=== PATIENT | female | born 1950 | race Caucasian/White ===

== ENCOUNTER 2017-09-22 18:51 | Emergency (ER) | payer OTHER, SELFPAY ==
[2017-09-22 18:51] VITALS: BP 162/103; PULSE 88; RESP 14; TEMP 36.7; O2SAT 97; BMI 30.7
--- NOTE | 2017-09-22 19:08 | ED.RN ---
PT REPORTS HEADACHE AND CONGESTIONS STATING, I THINK I HAVE A SINU S INFECTIONS.
[2017-09-22 19:26] LABS: Bedside Glucose 352 mg/dL (70-110)
--- NOTE | 2017-09-22 19:44 | RAD_ITS ---
STUDY: X-RAY CHEST REASON FOR EXAM: Female, 66 years old. COUGH, WEAKNESS, Hx OF COPD TECHNIQUE: Frontal and lateral views of the chest. COMPARISON: November 30, 2016 FINDINGS: Chronic appearing increased interstitial lung markings. There is an elevated right hemidiaphragm. There is no demonstrated pleural abnormality. Enlarged heart size. Normal mediastinum and shana. Normal visualized pulmonary arteries. There is atherosclerotic calcification of the aortic arch with tortuosity. There are diffuse degenerative changes of the visualized thoracic spine. There is degenerative osteoarthritis of the bilateral shoulders. There is no demonstrated abnormality of the visualized soft tissue structures of the upper abdomen. RAD/Chest PA and Lateral IMPRESSION: There are no acute findings. Electronically Signed: Kenny Segura MD at 20:42 EDT , Service support ,
--- NOTE | 2017-09-22 19:44 | EKG12_ITS ---
Test Reason : WEAKNESS Blood Pressure : / mmHG Vent. Rate : 073 BPM Atrial Rate : 073 BPM P-R Int : 168 ms QRS Dur : 104 ms QT Int : 394 ms P-R-T Axes : 035 -41 038 degrees QTc Int : 434 ms Normal sinus rhythm Left axis deviation Incomplete left bundle branch block Abnormal ECG Confirmed by PAULETTE OROZCO, GABRIELA ([id number]), editor news PENNY MENARD ([id number]) on 09/24/2017 3:00:45 PM Referred By: NORIS Confirmed By:GABRIELA CALDWELL MD
[2017-09-22 20:09] LABS: Absolute Lymphocyte Count 2.67 X10^3/ul (0.83-4.51); Absolute Neutrophil Count 7.3 X10^3/uL (2.0-7.7); Basophil# 0.03 X10^3/uL; Basophil% 0.3 % (0-1); Eosinophil# 0.32 X10^3/uL; Hematocrit 39.4 % (37-47); Hemoglobin 13.1 g/dl (12.0-15.0); Lymphocyte # 2.67 X10^3/ul (4.0); Lymphocyte % 24.9 % (19-41); Mean Corp Hgb Conc 33.2 g/gl (32-36); Mean Corpuscular Hgb 28.4 pg (27.0-32.0); Mean Corpuscular Volume 85.5 fL (81-99); Mean Platelet Vol. 10.3 fl (6.2-12.0); Monocyte# 0.37 X10^3/uL; Monocyte% 3.4 % (0-10); Neutrophil # 7.32 X10^3/uL (2.7-7.7); Neutrophil % 68.2 % (47-70); Platelet Count 247 K/mm3 (150-450); RBC Distribution Width CV 14.2 % (11.6-14.6); RBC Distribution Width SD 43.5 fl (35.1-43.9); Red Blood Count 4.61 M/mm3 (4.2-5.4); White Blood Count 10.7 K/mm3 (4.4-11.0)
[2017-09-22 20:12] LABS: POSITIVE COUNT NO; POSITIVE DIFFERENTIAL NO; POSITIVE MORPHOLOGY NO
[2017-09-22] MEDS: Ondansetron 4 MG/2 ML Vial IV (20:13)
[2017-09-22 20:39] LABS: Albumin, Serum 3.2 g/dL (3.2-5.0); BUN 16 mg/dL (7-18); BUN/Creat Ratio 16.2 RATIO (10-20); Creatinine, Serum 0.98 mg/dL (0.55-1.02); EST Glomerular Filtration Rate 60 mL/min (>60); Est Glom Filt Rate - Afr Amer 72 mL/min (>60); Estimated Creatinine Clearance 50.13 ml/min; Globulin 3.8 g/dL (2.2-4.2); Glucose 348 mg/dL (74-106)
[2017-09-22 20:40] LABS: ALB/GLOB Ratio 0.8 RATIO (0.9-2.4); AST(SGOT) 24 U/L (15-37); Alanine Aminotransfer ALT/SGPT 22 U/L (13-56); Alkaline Phosphatase 107 U/L (45-117); Anion Gap 7 (5-15); Chloride 106 mmol/L (98-107); Potassium 3.9 mmol/L (3.5-5.1); Sodium Level 139 mmol/L (136-145)
[2017-09-22 21:00] LABS: Color, Urine Yellow (Yellow); Glucose, Dipstick 1000 mg/dl (Normal); Ketone-Dipstick Negative (Negative); Leukocyte Esterase-Dipstick 500 /ul (Negative); Nitrite-Dipstick Negative (Negative); Occult Blood-Urine Negative /ul (Negative); Protein-Dipstick 30 mg/dl (Negative); Specific Gravity, Urine 1.015 (1.002-1.030); Urine Bilirubin Dipstick Negative (Negative); Urine Clarity Clear (Clear); Urine Urobilinogen Normal (Normal); Urine pH 6.5 (5.0 - 8.0)
[2017-09-22 21:01] LABS: Bacteria 0 SEEN /hpf (None Seen); Mucous, Urine 0 SEEN /hpf (<or=2+); Red Blood Cells-Urine 0 SEEN /hpf (0-5)
[2017-09-22 21:22] LABS: White Blood Cells 50-100 SEEN /hpf (0-5)
[2017-09-22 21:23] LABS: Squamous Epithelial Cells - UA 0-5 SEEN /hpf (5-10)
--- NOTE | 2017-09-22 21:56 | ED.VISSUMM ---
- ER Visit Summary Date of Service: 09/22/17 Chief Complaint: I do not feel good History of Present Illness: The patient is a 66 F who presents with generalized malaise. She states that she just has not felt well over the past week. She complains of some generalized weakness. She has noted some congestion and postnasal drainage and has had sick contacts with similar symptoms. She reports nausea. No chest pain shortness of breath abdominal pain vomiting diarrhea dysuria frequency urgency. Physical Examination: Afebrile vitals are notable for elevated blood pressure at 162/103 otherwise normal Moist mucous membranes Heart regular rate and rhythm Lungs are clear Abdomen soft nontender nondistended Alert no focal or lateralizing neurological deficits Test Results: EKG shows sinus rhythm at a rate of 73. Chest x-ray unremarkable. CBC BMP notable for glucose of 348. Urinalysis shows 500 leukocyte esterase as well as 50-100 WBCs Emergency Department Course and Treatment: Patient was given Zofran for nausea. Her workup is notable for UTI. She was prescribed Cipro given penicillin and sulfa allergies. She was advised to follow-up with her primary care physician. She understands to return for new or worsening symptoms. She was discharged. Treatment Plan: [] Disposition: Discharge Impression: UTI This note was generated with [employer] dictation software. It may contain incorrect words, spelling, and punctuation that were not noted in review of the chart prior to signing ED Disposition - Plan for ED Patient: Chief Complaint: Weakness Referrals: Care Physician,No Primary [Primary Care Provider] -
--- NOTE | 2017-09-22 21:58 | ED.DEP ---
ED Disposition - Plan for ED Patient: Chief Complaint: Weakness Instructions: ED UTI Cystitis Female Prescriptions: Ciprofloxacin [Cipro] 500 mg PO BID #14 tab Referrals: Care Physician,No Primary [Primary Care Provider] -
[2017-09-22 22:19] VITALS: BP 152/83; PULSE 87; RESP 19; O2SAT 96
--- NOTE | 2017-09-22 22:19 | ED.RN ---
PT EDUCATED ON WRITTEN DISCHARGE INSTRUCTIONS AND HOME GOING PRESCRIPTIONS. PT VERBALIZES UNDERSTANDING AND DENIES ANY FURTHER QUESTIONS. PT IV D/C AND COVERED WITH 2X2 GAUZE DRESSING AND PAPER TAPE. PT GIVEN A NOTE FOR WORK TODAY, AND PAPER SCRUBS. PT DRESSES SELF AND AMBULATES OUT OF DEPARTMENT WITHOUT ASSISTANCE FROM STAFF. PT TO FOLLOW UP WITH PRIMARY
== END 2017-09-22 22:21 | disposition home or self-care (01) ==
LOC: ED 19:38
PROVIDERS: Emergency Provider Emergency Medicine
DX: N39.0 Urinary tract infection, site not specified (principal); R11.0 Nausea; E11.9 Type 2 diabetes mellitus without complications; I10 Essential (primary) hypertension; Z88.2 Allergy status to sulfonamides; Z88.0 Allergy status to penicillin; Z79.4 Long term (current) use of insulin; Z79.899 Other long term (current) drug therapy
CPT/HCPCS: 71046; 80053; 81001; 82962; 85025; 87086; 87088; 93005; 96374; 99283; A4216; J2405

== ENCOUNTER 2017-10-07 02:01 | Emergency (ER) | payer OTHER, SELFPAY ==
[2017-10-07 02:02] VITALS: BP 196/74; PULSE 88; RESP 15; TEMP 37.1; O2SAT 97; BMI 32.4
--- NOTE | 2017-10-07 02:26 | CT_ITS ---
STUDY: CT ABDOMEN AND PELVIS WITHOUT CONTRAST REASON FOR EXAM: Female, 66 years old. Abdominal pain and nausea RADIATION DOSAGE (If Supplied By Facility): CTDIvol = ( 16.57 ) mGy, DLP = ( 979.44 ) mGycm TECHNIQUE: Transaxial images were obtained from the dome of the diaphragm to the symphysis pubis without oral contrast, and without intravenous contrast. Sagittal and coronal images were reconstructed. Individualized dose optimization techniques were used for this CT. COMPARISON: None. FINDINGS: The visualized lung bases are unremarkable. The visualized portions of the heart are within normal limits. Normal liver. There is non-visualization of the gallbladder, which may be secondary to either contraction or a prior cholecystectomy. Normal spleen. Normal pancreas. Normal bilateral adrenal glands. 3 mm nonobstructing right renal calculus. Normal left kidney. Normal visualized stomach. Normal small intestine. Acute sigmoid diverticulitis without free air or abscess. The appendix is visualized and appears normal. Normal abdominal aorta. Normal inferior vena cava. Normal retroperitoneum. Normal urinary bladder. Right anterior abdominal wall induration could be related to bruising or cellulitis. Normal abdominal wall. Lower lumbar fusions. CT/Abdomen/Pelvis without Cont IMPRESSION: Acute sigmoid diverticulitis without free air or abscess. Right anterior abdominal wall induration could be related to bruising or cellulitis. Electronically Signed: Ronald Eubanks MD at 3:32 EDT Tel , Service support ,
[2017-10-07] MEDS: HYDROmorphone 1 MG/ML Syringe IV (02:58)
[2017-10-07] MEDS: proMETHazine 25 MG/ML Syringe 6.25 MG IV (02:58)
[2017-10-07] MEDS: 0.9% Normal Saline 1,000 ML 1000 ML IV (02:58)
[2017-10-07 03:03] LABS: Absolute Lymphocyte Count 2.55 X10^3/ul (0.83-4.51); Absolute Neutrophil Count 13.6 X10^3/uL (2.0-7.7); Basophil# 0.04 X10^3/uL; Basophil% 0.2 % (0-1); Eosinophil# 0.46 X10^3/uL; Eosinophils% 2.6 % (0-5); Hematocrit 38.3 % (37-47); Hemoglobin 12.6 g/dl (12.0-15.0); Lymphocyte # 2.55 X10^3/ul (4.0); Lymphocyte % 14.5 % (19-41); Mean Corp Hgb Conc 32.9 g/gl (32-36); Mean Corpuscular Hgb 28.2 pg (27.0-32.0); Mean Corpuscular Volume 85.7 fL (81-99); Mean Platelet Vol. 10.3 fl (6.2-12.0); Monocyte# 0.91 X10^3/uL; Monocyte% 5.2 % (0-10); Neutrophil # 13.59 X10^3/uL (2.7-7.7); Neutrophil % 77.3 % (47-70); Platelet Count 269 K/mm3 (150-450); RBC Distribution Width CV 14.1 % (11.6-14.6); Red Blood Count 4.47 M/mm3 (4.2-5.4); White Blood Count 17.6 K/mm3 (4.4-11.0)
[2017-10-07 03:09] LABS: POSITIVE COUNT NO; POSITIVE DIFFERENTIAL NO; POSITIVE MORPHOLOGY NO
[2017-10-07 03:34] LABS: Bacteria 0 SEEN /hpf (None Seen); Mucous, Urine 0 SEEN /hpf (<or=2+); Red Blood Cells-Urine 0 SEEN /hpf (0-5)
[2017-10-07 03:41] LABS: Color, Urine Yellow (Yellow); Glucose, Dipstick 250 mg/dl (Normal); Ketone-Dipstick Negative (Negative); Leukocyte Esterase-Dipstick 100 /ul (Negative); Nitrite-Dipstick Negative (Negative); Occult Blood-Urine Negative /ul (Negative); Protein-Dipstick Negative (Negative); Specific Gravity, Urine 1.015 (1.002-1.030); Urine Bilirubin Dipstick Negative (Negative); Urine Clarity Clear (Clear); Urine Urobilinogen Normal (Normal)
[2017-10-07 03:48] LABS: Squamous Epithelial Cells - UA 0-5 SEEN /hpf (5-10); White Blood Cells 0-5 SEEN /hpf (0-5)
[2017-10-07 04:12] LABS: AST(SGOT) 16 U/L (15-37); Alanine Aminotransfer ALT/SGPT 18 U/L (13-56); Albumin, Serum 3.1 g/dL (3.2-5.0); Alkaline Phosphatase 116 U/L (45-117); Anion Gap 8 (5-15); BUN 13 mg/dL (7-18); BUN/Creat Ratio 12.9 RATIO (10-20); Bilirubin, Direct 0.07 mg/dL (0.00-0.30); Calcium,Total 8.6 mg/dL (8.5-10.1); Chloride 105 mmol/L (98-107); Creatinine, Serum 1.01 mg/dL (0.55-1.02); EST Glomerular Filtration Rate 58 mL/min (>60); Est Glom Filt Rate - Afr Amer 70 mL/min (>60); Estimated Creatinine Clearance 48.64 ml/min; Globulin 3.9 g/dL (2.2-4.2); Glucose 261 mg/dL (74-106); Lipase 188 U/L (73-393); Potassium 4.4 mmol/L (3.5-5.1); Sodium Level 138 mmol/L (136-145)
--- NOTE | 2017-10-07 04:15 | ED.DCSUM_ITS ---
- ER Visit Summary Date of Service: 10/07/17 Chief Complaint: Abdominal pain History of Present Illness: The patient is a [address] Mitchell. She reports that she has lower abdominal pain began 2 weeks ago. Pain worsened today. She was placed on Cipro 2 weeks ago which she took for 1 week and did not have relief. She reports that this is similar to when she has had diverticulitis. Patient describes the pain as cramping. Is 10 out of 10 severity. Is worsened by nothing relieved by nothing. She has had nausea without vomiting. No diarrhea. Her last bowel was yesterday. She has had no melena or hematochezia. No dysuria or frequency. No fever or chills. Physical Examination: Vitals: Stable. Afebrile. General: Well-nourished and well-developed. Head: Normocephalic atraumatic. Neck: Supple, no lymphadenopathy. No JVD. Nontender. Cardiovascular: Regular rate and rhythm. No murmurs. Respiratory: No respiratory distress. Clear to auscultation bilaterally. Abdominal: Soft, mild suprapubic and left lower quadrant tenderness to palpation , nondistended, normal bowel sounds. No guarding, rebound, or peritoneal signs. Back: Nontender. Extremities: Nontender, no edema. Skin: Normal color, no rash. Neurologic: Alert and oriented ?3. Cranial nerves II through XII are intact. Normal strength and sensation. Psych: Normal affect. Test Results: CT flank shows a normal appendix. Acute sigmoid diverticulitis without free air or abscess. CBC is marked for a white count of 17.6, segmented neutrophils of 77, lymphocytes of 15. Chem-7 is more for glucose of 261. LFTs marked for an albumin of 3.1. Lipase is normal. Urinalysis negative. Emergency Department Course and Treatment: Patient is treated with Dilaudid IV. She is given Cipro and Flagyl p.o. She feels well and would like to go home. Treatment Plan: Patient will be discharged on Cipro, Flagyl, Zofran, and Hastings. Instructed to follow-up her primary care physician 1 week for another exam. Return to the emergency department for any worsening symptoms. Disposition: To home in improved and stable condition. Impression: 1. Sigmoid diverticulitis. This note was generated with Dragon dictation software. It may contain incorrect words, spelling, and punctuation that were not noted in review of the chart prior to signing ED Disposition - Plan for ED Patient: Disposition: Home or Assisted Living Chief Complaint: Abd Pain Instructions: ED Diverticulitis Prescriptions: Ondansetron [Zofran Odt] 4 mg PO Q8H PRN PRN #10 tab PRN Reason: Nausea Hydrocodone/Acetaminophen [Hastings 5-325 Tablet] 1 - 2 each PO 4X/DAY PRN PRN 5 Days #20 tablet PRN Reason: Pain Ciprofloxacin [Cipro] 500 mg PO BID #20 tablet Metronidazole [Flagyl] 500 mg PO Q6H #40 tablet Referrals: [facility] Doctor,Out of [NON-STAFF] - 1 Week
[2017-10-07] MEDS: Ciprofloxacin 500 MG Tablet PO (04:26)
[2017-10-07] MEDS: metroNIDAZOLE 500 MG Tablet PO (04:35)
[2017-10-07 04:37] VITALS: BP 140/65; PULSE 85; RESP 15; O2SAT 94
[2017-10-07] MEDS: Ondansetron ODT 4 MG Tablet PO (04:37)
== END 2017-10-07 04:38 | disposition home or self-care (01) ==
PROVIDERS: Emergency Provider Emergency Medicine; Family Provider Student in an Organized Health Care Education/Training Program; PCP Student in an Organized Health Care Education/Training Program
DX: K57.32 Diverticulitis of large intestine without perforation or abscess without bleeding (principal); J44.9 Chronic obstructive pulmonary disease, unspecified; I10 Essential (primary) hypertension; E11.9 Type 2 diabetes mellitus without complications; R51 Headache; M54.9 Dorsalgia, unspecified; G89.29 Other chronic pain; Z79.4 Long term (current) use of insulin; Z79.899 Other long term (current) drug therapy; Z87.19 Personal history of other diseases of the digestive system
CPT/HCPCS: 74176; 80048; 80076; 81001; 83690; 85025; 87086; 87088; 96361; 96374; 96375; 99285; J7030; A4216

== ENCOUNTER 2018-01-12 00:36 | Emergency (ER) | payer MEDICARE, SELFPAY ==
[2018-01-12 00:36] VITALS: BP 174/90; PULSE 106; RESP 22; TEMP 36.3; O2SAT 96; BMI 30.4
--- NOTE | 2018-01-12 01:00 | RAD_ITS ---
STUDY: X-RAY - LUMBAR SPINE REASON FOR EXAM: Female, 67 years old. Back pain TECHNIQUE: 3 view(s) of the lumbar spine were obtained. COMPARISON: November 29, 2016 FINDINGS: There is hardware transfixing L4 and L5. The hardware is intact. Lumbar vertebrae are intact. There are NO fractures or malalignments. There is loss of disc height at L4-5 and L5-S1. There is bilateral facet hypertrophy at L4-5 and L5-S1 causing bilateral foraminal narrowing. The sacrum and sacroiliac joints are intact. Iliac wings are intact. Soft tissues are unremarkable. RAD/Lumbar Spine 2 or 3 Views IMPRESSION: There are degenerative and post surgical changes of the lower lumbar spine. There are NO acute bony or soft tissue abnormalities. Electronically Signed: Riki Coffey MD at 2:30 EDT , Service support ,
--- NOTE | 2018-01-12 01:02 | ED.VISSUMM ---
- ER Visit Summary Date of Service: 01/12/18 Chief Complaint: [Right leg pain] History of Present Illness: The patient is a 67 F [who presents the emergency department with right leg pain. She states she has a history of right lower extremity radiculopathy ever since back surgery she had in 2010. She spent some time recently in a psychiatric facility and she says that they messed up her medications and for the past 30 days it is been much worse. She is staying at a homeless residential and has not been able to sleep because of the pain. No fevers or chills. She does get intermittent heavy numb feeling in her leg. No weakness. No change in ambulation. No bowel or bladder dysfunction no saddle anesthesia. She does have a history of spinal stenosis and has had a lumbar fusion in the past] Physical Examination: [] Blood pressure 174/90 heart rate 106 respiratory rate 22 pulse ox 96% afebrile WN WD NAD PERRL EOMI MMM NECK supple and nontender, no masses RRR no murmur rub or gallop, no peripheral edema, symmetric radial pulses CTAB no respiratory distress ABDOMEN is soft and nontender, normal bowel sounds, no distension, no rebound or guarding SKIN is warm and dry no rashes strong dorsalis pedis pulses bilaterally Alert and Oriented x3, CN II-XII in tact, 4 out of 5 EHL dorsiflexion plantar flexion knee extension and hip flexion symmetric bilaterally patient is reluctant to cooperate with exam because of pain. She has a positive straight leg raise on the right. She has decreased sensation to the left foot to light touch, gait normal Tearful, anxious, aggravated No lymphadenopathy Test Results: [] Emergency Department Course and Treatment: [Patient was given subcu Dilaudid in the emergency department and x-rays were obtained. Patient's pain relieved. X-ray show no acute process. This is a chronic pain. I will refer her to Dr. Ambrose who she seen in the past. She will continue with Advil ice and rest. She states her diabetes is poorly controlled so I do not believe Medrol is a good option for her. She was given precautions for which to return and invited to come back to the emergency department for any concerns.] Treatment Plan: [] Disposition: [discharge] Impression: [Lumbar radiculopathy] This note was generated with Dragon dictation software. It may contain incorrect words, spelling, and punctuation that were not noted in review of the chart prior to signing ED Disposition - Plan for ED Patient: Chief Complaint: Back Referrals: Caitie Teixeira MD [Primary Care Provider] -
--- NOTE | 2018-01-12 01:05 | ED.DCSUM_ITS ---
- ER Visit Summary Date of Service: 01/12/18 Chief Complaint: [Right leg pain] History of Present Illness: The patient is a 67 F [who presents the emergency department with right leg pain. She states she has a history of right lower extremity radiculopathy ever since back surgery she had in 2010. She spent some time recently in a psychiatric facility and she says that they messed up her medications and for the past 30 days it is been much worse. She is staying at a homeless [place] [facility] and has not been able to sleep because of the pain. No fevers or chills. She does get intermittent heavy numb feeling in her leg. No weakness. No change in ambulation. No bowel or bladder dysfunction no saddle anesthesia. She does have a history of spinal stenosis and has had a lumbar fusion in the past] Physical Examination: [] Blood pressure 174/90 heart rate 106 respiratory rate 22 pulse ox 96% afebrile WN WD NAD PERRL EOMI MMM NECK supple and nontender, no masses RRR no murmur rub or gallop, no peripheral edema, symmetric radial pulses CTAB no respiratory distress ABDOMEN is soft and nontender, normal bowel sounds, no distension, no rebound or guarding SKIN is warm and dry no rashes strong dorsalis pedis pulses bilaterally Alert and Oriented x3, CN II-XII in tact, 4 out of 5 EHL dorsiflexion plantar flexion knee extension and hip flexion symmetric bilaterally patient is reluctant to cooperate with exam because of pain. She has a positive straight leg raise on the right. She has decreased sensation to the left foot to light touch, gait normal Tearful, anxious, aggravated No lymphadenopathy Test Results: [] Emergency Department Course and Treatment: [Patient was given subcu Dilaudid in the emergency department and x-rays were obtained. Patient's pain relieved. X- ray show no acute process. This is a chronic pain. I will refer her to Dr. Ambrose who she seen in the past. She will continue with Advil ice and rest. She states her diabetes is poorly controlled so I do not believe Medrol is a good option for her. She was given precautions for which to return and invited to come back to the emergency department for any concerns.] Treatment Plan: [] Disposition: [discharge] Impression: [Lumbar radiculopathy] This note was generated with Dragon dictation software. It may contain incorrect words, spelling, and punctuation that were not noted in review of the chart prior to signing ED Disposition - Plan for ED Patient: Chief Complaint: Back Referrals: Caitie Teixeira MD [Primary Care Provider] -
[2018-01-12] MEDS: HYDROmorphone 1 MG/ML Syringe SC (01:27)
--- NOTE | 2018-01-12 02:40 | ED.DEP ---
ED Disposition - Plan for ED Patient: Chief Complaint: Back Instructions: ED Sciatica Referrals: Caitie Teixeira MD [Primary Care Provider] - 3-5 Days
[2018-01-12 02:41] VITALS: BP 140/69; PULSE 79; RESP 16; O2SAT 95
== END 2018-01-12 02:46 | disposition home or self-care (01) ==
LOC: ED 01:27
PROVIDERS: Emergency Provider Emergency Medicine; Family Provider Student in an Organized Health Care Education/Training Program; PCP Student in an Organized Health Care Education/Training Program
DX: M54.16 Radiculopathy, lumbar region (principal); G89.29 Other chronic pain; J44.9 Chronic obstructive pulmonary disease, unspecified; E11.9 Type 2 diabetes mellitus without complications; E66.9 Obesity, unspecified; Z79.4 Long term (current) use of insulin; Z79.899 Other long term (current) drug therapy
CPT/HCPCS: 72100; 96372; 99282

== ENCOUNTER → 2018-01-18 09:43 | Outpatient (CLI) | payer MEDICARE, SELFPAY ==
--- NOTE | 2018-01-18 10:06 | US_ITS ---
STUDY: THYROID ULTRASOUND REASON FOR EXAM: Female, 67 years old. Nodules TECHNIQUE: Ultrasound evaluation of the thyroid was performed with real-time and static flores-scale imaging. COMPARISON: None. FINDINGS: RIGHT LOBE: The right gland measures 45 x 21 x 20 mm. Background echotexture is homogeneous. 2 nodules are present, the largest measuring 16 x 13 x 10 mm, heterogeneous solid with circumscribed margins and intranodular vascular flow. The next largest is 12 x 13 x 8 mm also complex heterogeneous echotexture solid circumscribed margins with intranodular flow. These nodules lie adjacent to one another, mid polar. LEFT LOBE: The left gland measures 37 x 17 x 14 mm with homogeneous normal echotexture, normal vascular flow, no nodules. ISTHMUS: The isthmus measures 3 mm, normal echotexture . US/Thyroid IMPRESSION: There are no thyroid nodules of the isthmus or of the left gland. There are 2 heterogeneous hypoechoic solid nodules of the right gland, with tiny cystic spaces, spongiform features, sharply circumscribed margins. Based on the [place] [employer] guidelines for classification of thyroid nodules, these can be characterized as spongiform nodules versus hypoechoic cystic and solid, falling in the low suspicion pattern. Based on size criteria, with the largest nodule greatest dimension 16 mm, ultrasound-guided FNA biopsy is recommended. Each dominant nodule should be biopsied at that time. Electronically Signed: Bernard Unger, at 15:26 EDT Tel , Service support ,
[2018-01-18 11:17] LABS: T4 Free Direct 0.71 ng/dL (0.76-1.46); Thyroid Stim Hormone (TSH) 0.61 uIU/mL (0.358-3.74)
[2018-01-18 12:45] LABS: Hemoglobin A1c 10.5 % (4.2-6.3)
== END ==
PROVIDERS: Family Provider Student in an Organized Health Care Education/Training Program; PCP Student in an Organized Health Care Education/Training Program; Visit Provider Student in an Organized Health Care Education/Training Program
DX: E11.65 Type 2 diabetes mellitus with hyperglycemia (principal); E04.1 Nontoxic single thyroid nodule
CPT/HCPCS: 36415; 76536; 83036; 84439; 84443

== ENCOUNTER 2018-03-20 21:19 | Emergency (ER) | payer BC, SELFPAY ==
[2018-03-20 21:20] VITALS: BP 117/67; PULSE 103; RESP 20; TEMP 36.4; O2SAT 97; BMI 31.6
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
[2018-03-20 22:00] VITALS: PULSE 105; RESP 20; O2SAT 96
[2018-03-20 22:00] LABS: Bedside Glucose 373 mg/dL (70-110)
[2018-03-20] MEDS: Ipratropium/Albuterol Sulfate 3 ML AMPUL.NEB INHALATION (22:00)
--- NOTE | 2018-03-20 22:13 | RAD_ITS ---
STUDY: X-RAY CHEST REASON FOR EXAM: Female, 67 years old. Cough. COPD. TECHNIQUE: Frontal and lateral views of the chest. COMPARISON: 09/22/2017. FINDINGS: The lungs are clear and expanded. Elevated right hemidiaphragm, stable. There is no demonstrated pleural abnormality. Normal size heart. Normal mediastinum and shana. Normal visualized pulmonary arteries. Normal visualized aortic arch and descending thoracic aorta. There are diffuse degenerative changes of the visualized thoracic spine. Normal visualized ribs, clavicles, and shoulders. There is no demonstrated abnormality of the visualized soft tissue structures of the upper abdomen. RAD/Chest PA and Lateral IMPRESSION: No change or acute chest disease. Electronically Signed: Jeffrey Lainez MD at 22:31 EDT , Service support ,
[2018-03-20 22:48] VITALS: BP 117/74; PULSE 87
== END 2018-03-20 22:49 | disposition home or self-care (01) ==
LOC: ED 22:05
PROVIDERS: Emergency Provider Emergency Medicine; Family Provider Student in an Organized Health Care Education/Training Program; PCP Student in an Organized Health Care Education/Training Program
DX: J98.01 Acute bronchospasm (principal); E11.65 Type 2 diabetes mellitus with hyperglycemia; J44.9 Chronic obstructive pulmonary disease, unspecified; Z72.0 Tobacco use; Z79.4 Long term (current) use of insulin; Z79.899 Other long term (current) drug therapy
CPT/HCPCS: 71046; 82962; 94640; 99282

== ENCOUNTER 2018-03-31 02:54 | Emergency (ER) | payer BC, SELFPAY ==
[2018-03-31 02:56] VITALS: BP 161/69; PULSE 82; RESP 18; TEMP 36.7; O2SAT 97; BMI 31.4
--- NOTE | 2018-03-31 03:25 | ED.DCSUM_ITS ---
- ER Visit Summary Date of Service: 03/31/18 Chief Complaint: Back pain History of Present Illness: The patient is a 67 F presenting with back pain and pain in both her feet. She states this has been ongoing for several months. She states she has been living in her car since December. She states she has had pain in her back since her back surgery in 2010. She states living in her car has worsened this pain. Pain is in the bilateral low back and radiates to her right leg. She denies bowel or bladder incontinence. Denies numbness or tingling. Denies fever. She is able to ambulate with pain. She also has a history of diabetes. She feels that her blood sugar may be out of control. Denies other complaints. Physical Examination: Vitals are stable. Patient is afebrile. Alert no acute distress. HEENT exam is unremarkable. Neck is supple. Lungs are clear and equal bilaterally. Heart is regular rate and rhythm. Abdomen is soft nontender nondistended. Back: Bilateral lumbar paraspinal muscle tenderness, no midline tenderness. Straight leg raise positive at 30 degrees on the right Extremities are unremarkable. Skin is warm and dry. No focal neurologic deficit. Normal strength and sensation Remainder of exam is unremarkable. Emergency Department Course and Treatment: Patient declined pain medications. She would like her blood sugar tested. BMP shows glucose 299, anion gap is normal. Patient is resting comfortably on reevaluation. She continues to decline any medications. She is advised to follow up with her primary care physician. Advised return to ED if worsening complaints. Disposition: Discharge home Impression: Acute on chronic back pain; hyperglycemia This note was generated with [employer] dictation software. It may contain incorrect words, spelling, and punctuation that were not noted in review of the chart prior to signing ED Disposition - Plan for ED Patient: Chief Complaint: Back Instructions: ED Neck Back Pain General Referrals: Caitie Teixeira MD [Primary Care Provider] -
[2018-03-31 03:51] LABS: Bedside Glucose 291 mg/dL (70-110)
[2018-03-31 03:55] LABS: Anion Gap 9 (5-15); BUN 15 mg/dL (7-18); BUN/Creat Ratio 16.4 RATIO (10-20); Calcium,Total 8.7 mg/dL (8.5-10.1); Chloride 105 mmol/L (98-107); Creatinine, Serum 0.91 mg/dL (0.55-1.02); EST Glomerular Filtration Rate 65 mL/min (>60); Est Glom Filt Rate - Afr Amer 79 mL/min (>60); Estimated Creatinine Clearance 53.24 ml/min; Glucose 299 mg/dL (74-106); Potassium 3.8 mmol/L (3.5-5.1); Sodium Level 141 mmol/L (136-145)
--- NOTE | 2018-03-31 04:39 | ED.DEP ---
ED Disposition - Plan for ED Patient: Chief Complaint: Back Instructions: ED Neck Back Pain General Referrals: Caitie Teixeira MD [Primary Care Provider] -
[2018-03-31 05:06] VITALS: BP 130/76; PULSE 80; RESP 16; O2SAT 99
== END 2018-03-31 05:07 | disposition home or self-care (01) ==
LOC: ED 03:40
PROVIDERS: Emergency Provider Emergency Medicine; Family Provider Student in an Organized Health Care Education/Training Program; PCP Student in an Organized Health Care Education/Training Program
DX: M54.9 Dorsalgia, unspecified (principal); G89.29 Other chronic pain; M79.604 Pain in right leg; E11.65 Type 2 diabetes mellitus with hyperglycemia; Z79.4 Long term (current) use of insulin; Z79.899 Other long term (current) drug therapy
CPT/HCPCS: 80048; 82962; 99283; A4216

== ENCOUNTER 2018-04-04 23:41 | Emergency (ER) | payer BC, SELFPAY ==
[2018-04-04 23:42] VITALS: BP 172/92; PULSE 95; RESP 18; TEMP 36.6; O2SAT 99; BMI 31.6
--- NOTE | 2018-04-04 23:53 | ED.VISSUMM ---
- ER Visit Summary Date of Service: 04/04/18 Chief Complaint: Neck, arm, back pain History of Present Illness: The patient is a 67 F presents to the emergency department with an exacerbation of her chronic pain. Patient has history of cervical spine laminectomy and fusion and lumbar spine laminectomy and fusion. She states that she was in pain management, but states that they would just give her steroid injections and it would make her blood sugar too high. She has not been in pain management for some time. She does work with her hands. She states that because of this, he had some increasing burning pain in the posterior right neck down her right arm. She denies any numbness. She denies any weakness. She states this is her normal chronic pain. She had no chest pain or shortness of breath. She has not taken anything for it. Physical Examination: Vital signs reviewed General: Well-nourished, well-developed Head: Normocephalic, atraumatic Eyes: Pupils equal and reactive, extraocular muscles intact Neck, supple, no lymphadenopathy Heart: Regular rate and rhythm Respiratory: No distress, clear bilaterally Abdomen: Soft, nontender, nondistended, no peritoneal signs Back: Nontender Extremities: Nontender, no edema, no cords Skin: Normal color no rash Neuro: Alert and oriented, no focal or lateralizing deficits Test Results: [] Emergency Department Course and Treatment: The patient has normal reflexes of bilateral upper and lower extremities. She has normal pulses of upper and lower extremities. She has no midline bony tenderness with palpation along the back. She had no chest pain or dyspnea. My suspicion of this is all just an exacerbation of her chronic pain. Patient was given 2 [place] in the emergency department. I did dependency counselor her I cannot prescribe her any medications to control her pain. She is comfortable with this and will be discharged home. Treatment Plan: [] Disposition: Discharge Impression: Exacerbation of chronic neck pain This note was generated with [employer] dictation software. It may contain incorrect words, spelling, and punctuation that were not noted in review of the chart prior to signing ED Disposition - Plan for ED Patient: Chief Complaint: Back Instructions: ED Neck Back Pain General Referrals: Caitie Teixeira MD [Primary Care Provider] -
[2018-04-05 00:04] VITALS: BP 161/74; PULSE 86; RESP 16; O2SAT 98
[2018-04-05 00:10] VITALS: BP 161/74; PULSE 87; RESP 16; O2SAT 98
[2018-04-05] MEDS: HYDROcodone Bitartrate/Apap 5/325 Tablet PO (00:11)
== END 2018-04-05 00:15 | disposition home or self-care (01) ==
LOC: ED 04-05 00:13
PROVIDERS: Emergency Provider Emergency Medicine; Family Provider Student in an Organized Health Care Education/Training Program; PCP Student in an Organized Health Care Education/Training Program
DX: M54.12 Radiculopathy, cervical region (principal); G89.29 Other chronic pain; J44.9 Chronic obstructive pulmonary disease, unspecified; E11.9 Type 2 diabetes mellitus without complications; Z79.4 Long term (current) use of insulin; Z79.899 Other long term (current) drug therapy
CPT/HCPCS: 99282

== ENCOUNTER 2018-04-29 16:58 | Emergency (ER) | payer BC, SELFPAY ==
[2018-04-29 16:59] VITALS: BP 163/75; PULSE 79; RESP 18; TEMP 36.8; O2SAT 98; BMI 30.8
--- NOTE | 2018-04-29 17:33 | RAD_ITS ---
STUDY: X-RAY CHEST REASON FOR EXAM: Female, 67 years old. Cough and shortness of breath. TECHNIQUE: Frontal and lateral views of the chest. COMPARISON: 03/20/2018. FINDINGS: The lungs are clear and expanded. Elevated right hemidiaphragm. There is no demonstrated pleural abnormality. Normal size heart. Normal mediastinum and shana. Normal visualized pulmonary arteries. Normal visualized aortic arch and descending thoracic aorta. Normal visualized thoracic spine. Normal visualized ribs, clavicles, and shoulders. There is no demonstrated abnormality of the visualized soft tissue structures of the upper abdomen. RAD/Chest PA and Lateral IMPRESSION: No acute chest disease. Electronically Signed: Jeffrey Lainez MD at 18:15 EST , Service support ,
[2018-04-29 17:40] VITALS: PULSE 67; RESP 18
[2018-04-29] MEDS: Ipratropium/Albuterol Sulfate 3 ML AMPUL.NEB INHALATION (17:43)
[2018-04-29 17:51] VITALS: O2SAT 96
--- NOTE | 2018-04-29 20:40 | ED.VISSUMM ---
- ER Visit Summary Date of Service: 04/29/18 Chief Complaint: Cough, shortness of breath History of Present Illness: The patient is a 67 F with a one-week history of cough and shortness of breath. She complains of chest congestion, head congestion, and nonproductive cough. She states she has had some chills but did not measure a fever. She has been using her albuterol twice a day and states that she uses any more than that she gets significant heart palpitations. Patient does have history of COPD. Physical Examination: Vital signs include a blood pressure of 163/75, otherwise unremarkable. Patient sitting upright in bed no acute distress. Heart is regular rate and rhythm. Lungs sounds are slightly diminished throughout. Abdomen is soft nontender. Test Results: Two-view chest x-ray shows no acute disease. Emergency Department Course and Treatment: Patient was given a DuoNeb treatment. On repeat evaluation she does have improved air movement and subjectively feels better. Patient states she cannot take her albuterol any more than twice a day. In light of this she will be given prednisone to try to minimize bronchospasm. She does understand that this will increase her blood sugars for the next several days. She will also be treated with a Z-Parth, first dose given here. Treatment Plan: [] Disposition: Discharge Impression: COPD exacerbation This note was generated with [email or web address] dictation software. It may contain incorrect words, spelling, and punctuation that were not noted in review of the chart prior to signing ED Disposition - Plan for ED Patient: Disposition: Home or Assisted Living Chief Complaint: Cough Instructions: ED COPD Flare Prescriptions: Azithromycin [Zithromax] 250 mg PO DAILY #4 tablet Prednisone [Deltasone] 40 mg PO DAILY #10 tablet Referrals: Caitie Teixeira MD [Primary Care Provider] - 1 Week
[2018-04-29] MEDS: Azithromycin 250 MG Tablet 500 MG PO (20:50)
[2018-04-29] MEDS: predniSONE 20 MG Tablet 40 MG PO (20:51)
[2018-04-29 20:53] VITALS: PULSE 78; O2SAT 100
== END 2018-04-29 20:54 | disposition home or self-care (01) ==
PROVIDERS: Emergency Provider Emergency Medicine; Family Provider Student in an Organized Health Care Education/Training Program; PCP Student in an Organized Health Care Education/Training Program
DX: J44.1 Chronic obstructive pulmonary disease with (acute) exacerbation (principal); E11.9 Type 2 diabetes mellitus without complications; I10 Essential (primary) hypertension; K21.9 Gastro-esophageal reflux disease without esophagitis; Z79.4 Long term (current) use of insulin; Z79.899 Other long term (current) drug therapy
CPT/HCPCS: 71046; 94640; 99283

== ENCOUNTER 2018-05-11 02:40 | Emergency (ER) | payer BC, SELFPAY ==
[2018-05-11 02:41] VITALS: BP 150/70; PULSE 86; RESP 24; TEMP 36.8; O2SAT 95; BMI 30.4
--- NOTE | 2018-05-11 03:25 | ED.VIS.GEN ---
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 She has done massage therapy before but it is not covered by insurance so she cannot do it regularly. She has used heating pads and topical treatments which help partially and temporarily. 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 She has chronic sciatica that is unchanged. She does not have chronic low back pain since her surgery, which has worked very well for her. She has had pain management in the past with steroid injections, however it has made her blood sugars out of control with regards to her diabetes, so she stopped that sometime ago. She has COPD that is stable currently. She recently was diagnosed with diverticulitis and is currently on antibiotics and states that that is helping tremendously and she is doing much better. - Past Medical History (1) COPD (chronic obstructive pulmonary disease) Status: Chronic (2) Sciatica Status: Chronic (3) Diverticulosis Status: Chronic Past Medical History - Allergies and Home Meds Allergies/Adverse Reactions: Allergies iodine Allergy (Verified 05/11/18 02:45) Swelling morphine Allergy (Verified 05/11/18 02:45) Shortness of breath Penicillins Allergy (Verified 05/11/18 02:45) Shortness of breath Sulfa (Sulfonamide Antibiotics) Allergy (Verified 05/11/18 02:45) Hives benztropine mesylate [From Cogentin] Adverse Reaction (Verified 05/11/18 02:45) Other URINARY RETENTION codeine Adverse Reaction (Verified 05/11/18 02:45) Other JITTERY haloperidol [From Haldol] Adverse Reaction (Verified 05/11/18 02:45) Other MUSCLE CONTRACTIONS haloperidol lactate [From Haldol] Adverse Reaction (Verified 05/11/18 02:45) Other MUSCLE CONTRACTIONS lithium [[place]] Adverse Reaction (Verified 05/11/18 02:45) Diarrhea pseudoephedrine HCl [From Sudafed] Adverse Reaction (Verified 05/11/18 02:45) Other JITTERY theophylline Adverse Reaction (Verified 05/11/18 02:45) Other TUNNEL EFFECT; TUNNEL VISION Primary Care Physician: Caitie Teixeira MD [Primary Care Provider] - Surgical History: - - back lumbar surgery Smoking Status: Never smoker Drugs: None Review of Systems General: Denies: Chills, Fever, Sweats Eyes: Denies: Visual changes - bilaterally, Diplopia ENT: Denies: Rhinorrhea, Sore throat Cardiovascular: Denies: Chest pain, Palpitations Respiratory: Reports: Cough, Dyspnea on exertion. Denies: Dyspnea Gastrointestinal: Denies: Abdominal pain, Nausea, Vomiting, Diarrhea, Melena, Hematochezia Genitourinary: Denies: Dysuria, Hematuria, Frequency Musculoskeletal: Reports: Neck pain, Back pain, Extremity Pain - w/r/t sciatica. Denies: Swelling Skin: Denies: Rash, Wounds Neurological: Denies: Headache, Weakness, Numbness Physical Exam Vital Signs/Narrative: Vital Signs Temp Pulse Resp BP Pulse Ox 05/11/18 02:41 98.2 F 86 24 H 150/70 H 95 Inital Vital Signs reviewed: Yes General: Well nourished, Well developed, - - nad. conversational. Head: Normocephalic, Atraumatic Eyes: Perrl, EOMI ENT: Moist mucous membranes, No rhinorrhea Neck: Supple - tender in right trapezius, top, lateral to c-spine; no masses., - - tender in right trapezius, top, lateral to c-spine Respiratory: No distress Back: - - tender in right paraspinal mid-thoracic back musculature. Negative for: CVA tenderness, Spinal tenderness Extremities: Nontender, No edema, - - FROM throughout all 4 ext's Skin: Normal color, No rash, No Trauma Neurological: Alert, Oriented x3, Cranial nerves II-XII grossly intact, Normal Strength, Normal Sensation, Normal Gait Psychological: Normal affect Diagnostic/Tx/Re-eval - Medical Decision Making Patient is amenable to measures of supportive care, as well as a dose of Toradol and Norflex here prior to discharge. She states Flexeril has actually worked in the past and I am happy to give her a prescription, she is requesting nothing else. She is following up with a new pain management doctor soon. ED Disposition - Plan for ED Patient: Disposition: Home or Assisted Living Chief Complaint: Back Diagnosis: Trapezius muscle spasm, Spasm of thoracic back muscle Instructions: ED Neck Back Pain General Prescriptions: Cyclobenzaprine [Flexeril] 10 mg PO TID PRN #20 tablet PRN Reason: Muscle Spasm Referrals: Caitie eTixeira MD [Primary Care Provider] - 1 Week if not improving
[2018-05-11] MEDS: Orphenadrine 60 MG/2 ML Ampul IM (03:36)
[2018-05-11] MEDS: Ketorolac 30 MG/ML Syringe IM (03:36)
[2018-05-11 04:02] VITALS: BP 155/71; PULSE 87; RESP 18; O2SAT 94
--- NOTE | 2018-05-11 04:05 | ED.RN ---
NO REACTION NOTED AFTER INJECTIONS. PATIENT DISCHARGED HOME. I HAD SECURITY BRING HER CAR UP TO THE ER DOOR SHE WAS HAVING MUSCLE SPASMS.
--- OUTSIDE RECORDS SUMMARY | 2018-07-04 22:23 | XMS RPT_ITS ---
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 0.10 LAB MANUAL DIFF(LOINC) MANUAL DIFF N/A LAB MORPHOLOGY(INC ) MORPHOLOGY N/A Result Comment: {CD] Performed By: #### [id number] #### [facility],[address] [place] [address] BMP WITH EGFR Collected: 05/14/2018 Status: F Source: [facility] 5:40 AM [facility] REPOSITORY TYPE CODE TESTS RESULT OUT OF RANGE REFERENCE UNITS LAB BMP with eGFR(LOINC) BMP with eGFR Result Comment: BASIC METABOLIC PANEL LAB SODIUM(LOINC) 136 - 145 mmol/l SODIUM 139 LAB POTASSIUM(LOINC) 3.5 - 5.1 mmol/L POTASSIUM 4.2 LAB CHLORIDE(LOINC) 98 - 107 mmol/L CHLORIDE 107 LAB CO2(LOINC) 21.0 - mmol/L 31.0 CO2 28.2 LAB GLUCOSE(LOINC) 74 - 106 mg/dl GLUCOSE 76 LAB BUN(LOINC) 6 - 20 mg/dl BUN 19 LAB CREATININE(LOINC) 0.6 - 1.2 mg/dl CREATININE 0.9 LAB CALCIUM(LOINC) 8.6 - mg/dl 10.2 CALCIUM Low 8.5 LAB ANION GAP(LOINC) 10 - 20 mmol/L ANION Low GAP 8 LAB AGE(LOINC) years AGE 67 LAB eGFR(LOINC) 60 - 999 ML/MINUTE eGFR >60 LAB eGFR(AA)(LOINC) 60 - 999 ML/MINUTE eGFR(AA) >60 Result Comment: ACCORDING TO THE NATIONAL KIDNEY DISEASE EDUCATION PROGRAM(NKDE), A NORMAL eGFR IS A VALUE GREATER THAN OR EQUAL TO 60 ML/MIN/1.73 SQ METERS. CHRONIC KIDNEY DISEASE: <60mL/MIN/1.73 SQ METERS KIDNEY FAILURE: <15mL/MIN/1.73 SQ METERS THIS TEST SHOULD ONLY BE USED FOR PATIENTS 18 YEARS OF AGE AND OLDER. Performed By: #### [id number] #### [facility],[address] [place] [address] CT ABDOMEN/PELVIS WO Observed: 05/13/2018 Status: F Source: [facility] 11:59 AM [place] [address] Patient: CHELSEA ANDREWS Phone#: : 1950 Age: 67 Gender: F Pt. Type: ER Account: [id number] Location: [facility] Ordering: RONALD MADRID Exam Date: 05/13/2018/11:49 Family Phys: CAITIE ZULETA Charge Code: [id number] Physician: Alexandria Order #: [id number] DLP Dose#: PROCEDURE: CT ABDOMEN/PELVIS WITHOUT CONTRAST COMPARISON: [facility], CT, ABDOMEN/PELVIS W/O CON, 04/30/2017, 1:35. INDICATIONS: Abdominal pain. TECHNIQUE: CT images were created without intravenous contrast. All CT scans at this facility use dose modulation, iterative reconstruction, and/or weight based dosing when appropriate to reduce radiation dose to as low as reasonably achievable. IV CONTRAST: No IV contrast used,0ml TOTAL DOSE: 9.60 CTDIvol(mGy) FINDINGS: Evaluation of the solid organs and soft tissues is limited without intravenous contrast. LIVER: Unremarkable in contour. BILIARY: Gallbladder is absent. PANCREAS: Unremarkable in contour. SPLEEN: Unremarkable in contour. KIDNEYS: Nonobstructing right no left nephrolithiasis. No hydronephrosis. lower pole nephrolithiasis measures 0.2 cm. ADRENALS: Normal. No mass or enlargement. AORTA/VASCULAR: No aortic aneurysm. There are atherosclerotic calcifications of the aorta and branch vessels. RETROPERITONEUM: Evaluation for adenopathy is limited in the absence of contrast, though none identified. BOWEL/MESENTERY: In the pelvis at the level of the sigmoid there is bowel wall thickening and inflammatory stranding, series 2 image 83. Diverticula are present at this level. This finding is consistent with diverticulitis. No loculated adjacent fluid collection. Continued Report - Page 2 of 2 Patient: CHELSEA ANDREWS Phone#: : 1950 Age: 67 Gender: F Pt. Type: ER Account: [id number] Location: 052 Ordering: RONALD ANNMARIE Exam Date: 05/13/2018/11:49 Family Phys: CAITIE ZULETA Charge Code: [id number] Physician: Alexandria Order #: [id number] DLP Dose#: No bowel obstruction or dilatation. Diverticuli are seen throughout the descending colon. There is a moderate to large degree of stool throughout the colon, correlate for constipation. The appendix is not visualized. ABDOMINAL WALL: There is stranding in the subcutaneous tissues of the anterior abdominal wall, similar to prior. This may be due to medication injection, bruising or postsurgical change. URINARY BLADDER: Urinary bladder is decompressed. PELVIC NODES: Normal. No adenopathy. PELVIC ORGANS: Uterus is present. No adnexal masses. BONES: Posterior spinal fusion hardware with a pedicle screws and rods at L4-5. LUNG BASES: There are dependent changes. OTHER: Negative. CONCLUSION: 1. Sigmoid diverticulitis. 2. Nephrolithiasis. Dictated by: Wilmer Cheng MD on 05/13/2018 at 12:02 Approved by: Wilmer Cheng MD on 05/13/2018 at 12:13 CHEST 2 VIEWS Observed: 05/13/2018 Status: F [facility]:44 AM [place] [address] Patient: CHELSEA ANDREWS Phone#: : 1950 Age: 67 Gender: F Pt. Type: ER Account: [id number] Location: 052 Ordering: [facility] Exam Date: 05/13/2018/11:23 Family Phys: CAITIE ZULETA Charge Code: [id number] Physician: Alexandria Order #: [id number] DLP Dose#: PROCEDURE: X-RAY CHEST 2 VIEWS COMPARISON: [facility], XR, CHEST AP, 09/20/2015, 22:35. INDICATIONS: Shortness of breath FINDINGS: LUNGS: Poor inspiratory effort.. No significant pulmonary parenchymal abnormalities. VASCULATURE: Normal. Unremarkable pulmonary vasculature. CARDIAC: Normal. No cardiac silhouette abnormality or cardiomegaly. MEDIASTINUM: Aortic arch calcifications. PLEURA: Normal. No effusion or pleural thickening. BONES: surgical hardware seen in the left humeral head. No fracture or visible bony lesion. Degenerative changes of the spine. OTHER: Negative. CONCLUSION: No acute disease. No significant change has occurred. Dictated by: Wilmer Cheng MD on 05/13/2018 at 11:53 Approved by: Wilmer Cheng MD on 05/13/2018 at 12:04 CBC Collected: 05/13/2018 Status: F Source: [facility] 11:20 AM [facility] REPOSITORY TYPE CODE TESTS RESULT OUT OF RANGE REFERENCE UNITS LAB CBC(LOINC) CBC Result Comment: CBC-COMPLETE BLOOD COUNT LAB WBC(LOINC) 4.5 - 10.8 x 10EE3/UL WBC High 15.8 LAB RBC(LOINC) 4.10 - x 10EE6/UL 5.30 RBC 5.01 LAB HEMOGLOBIN(LOINC 12.0 - g/dl ) 16.0 HEMOGLOBIN 14.4 LAB HEMATOCRIT(LOINC 34.0 - % ) 46.0 HEMATOCRIT 42.8 LAB MCV(LOINC) 80 - 99 fl MCV 86 LAB MCH(LOINC) 27 - 33 pg MCH 29 LAB MCHC(LOINC) 32 - 36 X10 3 MCHC 34 LAB RDW/CV(LOINC) 12.0 - % 15.6 RDW/CV 14.4 LAB PLATELET(LOINC) 150 - 450 x10EE3/UL PLATELET 308 LAB MPV(LOINC) 6.6 - 10.5 fl MPV 9.4 Result Comment: AUTOMATED DIFFERENTIAL LAB NEUT %(LOINC) 46.0 - 76.0 % NEUT % 71.1 LAB LYMPH %(LOINC) 20.0 - 45.0 % LYMPH % 20.5 LAB MONOS %(LOINC) 0.0 - 10.0 % MONOS % 3.5 LAB EO %(LOINC) 0.0 - 7.0 % EO % 3.5 LAB BASO %(LOINC) 0.0 - 2.0 % BASO % 1.4 LAB Lymph #(LOINC) 0.80 - 2.80 x10EE3/U L Lymph # High 3.30 LAB Neut #(LOINC) 1.50 - 7.10 x10EE3/U L Neut # High 11.20 LAB [place] #(LOINC) 0.20 - 1.00 x10EE3/U L [place] # 0.60 LAB EO #(LOINC) 0.00 - 0.50 x10EE3/U L EO # High 0.60 LAB Baso #(LOINC) 0.00 - 0.10 x10EE3/U L Baso # High 0.20 LAB MANUAL DIFF(LOINC) MANUAL DIFF N/A LAB MORPHOLOGY(LOINC ) MORPHOLOGY N/A Result Comment: {CD] Performed By: #### [id number] #### [facility],[address] [place] [address] URINALYSIS Collected: 05/13/2018 Status: F Source: [facility] 11:20 AM [facility] REPOSITORY TYPE CODE TESTS RESULT OUT OF REFERENCE UNITS RANGE LAB URINALYSIS (INC) URINALYSIS Result Comment: URINALYSIS LAB Specimen Type(LOINC) Specimen Type UNSPECIFIED LAB Color(LOINC) NORMAL: YELLOW Color p.yel LAB Clarity(LOINC) NORMAL: CLEAR Clarity clear LAB ph(LOINC) NORMAL: 5.0-8.0 ph 6 LAB Protein(LOINC) NORMAL: NEGATIVE Protein NEG LAB Glucose(LOINC) NORMAL: NORMAL Glucose 1000 Abnormal LAB Ketone(LOINC) NORMAL: NEGATIVE Ketone NEG LAB Bilirubin(LOINC) NORMAL: NEGATIVE NEG Bilirubin LAB Blood(LOINC) NORMAL: NEGATIVE Blood NEG LAB Urobilinog(LOINC NORMAL: ) NORMAL NORM Urobilinog LAB Sp NORMAL: [place](LOINC) 1.010-1.030 Sp 1.015 [place] LAB Nitrite(LOINC) NORMAL: NEGATIVE Nitrite NEG LAB Leukocytes(LOINC NORMAL: ) NEGATIVE 100 Abnormal Leukocytes LAB Microscopic(LOIN C) SEE Microscopic BELOW Result Comment: MICROSCOPIC LAB Wbc(LOINC) 0-5/hpf Wbc 1-5 LAB Rbc(LOINC) 0-3/hpf Rbc NONE LAB Casts(LOINC) Casts NONE LAB Crystals(LOINC) Crystals NONE LAB Amorphous(LOINC) Amorphous NONE LAB Bacteria(LOINC) Bacteria TRACE LAB Epi Cells(LOINC) Epi Cells OCC LAB Mucous(LOINC) Mucous NONE LAB Yeast(LOINC) Yeast NONE Performed By: #### [id number] #### [place] [id number] LIPASE Collected: 05/13/2018 Status: F Source: [facility] 11:20 [facility] REPOSITORY TYPE CODE TESTS RESULT OUT OF REFERENCE UNITS RANGE LAB LIPASE(LOIN 18.0 - 51.0 U/L C) High LIPASE 91.0 Performed By: #### [id number] #### [place] [id number] CMP WITH EGFR Collected: 05/13/2018 Status: F Source: [facility] 11:20 [facility] REPOSITORY TYPE CODE TESTS RESULT OUT OF RANGE REFERENCE UNITS LAB CMP with eGFR(INC) CMP with eGFR Result Comment: COMPREHENSIVE METABOLIC PANEL LAB SODIUM(LOINC) 136 - 145 mmol/l SODIUM 137 LAB POTASSIUM(LOINC) 3.5 - 5.1 mmol/L POTASSIUM 4.3 LAB CHLORIDE(LOINC) 98 - 107 mmol/L CHLORIDE 102 LAB CO2(INC) 21.0 - mmol/L 31.0 CO2 26.7 LAB GLUCOSE(LOINC) 74 - 106 mg/dl GLUCOSE High 321 LAB BUN(INC) 6 - 20 mg/dl BUN High 29 LAB CREATININE(INC) 0.6 - 1.2 mg/dl CREATININE 1.0 LAB AST/SGOT(LOINC) 13 - 39 U/L AST/SGOT 16 LAB ALK PHOS(LOINC) 38 - 126 U/L ALK PHOS 106 LAB CALCIUM(LOINC) 8.6 - mg/dl 10.2 CALCIUM 9.8 LAB TOTAL 6.4 - 8.3 g/dl PROTEIN(LOINC) TOTAL PROTEIN 6.5 LAB ALBUMIN(LOINC) 3.4 - 4.8 g/dL ALBUMIN 3.7 LAB GLOBULIN(LOINC) 1.5 - 3.8 G/DL GLOBULIN 2.8 LAB A/G RATIO(LOINC) 0.9 - 1.6 A/G RATIO 1.3 LAB TOTAL BILI(LOINC) 0.0 - 1.5 mg/dl TOTAL BILI 0.6 LAB B/C RATIO(LOINC) 0 - 30 ratio B/C RATIO 29 LAB ALT/SGPT(LOINC) 8 - 35 U/L ALT/SGPT 19 LAB ANION GAP(LOINC) 10 - 20 mmol/L ANION GAP 13 LAB AGE(LOINC) years AGE 67 LAB eGFR(LOINC) 60 - 999 ML/MINUTE eGFR Low 55 LAB eGFR(AA)(LOINC) 60 - 999 ML/MINUTE eGFR(AA) >60 Result Comment: ACCORDING TO THE NATIONAL KIDNEY DISEASE EDUCATION PROGRAM(NKDE), A NORMAL eGFR IS A VALUE GREATER THAN OR EQUAL TO 60 ML/MIN/1.73 SQ METERS. CHRONIC KIDNEY DISEASE: <60mL/MIN/1.73 SQ METERS KIDNEY FAILURE: <15mL/MIN/1.73 SQ METERS THIS TEST SHOULD ONLY BE USED FOR PATIENTS 18 YEARS OF AGE AND OLDER. Performed By: #### [id number] #### [place] [id number] HGB A1C Collected: 05/13/2018 Status: F Source: [facility] 11:20 AM [facility] TYPE CODE TESTS RESULT OUT OF RANGE REFERENCE UNITS LAB HGB 4.4 - 6.4 % A1C(LOINC) High HGB A1C 12.2 Result Comment: {HB] {A1] Performed By: #### [id number] #### [place] [address] HISTORY AND PHYSICAL Observed: 05/13/2018 Status: F Source: [facility] 10:52 AM [facility] [place] & PHYSICAL NAME ACCOUNT SEX AGE ADMIT DISCHARGE PT MED. RECORD# NUMBER DATE DATE TYPE CHELSEA ANDREWS [id number] F 67 05/13/18 1 L [id number] ROOM: 312 DATE OF : [birth year] DICTATING PHYSICIAN: Marcello Vogel CHIEF COMPLAINT: Abdominal pain. HISTORY OF PRESENT ILLNESS: The patient is a very pleasant 67-year-old female who has had abdominal pain in the left lower quadrant for more than 1 week. She states that she has been to the [facility] 3 times and has been discharged from there. Patient states that her pain has not gotten any better. She does have some diarrhea. She has no evidence of blood in the stools. She does have some associated nausea as well. PAST MEDICAL HISTORY: Significant for hospitalizations regarding diverticulitis, but she states she has not been in the hospital for such for at least 5 years or more. Diabetes mellitus, peripheral neuropathy secondary to diabetes, hypertension, hypercholesterolemia. ALLERGIES: Listed to Cogentin, lithium, iodine, Haldol and theophylline. FAMILY HISTORY: Contributory for diverticulitis. REVIEW OF SYSTEMS: Otherwise negative x10 systems. PHYSICAL EXAMINATION VITAL SIGNS: Temperature is 99, pulse rate is 78, respirations 16, blood pressure is 140/74. HEAD AND NECK: The patient's head and neck examinations are unremarkable. LUNGS: Clear breath sounds bilaterally. HEART: Regular rate and rhythm. ABDOMEN: Left lower quadrant tenderness with no guarding or rebound. EXTREMITIES: Free of edema. IMPRESSION AND PLAN: 1. She has evidence of diverticulitis. We will treat with intravenous Flagyl and IV fluids. Patient will be placed on a clear liquid diet. Page 1 of 2 CHELSEA ANDREWS History & Physical 2. Home medications will be continued for her diabetes mellitus. 3. Home medications will be continued for hypertension as well. Dictated By: Marcello Vogel MD 05/14/18 10:39 JOB #: [id number] Transcribed By: mercedes 05/14/18 12:05 Electronically signed by: Tomasz Vogel M.D. 05/14/18 14:50 Update to H&P: [ ] No changes: I have examined the patient and reviewed the H&P and there are no changes. [ ] As previously dictated with the following changes: PHYSICIAN SIGNATURE: TIME: DATE: Page 2 of 2 ANDREWSCHELSEA History & Physical PROGRESS NOTES Observed: 05/13/2018 Status: F Source: [facility] 10:52 AM [facility] [place]GRESS NOTE NAME ACCOUNT SEX AGE ADMIT DISCHARGE PT MED. RECORD# NUMBER DATE DATE TYPE CHELSEA ANDREWS [id number] F 67 05/13/18 1 L [id number] ROOM: [facility] DATE OF : 1950 DICTATING PHYSICIAN: Marcello Vogel DATE OF SERVICE: May 14, 2018 SUBJECTIVE: She feels better than she did yesterday. She has less abdominal pain. She is interested in trying to eat more. She maintains fluids and IV Flagyl. OBJECTIVE: She is lying in bed comfortably. Temperature is 97.9, pulse 63, respirations 16, blood pressure 136/72. She is 97% on room air. Patient's lungs are clear bilaterally. Heart has a regular rate and rhythm. The abdomen is soft with some tenderness in the left lower quadrant but this is improved from yesterday. ASSESSMENT AND PLAN: 1. The patient has diverticulitis. She is being treated with intravenous Flagyl. She did fail outpatient antibiotic management. 2. Diet will be advanced slowly to a full liquid diet today. 3. Patient's white count is 12,400 today. This is an improvement from 15,800 yesterday. 4. Medications will be continued for diabetes mellitus as well along with sliding scale. Dictated By: Marcello Vogel MD 05/14/18 10:37 JOB #: [id number] Transcribed By: mercedes 05/14/18 11:07 Electronically signed by: Tomasz Vogel M.D. 05/14/18 14:50 Page 1 of 1 CHELSEA ANDREWS Progress Note DISCHARGE SUMMARY Observed: 05/13/2018 Status: F Source: [facility] 10:52 AM [facility] [place] SUMMARY NAME ACCOUNT SEX AGE ADMIT DISCHARGE PT MED. RECORD# NUMBER DATE DATE TYPE CHELSEA ANDREWS [id number] 67 05/13/18 05/17/18 1 [id number] ROOM: 312 DATE OF : 1950 DICTATING PHYSICIAN: Trevor House FINAL DIAGNOSES: 1. Acute sigmoid diverticulitis. 2. Abdominal pain secondary to above. 3. Diabetes mellitus type II. 4. Hyperglycemia. 5. Obesity. 6. Leukocytosis. HOSPITAL COURSE: Mrs. Andrews is a pleasant woman who came in with abdominal pain and was found to have acute sigmoid diverticulitis. She was placed on IV Flagyl here in the hospital and did well with this. She slowly improved over the next several days. We did have a discussion with her about dietary changes and she did speak to our expanded duty dental assistant as well. Her pain did continue to improve. We did advance her diet slowly. Ultimately, by May 17, 2018 she was tolerating a regular diet, she was pain free, and felt stable for discharge at that time. DISPOSITION: She is discharged in stable condition. MEDICATIONS ON DISCHARGE: She is sent home with Flagyl as well as [place] for pain. DISCHARGE INSTRUCTIONS/PLAN: She is to follow up with Dr. Zuleta in the next 3-5 days. We do recommend colonoscopy as an outpatient in 4-6 weeks. Dictated By: Trevor House MD 05/17/18 12:28 JOB #: [id number] Transcribed By: mayte 05/17/18 21:37 Electronically signed by: TOMASZ House M.D. 05/21/18 08:41 Page 1 of 1 CHELSEA ANDREWS Discharge Summary PROGRESS NOTES Observed: 05/13/2018 Status: F Source: [facility] 10:52 AM [facility] [place]GRESS NOTE NAME ACCOUNT SEX AGE ADMIT DISCHARGE PT MED. RECORD# NUMBER DATE DATE TYPE CHELSEA ANDREWS [id number] 67 05/13/18 1 L 51468 ROOM: 312 DATE OF : 1950 DICTATING PHYSICIAN: Trevor House DATE OF SERVICE: May 15, 2018 CHIEF COMPLAINT: Abdominal pain. SUBJECTIVE: Ms. Andrews is a very pleasant woman who comes in with abdominal pain. She was found to have sigmoid diverticulitis. She has been maintained on antibiotics here in the hospital, as well as IV fluids. She tolerated diet well this morning, taking a few bites of oatmeal and a full liquid diet. She did have a bit of nausea yesterday with a full diet. Otherwise, she states she is improving and states that she is overall approximately 70% better. No chest pain or shortness of breath. OBJECTIVE: Vital signs reviewed and stable. She is afebrile. General: She is lying in the hospital bed comfortably in no acute distress at this time. She is answering all questions appropriately. Cardiovascular: S1, S2 normal. No heart tones appropriately. Lungs: Bilaterally clear. No crepitation, wheezing anterior or posterior lung castellanos. Abdomen: Soft, nondistended, and nontender. Bowel sounds are present. She does state she has some deep centralized abdominal pain. Extremities: No edema, palpable peripheral pulses. Neurologic: Grossly intact. No focal deficits. DIAGNOSTIC DATA: Reviewed. She had a full set of laboratories yesterday. Blood sugar was reviewed since then. She did have several high episodes; however, she is 80 here this morning. ASSESSMENT: 1. Acute diverticulitis. 2. Abdominal pain secondary to the above. 3. Diabetes mellitus type 2. 4. Obesity. 5. Leukocytosis. PLAN: 1. We will continue antibiotics here in the hospital. We will discontinue IV fluids here later today. Continue full liquid diet. Encourage ambulation. She is transitioned to Lovenox for deep venous thrombosis prophylaxis for its superior efficacy. Discontinue sequential compression devices. 2. Likely home in the next 24 to 48 hours. Page 1 of 2 CHELSEA ANDREWS Progress Note Dictated By: Trevor House MD 05/15/18 12:07 JOB #: [id number] Transcribed By: am 05/15/18 12:35 Electronically signed by: TOMASZ House M.D. 05/21/18 08:41 Page 2 of 2 CHELSEA ANDREWS Progress Note PROGRESS NOTES Observed: 05/13/2018 Status: F Source: [facility] 10:52 AM [facility] [place]GRESS NOTE NAME ACCOUNT SEX AGE ADMIT DISCHARGE PT MED. RECORD# NUMBER DATE DATE TYPE CHELSEA ANDREWS [id number] F 67 05/13/18 1 L 70733 ROOM: 312 DATE OF : 1950 DICTATING PHYSICIAN: Trevor House DATE OF SERVICE: May 16, 2018 CHIEF COMPLAINT: Abdominal pain. SUBJECTIVE: Ms. Andrews is a pleasant woman who comes in with sigmoid diverticulitis. She states that she is feeling a bit better here again today. She did tolerate a full liquid diet yesterday without difficulty. She did have an episode of hypoglycemia this morning, which she still feels a bit woozy from. No chest pain or shortness of breath. No palpitations. OBJECTIVE: Vital signs reviewed, afebrile. General: The patient is lying in the hospital bed comfortably in no acute distress at this time, responding to all questions appropriately. Cardiovascular: S1, S2 normal. No extra audible heart tones appreciated. Lungs with bilateral crepitation in the anterior and posterior lung castellanos. Abdomen is soft, nondistended and distractibly nontender. Extremities with no edema. Palpable peripheral pulses. Neurologic is grossly intact. No focal deficits. DIAGNOSTIC DATA: Laboratory data reviewed. The patient had bloodwork today. The leukocytosis is resolved. Blood sugar is a bit low. ASSESSMENT: 1. Acute diverticulitis, sigmoid. 2. Abdominal pain secondary to the above. 3. Diabetes mellitus type 2. 4. Hypoglycemia. 5. Obesity. 6. Leukocytosis, resolved. PLAN: We will continue IV antibiotics here in the hospital. IV fluids have been discontinued. We will advance her to a regular ADA diet. Decrease her insulin a bit for hypoglycemia. Continue Lovenox for DVT prophylaxis. Likely home in the next 24 hours. Dictated By: Trevor House MD 05/16/18 12:01 JOB #: [id number] Transcribed By: eulogio 05/16/18 13:03 Electronically signed by: TOMASZ House M.D. 05/21/18 08:41 Page 1 of 1 CHELSEA ANDREWS Progress Note EMERGENCY REPORT Observed: 05/13/2018 Status: F Source: [facility] 10:52 AM [facility] [place] [place] REPORT NAME ACCOUNT SEX AGE ADMIT DISCHARGE PT MED. RECORD# NUMBER DATE DATE TYPE CHELSEA ANDREWS [id number] F 67 05/13/18 1 L 34498 ROOM: 312 DATE OF : 1950 DICTATING PHYSICIAN: Ronald Madrid CHIEF COMPLAINT: Patient came in complaining of right lower abdominal pain. HISTORY OF PRESENT ILLNESS: She has decreased appetite. She has had this for over a week. She has been to another ER 3 times where she was placed on Cipro and Flagyl which she has been on since Saturday. She just does not feel well. She also complains of cough and some shortness of breath. She does have COPD, fevers and chills, generalized weakness. She always has muscle pain and arthritis. She states her pain is better with rest, worse with movement. PAST MEDICAL HISTORY: She has a history of hypertension, spinal stenosis. Patient does have a history of diabetes. PAST SURGICAL HISTORY: She has had appendectomy, cholecystectomy, tubal ligation. She has had spinal surgery, shoulder surgery, elbow surgery. PHYSICAL EXAMINATION: Blood pressure 143/78, pulse 88, respirations 18, pulse ox 96% on room air. Head is normocephalic, atraumatic. Eyes: Pupils are equal, round, and reactive to light. Extraocular muscles are intact. Nares are patent. Throat has adequate moisture. Uvula is midline. Neck is supple without petechiae or rash. Heart without murmur. S1 equal to S2. No S3 or S4 appreciated. Lungs are clear to auscultation bilaterally. No rales, rhonchi, or retractions. Abdomen is soft, nontender, nondistended. Skin is warm and dry. DIAGNOSTIC DATA: Patient's blood work shows a white count of 15,000. Lipase was elevated at 91. Patient's glucose is 321. EKG shows a rate of 82, left axis deviation, elevation by voltage criteria. Chest x-ray was unremarkable. DIAGNOSES: 1. Abdominal pain. 2. Acute diverticulitis, failing outpatient treatment. 3. Elevated lipase. 4. Possible pancreatitis. 5. Chronic obstructive pulmonary disease. PLAN/DISPOSITION: She will be admitted to the hospital. Page 1 of 2 CHELSEA ANDREWS Emergency Room Report Dictated By: Ronald Madrid DO 05/13/18 13:30 JOB #: [id number] Transcribed By: mayte 05/13/18 20:57 Electronically signed by: PAYAM Madrid D.O. 05/22/18 07:17 Page 2 of 2 CHELSEA ANDREWS Emergency Room Report EMERGENCY DEPARTMENT Observed: 05/11/2018 Status: F Source: [place] SUMMARY 7:24 PM [facility] REPOS[facility]ORY [facility] Medical Records Department [address] [place] [address] Emergency Department Summary 05/11/18 1745 MR#: [id number] Acct: [id number] Name: CHELSEA ANDREWS Rep #: [id number] : 1950 67 From: Felipe Perkins PCP: Caitie Zuleta MD Status: REG ER - ER Visit Summary Date of Service: 05/11/18 Chief Complaint: Dyspnea, cough History of Present Illness: The patient is a 67 F worsening dyspnea and productive cough since yesterday. Subjective fever, chills, sweats. Wheezing improved with aerosol treatments. No chest pains. No nausea or vomiting. History of COPD no home oxygen. Reported 10 days ago similar flare improved with Z-Parth. States 4 days ago saw a urgent care for diverticulitis and treated on currently Cipro day 4. States she is given 1 dose of Flagyl. Pain is improving. Diabetes history. Denies tobacco history. Physical Examination: General: Alert and oriented 3, no acute distress HEENT: Normocephalic, atraumatic. Moist mucosa membranes Neck: supple, nontender. Cardiovascular: Regular rate and rhythm, no murmurs Respiratory: Normal breath sounds, symmetric, no distress Abdomen: Soft, nontender, nondistended. Negative Kathleen's or McBurney's tenderness. No left lower quadrant tenderness. Extremities: Nontender, no edema, pulses intact 4 Neuro: no focal neurological deficits. Test Results: Chest x-ray: No acute process Emergency Department Course and Treatment: Patient nontoxic, COPD history, normal lung exam. Chest x-ray obtained negative reviewed by myself. Vitals remained stable. Productive sputum with COPD history, according to golds criteria would recommend antibiotic treatment. Patient currently being treated for diverticulitis on Cipro day 4, improving symptoms. She has allergy to penicillins and sulfa. For concurrent treatment with one antibiotic will transition to Levaquin for 5 days, she will hold her Cipro. Patient also reports treated for back spasms yesterday in the [facility], did not get her prescription of Flexeril. Short prescription to use as needed written. Treatment Plan: [] Disposition: Discharge Impression: 1. COPD exacerbation This note was generated with [employer] dictation software. It may contain incorrect words, spelling, and punctuation that were not noted in review of the chart prior to signing ED Disposition - Plan for ED Patient: Disposition: Home or Assisted Living Chief Complaint: Shortness of Breath Diagnosis: COPD (chronic obstructive pulmonary disease) Instructions: ED COPD Flare Prescriptions: levoFLOXacin tablet [Levaquin tablet] 750 mg PO DAILY #4 tablet Cyclobenzaprine [Flexeril] 10 mg PO TID PRN #10 tablet PRN Reason: Muscle Spasm Referrals: Caitie Zuleta MD [Primary Care Provider] - 3-5 Days What to do if you have Problems For any increased pain, shortness of breath, bleeding, nausea or vomiting, chest pain, or any unexpected problems, contact your Primary Care Provider. Call [facility] ([phone]) or report to the closest Emergency Room. Call 911 if necessary. 05/11/181923 <Electronically signed by Felipe Perkins> Date Felipe Perkins Cosigner Signature (If Indicated): Date CC: Caitie Zuleta MD CHEST PA AND LATERAL Observed: 05/11/2018 Status: F Source: [place] 5:40 PM [facility] REPOS[facility]ORY [facility] Imaging Services [address] [place] [address] Chest PA and Lateral MR#: [id number] Acct: [id number] Name: CHELSEA ANDREWS Rep #: [id number] : 1950 F 67 From: Corina Vogt MD PCP: Caitie Zuleta MD Status: DEP ER Study: Chest PA and Lateral Date of Exam: 05/11/18 Exam# [id number] Ordering Dr: Felipe Gibbons DO STUDY: X-RAY CHEST REASON FOR EXAM: Female, 67 years old. Cough, shortness of breath TECHNIQUE: Frontal and lateral views of the chest were obtained. COMPARISON: April 29, 2018 FINDINGS: The lungs are underaerated. There are no focal airspace opacities. There is no demonstrated pleural abnormality. The cardiac silhouette is normal in size. The mediastinum and hilar regions are unremarkable. Normal visualized pulmonary arteries. There is atherosclerotic calcification of the thoracic aorta. There are diffuse degenerative changes of the visualized spine. There are degenerative changes in both shoulders. There is no demonstrated abnormality of the visualized upper abdomen. RAD/Chest PA and Lateral IMPRESSION: No acute cardiopulmonary abnormalities. Electronically Signed: Corina Vogt MD at 20:00 EST Tel Direct: [phone], Service support , CC: Caitie Zuleta MD; Felipe Gibbons User Interface Artist: Signed EMERGENCY DEPARTMENT Observed: 05/11/2018 Status: F Source: [place] SUMMARY 3:34 AM 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 She has done massage therapy before but it is not covered by insurance so she cannot do it regularly. She has used heating pads and topical treatments which help partially and temporarily. 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 She has chronic sciatica that is unchanged. She does not have chronic low back pain since her surgery, which has worked very well for her. She has had pain management in the past with steroid injections, however it has made her blood sugars out of control with regards to her diabetes, so she stopped that sometime ago. She has COPD that is stable currently. She recently was diagnosed with diverticulitis and is currently on antibiotics and states that that is helping tremendously and she is doing much better. - Past Medical History (1) COPD (chronic obstructive pulmonary disease) Status: Chronic (2) Sciatica Status: Chronic (3) Diverticulosis Status: Chronic Past Medical History - Allergies and Home Meds Allergies/Adverse Reactions: Allergies iodine Allergy (Verified 05/11/18 02:45) Swelling morphine Allergy (Verified 05/11/18 02:45) Shortness of breath Penicillins Allergy (Verified 05/11/18 02:45) Shortness of breath Sulfa (Sulfonamide Antibiotics) Allergy (Verified 05/11/18 02:45) Hives benztropine mesylate [From Cogentin] Adverse Reaction (Verified 05/11/18 02:45) Other URINARY RETENTION codeine Adverse Reaction (Verified 05/11/18 02:45) Other JITTERY haloperidol [From Haldol] Adverse Reaction (Verified 05/11/18 02:45) Other MUSCLE CONTRACTIONS haloperidol lactate [From Haldol] Adverse Reaction (Verified 05/11/18 02:45) Other MUSCLE CONTRACTIONS lithium [[place]] Adverse Reaction (Verified 05/11/18 02:45) Diarrhea pseudoephedrine HCl [From Sudafed] Adverse Reaction (Verified 05/11/18 02:45) Other JITTERY theophylline Adverse Reaction (Verified 05/11/18 02:45) Other TUNNEL EFFECT; TUNNEL VISION Primary Care Physician: Caitie Zuleta MD [Primary Care Provider] - Surgical History: - - back lumbar surgery Smoking Status: Never smoker Drugs: None Review of Systems General: Denies: Chills, Fever, Sweats Eyes: Denies: Visual changes - bilaterally, Diplopia ENT: Denies: Rhinorrhea, Sore throat Cardiovascular: Denies: Chest pain, Palpitations Respiratory: Reports: Cough, Dyspnea on exertion. Denies: Dyspnea Gastrointestinal: Denies: Abdominal pain, Nausea, Vomiting, Diarrhea, Melena, Hematochezia Genitourinary: Denies: Dysuria, Hematuria, Frequency Musculoskeletal: Reports: Neck pain, Back pain, Extremity Pain - w/r/t sciatica. Denies: Swelling Skin: Denies: Rash, Wounds Neurological: Denies: Headache, Weakness, Numbness Physical Exam Vital Signs/Narrative: Vital Signs 05/11/18 02:41 98.2 F 86 24 H 150/70 H 95 Inital Vital Signs reviewed: Yes General: Well nourished, Well developed, - - nad. conversational. Head: Normocephalic, Atraumatic Eyes: Perrl, EOMI ENT: Moist mucous membranes, No rhinorrhea Neck: Supple - tender in right trapezius, top, lateral to c-spine; no masses., - - tender in right trapezius, top, lateral to c-spine Respiratory: No distress Back: - - tender in right paraspinal mid-thoracic back musculature. Negative for: CVA tenderness, Spinal tenderness Extremities: Nontender, No edema, - - FROM throughout all 4 ext's Skin: Normal color, No rash, No Trauma Neurological: Alert, Oriented x3, Cranial nerves II-XII grossly intact, Normal Strength, Normal Sensation, Normal Gait Psychological: Normal affect Diagnostic/Tx/Re-eval - Medical Decision Making Patient is amenable to measures of supportive care, as well as a dose of Toradol and Norflex here prior to discharge. She states Flexeril has actually worked in the past and I am happy to give her a prescription, she is requesting nothing else. She is following up with a new pain management doctor soon. ED Disposition - Plan for ED Patient: Disposition: Home or Assisted Living Chief Complaint: Back Diagnosis: Trapezius muscle spasm, Spasm of thoracic back muscle Instructions: ED Neck Back Pain General Prescriptions: Cyclobenzaprine [Flexeril] 10 mg PO TID PRN #20 tablet PRN Reason: Muscle Spasm Referrals: Caitie Zuleta MD [Primary Care Provider] - 1 Week if not improving What to do if you have Problems For any increased pain, shortness of breath, bleeding, nausea or vomiting, chest pain, or any unexpected problems, contact your Primary Care Provider. Call [facility] ([phone]) or report to the closest Emergency Room. Call 911 if necessary. 05/11/18 0334 <Electronically signed by Wyatt Adair MD> Date Wyatt Adair MD Cosigner Signature (If Indicated): Date CC: Caitie Zuleta MD EMERGENCY DEPARTMENT Observed: 04/30/2018 Status: F Source: [place] SUMMARY 1:43 AM [facility] Medical Records Department [address] [place] [address] Emergency Department Summary 04/29/182039 MR#: [id number] Acct: [id number] Name: CHELSEA ANDREWS Rep #: [id number] : 1950 67 From: Corina Goldman MD PCP: Caitie Zuleta MD Status: DEP ER - ER Visit Summary Date of Service: 04/29/18 Chief Complaint: Cough, shortness of breath History of Present Illness: The patient is a 67 F with a one- week history of cough and shortness of breath. She complains of chest congestion, head congestion, and nonproductive cough. She states she has had some chills but did not measure a fever. She has been using her albuterol twice a day and states that she uses any more than that she gets significant heart palpitations. Patient does have history of COPD. Physical Examination: Vital signs include a blood pressure of 163/75, otherwise unremarkable. Patient sitting upright in bed no acute distress. Heart is regular rate and rhythm. Lungs sounds are slightly diminished throughout. Abdomen is soft nontender. Test Results: Two-view chest x-ray shows no acute disease. Emergency Department Course and Treatment: Patient was given a DuoNeb treatment. On repeat evaluation she does have improved air movement and subjectively feels better. Patient states she cannot take her albuterol any more than twice a day. In light of this she will be given prednisone to try to minimize bronchospasm. She does understand that this will increase her blood sugars for the next several days. She will also be treated with a Z-Parth, first dose given here. Treatment Plan: [] Disposition: Discharge Impression: COPD exacerbation This note was generated with [employer] dictation software. It may contain incorrect words, spelling, and punctuation that were not noted in review of the chart prior to signing ED Disposition - Plan for ED Patient: Disposition: Home or Assisted Living Chief Complaint: Cough Instructions: ED COPD Flare Prescriptions: Azithromycin [Zithromax] 250 mg PO DAILY #4 tablet Prednisone [Deltasone] 40 mg PO DAILY #10 tablet Referrals: Caitie Zuleta MD [Primary Care Provider] - 1 Week What to do if you have Problems For any increased pain, shortness of breath, bleeding, nausea or vomiting, chest pain, or any unexpected problems, contact your Primary Care Provider. Call [facility] ([phone]) or report to the closest Emergency Room. Call 911 if necessary. 04/30/18 0143 <Electronically signed by Corina Goldman MD> Date Corina Goldman MD Cosigner Signature (If Indicated): Date CC: Caitie Zuleta MD DISCHARGE INSTRUCTION Observed: 04/29/2018 Status: F Source: [place] 8:42 PM [facility] Medical Records Department [address] [place] [address] Discharge Instruction 04/29/182040 MR#: [id number] Acct: [id number] Name: CHELSEA ANDREWS Rep #: [id number] : 1950 67 From: Corina Goldman MD PCP: Caitie Zuleta MD Status: REG ER ED Disposition - Plan for ED Patient: Disposition: Home or Assisted Living Chief Complaint: Cough Instructions: ED COPD Flare Prescriptions: Azithromycin [Zithromax] 250 mg PO DAILY #4 tablet Prednisone [Deltasone] 40 mg PO DAILY #10 tablet Referrals: Caitie Zuleta MD [Primary Care Provider] - 1 Week What to do if you have Problems For any increased pain, shortness of breath, bleeding, nausea or vomiting, chest pain, or any unexpected problems, contact your Primary Care Provider. Call [facility] ([phone]) or report to the closest Emergency Room. Call 911 if necessary. 04/29/182041 <Electronically signed by Corina Goldman MD> Date Corina Goldman MD Cosigner Signature (If Indicated): Date CC: Caitie Zuleta MD CHEST PA AND LATERAL Observed: 04/29/2018 Status: F Source: [place] 5:33 PM [facility] RE[facility] Imaging Services [address] [place] [address] Chest PA and Lateral MR#: [id number] Acct: [id number] Name: CHELSEA ANDREWS Rep #: [id number] : 1950 F 67 From: Jeffrey Lainez MD PCP: Caitie Zuleta MD Status: REG ER Study: Chest PA and Lateral Date of Exam: 04/29/18 Exam# [id number] Ordering Dr: Corina Goldman MD STUDY: X-RAY CHEST REASON FOR EXAM: Female, 67 years old. Cough and shortness of breath. TECHNIQUE: Frontal and lateral views of the chest. COMPARISON: 03/20/2018. FINDINGS: The lungs are clear and expanded. Elevated right hemidiaphragm. There is no demonstrated pleural abnormality. Normal size heart. Normal mediastinum and shana. Normal visualized pulmonary arteries. Normal visualized aortic arch and descending thoracic aorta. Normal visualized thoracic spine. Normal visualized ribs, clavicles, and shoulders. There is no demonstrated abnormality of the visualized soft tissue structures of the upper abdomen. RAD/Chest PA and Lateral IMPRESSION: No acute chest disease. Electronically Signed: Jeffrey Lainez MD at 18:15 EST , Service support , CC: Corina Goldman MD; Caitie Zuleta MD User Interface Artist: Signed NON-GLOBAL COORDINATOR CYTOLOGY Observed: 04/16/2018 Status: F Source: [facility] REPORT 2:50 PM [facility] REPOSITORY . Pathology Reports Accession: Collected Date/Time: Received Date/Time: Pathologist: [id number] 04/16/2018 14:50 EST 04/16/2018 14:55 EST DO CUBA ROJO Non-Underwriting Manager Cytology Report CLINICAL INFORMATION: .122CM THYROID NODULE [id number] DIAGNOSIS: NEGATIVE FOR MALIGNANCY COMMENT: SCATTERED FOLLICULAR CELLS AND ABUNDANT COLLOID PRESENT- FAVOR BENIGN FOLLICULAR NODULE. SPECIMEN: FINE NEEDLE ASPIRATION, THYROID (NODULE #2) GROSS DESCRIPTION: # of Smears: 6 6 Fixed smear slides Electronically Signed by Pathology report verified by [facility] Screened by: JAYNE COBB Electronically signed by CUBA ROJO DO Sign-Out Date: 04/17/2018 12:08 Performing Lab: [facility], [address] [place] [address] Performed By: #### NGCR #### [place] [address] NON-GLOBAL COORDINATOR CYTOLOGY Observed: 04/16/2018 Status: F Source: [facility] REPORT 2:48 PM [facility] . Pathology Reports Accession: Collected Date/Time: Received Date/Time: Pathologist: [id number] 04/16/2018 14:48 EST 04/16/2018 14:52 EST DO CUBA ROJO Non-Underwriting Manager Cytology Report CLINICAL INFORMATION: .16CM THYROID NODULE [id number] DIAGNOSIS: NEGATIVE FOR MALIGNANCY COMMENT: SCATTERED GROUPS OF FOLLICULAR CELLS AND ABUNDANT COLLOID PRESENT- FAVOR BENIGN FOLLICULAR NODULE. SPECIMEN: FINE NEEDLE ASPIRATION, THYROID (NODULE #1) GROSS DESCRIPTION: # of Smears: 8 8 Fixed smear slides Electronically Signed by Pathology report verified by [facility] Screened by: KK MES Electronically signed by CUBA ROJO DO Sign-Out Date: 04/17/2018 09:22 Performing Lab: [facility], [address] [place] [address] Performed By: #### NGCR #### [place] [address] PLATELET COUNT Collected: 04/16/2018 Status: F Source: [facility] 7:39 [facility] REPOSITORY TYPE CODE TESTS RESULT OUT OF REFERENCE UNITS RANGE LAB PLATELET(LO 150 - 450 x10EE3/UL INC) PLATELET 298 Result Comment: {PL] Performed By: #### [id number] #### [place] [address] APTT Collected: 04/16/2018 Status: F Source: [facility] 7:39 [facility] REPOSITORY TYPE CODE TESTS RESULT OUT OF RANGE REFERENCE UNITS LAB PTT(LOINC) 21.6 - 35.4 sec PTT 27.1 Performed By: #### [id number] #### [facility],[address] [place] [address] PROTHROMBIN TIME AND Collected: 04/16/2018 Status: F Source: [facility] INR 7:39 [facility] REPOSITORY TYPE CODE TESTS RESULT OUT OF REFERENCE UNITS RANGE LAB PROTHROMBIN TIME AND INR(LOINC) PROTHROMBIN TIME AND INR Result Comment: PROTHROMBIN TIME AND INR LAB PT-COUMADIN(LOINC) sec PT-COUMADIN 11.7 LAB INR(LOINC) 0.8 - 1.2 INR 1.0 Result Comment: THE HEMOSIL THROMBOPLASTIN REAGENT USED IN THE PROTHROMBIN TIME TEST INTERACTS WITH THE DRUG CUBICIN (DAPTOMYCIN) AND WILL RESULT IN FALSELY ELEVATED PT / INR RESULTS INR INTERPRETATION INR INDICATION PREVENTION AND TREATMENT OF THROMBOEMBOLISM ASSOCIATED WITH: 2.0 - 3.0 ATRIAL FIBRILLATION, BIOPROSTHETIC HEART VALVES, PULMONARY EMBOLISM, VENOUS THROMBOSIS, SYSTEMIC EMBOLISM POST MYOCARDIAL INFARCTION 2.5 - 3.5 MECHANICAL HEART VALVES Performed By: #### [id number] #### [place] [address] FINE NEEDLE ASPIRATION Observed: 04/16/2018 Status: F Source: [facility] W/ US GUIDE 6:51 AM [place] [address] Patient: CHELSEA ANDREWS Phone#: : 1950 Age: 67 Gender: F Pt. Type: Out Account: [id number] Location: [facility] Ordering: CAITIE ZULETA Exam Date: 04/16/2018/8:24 Family Phys: Charge Code: 276380 Physician: Alexandria Order #: [id number] DLP Dose#: PROCEDURE: FINE NEEDLE ASPIRATION WITH US GUIDANCE COMPARISON: None. INDICATIONS: Thyroid Nodules DESCRIPTION: The patient was informed of the nature of the procedure, alternatives and risks. Questions were answered and consent obtained. Ultrasound- guided fine needle aspiration of two thyroid nodules was performed in the usual sterile manner. FINDINGS: SPECIMEN #, LOCATION: Right thyroid lobe contains 2 nodules. 4 passes were performed with each nodule. The first nodule is solid and hypoechoic measuring 1.3 x 1.3 x 0.8 cm. The second nodule is smaller with spongiform characteristics and measures 1.2 x 1.2 x 0.8 cm. NEEDLE: 25G MEDICATION: Superficial and deep 2% lidocaine. COMPLICATIONS: None. PATHOLOGY LAB: Results pending. CONCLUSION: Uneventful fine needle aspiration of 2 thyroid nodules. Dictated by: Wilmer Cheng MD on 04/16/2018 at 10:52 Approved by: Wilmer Cheng MD on 04/16/2018 at 10:52 RADIOLOGY Observed: 04/16/2018 Status: F Source: [facility] 6:49 AM [place] [id number] [place] [address] Patient: CHELSEA ANDREWS Phone#: : 1950 Age: 67 Gender: F Pt. Type: Out Account: [id number] Location: [facility] Ordering: CAITIE ZULETA Exam Date: 04/16/2018/8:24 Family Phys: Charge Code: 188913 Physician: Alexandria Order #: DLP Dose#: PROCEDURE: FINE NEEDLE ASPIRATION WITH US GUIDANCE COMPARISON: None. INDICATIONS: Thyroid Nodules DESCRIPTION: The patient was informed of the nature of the procedure, alternatives and risks. Questions were answered and consent obtained. Ultrasound- guided fine needle aspiration of two thyroid nodules was performed in the usual sterile manner. FINDINGS: SPECIMEN #, LOCATION: Right thyroid lobe contains 2 nodules. 4 passes were performed with each nodule. The first nodule is solid and hypoechoic measuring 1.3 x 1.3 x 0.8 cm. The second nodule is smaller with spongiform characteristics and measures 1.2 x 1.2 x 0.8 cm. NEEDLE: 25G MEDICATION: Superficial and deep 2% lidocaine. COMPLICATIONS: None. PATHOLOGY LAB: Results pending. CONCLUSION: Uneventful fine needle aspiration of 2 thyroid nodules. Dictated by: Wilmer Cheng MD on 04/16/2018 at 10:52 Approved by: Wilmer Cheng MD on 04/16/2018 at 10:52 EMERGENCY DEPARTMENT Observed: 04/05/2018 Status: F Source: [facility] 12:18 AM [facility] Medical Records Department [address] [place] [address] Emergency Department Summary 04/04/18 2353 MR#: [id number] Acct: [id number] Name: CHELSEA ANDREWS Rep #: [id number] : 1950 67 From: Divina Fofana MD PCP: Caitie Zuleta MD Status: DEP ER - ER Visit Summary Date of Service: 04/04/18 Chief Complaint: Neck, arm, back pain History of Present Illness: The patient is a 67 F presents to the emergency department with an exacerbation of her chronic pain. Patient has history of cervical spine laminectomy and fusion and lumbar spine laminectomy and fusion. She states that she was in pain management, but states that they would just give her steroid injections and it would make her blood sugar too high. She has not been in pain management for some time. She does work with her hands. She states that because of this, he had some increasing burning pain in the posterior right neck down her right arm. She denies any numbness. She denies any weakness. She states this is her normal chronic pain. She had no chest pain or shortness of breath. She has not taken anything for it. Physical Examination: Vital signs reviewed General: Well-nourished, well-developed Head: Normocephalic, atraumatic Eyes: Pupils equal and reactive, extraocular muscles intact Neck, supple, no lymphadenopathy Heart: Regular rate and rhythm Respiratory: No distress, clear bilaterally Abdomen: Soft, nontender, nondistended, no peritoneal signs Back: Nontender Extremities: Nontender, no edema, no cords Skin: Normal color no rash Neuro: Alert and oriented, no focal or lateralizing deficits Test Results: [] Emergency Department Course and Treatment: The patient has normal reflexes of bilateral upper and lower extremities. She has normal pulses of upper and lower extremities. She has no midline bony tenderness with palpation along the back. She had no chest pain or dyspnea. My suspicion of this is all just an exacerbation of her chronic pain. Patient was given 2 [place] in the emergency department. 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 She is comfortable with this and will be discharged home. Treatment Plan: [] Disposition: Discharge Impression: Exacerbation of chronic neck pain This note was generated with [employer] dictation software. It may contain incorrect words, spelling, and punctuation that were not noted in review of the chart prior to signing ED Disposition - Plan for ED Patient: Chief Complaint: Back Instructions: ED Neck Back Pain General Referrals: Caitie Zuleta MD [Primary Care Provider] - What to do if you have Problems For any increased pain, shortness of breath, bleeding, nausea or vomiting, chest pain, or any unexpected problems, contact your Primary Care Provider. Call [facility] ([phone]) or report to the closest Emergency Room. Call 911 if necessary. 04/05/18 0018 <Electronically signed by Divina Fofana MD> Date Divina Fofana MD Cosigner Signature (If Indicated): Date CC: Caitie Zuleta MD EMERGENCY DEPARTMENT Observed: 03/31/2018 Status: F Source: [place] SUMMARY 4:42 AM [facility] REPOSITORY [facility] Medical Records Department [address] [place] [address] Emergency Department Summary 03/31/18 0323 MR#: [id number] Acct: [id number] Name: CHELSEA ANDREWS Rep #: [id number] : 1950 67 From: Lianet Brooks MD PCP: Caitie Zuleta MD Status: REG ER - ER Visit Summary Date of Service: 03/31/18 Chief Complaint: Back pain History of Present Illness: The patient is a 67 F presenting with back pain and pain in both her feet. She states this has been ongoing for several months. She states she has been living in her car since December. She states she has had pain in her back since her back surgery in 2010. She states living in her car has worsened this pain. Pain is in the bilateral low back and radiates to her right leg. She denies bowel or bladder incontinence. Denies numbness or tingling. Denies fever. She is able to ambulate with pain. She also has a history of diabetes. She feels that her blood sugar may be out of control. Denies other complaints. Physical Examination: Vitals are stable. Patient is afebrile. Alert no acute distress. HEENT exam is unremarkable. Neck is supple. Lungs are clear and equal bilaterally. Heart is regular rate and rhythm. Abdomen is soft nontender nondistended. Back: Bilateral lumbar paraspinal muscle tenderness, no midline tenderness. Straight leg raise positive at 30 degrees on the right Extremities are unremarkable. Skin is warm and dry. No focal neurologic deficit. Normal strength and sensation Remainder of exam is unremarkable. Emergency Department Course and Treatment: Patient declined pain medications. She would like her blood sugar tested. BMP shows glucose 299, anion gap is normal. Patient is resting comfortably on reevaluation. She continues to decline any medications. She is advised to follow up with her primary care physician. Advised return to ED if worsening complaints. Disposition: Discharge home Impression: Acute on chronic back pain; hyperglycemia This note was generated with [employer] dictation software. It may contain incorrect words, spelling, and punctuation that were not noted in review of the chart prior to signing ED Disposition - Plan for ED Patient: Chief Complaint: Back Instructions: ED Neck Back Pain General Referrals: Caitie Zuleta MD [Primary Care Provider] - What to do if you have Problems For any increased pain, shortness of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 other complaints. She has taken 30 units of Humalog at 2:00 a.m. and in fact she has a sliding scale so she has taken quite a bit of insulin she states and this is what concerned her. ALLERGIES Allergies to sulfa, Haldol, lithium, morphine, codeine, doxycycline, benztropine, levofloxacin. Social history The patient is a . No alcohol or tobacco use. PAST SURGICAL HISTORY Appendectomy, cholecystectomy, bilateral tubal ligation. PAST MEDICAL HISTORY Diabetes, asthma, hypertension, history of CHF, diabetes, cancer, stroke, hypertension, coronary artery disease. MEDICATIONS Lantus, Humalog, lisinopril, Lipitor, Proventil, albuterol. PHYSICAL EXAMINATION This is a well-appearing female resting quietly in no apparent distress. Smiling, pleasant. HEENT is normocephalic, atraumatic. Eyes: Pupils are grossly normal. Mucous membranes are moist. Neck is supple. No meningismus or stridor. No difficulty swallowing or drooling. The lung sounds are clear to auscultation. No wheezing or rales. Equal breath sounds noted. Heart is a regular rate and rhythm without murmur, rub or gallop. Extremities are without edema. Skin is without rash. No petechiae or purpura. EMERGENCY DEPARTMENT COURSE The patient will get a BMP here. She is asymptomatic. Does not appear to be dehydrated. IMPRESSION <Electronically signed by CUBA HENRIQUEZ M.D.> 12/13/17 1413 CUBA HENRIQUEZ M.D. cc: CUBA HENRIQUEZ M.D. << Signature on File>> Reported By: CUBA HENRIQUEZ M.D. Signed By: CUBA HENRIQUEZ M.D. Tests performed at: [address] [address] ED PROV NOTE Observed: 12/10/2017 Status: COMPLETED Source: [facility] 6:07 AM [facility] REPOSITORY HNO ID: [id number] Author: Cuba Henriquez Service: (none) Author Type: Physician Type: ED Provider Notes Filed: 04/10/2018 6:46 PM Note Text: [place] [address] HEALTH INFORMATION MANAGEMENT EMERGENCY DEPARTMENT REPORT Patient: CHELSEA ANDREWS CUBA HENRIQUEZ M.D. [id number] [age] F Status: [facility] ER ED Date of Service: 12/07/17 CHIEF COMPLAINT Elevated blood glucose. HISTORY OF PRESENT ILLNESS This is a 67-year-old white female who presents with the above complaints. The patient presents with an elevated glucose. She said it was nearly 600 on her meter. She is asymptomatic. She states she often does feel well when her glucose even is labile. She had a steroid injection in her shoulder yesterday. No other complaints. She has taken 30 units of Humalog at 2:00 a.m. and in fact she has a sliding scale so she has taken quite a bit of insulin she states and this is what concerned her. ALLERGIES Allergies to sulfa, Haldol, lithium, morphine, codeine, doxycycline, benztropine, levofloxacin. Social history The patient is a . No alcohol or tobacco use. PAST SURGICAL HISTORY Appendectomy, cholecystectomy, bilateral tubal ligation. PAST MEDICAL HISTORY Diabetes, asthma, hypertension, history of CHF, diabetes, cancer, stroke, hypertension, coronary artery disease. MEDICATIONS Lantus, Humalog, lisinopril, Lipitor, Proventil, albuterol. PHYSICAL EXAMINATION This is a well-appearing female resting quietly in no apparent distress. Smiling, pleasant. HEENT is normocephalic, atraumatic. Eyes: Pupils are grossly normal. Mucous membranes are moist. Neck is supple. No meningismus or stridor. No difficulty swallowing or drooling. The lung sounds are clear to auscultation. No wheezing or rales. Equal breath sounds noted. Heart is a regular rate and rhythm without murmur, rub or gallop. Extremities are without edema. Skin is without rash. No petechiae or purpura. EMERGENCY DEPARTMENT COURSE The patient will get a BMP here. She is asymptomatic. Does not appear to be dehydrated. IMPRESSION <Electronically signed by CUBA HENRIQUEZ M.D.> 12/13/17 1413 CUBA HENRIQUEZ M.D. cc: CUBA HENRIQUEZ M.D. << Signature on File>> Reported By: CUBA HENRIQUEZ M.D. Signed By: CUBA HENRIQUEZ M.D. Tests performed at: [address] [address] BMP Collected: 12/07/2017 Status: F Source: [facility] 4:48 AM HOSPITAL REPOSITORY TYPE CODE TESTS RESULT OUT OF REFERENCE UNITS RANGE LAB L100.0060 82-115 mg/dL High alert GLUCOSE 513 Result Comment: Verified by Repeat Testing LAB L100.0110 8-23 mg/dL High BUN 27 LAB L100.0131 0.50-0.90 mg/dL CREATININE Normal 0.73 LAB L100.0140 8.8-10.2 mg/dL CALCIUM Normal 9.6 LAB L100.0150 135-145 mmol/L SODIUM Normal 135 LAB L100.0160 3.5-5.0 mmol/L POTASSIUM Normal 4.7 LAB L100.0170 98-107 mmol/L CHLORIDE Normal 98 LAB L100.0180 22-29 mmol/L Low TCO2 21 LAB L100.0185 15-22 mmol/L ANION GAP Normal 20.7 LAB L100.0274 eGFR nonAFR Normal Joaquim > 60 ml/Min/1. 73m2 LAB L100.0275 eGFR if AFR Normal JOAQUIM > 60 ml/min/1. 73m2 Result Comment: eGFR >= 60 Indicates normal kidney function. * eGFR IS AN ESTIMATE * (AFR JOAQUIM = ) (non-AFR AM = NON-) MDRD calculation used in the eGFR should not be used to dose medications. For further limitations of the eGFR please refer to the Physician Website or the National Kidney Disease Education Program website (www.nkdep.nih.gov). Performed By: #### L100.0010 #### [facility] - LABORATORY [address] [place] [address] EMERGENCY DEPARTMENT Observed: 12/05/2017 Status: F Source: [facility] REPORT 8:51 PM [facility] [place] [address] HEALTH INFORMATION MANAGEMENT EMERGENCY DEPARTMENT REPORT Patient: EARLCHELSEA GATITO DAVID M.D. [id number] [age] F Status: [facility] ER ED Date of Service: 12/03/17 CHIEF COMPLAINT Right shoulder injury. HISTORY OF PRESENT ILLNESS A 67-year-old female comes in complaining of right shoulder pain after a fall. She has had chronic right shoulder pain from overuse. She has had left shoulder rotator cuff repair by [facility] in the past. She fell 4 days ago, landing on the outstretched right hand and has had increased pain diffusely about the right shoulder since that time. She has been having some pain in the clavicle. She had no direct trauma to the right shoulder, did not injure anything else. PHYSICAL EXAMINATION Physical exam finds no obvious ecchymosis, erythema or swelling about the right shoulder, shoulder blade or clavicle. She is diffusely tender with no single area of maximal pain. There is minimal clavicular pain. There is some scapular and periscapular muscular pain. No neck pain to palpation. Diffuse anterior and posterior shoulder pain. No focal AC joint pain. Neurovascular function is intact. EMERGENCY DEPARTMENT COURSE X-rays shows a moderate amount of degenerative change in the shoulder but no acute bony findings. IMPRESSION Acute soft tissue injury, right shoulder. TREATMENT Sling, diclofenac. Recheck with [facility] if no better in 7-10 days. <Electronically signed by GATITO DAVID M.D.> 12/06/17 1106 GATITO DAVID M.D. cc: GATITO DAVID M.D. << Signature on File>> Reported By: GATITO DAVID M.D. Signed By: GATITO DAVID M.D. Tests performed at: [address] [address] ED PROV NOTE Observed: 12/05/2017 Status: COMPLETED Source: [facility] 8:51 PM [facility] REPOSITORY HNO ID: [id number] Author: Gatito aDvid Service: (none) Author Type: Physician Type: ED Provider Notes Filed: 04/10/2018 6:41 PM Note Text: [place] [address] HEALTH INFORMATION MANAGEMENT EMERGENCY DEPARTMENT REPORT Patient: CHELSEA ANDREWS GATITO DAVID M.D. [id number] [age] F Status: [facility] ER ED Date of Service: 12/03/17 CHIEF COMPLAINT Right shoulder injury. HISTORY OF PRESENT ILLNESS A 67-year-old female comes in complaining of right shoulder pain after a fall. She has had chronic right shoulder pain from overuse. She has had left shoulder rotator cuff repair by [facility] in the past. She fell 4 days ago, landing on the outstretched right hand and has had increased pain diffusely about the right shoulder since that time. She has been having some pain in the clavicle. She had no direct trauma to the right shoulder, did not injure anything else. PHYSICAL EXAMINATION Physical exam finds no obvious ecchymosis, erythema or swelling about the right shoulder, shoulder blade or clavicle. She is diffusely tender with no single area of maximal pain. There is minimal clavicular pain. There is some scapular and periscapular muscular pain. No neck pain to palpation. Diffuse anterior and posterior shoulder pain. No focal AC joint pain. Neurovascular function is intact. EMERGENCY DEPARTMENT COURSE X-rays shows a moderate amount of degenerative change in the shoulder but no acute bony findings. IMPRESSION Acute soft tissue injury, right shoulder. TREATMENT Sling, diclofenac. Recheck with [facility] if no better in 7-10 days. <Electronically signed by GATITO DAVID M.D.> 12/06/17 1106 GATITO DAVID M.D. cc: GATITO DAVID M.D. << Signature on File>> Reported By: GATITO DAVID M.D. Signed By: GATITO DAVID M.D. Tests performed at: [place] [address] SHOULDER MIN 2 VIEW Observed: 12/03/2017 Status: F Source: [facility] 3:[address] [address] Name: CHELSEA ANDREWS Phys: GATITO DAVID M.D. : 49 Age: 67 Sex: F Acct: [id number] Loc: ED Exam Date: 12/03/17 Status: REG ER Radiology No.: [id number] Unit Number: [id number] Exam # Type/Exam [id number] RAD / SHOULDER MIN 2 VIEW RT RIGHT SHOULDER AP views and her Y. view: Reason for Examination: Anterior shoulder pain following recent trauma. Comparison Study: 11/24/2011. Examination of the RIGHT shoulder reveals the osseous structures to be intact. The articular surfaces are smooth and the joint space is well maintained. The glenohumeral relationships are normal. There is no evidence of soft tissue calcification. IMPRESSION: Negative RIGHT shoulder examination. Professional interpretation provided by [facility], [place] on [id number]. Thank you for this referral. <<Signature on File>> Reported By: BRAYDEN RICH D.O. Signed In NovaPro By: BRAYDEN RICH D.O. << Signature on File>> Reported By: BRAYDEN RICH D.O. Signed By: BRAYDEN RICH D.O. Tests performed at: [address] [address] EMERGENCY REPORT Observed: 11/13/2017 Status: F Source: [facility] 7:34 PM [facility] REPORT NAME ACCOUNT SEX AGE ADMIT DISCHARGE PT MED. RECORD# NUMBER DATE DATE TYPE CHLESEA ANDREWS [id number] F 67 11/11/17 11/11/17 3 [place] [id number] ROOM: ER DATE OF : 1950 DICTATING PHYSICIAN: Ronald Madird CHIEF COMPLAINT/HISTORY OF PRESENT ILLNESS: The patient came in with right shoulder pain. She has a history of chronic shoulder pain and neck pain. She has been moving and has been doing a lot of boxes and moving a lot of boxes, which flared up. She is right-hand dominant. 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 She presents to the emergency department because she as having pain. PAST MEDICAL HISTORY: She has a history of asthma, hypertension, diabetes, elevated lipids. She has had a history of depression and anxiety. PAST SURGICAL HISTORY: Cholecystectomy, left elbow surgery, rotator cuff, shoulder surgery, back surgery, ENT surgery, carpal tunnel surgery - bilaterally, foot surgery. SOCIAL HISTORY: She does not smoke or drink. She is a recovering alcoholic. REVIEW OF SYSTEMS: Eight systems reviewed and negative except as mentioned above. PHYSICAL EXAMINATION: The patient is awake, alert and oriented female in no acute distress. She is afebrile, blood pressure 166/69, pulse 91, respirations 16, pulse ox 97% on room air. Head is normocephalic, atraumatic. Eyes: Pupils are equal, round, and reactive to light. Extraocular muscles are intact. Nares are patent. Throat has adequate oral moisture. Uvula is midline. Neck is supple without petechiae or rash. Heart rate is regular without murmur. S1 equals S2, and no S3 or S4 appreciated. Lungs are clear to auscultation bilaterally. No rales, rhonchi or retractions. Abdomen is soft and nontender, nondistended. Skin is warm and dry. She has limited range of motion with abduction, internal rotation, secondary to pain. There is no swelling, ecchymosis or bruising. EMERGENCY DEPARTMENT COURSE AND TREATMENT: I did refer her to Dr. Dorsey at [facility] as well as her family physician, Dr. Zuleta. She was given a shot of Toradol. 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 Page 1 of 2 CHELSEA ANDREWS Emergency Room Report PLAN/DISPOSITION: We will write her Motrin for pain. She will be placed in a sling. She was told to do range of motion exercises, 10 reps every hour to prevent frozen shoulder while awake, which she also was demonstrated. She will be discharged in stable condition. Dictated By: Ronald Madrid DO 11/11/17 19:52 JOB #: [id number] Transcribed By: andrew 11/11/17 20:46 Electronically signed by: PAYAM Madrid D.O. 11/13/17 19:33 Page 2 of 2 CHELSEA ANDREWS Emergency Room Report LIPID PROFILE Collected: 11/02/2017 Status: F Source: [facility] 9:59 AM [facility] REPOSITORY TYPE CODE TESTS RESULT OUT OF REFERENCE UNITS RANGE LAB LIPID PROFILE(LOIN C) LIPID PROFILE Result Comment: LIPID PROFILE LAB TRIGLYCERIDE(LOINC) 0 - 150 mg/dl TRIGLYCERIDE 110 LAB CHOLESTEROL(LOINC) 0 - 200 mg/dl CHOLESTEROL High 220 LAB HDL(LOINC) 40 - 60 mg/dl HDL High 65 LAB CHOL/HDL(LOINC) 0.0 - 5.0 CHOL/HDL 3.4 LAB LDL(LOINC) 0 - 129 mg/dl LDL High 133 Performed By: #### [id number] #### [facility],[address] [place] [address] BMP WITH EGFR Collected: 11/02/2017 Status: F Source: [facility] 9:59 AM [facility] REPOSITORY TYPE CODE TESTS RESULT OUT OF RANGE REFERENCE UNITS LAB BMP with eGFR(LOINC) BMP with eGFR Result Comment: BASIC METABOLIC PANEL LAB SODIUM(LOINC) 136 - 145 mmol/l SODIUM 139 LAB POTASSIUM(LOINC) 3.5 - 5.1 mmol/L POTASSIUM 4.0 LAB CHLORIDE(LOINC) 98 - 107 mmol/L CHLORIDE 106 LAB CO2(LOINC) 21.0 - mmol/L 31.0 CO2 23.1 LAB GLUCOSE(LOINC) 74 - 106 mg/dl GLUCOSE High 171 LAB BUN(LOINC) 6 - 20 mg/dl BUN 15 LAB CREATININE(LOINC) 0.6 - 1.2 mg/dl CREATININE 0.7 LAB CALCIUM(LOINC) 8.6 - mg/dl 10.2 CALCIUM 9.2 LAB ANION GAP(LOINC) 10 - 20 mmol/L ANION GAP 14 LAB AGE(LOINC) years AGE 67 LAB eGFR(LOINC) 60 - 999 ML/MINUTE eGFR 83 LAB eGFR(AA)(LOINC) 60 - 999 ML/MINUTE eGFR(AA) 101 Result Comment: ACCORDING TO THE NATIONAL KIDNEY DISEASE EDUCATION PROGRAM(NKDE), A NORMAL eGFR IS A VALUE GREATER THAN OR EQUAL TO 60 ML/MIN/1.73 SQ METERS. CHRONIC KIDNEY DISEASE: <60mL/MIN/1.73 SQ METERS KIDNEY FAILURE: <15mL/MIN/1.73 SQ METERS THIS TEST SHOULD ONLY BE USED FOR PATIENTS 18 YEARS OF AGE AND OLDER. Performed By: #### [id number] #### [place] [address] HGB A1C Collected: 11/02/2017 Status: F Source: [facility] 9:59 AM [facility] REPOSITORY TYPE CODE TESTS RESULT OUT OF RANGE REFERENCE UNITS LAB HGB 4.4 - 6.4 % A1C(INC) High HGB A1C 10.5 Result Comment: {HB] {A1] Performed By: #### [id number] #### [place] [address] EMERGENCY DEPARTMENT Observed: 10/07/2017 Status: F Source: [place] SUMMARY 7:21 AM [facility] REPOSITORY [facility] Medical Records Department [address] [place] [address] Emergency Department Summary 10/07/17 0414 MR#: [id number] Acct: [id number] Name: CHELSEA ANDREWS Rep #: [id number] : 1950 66 From: Jef Richardson MD PCP: Caitie Zuleta MD Status: DEP ER - ER Visit Summary Date of Service: 10/07/17 Chief Complaint: Abdominal pain History of Present Illness: The patient is a [address] Mitchell. She reports that she has lower abdominal pain began 2 weeks ago. Pain worsened today. She was placed on Cipro 2 weeks ago which she took for 1 week and did not have relief. She reports that this is similar to when she has had diverticulitis. Patient describes the pain as cramping. Is 10 out of 10 severity. Is worsened by nothing relieved by nothing. She has had nausea without vomiting. No diarrhea. Her last bowel was yesterday. She has had no melena or hematochezia. No dysuria or frequency. No fever or chills. Physical Examination: Vitals: Stable. Afebrile. General: Well-nourished and well-developed. Head: Normocephalic atraumatic. Neck: Supple, no lymphadenopathy. No JVD. Nontender. Cardiovascular: Regular rate and rhythm. No murmurs. Respiratory: No respiratory distress. Clear to auscultation bilaterally. Abdominal: Soft, mild suprapubic and left lower quadrant tenderness to palpation, nondistended, normal bowel sounds. No guarding, rebound, or peritoneal signs. Back: Nontender. Extremities: Nontender, no edema. Skin: Normal color, no rash. Neurologic: Alert and oriented 3. Cranial nerves II through XII are intact. Normal strength and sensation. Psych: Normal affect. Test Results: CT flank shows a normal appendix. Acute sigmoid diverticulitis without free air or abscess. CBC is marked for a white count of 17.6, segmented neutrophils of 77, lymphocytes of 15. Chem-7 is more for glucose of 261. LFTs marked for an albumin of 3.1. Lipase is normal. Urinalysis negative. Emergency Department Course and Treatment: Patient is treated with Dilaudid IV. She is given Cipro and Flagyl p.o. She feels well and would like to go home. Treatment Plan: Patient will be discharged on Cipro, Flagyl, Zofran, and Hewlett. Instructed to follow-up her primary care physician 1 week for another exam. Return to the emergency department for any worsening symptoms. Disposition: To home in improved and stable condition. Impression: 1. Sigmoid diverticulitis. This note was generated with [employer] dictation software. It may contain incorrect words, spelling, and punctuation that were not noted in review of the chart prior to signing ED Disposition - Plan for ED Patient: Disposition: Home or Assisted Living Chief Complaint: Abd Pain Instructions: ED Diverticulitis Prescriptions: Ondansetron [Zofran Odt] 4 mg PO Q8H PRN PRN #10 tab PRN Reason: Nausea Hydrocodone/Acetaminophen [Hewlett 5-325 Tablet] 1 - 2 each PO 4X/DAY PRN PRN 5 Days #20 tablet PRN Reason: Pain Ciprofloxacin [Cipro] 500 mg PO BID #20 tablet Metronidazole [Flagyl] 500 mg PO Q6H #40 tablet Referrals: [facility] Doctor,Out of [NON-STAFF] - 1 Week What to do if you have Problems For any increased pain, shortness of breath, bleeding, nausea or vomiting, chest pain, or any unexpected problems, contact your Primary Care Provider. Call [facility] ([phone]) or report to the closest Emergency Room. Call 911 if necessary. 10/07/17 0721 <Electronically signed by Jef Richardson MD> Date Jef Richardson MD Cosigner Signature (If Indicated): Date CC: Caitie Zuleta MD URINALYSIS, COMPLETE Collected: 10/07/2017 Status: F Source: [facility] 3:25 AM [facility] REPOSITORY Order Comment: How was Urine Obtained? CLEAN CATCH TYPE CODE TESTS RESULT OUT OF RANGE REFERENCE UNITS LAB L400.3000 Yellow COLOR Normal Yellow LAB L400.3050 Clear Normal CLARITY Clear LAB L400.3200 Normal mg/dl High GLUCOSE, UR 250 LAB L400.3300 Negative mg/dL Normal BILIRUBIN URINE Negative LAB L400.3400 Negative mg/dl Normal KETONE UR Negative LAB L400.3465 1.002-1.030 Normal SP.GR. DIPSTX 1.015 LAB L400.3550 5.0 - 8.0 pH UR Normal 6.0 LAB L400.3600 Negative mg/dl PROT Normal DIPSTX Negative LAB L400.3700 Normal mg/dl Normal UROBILI Normal LAB L400.3750 Negative Normal NITRITE UR Negative LAB L400.3780 Negative /ul Normal OCCULT BLOOD-UR Negative LAB L400.3800 Negative /ul High LEUK ESTERASE 100 LAB L400.4050 0-5 /hpf WBC Normal 0-5 SEEN LAB L400.4100 0-5 /hpf 0 Normal RBC-UA SEEN LAB L400.4150 5-10 /hpf SQUAM Normal EPI 0-5 SEEN LAB L400.4300 None Seen /hpf 0 Normal BACTERIA SEEN LAB L400.4350 <or=2+ /hpf 0 Normal MUCUS, URINE SEEN Performed By: #### L400.0001 #### [facility] [address] [place], [address] Observed: 10/07/2017 Status: F Source: [place] CULTURE, URINE 3:25 AM [facility] REPOSITORY Urine Culture Below infection level. ORGANISM 1: Mixed Gram Positive Organisms Matthews Count <1000 Performed By: #### M100.0650 #### [facility] [address] [facility] [place], [address] CBC W/DIFF, AUTOMATED Collected: 10/07/2017 Status: F Source: [place] 2:50 AM [facility] REPOSITORY TYPE CODE TESTS RESULT OUT OF RANGE REFERENCE UNITS LAB L100.1000 4.4-11.0 K/mm3 High WBC 17.6 LAB L100.1200 4.2-5.4 M/mm3 Normal RBC 4.47 LAB L100.1300 12.0-15.0 g/dl Normal HGB 12.6 LAB L100.1400 37-47 % Normal HCT 38.3 LAB L100.1500 81-99 fL Normal MCV 85.7 LAB L100.1600 27.0-32.0 pg Normal MCH 28.2 LAB L100.1700 32-36 g/gl Normal MCHC 32.9 LAB L100.1810 11.6-14.6 % Normal RDW CV 14.1 LAB L100.1820 35.1-43.9 fl High RDW SD 44.0 LAB L100.1900 150-450 K/mm3 Normal PLT 269 LAB L100.2000 6.2-12.0 fl Normal MPV 10.3 LAB L100.2100 47-70 % High NEUT% 77.3 LAB L100.2200 19-41 % Low LY% 14.5 LAB L100.2300 0-10 % Normal MONO% 5.2 LAB L100.2400 0-5 % Normal EO% 2.6 LAB L100.2500 0-1 % Normal BASO% 0.2 LAB L100.2550 0.0-0.9 % Normal IM GRAN % 0.200 Result Comment: IG% - Immature Granulocytes (promyelocytes, myelocytes and metamyelocytes) > 1% indicates that a LEFT SHIFT is Present. LAB L100.2620 2.0-7.7 X10 3/uL High Absolute Neut 13.6 LAB L100.2720 0.83-4.51 X10 3/ul Normal Absolute Lymph 2.55 Performed By: #### L100.0100 #### [facility] [address] [place], [address] BASIC METABOLIC Collected: 10/07/2017 Status: F Source: [place] PROFILE (BMP) 2:50 AM [facility] REPOSITORY TYPE CODE TESTS RESULT OUT OF RANGE REFERENCE UNITS LAB L501.0100 74-106 mg/dL High GLU 261 Result Comment: Glucose result greater than or equal to 200 mg/dL suggests DIABETES MELLITUS per A.D.A. criteria. Please note revised GLUCOSE reference range effective 2017. LAB L501.1000 7-18 mg/dL Normal BUN 13 LAB L501.1100 0.55-1.02 mg/dL Normal CREAT,SERUM 1.01 Result Comment: The validity of the calculated GFR AND GFRAA in patients over 70 years has not been determined. Clinical correlation is essential. LAB L501.1110 >60 mL/min Low EST GFR 58 Result Comment: Non- GFR Calc LAB L501.1115 >60 mL/min Normal EST GFR - AA 70 Result Comment: GFR Calc LAB L501.1255 ml/min Normal Estimated CRCL 48.64 LAB L501.1300 10-20 RATIO Normal BUN/CRE 12.9 LAB L501.2200 8.5-10 mg/dL Normal .1 CA 8.6 LAB L501.5300 136-14 mmol/L Normal 5 NA 138 LAB L501.5600 3.5-5. mmol/L Normal 1 K 4.4 LAB L501.5900 98-107 mmol/L Normal CL 105 LAB L501.6100 21.0-3 mmol/L Normal 2.0 CO2 25.0 LAB L501.6200 5-15 Normal GAP 8 Performed By: #### L500.2500, L500.3400, L501.2450 #### [facility] [address] [facility] [place], [address] LIVER PROFILE Collected: 10/07/2017 Status: F Source: [place] 2:50 AM [facility] REPOSITORY TYPE CODE TESTS RESULT OUT OF RANGE REFERENCE UNITS LAB L501.1500 6.4-8.2 g/dL Normal T PROT 7.0 LAB L501.1800 3.2-5.0 g/dL Low ALB 3.1 LAB L501.1950 2.2-4.2 g/dL Normal GLOB 3.9 LAB L501.4100 15-37 U/L Normal AST 16 LAB L501.4305 45-117 U/L Normal ALK P 116 LAB L501.4405 13-56 U/L Normal ALT 18 LAB L501.4600 0.20-1.00 mg/dL Normal T BILI 0.20 LAB L501.4700 0.00-0.30 mg/dL Normal D BILI 0.07 Performed By: #### L500.2500, L500.3400, L501.2450 #### [facility] [address] [facility] [place], [address] LIPASE Collected: 10/07/2017 Status: F Source: [place] 2:50 AM [facility] REPOSITORY TYPE CODE TESTS RESULT OUT OF RANGE REFERENCE UNITS LAB L501.2450 73-393 U/L Normal LIPASE 188 Performed By: #### L500.2500, L500.3400, L501.2450 #### [facility] [address] [facility] [place], [address] ABDOMEN/PELVIS WITHOUT Observed: 10/07/2017 Status: F Source: [place] CONT 2:27 AM [facility] REPOSITORY [facility] Imaging Services [address] [place] [address] Abdomen/Pelvis without Cont MR#: [id number] Acct: [id number] Name: CHELSEA ANDREWS Rep #: [id number] : 1950 F 66 From: Ronald Eubanks MD PCP: OUT OF TOWN DOCTOR Status: REG ER Study: Abdomen/Pelvis without Cont Date of Exam: 10/07/17 Exam# [id number] Ordering Dr: Jef Richardson MD STUDY: CT ABDOMEN AND PELVIS WITHOUT CONTRAST REASON FOR EXAM: Female, 66 years old. Abdominal pain and nausea RADIATION DOSAGE (If Supplied By Facility): CTDIvol = ( 16.57 ) mGy, DLP = ( 979.44 ) mGycm TECHNIQUE: Transaxial images were obtained from the dome of the diaphragm to the symphysis pubis without oral contrast, and without intravenous contrast. Sagittal and coronal images were reconstructed. Individualized dose optimization techniques were used for this CT. COMPARISON: None. FINDINGS: The visualized lung bases are unremarkable. The visualized portions of the heart are within normal limits. Normal liver. There is non-visualization of the gallbladder, which may be secondary to either contraction or a prior cholecystectomy. Normal spleen. Normal pancreas. Normal bilateral adrenal glands. 3 mm nonobstructing right renal calculus. Normal left kidney. Normal visualized stomach. Normal small intestine. Acute sigmoid diverticulitis without free air or abscess. The appendix is visualized and appears normal. Normal abdominal aorta. Normal inferior vena cava. Normal retroperitoneum. Normal urinary bladder. Right anterior abdominal wall induration could be related to bruising or cellulitis. Normal abdominal wall. Lower lumbar fusions. CT/Abdomen/Pelvis without Cont IMPRESSION: Acute sigmoid diverticulitis without free air or abscess. Right anterior abdominal wall induration could be related to bruising or cellulitis. Electronically Signed: Ronald Eubanks MD at 3:32 EDT Tel , Service support , CC: OUT OF TOWN DOCTOR; Jef Richardson MD User Interface Artist: Signed 12 LEAD ELECTROCARDIOGRAM Observed: 09/24/2017 Status: F Source: [place] 3:01 PM [facility] REPOSITORY [facility] Cardiovascular Services [facility] [place] [address] 12 Lead EKG 09/22/171953 MR#: [id number] Acct: [id number] Name: JACKSON ANDREWSA Lizeth Rep #: [id number] : 1950 From: Tray Doherty MD Attending Dr: Status: DEP ER Ordering Dr: Shabbir Andrew MD Date: 09/22/17 Location: ED Sex: F C Admitted: Test Reason : WEAKNESS Blood Pressure : / mmHG Vent. Rate : 073 BPM Atrial Rate : 073 BPM P-R Int : 168 ms QRS Dur : 104 ms QT Int : 394 ms P-R-T Axes : 035 -41 038 degrees QTc Int : 434 ms Normal sinus rhythm Left axis deviation Incomplete left bundle branch block Abnormal ECG Confirmed by PAULETTE OROZCO, TRAY ([id number]), manuscript editor PENNY MENARD ([id number]) on 09/24/2017 3:00:45 PM Referred By: KAMRAN Confirmed By:TRAY DOHERTY MD 09/24/17 1500 Date Tray Doherty MD CC: No Primary Care Physician; Shabbir Andrew MD Signed DISCHARGE INSTRUCTION Observed: 09/22/2017 Status: F Source: [place] 9:59 PM [facility] REPOSITORY [facility] Medical Records Department [address] [place] [address] Discharge Instruction 09/22/172157 MR#: [id number] Acct: [id number] Name: EARLCHELSEA Stanley Rep #: [id number] : 1950 From: Shabbir Andrew MD PCP: Care Physician, No Primary Status: REG ER ED Disposition - Plan for ED Patient: Chief Complaint: Weakness Instructions: ED UTI Cystitis Female Prescriptions: Ciprofloxacin [Cipro] 500 mg PO BID #14 tab Referrals: Care Physician,No Primary [Primary Care Provider] - What to do if you have Problems For any increased pain, shortness of breath, bleeding, nausea or vomiting, chest pain, or any unexpected problems, contact your Primary Care Provider. Call [facility] ([phone]) or report to the closest Emergency Room. Call 911 if necessary. 09/22/172158 <Electronically signed by Shabbir Andrew MD> Date Shabbir Andrew MD Cosigner Signature (If Indicated): Date CC: No Primary Care Physician EMERGENCY DEPARTMENT Observed: 09/22/2017 Status: F Source: [place] SUMMARY 9:58 PM [facility] REPOSITORY [facility] Medical Records Department [address] [place] [address] Emergency Department Summary 09/22/172155 MR#: [id number] Acct: [id number] Name: CHELSEA ANDREWS Rep #: [id number] : 1950 66 From: Shabbir Andrew MD PCP: Care Physician, No Primary Status: REG ER - ER Visit Summary Date of Service: 09/22/17 Chief Complaint: I do not feel good History of Present Illness: The patient is a 66 F who presents with generalized malaise. She states that she just has not felt well over the past week. She complains of some generalized weakness. She has noted some congestion and postnasal drainage and has had sick contacts with similar symptoms. She reports nausea. No chest pain shortness of breath abdominal pain vomiting diarrhea dysuria frequency urgency. Physical Examination: Afebrile vitals are notable for elevated blood pressure at 162/103 otherwise normal Moist mucous membranes Heart regular rate and rhythm Lungs are clear Abdomen soft nontender nondistended Alert no focal or lateralizing neurological deficits Test Results: EKG shows sinus rhythm at a rate of 73. Chest x-ray unremarkable. CBC BMP notable for glucose of 348. Urinalysis shows 500 leukocyte esterase as well as 50-100 WBCs Emergency Department Course and Treatment: Patient was given Zofran for nausea. Her workup is notable for UTI. She was prescribed Cipro given penicillin and sulfa allergies. She was advised to follow-up with her primary care physician. She understands to return for new or worsening symptoms. She was discharged. Treatment Plan: [] Disposition: Discharge Impression: UTI This note was generated with [employer] dictation software. It may contain incorrect words, spelling, and punctuation that were not noted in review of the chart prior to signing ED Disposition - Plan for ED Patient: Chief Complaint: Weakness Referrals: Care Physician,No Primary [Primary Care Provider] - What to do if you have Problems For any increased pain, shortness of breath, bleeding, nausea or vomiting, chest pain, or any unexpected problems, contact your Primary Care Provider. Call [facility] ([phone]) or report to the closest Emergency Room. Call 911 if necessary. 09/22/172157 <Electronically signed by Shabbir Andrew MD> Date Shabbir Andrew MD Cosigner Signature (If Indicated): Date CC: No Primary Care Physician URINALYSIS, COMPLETE Collected: 09/22/2017 Status: F Source: [place] 8:45 PM [facility] REPOSITORY Order Comment: How was Urine Obtained? CLEAN CATCH TYPE CODE TESTS RESULT OUT OF RANGE REFERENCE UNITS LAB L400.3000 Yellow COLOR Normal Yellow LAB L400.3050 Clear Normal CLARITY Clear LAB L400.3200 Normal mg/dl High GLUCOSE, UR 1000 LAB L400.3300 Negative mg/dL Normal BILIRUBIN URINE Negative LAB L400.3400 Negative mg/dl Normal KETONE UR Negative LAB L400.3465 1.002-1.030 Normal SP.GR. DIPSTX 1.015 LAB L400.3550 5.0 - 8.0 pH UR Normal 6.5 LAB L400.3600 Negative mg/dl High PROT 30 DIPSTX LAB L400.3700 Normal mg/dl Normal UROBILI Normal LAB L400.3750 Negative Normal NITRITE UR Negative LAB L400.3780 Negative /ul Normal OCCULT BLOOD-UR Negative LAB L400.3800 Negative /ul High LEUK ESTERASE 500 LAB L400.4050 0-5 /hpf WBC Normal 50-100 SEEN LAB L400.4100 0-5 /hpf 0 Normal RBC-UA SEEN LAB L400.4150 5-10 /hpf SQUAM Normal EPI 0-5 SEEN LAB L400.4300 None Seen /hpf 0 Normal BACTERIA SEEN LAB L400.4350 <or=2+ /hpf 0 Normal MUCUS, URINE SEEN Performed By: #### L400.0001 #### [facility] [address] [place] [place], [address] Observed: 09/22/2017 Status: F Source: [place] CULTURE, URINE 8:45 PM [facility] REPOSITORY Urine Culture ORGANISM 1: Mixed Gram Positive Organisms Matthews Count 1000-10,000 MIX CULTURE Mixed contaminants. Submit a new specimen if indicated. Performed By: #### M100.0650 #### [facility] [address] [place], [address] CBC W/DIFF, AUTOMATED Collected: 09/22/2017 Status: F Source: [place] 7:54 PM [facility] REPOSITORY TYPE CODE TESTS RESULT OUT OF RANGE REFERENCE UNITS LAB L100.1000 4.4-11.0 K/mm3 Normal WBC 10.7 LAB L100.1200 4.2-5.4 M/mm3 Normal RBC 4.61 LAB L100.1300 12.0-15.0 g/dl Normal HGB 13.1 LAB L100.1400 37-47 % Normal HCT 39.4 LAB L100.1500 81-99 fL Normal MCV 85.5 LAB L100.1600 27.0-32.0 pg Normal MCH 28.4 LAB L100.1700 32-36 g/gl Normal MCHC 33.2 LAB L100.1810 11.6-14.6 % Normal RDW CV 14.2 LAB L100.1820 35.1-43.9 fl Normal RDW SD 43.5 LAB L100.1900 150-450 K/mm3 Normal PLT 247 LAB L100.2000 6.2-12.0 fl Normal MPV 10.3 LAB L100.2100 47-70 % Normal NEUT% 68.2 LAB L100.2200 19-41 % Normal LY% 24.9 LAB L100.2300 0-10 % Normal MONO% 3.4 LAB L100.2400 0-5 % Normal EO% 3.0 LAB L100.2500 0-1 % Normal BASO% 0.3 LAB L100.2550 0.0-0.9 % Normal IM GRAN % 0.200 Result Comment: IG% - Immature Granulocytes (promyelocytes, myelocytes and metamyelocytes) > 1% indicates that a LEFT SHIFT is Present. LAB L100.2620 2.0-7.7 X10 3/uL Normal Absolute Neut 7.3 LAB L100.2720 0.83-4.51 X10 3/ul Normal Absolute Lymph 2.67 Performed By: #### L100.0100 #### [facility] [address] [place], [place], [address] COMPREHENSIVE METABOLIC Collected: 09/22/2017 Status: F Source: [facility] 7:54 PM [facility] REPOSITORY TYPE CODE TESTS RESULT OUT OF RANGE REFERENCE UNITS LAB L501.0100 74-106 mg/dL High GLU 348 Result Comment: Glucose result greater than or equal to 200 mg/dL suggests DIABETES MELLITUS per A.D.A. criteria. Please note revised GLUCOSE reference range effective 2017. LAB L501.1000 7-18 mg/dL Normal BUN 16 LAB L501.1100 0.55-1.02 mg/dL Normal CREAT,SERUM 0.98 Result Comment: The validity of the calculated GFR AND GFRAA in patients over 70 years has not been determined. Clinical correlation is essential. LAB L501.1110 >60 mL/min Normal EST GFR 60 Result Comment: Non- GFR Calc LAB L501.1115 >60 mL/min Normal EST GFR - AA 72 Result Comment: GFR Calc LAB L501.1255 ml/min Normal Estimated CRCL 50.13 LAB L501.1300 10-20 RATIO Normal BUN/CRE 16.2 LAB L501.1500 6.4-8. g/dL Normal 2 T PROT 7.0 LAB L501.1800 3.2-5. g/dL Normal 0 ALB 3.2 LAB L501.1950 2.2-4. g/dL Normal 2 GLOB 3.8 LAB L501.2000 0.9-2. RATIO Low 4 A/G 0.8 LAB L501.2200 8.5-10 mg/dL Normal .1 CA 9.0 LAB L501.4100 15-37 U/L Normal AST 24 Result Comment: Moderate Hemolysis, Result may be falsely increased. LAB L501.4305 45-117 U/L Normal ALK P 107 LAB L501.4405 13-56 U/L Normal ALT 22 LAB L501.4600 0.20-1.00 mg/dL Normal T BILI 0.50 LAB L501.5300 136-145 mmol/L Normal NA 139 LAB L501.5600 3.5-5.1 mmol/L Normal K 3.9 Result Comment: Moderate Hemolysis, Result may be falsely increased. LAB L501.5900 98-107 mmol/L Normal CL 106 LAB L501.6100 21.0-32.0 mmol/L Normal CO2 26.0 LAB L501.6200 5-15 Normal 7 GAP Performed By: #### L500.4050 #### [facility] [address] [facility] [place], [address] CHEST PA AND LATERAL Observed: 09/22/2017 Status: F Source: [place] 7:45 PM [facility] REPOSITORY [facility] Imaging Services [address] [place] [address] Chest PA and Lateral MR#: [id number] Acct: [id number] Name: CHELSEA ANDREWS Lizeth Rep #: [id number] : 1950 F 66 From: Kenny Segura MD PCP: Care Physician, No Primary Status: REG ER Study: Chest PA and Lateral Date of Exam: 09/22/17 Exam# [id number] Ordering Dr: Shabbir Andrew MD STUDY: X-RAY CHEST REASON FOR EXAM: Female, 66 years old. COUGH, WEAKNESS, Hx OF COPD TECHNIQUE: Frontal and lateral views of the chest. COMPARISON: November 30, 2016 FINDINGS: Chronic appearing increased interstitial lung markings. There is an elevated right hemidiaphragm. There is no demonstrated pleural abnormality. Enlarged heart size. Normal mediastinum and shana. Normal visualized pulmonary arteries. There is atherosclerotic calcification of the aortic arch with tortuosity. There are diffuse degenerative changes of the visualized thoracic spine. There is degenerative osteoarthritis of the bilateral shoulders. There is no demonstrated abnormality of the visualized soft tissue structures of the upper abdomen. RAD/Chest PA and Lateral IMPRESSION: There are no acute findings. Electronically Signed: Kenny Segura MD at 20:42 EDT , Service support , CC: No Primary Care Physician; Shabbir Andrew MD User Interface Artist: Signed BEDSIDE GLUCOSE Collected: 09/22/2017 Status: F Source: [place] 7:19 PM [facility] REPOSITORY TYPE CODE TESTS RESULT OUT OF REFERENCE UNITS RANGE LAB L501.080 70-110 mg/dL High BEDSIDE GLU 352 Result Comment: MANAGEMENT OF PATIENT CARE PER NURSING PROTOCOL Performed By: #### L501.080 #### [facility] Point of Care [address] [place] [address] XR SPINE CERVICAL Observed: 08/07/2017 Status: F Source: [facility] FLEX/EXT ONLY 1:39 PM [facility] REPOSITORY ORIGINAL Cervical spine lateral flexion and extension views HISTORY: Spinal stenosis, neck pain. Compared to MRI cervical spine dated 08/07/2017. FINDINGS: Vertebral body heights are intact. Alignment is intact. Mild to moderate multilevel degenerative changes. No significant prevertebral soft tissue swelling. Moderate C6 and C7 degenerative el ges. No significant subluxation or motion is noted on the flexion and extension images. Impression: No fracture. Mild to moderate degenerative changes. Interpreted By: Christian Rm MD Preliminary Report By: Christian Rm MD Electronically Signed By: Christian Rm MD Dictated Date: 08/07/2017 2:21:31 PM Prelim Date: 08/07/2017 2:21:31 PM Sign Date: 08/07/2017 2:23:12 PM MRI SPINE CERVICAL Observed: 08/07/2017 Status: F Source: [facility] W/O CONTRAST 1:30 PM [facility] MRI SPINE CERVICAL W/O CONTRAST Clinical Statement: CERVICAL SPINAL STENOSIS. Bilateral cervical radiculopathy. TECHNIQUE: Multiplanar, multisequence imaging of the cervical spine. COMPARISON: CT cervical spine 03/17/2015 FINDINGS: The cervical spine demonstrates normal alignment. Vertebral body heights are preserved.There is diffuse disc desiccation and height loss most severe at C6-7. No suspicious marrow abnormality. A hemangioma is noted in the lateral mass of C1 on the left. The cervical spinal cord is normal in size andsignal intensity. The paraspinal soft tissues, craniocervical junction and included intracranial contents are grossly unremarkable. C2-3: No stenosis. C3-4: Disc osteophyte complex, facet arthropathy, and uncovertebral spurring causes mild canal stenosis. There is moderate bilateral neural foraminal stenosis. C4-5: Disc osteophyte complex, uncovertebral spurring, and facet arthropathy cause moderate canal stenosis. There is moderate right and severe left neural foraminal stenosis. C5-6: Disc osteophyte complex, facet arthropathy, and uncovertebral spurring causes mild canal stenosis and flattening of the cord of the right without cord signal abnormality. There is mild bilateral n eural foraminal stenosis, left greater than right. C6-7: Disc osteophyte complex and uncovertebral spurring with mild canal stenosis. Mild bilateral neural foraminal stenosis. C7-T1: Mild disc osteophyte complex eccentric to the right without canal or neural foraminal stenosis. IMPRESSION: Multilevel degenerative changes worst at C4-5 with moderate canal stenosis and severe left and moderate right neural foraminal stenosis. Interpreted By: Fiona Aguilar Preliminary Report By: Fiona Aguilar Electronically Signed By: Fiona Aguilar Dictated Date: 08/08/2017 8:32:27 AM Prelim Date: 08/08/2017 8:32:27 AM Sign Date: 08/08/2017 8:42:16 AM BMP WITH EGFR Collected: 07/23/2017 Status: F Source: [facility] 11:10 AM [facility] REPOSITORY TYPE CODE TESTS RESULT OUT OF RANGE REFERENCE UNITS LAB BMP with eGFR(LOINC) BMP with eGFR Result Comment: BASIC METABOLIC PANEL LAB SODIUM(LOINC) 136 - 145 mmol/l SODIUM 137 LAB POTASSIUM(LOINC) 3.5 - 5.1 mmol/L POTASSIUM 5.0 LAB CHLORIDE(LOINC) 98 - 107 mmol/L CHLORIDE 103 LAB CO2(LOINC) 21.0 - mmol/L 31.0 CO2 25.6 LAB GLUCOSE(LOINC) 74 - 106 mg/dl GLUCOSE High 217 LAB BUN(LOINC) 6 - 20 mg/dl BUN 12 LAB CREATININE(LOINC) 0.6 - 1.2 mg/dl CREATININE 0.7 LAB CALCIUM(LOINC) 8.6 - mg/dl 10.2 CALCIUM 9.5 LAB ANION GAP(LOINC) 10 - 20 mmol/L ANION GAP 13 LAB AGE(LOINC) years AGE 66 LAB eGFR(LOINC) 60 - 999 ML/MINUTE eGFR >60 LAB eGFR(AA)(LOINC) 60 - 999 ML/MINUTE eGFR(AA) >60 Result Comment: ACCORDING TO THE NATIONAL KIDNEY DISEASE EDUCATION PROGRAM(NKDE), A NORMAL eGFR IS A VALUE GREATER THAN OR EQUAL TO 60 ML/MIN/1.73 SQ METERS. CHRONIC KIDNEY DISEASE: <60mL/MIN/1.73 SQ METERS KIDNEY FAILURE: <15mL/MIN/1.73 SQ METERS THIS TEST SHOULD ONLY BE USED FOR PATIENTS 18 YEARS OF AGE AND OLDER. Performed By: #### [id number] #### [place] [address] HGB A1C Collected: 07/23/2017 Status: F Source: [facility] 11:10 AM [facility] REPOSITORY TYPE CODE TESTS RESULT OUT OF RANGE REFERENCE UNITS LAB HGB 4.4 - 6.4 % A1C(LOINC) High HGB A1C 10.8 Result Comment: {HB] {A1] Performed By: #### [id number] #### [place] [address] ALLERGIES ALLERGIES DATE TYPE / CODE NAME / CODE REACTION SEVERITY SOURCE 05/11/20 Drug haloperidol Other Unknown [place] 18 Allergy/[id number] lactate/[id number]( [facility] (SNOMED CT) RXNORM) Hospital Repository 05/11/20 Drug benztropine Other Unknown [place] 18 Allergy/[id number] mesylate/[id number] [facility] (OMED CT) (RXNO) Hospital Repository 05/11/20 Drug pseudoephedrine Other Unknown [place] 18 Allergy/[id number] HCl/[id number](RXNO [facility] (SNOMED CT) ) Hospital Repository 05/11/20 Drug Penicillins/[id number] Shortness of Unknown [place] 18 Allergy/570415091 476(RXNORM) breath [facility] (SNOMED CT) Hospital Repository 05/11/20 Drug Sulfa (Sulfonamide Hives Unknown [place] 18 Allergy/[id number] Antibiotics)/[id number] [facility] (SNOMED CT) 0491(RXNORM) Hospital Repository 05/11/20 Drug theophylline/M81945 Other Unknown [place] 18 Allergy/410336836 0602(RXNORM) [facility] (SNOMED CT) Hospital Repository 05/11/20 Drug iodine/[id number](R Swelling Unknown [place] 18 Allergy/[id number] XNORM) [facility] (SNOMED CT) Hospital Repository 05/11/20 Drug haloperidol/U007934 Other Unknown [place] 18 Allergy/270163183 518(RXNORM) [facility] (SNOMED CT) Hospital Repository 05/11/20 Drug lithium/[id number]( Diarrhea Unknown [place] 18 Allergy/597649983 RXNORM) [facility] (SNOMED CT) Hospital Repository 05/11/20 Drug morphine/[id number] Shortness of Unknown Marco 18 Allergy/097517495 (RXNORM) breath [facility] (SNOMED CT) Hospital Repository 05/11/20 Drug codeine/[id number]( Other Unknown [place] 18 Allergy/312140740 RXNORM) [facility] (SNOMED CT) Hospital Repository 12/28/19 Drug Penicillins/Z686175 Anaphylactic Severe [facility] 18 Allergy/663276129 476(RXNORM) Shock (severity [facility] (SNOMED CT) modifier) Medical Cord (qualifier Repository value) 12/28/19 Drug Sulfa (Sulfonamide unknown Moderate [facility] 18 Allergy/588314199 Antibiotics)/M83616 (severity [facility] (SNOMED CT) 0491(RXNORM) modifier) Medical Center (qualifier Repository value) 12/28/19 Drug iodine/M917838614(R unknown Moderate [facility] 18 Allergy/917818826 XNORM) (severity [facility] (SNOMED CT) modifier) Medical Center (qualifier Repository value) 12/28/19 Drug fluphenazine/V52695 unknown Moderate [facility] 18 Allergy/870518977 1473(RXNORM) (severity [facility] (SNOMED CT) modifier) Medical Center (qualifier Repository value) 12/28/19 Drug haloperidol/H369031 unknown Moderate [facility] 18 Allergy/066294204 518(RXNORM) ([facility] (SNOMED CT) modifier) [facility] (qualifier Repository value) 12/28/19 Drug lithium/P524525636( unknown Moderate [facility] 18 Allergy/817682678 RXNORM) ([facility] (SNOMED CT) modifier) [facility] (qualifier Repository value) 12/28/19 Drug morphine/N982749822 unknown Moderate [facility] 18 Allergy/534703637 (RXNORM) ([facility] (SNOMED CT) modifier) [facility] (qualifier Repository value) 12/28/19 Drug codeine/T434243577( unknown Moderate [facility] 18 Allergy/101667563 RXNORM) ([facility] (SNOMED CT) modifier) [facility] (qualifier Repository value) 12/28/19 Drug pseudoephedrine/F00 unknown Moderate [facility] 18 Allergy/446119008 9797789(RXNORM) ([facility] (SNOMED CT) modifier) [facility] (qualifier Repository value) 12/28/19 Drug benztropine/D764119 unknown Moderate [facility] 18 Allergy/573615045 667(RXNORM) ([facility] (SNOMED CT) modifier) [facility] (qualifier Repository value) 12/28/19 Drug triprolidine/Q04296 unknown Moderate [facility] 18 Allergy/637119103 4799(RXNORM) ([facility] (SNOMED CT) modifier) [facility] (qualifier Repository value) Drug SULFA Moderate Christian Pomerene Allergy/768679287 (sulfonamide)/57232 ([facility] (SNOMED CT) 022(RXNORM) Modifier) Hospital (Qualifier Repository Value) Drug PENICILLINS Moderate Chrisitan Pome[place] Allergy/730945258 (CLASS)/57616236(RX ([facility] (SNOMED CT) NORM) Modifier) Hospital (Qualifier Repository Value) Drug THEOPHYLLINE/561931 Moderate Christian [place] Allergy/600203403 98(RXNORM) ([facility] (SNOMED CT) Modifier) [facility] (Qualifier Repository Value) Drug CODEINE/03498601(RX Moderate Christian Pome[place] Allergy/320349425 NORM) ([facility] (SNOMED CT) Modifier) [facility] (Qualifier Repository Value) Drug MORPHINE/32316501(R Moderate Christian Pome[place] Allergy/872811698 XNORM) ([facility] (SNOMED CT) Modifier) Hospital (Qualifier Repository Value) Drug PSEUDOEPHEDRINE/000 Moderate Christian Pome[place] Allergy/925080600 37659(RXNORM) ([facility] (SNOMED CT) Modifier) [facility] (Qualifier Repository Value) Drug LITHIUM/40926315(RX Moderate Christian Pomerene Allergy/759998189 NORM) ([facility] (SNOMED CT) Modifier) Hospital (Qualifier Repository Value) Drug IODINE/35154741(RXN Moderate Christian Pome[place] Allergy/915800236 ORM) ([facility] (SNOMED CT) Modifier) [facility] (Qualifier Repository Value) Drug COGENTIN/42412634(R Moderate Christian Pome[place] Allergy/208496506 XNORM) ([facility] (SNOMED CT) Modifier) [facility] (Qualifier Repository Value) Drug HALDOL/48621791(RXN Moderate Christian P[place] Allergy/062334039 ORM) ([facility] (SNOMED CT) Modifier) [facility] (Qualifier Repository Value) Environmental 07/29/15 (-) CDIFF Moderate Christian Pomerene Allergy/002119450 ([facility] (SNOMED CT) Modifier) [facility] (Qualifier Repository Value) ENCOUNTERS ENCOUNTERS ADMIT/DISCHARGE ACCOUNT NUMBER ADMITTING ENCOUNTER LOCATION SOURCE CLASS 05/23/2018/ [id number] Ambulatory BMSBuilding:BM [facility] 05/13/2018 [id number] SONG Ambulatory Christian OWENS MD [facility] Repository 05/13/2018 [id number] SONG Ambulatory Christian OWENS MD [facility] Repository 05/13/2018 [id number] SONG Ambulatory Christian OWENS MD [facility] Repository 05/13/2018/ [id number] JANELLE, Inpatient BuildinRo Christian ARMENDARIZ MD Encounter om: [address] [place] [address] Repository 05/11/2018/ [id number] Emergency Marco [place] 018 [facility] ng:ED Repository 05/11/2018/ [id number] Emergency Marco [place] 018 [facility] ng:ED Repository 04/29/2018/ [id number] Emergency [place] ng:ED Repository 04/22/2018 [id number] Ambulatory [facility] ng:LAB.FUTURE Repository 04/16/2018/ [id number] PROSPER, Ambulatory BuildinRo Christian GUILLEN MD om: [address] Repository 04/15/2018/ [id number] YECENIA, Ambulatory [address] Repository 04/04/2018/ [id number] Emergency [place] ng:ED Repository 03/31/2018/ [id number] Emergency [place] Marco[address] ng:ED Repository 03/20/2018/ [id number] Emergency [address] ng:ED Repository 01/27/2018 [id number] SAILAJA, Ambulatory [facility] Repository 01/27/2018 [id number] SONG, Ambulatory [facility] Repository 01/18/2018 [id number] [facility] ng:US Repository 01/12/2018/ [id number] Emergency Marco [place] ng:ED Repository 12/31/2017 [id number] Ambulatory Building:[facility] Repository 12/27/2017/ [id number] Emergency [facility] 018 MEDBuilding:ED [facility] Repository 12/12/2017/ [id number] Emergency UNIBuilding:ED [address] Repository 12/07/2017/ [id number] Emergency UNIBuilding:ED [address] Repository 12/06/2017 [id number] JOSIE, Ambulatory [facility] Repository 12/03/2017/ [id number] Emergency UNIBuilding:ED [address] Repository 11/11/2017/ [id number] ANNMARIE, Emergency BuildinRo Christian [place] [address] DOMINGUEZ om: ERBed: B [facility] Repository 11/09/2017/ [id number] BLANK, Emergency BuildinRo Christian Pome[place] 018 MARCELLO PARDO om: ERBed: [facility] Repository 11/02/2017/ [id number] KALISETTI, Ambulatory Christian Pome[place] 018 [facility] Repository 10/07/2017/ [id number] Emergency [place] 018 [facility] ng:ED Repository 09/22/2017/ [id number] Emergency [place] Marco[address] ng:ED Repository 08/07/2017/ [id number] Ambulatory ABuilding:[address] Repository 07/23/2017/ [id number] KALISETTI, Ambulatory Christian [place] 018 [facility] Repository 06/20/2017/ [id number] KALISETTI, Ambulatory Christian Pome[place] 018 [facility] Repository PAYERS PAYERS ENCOUNTER GUARANTOR PAYER SUBSCRIBER SOURCE 05/23/2018 CHELSEA ANDREWS654 Primary CHELSEA L Marco KEE Insurance:ANTHEMPolic MYERSDOB: [address] y Number: [id number] Repository 99005Xih: (183) [id number] [phone] () Date:2957-58-50UF [address] [place] [address] 19871ZW: 05/23/2018 Secondary NOT GIVENUNK [facility] Insurance:SELF PAY Hospital INSURANCEPolicy Repository Number: Effective Date:2018-05-22 05/13/2018 CHELSEA L Primary CHELSEA L Christiancharli GOLDENB: Insurance:MEDICAREPol [facility] [id number] icy Number: [id number] [address] [place] [id number] [place] Date:Plan Name:[facility], [address]Qxc: (330) [place] [address] [phone] (HP) 05/13/2018 Secondary CHELSEA L Christian [place]ome[place] Insurance:[facility]: [facility] [id number] Repository Number: [address] [id number] [place], [place] Date:2017-06-10 [place] [address] 05/13/2018 CHELSEA L Primary CHELSEA Lizeth Gonzales P[place] MYERSDOB: Insurance:MEDICAREPol MYERSDOB: [facility] icy Number: [id number] Repository [address] [place] [id number] [address] [place] Date:Plan Name:[facility], [address]Uij: (330) [place] [address] [phone] (HP) 05/13/2018 Secondary CHELSEA L Christian [place] Insurance:[facility]: [facility] [id number] Repository Number: [address] [id number] [facility]:2017-06-10 [place] [address] 05/13/2018 CHELSEA L Primary CHELSEA Lizeth Gonzales [place] MYERSDOB: Insurance:MEDICAREPol MYERSDOB: [facility] icy Number: [id number] [address] [place] [id number] [address] [place] Date:Plan Name:[facility], 92[address]Fdj: (330) [place] [address] [phone] (HP) 05/13/2018 Secondary CHELSEA L Christian [place] Insurance:[facility]: [facility] [id number] Repository Number: [address] [id number] [facility]:2017-06-[place] [address] 05/13/2018 CHELSEA L Primary CHELSEA Pratt MYERSDOB: Insurance:ANTHEM BLUE MYERSDOB: [facility] CROSS MEDICARE [id number] Repository [facility] DRIVELAKEVIEW [facility]ITAL INPATIENTPolicy [address] [place] [address]: [address] [place] [address] 858[address]Qni: (330) [id number] [phone] (HP) Date:Plan Name: 05/11/2018 CHELSEA CHAN4 Primary CHELSEA L [place] [facility] [address] Insurance:ANTHEMPolic MYERSDOB: [address] y Number: [id number] Repository 857[address]Nkq: (330) [id number] [phone] (HP) Date:2293-63-16NA [id number] [place] [address] 06770UB: 05/11/2018 Secondary NOT GIVENUNK [facility] Insurance:SELF PAY Hospital INSURANCEPolicy Repository Number: Effective Date:2018-05-11 05/11/2018 CHELSEA Lizeth ANDREWSRAOHO961 Primary CHELSEA L [facility] [address] Insurance:ANTHEMPolic MYERSDOB: [address] y Number: [id number] Repository 280[address]Bmq: (330) [id number] [phone] (HP) Date:2449-86-59TC [id number] [place] [address] 87912BQ: 05/11/2018 Secondary NOT GIVENUNK [facility] Insurance:SELF PAY Hospital INSURANCEPolicy Repository Number: Effective Date:2018-05-11 04/29/2018 CHELSEA Lizeth [id number] Primary CHELSEA L [place] [facility] [address] Insurance:ANTHEMPolic MYERSDOB: [address] y Number: [id number] Repository 840[address]Sqe: (330) [id number] [phone] (HP) Date:9245-94-06GP [address] [place] [address] 46840PF: 04/29/2018 Secondary NOT GIVENUNK [facility] Insurance:SELF PAY Hospital INSURANCEPolicy Repository Number: Effective Date:2018-04-29 04/22/2018 CHELSEA GUZMAN Primary CHELSEA Lara [facility] [address], Insurance:ANTHEMPolic MYERSDOB: [facility] [address]Cde: y Number: [id number] Repository [id number] (HP) Date:7241-12-80AM [address] [place] [address] 40862QO: 04/22/2018 Secondary NOT GIVENUNK [facility] Insurance:SELF PAY Hospital INSURANCEPolicy Repository Number: Effective Date:2018-04-22 04/16/2018 CHELSEA Stanley Primary CHELSEA Pratt MYERSDOB: Insurance:ANTHEM BLUE MYERSDOB: [facility] CROSS MEDICARE [id number] [address] OUTPATIENTPolicy [address] [place], [place] Number: NW[place]T [address]Vph: (009) [id number] [place], [place] [phone] (HP) Date:Plan Name: [id number] 04/15/2018 CHELSEA Stanley Primary CHELSEA Pratt MYERSDOB: Insurance:MEDICARE MYERSDOB: [facility] OUTPATIENTPolicy [id number] [address] Number: 2 [address] [place], [place] [id number] [place], [place] [address]Hjz: (281) Date:Plan Name: [id number] (HP) 04/04/2018 CHELSEA GUZMAN Primary CHELSEA Stanley [place] [facility] [address], Insurance:ANTHEMPolic MYERSDOB: [facility] [address]58[address]Lws: y Number: [id number] Repository [id number] (HP) Date:3530-76-60OS [address] [address]JR: 04/04/2018 Secondary NOT GIVENUNK [facility] Insurance:SELF PAY Hospital INSURANCEPolicy Repository Number: Effective Date:2018-04-04 03/31/2018 CHELSEA GUZMAN Primary CHELSEA Lara [facility] [address], Insurance:ANTHEMPolic [place]ERSD[place] [address]Cbf: y Number: [id number] Repository [id number] (HP) Date:7474-72-72IX [address] [place] [address] 27313YR: 03/31/2018 Secondary NOT GIVENUNK [facility] Insurance:SELF PAY Hospital INSURANCEPolicy Repository Number: Effective Date:2018-03-31 03/20/2018 CHELSEA GUZMAN [facility] CHELSEA Stanley [facility] [address], Insurance:ANTHEMPolic MYERSDOB: [facility] [address]Wep: y Number: [id number] Repository [id number] (HP) Date:8404-60-06LT [address]PKHIJG[address] [place] [address] 940[address]VS: 03/20/2018 Secondary NOT GIVENUNK [facility] Insurance:SELF PAY Hospital INSURANCEPolicy Repository Number: Effective Date:2018-03-20 01/27/2018 CHELSEA L Primary CHELSEA Pratt MYERSDOB: Insurance:MEDICAREPol MYERSDOB: [facility] icy Number: [id number] Repository [address] [id number] [address] [place] [address] Date:Plan Name: [place], [place] [address]Ovv: (291) [phone] (HP) 01/27/2018 CHELSEA L Primary CHELSEA Estradane MYERSDOB: Insurance:MEDICARE MYERSDOB: [facility] OUTPATIENTPolicy [id number] Repository [address] Number: [address] [place] [address] [id number] [place], [place] [address]Sad: 330) Date:Plan Name: [id number] [phone] (HP) 01/18/2018 CHELSEAGIOVANNA ANDREWS437 Primary CHELSEA Lizeth Marco [facility] [address] Insurance:MEDICARE MYERSDOB: [place] PART A BPolicy [id number] Repository 759[address]Kzb: (330) Number: [phone] () [id number] Date:2018-01-17 01/18/2018 Secondary [facility] INSURANCEPolicy Repository Number: Effective Date:2018-01-17 01/12/2018 CHELSEA L Primary CHELSEA L [facility] [id number] E Insurance:MEDICARE MYERSDOB: [facility] PART A olicy [id number] Repository [address] [place] [address] Number: [address]Ymx: 330 [id number] [phone] () Date:2018-01-12 01/12/2018 [facility]SELF PAY Hospital INSURANCEPolic Repository Number: Effective Date:2018-01-12 12/27/2017 NIKHIL Primary CHELSEA L [facility] BEHAVIORAL Insurance:[facility]: [place] [id number] BEHAV HOSPPolicy [id number] Center Repository STATE Number: [place], [place] [id number] BEHAVIORAL [address]Qan: (740) Date: [id number] [phone] () [place], [place] [address]Wdc: () 12/27/2017 Secondary CHELSEA L [facility] Insurance:MEDICAREPol MYERSDOB: [facility] icy Number: [id number] Center Repository [id number] [facility] Date: BEHAVIORAL [id number] [place] [address] 18014Fhi: () 12/12/2017 CHELSEA ANDREWS149 Primary CHELSEA L [facility] Insurance:MEDICAREPol [facility]ERS[facility]K [facility] [place] icy Number: Repository [address]Uzh: 330 [id number] [phone] () Date:1991-01-[birth year] 12/07/2017 CHELSEA CHADWICK Primary CHELSEA Stanley [address] Insurance:MEDICAREPol [facility] [place] icy Number: Repository [address]Etn: (407) [id number] [phone] (HP) Date:1991-01-08 12/06/2017 CHELSEA Stanley Primary CHELSEA Pratt MYERSDOB: Insurance:MEDICARE MYERSDOB: [facility] RECURRING REFERENCE [id number] [address] [place] LABPolicy Number: [address] [place], [place] [id number] MANASS[place], [address]Qox: 330) Date:Plan Name:[facility] [address] [phone] (HP) 12/03/2017 CHELSEA CHAWDICK Primary CHELSEA Stanley [address] Insurance:MEDICAREPol [facility] [place] icy Number: Repository [address]Qel: 330 [id number] [phone] (HP) Date:1990-01-08 11/11/2017 CHELSEA Stanley Primary CHELSEA Pratt MYERSDOB: Insurance:MEDICAREPol [facility]: [facility] [id number] icy Number: [id number] [id number] [address] [facility] [place] Date:Plan Name:[facility] [id number]: [phone] (HP) 11/11/2017 Secondary CHELSEA Pratt Insurance:MEDICARE [facility]ERSDOB: [facility] [id number] Repository Number: [address] [facility] [id number] [place] Date:Plan Name: [id number] 11/09/2017 CHELSEA Stanley Primary CHELSEA Pratt MYERSDOB: Insurance:MEDICAREPol [facility]: [facility] icy Number: [id number] [address] [id number] [address] [facility], [place] Date:Plan Name: TERRY, [id number]: [place] [phone] () 11/02/2017 CHELSEA L Primary CHELSEA L Christian Pratt MYERSDOB: Insurance:MEDICAREPol MYERSDOB: [facility] icy Number: [id number] [address] [id number] [address] [place], [place] Date:Plan Name:[place], [place] [address]Ohk: (330) [phone] () 10/07/2017 Chelsea L Primary Chelsea L [facility] [id number] E Insurance:Primetime MyersDOB: [facility] [id number] Repository 8[place], [place] SupplemePolmercyone [facility] [address]Qbh: (676) Number: Effective [phone] () Date:9849-94-45FU [address], [place] [address]HC: 10/07/2017 Secondary NOT GIVENUNK [facility] Insurance:SELF PAY [facility] INSURANCEPolicy Repository Number: Effective Date:2017-10-07 09/22/2017 Chelsea L Primary Chelsea [facility] [id number] E Insurance:Primetime MyersDOB: [facility] [id number] Repository [address] [place] [address] SupplemePolicy 133[address]Nqk: (935) Number: [phone] () [id number] e Date:6586-93-51KD [address], [place] [address]WE: 09/22/2017 Secondary NOT GIVENUNK [facility] Insurance:SELF PAY Hospital INSURANCEPolicy Repository Number: Effective Date:2017-09-22 08/07/2017 CHELSEA L Primary CHELSEA Lizeth [facility] MYERSDOB: Insurance:PRIME TIME MYERSDOB: [facility] HEALTH ([place])Policy [id number] [address]ository [address] Number: [address] [place], [place] [id number] [facility] [address]Jfw: (330) e Date:2017-07-24 - [place] [address]Cuv: [phone] () 1642-15-06Uhka Name:CHRIS OSEGUERA () [place] [address]IY: 07/23/2017 CHELSEA L Primary CHELSEA Lizeth Pratt MYERSDOB: Insurance:AULTCARE - MYERSDOB: [facility] 1949P [address] [facility] [id number] Repository [id number] [place] Number: [address] [facility] [id number] [place], [place] e Date:1282-50-02[place] [address]Qwc: (227) Name: [phone] () 06/20/2017 CHELSEA L Primary CHELSEA Lizeth Pratt MYERSDOB: Insurance:MEDICARE MYERSDOB: [facility] 1950 [address] [facility] [id number] Repository [id number] Number: [facility] 132[facility] [id number] [place] [facility] Date:Plan Name: [id number] [place], [place] [address]Hdb: ()
== END 2018-05-11 04:06 | disposition home or self-care (01) ==
PROVIDERS: Emergency Provider Emergency Medicine; Family Provider Student in an Organized Health Care Education/Training Program; PCP Student in an Organized Health Care Education/Training Program
DX: M62.830 Muscle spasm of back (principal); M54.30 Sciatica, unspecified side; J44.9 Chronic obstructive pulmonary disease, unspecified; E11.9 Type 2 diabetes mellitus without complications; F10.21 Alcohol dependence, in remission; Z79.4 Long term (current) use of insulin; Z79.899 Other long term (current) drug therapy; Z88.0 Allergy status to penicillin; Z88.2 Allergy status to sulfonamides; Z88.5 Allergy status to narcotic agent; Z87.19 Personal history of other diseases of the digestive system
CPT/HCPCS: 96372; 99282

== ENCOUNTER 2018-05-11 17:01 | Emergency (ER) | payer BC, SELFPAY ==
[2018-05-11 02:41] VITALS: BMI 30.4
[2018-05-11 17:03] VITALS: BP 122/66; PULSE 95; RESP 20; TEMP 36.7; O2SAT 96; BMI 31.6
[2018-05-11 17:16] VITALS: O2SAT 96
--- NOTE | 2018-05-11 17:39 | RAD_ITS ---
STUDY: X-RAY CHEST REASON FOR EXAM: Female, 67 years old. Cough, shortness of breath TECHNIQUE: Frontal and lateral views of the chest were obtained. COMPARISON: April 29, 2018 FINDINGS: The lungs are underaerated. There are no focal airspace opacities. There is no demonstrated pleural abnormality. The cardiac silhouette is normal in size. The mediastinum and hilar regions are unremarkable. Normal visualized pulmonary arteries. There is atherosclerotic calcification of the thoracic aorta. There are diffuse degenerative changes of the visualized spine. There are degenerative changes in both shoulders. There is no demonstrated abnormality of the visualized upper abdomen. RAD/Chest PA and Lateral IMPRESSION: No acute cardiopulmonary abnormalities. Electronically Signed: Corina Vogt MD at 20:00 EST Tel Direct: [phone], Service support ,
--- NOTE | 2018-05-11 17:45 | ED.VISSUMM ---
- ER Visit Summary Date of Service: 05/11/18 Chief Complaint: Dyspnea, cough History of Present Illness: The patient is a 67 F worsening dyspnea and productive cough since yesterday. Subjective fever, chills, sweats. Wheezing improved with aerosol treatments. No chest pains. No nausea or vomiting. History of COPD no home oxygen. Reported 10 days ago similar flare improved with Z-Parth. States 4 days ago saw a urgent care for diverticulitis and treated on currently Cipro day 4. States she is given 1 dose of Flagyl. Pain is improving. Diabetes history. Denies tobacco history. Physical Examination: General: Alert and oriented ?3, no acute distress HEENT: Normocephalic, atraumatic. Moist mucosa membranes Neck: supple, nontender. Cardiovascular: Regular rate and rhythm, no murmurs Respiratory: Normal breath sounds, symmetric, no distress Abdomen: Soft, nontender, nondistended. Negative Kathleen's or McBurney's tenderness. No left lower quadrant tenderness. Extremities: Nontender, no edema, pulses intact ?4 Neuro: no focal neurological deficits. Test Results: Chest x-ray: No acute process Emergency Department Course and Treatment: Patient nontoxic, COPD history, normal lung exam. Chest x-ray obtained negative reviewed by myself. Vitals remained stable. Productive sputum with COPD history, according to golds criteria would recommend antibiotic treatment. Patient currently being treated for diverticulitis on Cipro day 4, improving symptoms. She has allergy to penicillins and sulfa. For concurrent treatment with one antibiotic will transition to Levaquin for 5 days, she will hold her Cipro. 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 Short prescription to use as needed written. Treatment Plan: [] Disposition: Discharge Impression: 1. COPD exacerbation This note was generated with [employer] dictation software. It may contain incorrect words, spelling, and punctuation that were not noted in review of the chart prior to signing ED Disposition - Plan for ED Patient: Disposition: Home or Assisted Living Chief Complaint: Shortness of Breath Diagnosis: COPD (chronic obstructive pulmonary disease) Instructions: ED COPD Flare Prescriptions: levoFLOXacin tablet [Levaquin tablet] 750 mg PO DAILY #4 tablet Cyclobenzaprine [Flexeril] 10 mg PO TID PRN #10 tablet PRN Reason: Muscle Spasm Referrals: Caitie Teixeira MD [Primary Care Provider] - 3-5 Days
[2018-05-11 19:23] VITALS: BP 131/80; PULSE 86; PULSE 88; O2SAT 97
[2018-05-11] MEDS: levoFLOXacin 750 MG Tablet PO (19:24)
--- OUTSIDE RECORDS SUMMARY | 2018-07-05 00:36 | XMS RPT_ITS ---
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 Instructions: ED Diverticulitis Prescriptions: Ondansetron [Zofran Odt] 4 mg PO Q8H PRN PRN #10 tab PRN Reason: Nausea Hydrocodone/Acetaminophen [Benson 5-325 Tablet] 1 - 2 each PO 4X/DAY PRN PRN 5 Days #20 tablet PRN Reason: Pain Ciprofloxacin [Cipro] 500 mg PO BID #20 tablet Metronidazole [Flagyl] 500 mg PO Q6H #40 tablet Referrals: [facility] Doctor,Out of [NON-STAFF] - 1 Week What to do if you have Problems For any increased pain, shortness of breath, bleeding, nausea or vomiting, chest pain, or any unexpected problems, contact your Primary Care Provider. Call [facility] ([phone]) or report to the closest Emergency Room. Call 911 if necessary. 10/07/17 0721 <Electronically signed by Jef Richardson MD> Date Jef Richardson MD Cosigner Signature (If Indicated): Date CC: Caitie Zuleta MD URINALYSIS, COMPLETE Collected: 10/07/2017 Status: F Source: [place] 3:25 AM [facility] REPOSITORY Order Comment: How was Urine Obtained? [...] URINE SEEN Performed By: #### L400.0001 #### [facility] Laboratory [address] [place], [address] Observed: 10/07/2017 Status: F Source: [place] CULTURE, URINE 3:25 AM [facility] REPOSITORY Urine Culture Below infection level. ORGANISM 1: Mixed Gram Positive Organisms Oakley Count <1000 Performed By: #### M100.0650 #### [facility] Laboratory [address] [facility] [place], [address] CBC W/DIFF, AUTOMATED Collected: 10/07/2017 Status: F Source: [place] 2:50 AM [facility] REPOSITORY TYPE CODE TESTS RESULT OUT OF [...] Lymph 2.55 Performed By: #### L100.0100 #### [facility] Laboratory [address] [place], [address] BASIC METABOLIC Collected: 10/07/2017 Status: F Source: [place] PROFILE (BMP) 2:50 AM [facility] REPOSITORY TYPE CODE TESTS RESULT OUT OF [...] Performed By: #### L500.2500, L500.3400, L501.2450 #### [facility] Laboratory [address] [facility] [place], [address] LIVER PROFILE Collected: 10/07/2017 Status: F Source: [place] 2:50 AM [facility] REPOSITORY TYPE CODE TESTS RESULT OUT OF [...] Performed By: #### L500.2500, L500.3400, L501.2450 #### [facility] Laboratory [address] [facility] [place], [address] LIPASE Collected: 10/07/2017 Status: F Source: [place] 2:50 AM [facility] REPOSITORY TYPE CODE TESTS RESULT OUT OF RANGE REFERENCE UNITS LAB L501.2450 73-393 U/L Normal LIPASE 188 Performed By: #### L500.2500, L500.3400, L501.2450 #### [facility] Laboratory [address] [facility] [place], [address] ABDOMEN/PELVIS WITHOUT Observed: 10/07/2017 Status: F Source: [place] CONT 2:27 AM [facility] REPOSITORY [facility] Imaging Services [address] [place] [address] Abdomen/Pelvis without Cont MR#: [id number] Acct: [id number] Name: CHELSEA ANDREWS Rep #: [id number] : 1950 F 66 From: Ronald Eubanks MD PCP: OUT OF TOWN DOCTOR Status: REG ER Study: Abdomen/Pelvis without Cont Date of Exam: 10/07/17 Exam# [id number] Ordering Dr: Jef Richardson MD STUDY: CT [...] OUT OF TOWN DOCTOR; Jef Richardson MD Specialized Developer: Signed 12 LEAD ELECTROCARDIOGRAM Observed: 09/24/2017 Status: F Source: [place] 3:01 PM [facility] REPOSITORY [facility] Cardiovascular Services [facility] [place] [address] 12 Lead EKG 09/22/171953 MR#: [id number] Acct: [id number] Name: JACKSON ANDREWSA Lizeth Rep #: [id number] : 1950 From: Tray Doherty MD Attending [...] ECG Confirmed by PAULETTE OROZCO, TRAY ([id number]), publishing editor PENNY MENARD ([id number]) on 09/24/2017 3:00:45 PM Referred By: KAMRAN Confirmed By:TRAY DOHERTY MD 09/24/17 1500 Date Tray Doherty MD CC: No Primary Care Physician; Shabbir Andrew MD Signed DISCHARGE INSTRUCTION Observed: 09/22/2017 Status: F Source: [place] 9:59 PM [facility] REPOSITORY [facility] Medical Records Department [address] [place] [address] Discharge Instruction 09/22/172157 MR#: [id number] Acct: [id number] Name: EARLCHELSEA Stanley Rep #: [id number] : 1950 From: Shabbir Andrew MD PCP: [...] problems, contact your Primary Care Provider. Call [facility] ([phone]) or report to the closest Emergency Room. Call 911 if necessary. 09/22/172158 <Electronically signed by Shabbir Andrew MD> Date Shabbir Andrew MD Cosigner Signature (If Indicated): Date CC: No Primary Care Physician EMERGENCY DEPARTMENT Observed: 09/22/2017 Status: F Source: [place] SUMMARY 9:58 PM [facility] REPOSITORY [facility] Medical Records Department [address] [place] [address] Emergency Department Summary 09/22/172155 MR#: [id number] Acct: [id number] Name: CHELSEA ANDREWS Rep #: [id number] : 1950 66 From: Shabbir Andrew MD [...] Impression: UTI This note was generated with Inspire dictation software. It may contain incorrect words, [...] your Primary Care Provider. Call [facility] ([phone]) or report to the closest Emergency Room. Call 911 if necessary. 09/22/172157 <Electronically signed by Shabbir Andrew MD> Date Shabbir Andrew MD Cosigner Signature (If Indicated): Date CC: No Primary Care Physician URINALYSIS, COMPLETE Collected: 09/22/2017 Status: F Source: [place] 8:45 PM [facility] REPOSITORY Order Comment: How was Urine Obtained? [...] URINE SEEN Performed By: #### L400.0001 #### [facility] Laboratory [address] [place], [address] Observed: 09/22/2017 Status: F Source: [place] CULTURE, URINE 8:45 PM [facility] REPOSITORY Urine Culture ORGANISM 1: Mixed Gram Positive Organisms Oakley Count 1000-10,000 MIX CULTURE Mixed contaminants. Submit a new specimen if indicated. Performed By: #### M100.0650 #### [facility] Laboratory [address] [place], [address] CBC W/DIFF, AUTOMATED Collected: 09/22/2017 Status: F Source: [place] 7:54 PM [facility] REPOSITORY TYPE CODE TESTS RESULT OUT OF [...] Lymph 2.67 Performed By: #### L100.0100 #### [facility] Laboratory [address] [place], [place], [address] COMPREHENSIVE METABOLIC Collected: 09/22/2017 Status: F Source: [facility] 7:54 PM [facility] REPOSITORY TYPE CODE TESTS RESULT OUT OF [...] 7 GAP Performed By: #### L500.4050 #### [facility] Laboratory [address] [facility] [place], [address] CHEST PA AND LATERAL Observed: 09/22/2017 Status: F Source: [place] 7:45 PM [facility] REPOSITORY [facility] Imaging Services [address] [place] [address] Chest PA and Lateral MR#: [id number] Acct: [id number] Name: CHELSEA ANDREWS Lizeth Rep #: [id number] : 1950 F 66 From: Kenny Segura MD PCP: Care Physician, No Primary Status: REG ER Study: Chest PA and Lateral Date of Exam: 09/22/17 Exam# [id number] Ordering Dr: Shabbir Andrew MD STUDY: X-RAY [...] No Primary Care Physician; Shabbir Andrew MD Specialized Developer: Signed BEDSIDE GLUCOSE Collected: 09/22/2017 Status: F Source: [place] 7:19 PM [facility] REPOSITORY TYPE CODE TESTS RESULT OUT OF REFERENCE UNITS RANGE LAB L501.080 70-110 mg/dL High BEDSIDE GLU 352 Result Comment: MANAGEMENT OF PATIENT CARE PER NURSING PROTOCOL Performed By: #### L501.080 #### [facility] Laboratory Point of Care [address] [place] [address] XR SPINE CERVICAL Observed: 08/07/2017 Status: F Source: [place] FLEX/EXT ONLY 1:39 PM [facility] REPOSITORY ORIGINAL Cervical spine lateral flexion and [...] SPINE CERVICAL Observed: 08/07/2017 Status: F Source: [place] W/O CONTRAST 1:30 PM [facility] REPOSITORY ORIGINAL [...] Status: F Source: [facility] PETERSNAHOMY 11:10 AM [facility] REPOSITORY TYPE CODE TESTS RESULT OUT [...] OF AGE AND OLDER. Performed By: #### [id number] #### [place] [address] HGB A1C Collected: 07/23/2017 Status: F Source: [facility] 11:10 AM [facility] REPOSITORY TYPE CODE TESTS RESULT OUT OF RANGE REFERENCE UNITS LAB HGB 4.4 - 6.4 % A1C(LOINC) High HGB A1C 10.8 Result Comment: {HB] {A1] Performed By: #### [id number] #### [place] [address] ALLERGIES ALLERGIES DATE TYPE / CODE NAME / CODE REACTION SEVERITY SOURCE 05/11/20 Drug haloperidol Other Unknown [place] 18 Allergy/173518498 lactate/N186232531( [facility] (SNOMED CT) RXNORM) Hospital Repository 05/11/20 Drug benztropine Other Unknown [place] 18 Allergy/665854705 mesylate/D639706309 [facility] (OMED CT) (RXNO) Hospital Repository 05/11/20 Drug pseudoephedrine Other Unknown [place] 18 Allergy/657217565 HCl/Z662531842(RXNO [facility] (SNOMED CT) ) Hospital Repository 05/11/20 Drug Penicillins/X283375 Shortness of Unknown [place] 18 Allergy/019898349 476(RXNORM) breath [facility] (SNOMED CT) Hospital Repository 05/11/20 Drug Sulfa (Sulfonamide Hives Unknown [place] 18 Allergy/511139503 Antibiotics)/T89464 [facility] (SNOMED CT) 0491(RXNORM) Hospital Repository 05/11/20 Drug theophylline/W82800 Other Unknown [place] 18 Allergy/960388049 0602(RXNORM) [facility] (SNOMED CT) Hospital Repository 05/11/20 Drug iodine/O914385096(R Swelling Unknown [place] 18 Allergy/714820677 XNORM) [facility] (SNOMED CT) Hospital Repository 05/11/20 Drug haloperidol/D205654 Other Unknown [place] 18 Allergy/213711028 518(RXNORM) [facility] (SNOMED CT) Hospital Repository 05/11/20 Drug lithium/W023144155( Diarrhea Unknown [place] 18 Allergy/034889374 RXNORM) [facility] (SNOMED CT) Hospital Repository 05/11/20 Drug morphine/C171325615 Shortness of Unknown [place] 18 Allergy/082624641 (RXNORM) breath [facility] (SNOMED CT) Hospital Repository 05/11/20 Drug codeine/P870204379( Other Unknown [place] 18 Allergy/180900274 RXNORM) [facility] (SNOMED CT) Hospital Repository 12/28/19 Drug Penicillins/V783589 Anaphylactic Severe [facility] Allergy/071279482 476(RXNORM) Shock (severity [facility] (SNOMED CT) modifier) [facility] (qualifier Repository value) 12/28/19 Drug Sulfa (Sulfonamide unknown Moderate [facility] 18 Allergy/265548504 Antibiotics)/Y22065 (severity [facility] (SNOMED CT) 0491(RXNORM) modifier) Medical Center (qualifier Repository value) 12/28/19 Drug iodine/F150137162(R unknown Moderate [facility] 18 Allergy/763084425 XNORM) (severity [facility] (SNOMED CT) modifier) Medical Center (qualifier Repository value) 12/28/19 Drug fluphenazine/P10881 unknown Moderate [facility] 18 Allergy/347696766 1473(RXNORM) (severity [facility] (SNOMED CT) modifier) Medical Center (qualifier Repository value) 12/28/19 Drug haloperidol/Z536034 unknown Moderate [facility] 18 Allergy/771928477 518(RXNORM) ([facility] (SNOMED CT) modifier) [facility] (qualifier Repository value) 12/28/19 Drug lithium/I985160277( unknown Moderate [facility] 18 Allergy/416681881 RXNORM) ([facility] (SNOMED CT) modifier) [facility] (qualifier Repository value) 12/28/19 Drug morphine/B809916015 unknown Moderate [facility] 18 Allergy/851336857 (RXNORM) ([facility] (SNOMED CT) modifier) [facility] (qualifier Repository value) 12/28/19 Drug codeine/U623970103( unknown Moderate [facility] 18 Allergy/975066075 RXNORM) ([facility] (SNOMED CT) modifier) [facility] (qualifier Repository value) 12/28/19 Drug pseudoephedrine/F00 unknown Moderate [facility] 18 Allergy/623318604 7734273(RXNORM) ([facility] (SNOMED CT) modifier) [facility] (qualifier Repository value) 12/28/19 Drug benztropine/R549858 unknown Moderate [facility] 18 Allergy/651908063 667(RXNORM) ([facility] (SNOMED CT) modifier) [facility] (qualifier Repository value) 12/28/19 Drug triprolidine/H34649 unknown Moderate [facility] 18 Allergy/139566737 4799(RXNORM) ([facility] (SNOMED CT) modifier) [facility] (qualifier Repository value) Drug SULFA Moderate [place] Allergy/203408470 (sulfonamide)/32137 ([facility] (SNOMED CT) 022(RXNORM) Modifier) Hospital (Qualifier Repository Value) Drug PENICILLINS Moderate [place] Allergy/530198133 (CLASS)/89415537(RX ([facility] (SNOMED CT) NORM) Modifier) Hospital (Qualifier Repository Value) Drug THEOPHYLLINE/300171 Moderate [place] Allergy/087981585 98(RXNORM) ([facility] (SNOMED CT) Modifier) [facility] (Qualifier Repository Value) Drug CODEINE/20206926(RX Moderate [place] Allergy/001792876 NORM) ([facility] (SNOMED CT) Modifier) [facility] (Qualifier Repository Value) Drug MORPHINE/29842077(R Moderate [place] Allergy/101034024 XNORM) ([facility] (SNOMED CT) Modifier) Hospital (Qualifier Repository Value) Drug PSEUDOEPHEDRINE/000 Moderate [place] Allergy/253898576 30141(RXNORM) ([facility] (SNOMED CT) Modifier) [facility] (Qualifier Repository Value) Drug LITHIUM/77961532(RX Moderate [place] Allergy/176395298 NORM) ([facility] (SNOMED CT) Modifier) Hospital (Qualifier Repository Value) Drug IODINE/79496679(RXN Moderate [place] Allergy/234547535 ORM) ([facility] (SNOMED CT) Modifier) [facility] (Qualifier Repository Value) Drug COGENTIN/30442933(R Moderate [place] Allergy/145923241 XNORM) ([facility] (SNOMED CT) Modifier) [facility] (Qualifier Repository Value) Drug HALDOL/29090761(RXN Moderate [place] Allergy/914314586 ORM) ([facility] (SNOMED CT) Modifier) [facility] (Qualifier Repository Value) Environmental 07/29/15 (-) CDIFF Moderate [place] Allergy/789292678 ([facility] (SNOMED CT) Modifier) [facility] (Qualifier Repository Value) ENCOUNTERS ENCOUNTERS ADMIT/DISCHARGE ACCOUNT NUMBER ADMITTING ENCOUNTER LOCATION SOURCE CLASS 05/23/2018/ [id number] Ambulatory [facility] 05/13/2018 [id number] Ambulatory Christian OWENS MD [facility] Repository 05/13/2018 [id number] SONG Ambulatory Christian OWENS MD [facility] Repository 05/13/2018 [id number] SONG Ambulatory Christian OWENS MD [facility] Repository 05/13/2018/ [id number] JANELLE, Inpatient BuildinRo Christian ARMENDARIZ MD Encounter om: [address] [place] [address] Repository 05/11/2018/ [id number] Emergency [place] [facility] ng:ED Repository 05/11/2018/ [id number] Emergency [place] [facility] ng:ED Repository 04/29/2018/ [id number] Emergency [place] ng:ED Repository 04/22/2018 [id number] Ambulatory [facility] ng:LAB.FUTURE Repository 04/16/2018/ [id number] PROSPER, Ambulatory BuildinRo Christian GUILLEN MD om: [address] Repository 04/15/2018/ [id number] YECENIA, Ambulatory [address] Repository 04/04/2018/ [id number] Emergency Marco [place] ng:ED Repository 03/31/2018/ [id number] Emergency [place] ng:ED Repository 03/20/2018/ [id number] Emergency [address] ng:ED Repository 01/27/2018 [id number] SAILAJA, Ambulatory [facility] Repository 01/27/2018 [id number] SONG, Ambulatory [facility] Repository 01/18/2018 [id number] General acute hospital ng:US Repository 01/12/2018/ [id number] Emergency Marco [place] ng:ED Repository 12/31/2017 [id number] Ambulatory Building:[facility] Repository 12/27/2017/ [id number] Emergency [facility] 018 MEDBuilding:ED [facility] Repository 12/12/2017/ [id number] Emergency UNIBuilding:ED [address] Repository 12/07/2017/ [id number] Emergency UNIBuilding:ED [address] Repository 12/06/2017 [id number] JOSIE, Ambulatory [facility] Repository 12/03/2017/ [id number] Emergency UNIBuilding:ED [address] Repository 11/11/2017/ [id number] ANNMARIE, Emergency BuildinRo [facility] [place] [address] om: ERBed: B [facility] Repository 11/09/2017/ [id number] BLANK, Emergency BuildinRo [place] 018 [address]ARDO om: ERBed: [facility] Repository 11/02/2017/ [id number] KALISETTI, Ambulatory [facility] [place] 018 [facility] Repository 10/07/2017/ [id number] Emergency [place] [facility] ng:ED Repository 09/22/2017/ [id number] Emergency [place] [address] ng:ED Repository 08/07/2017/ [id number] Ambulatory ABuilding:[address] Repository 07/23/2017/ [id number] KALISETTI, Ambulatory [facility] [place] 018 [facility] Repository 06/20/2017/ [id number] KALISETTI, Ambulatory [facility] [place] 018 [facility] Repository PAYERS PAYERS ENCOUNTER GUARANTOR PAYER SUBSCRIBER SOURCE 05/23/2018 CHELSEA ANDREWS654 Primary CHELSEA L Marco KEE Insurance:ANTHEMPolic MYERSDOB: [address] y Number: [id number] Repository 865[address]Bot: [phone] [id number] [phone] () Date:[id number] [id number] [place] [address] 38585VK: 05/23/2018 Secondary NOT GIVENUNK [facility] Insurance:SELF PAY Hospital INSURANCEPolicy Repository Number: Effective Date:2018-05-22 05/13/2018 CHELSEA L Primary CHELSEA L Christiancharli GOLDENB: Insurance:MEDICAREPol [facility]ILITY[facility]: [facility] [id number] icy Number: [id number] [place], [place] Date:Plan Name:[facility], [address]Dkw: [phone] [place] [phone] (HP) 05/13/2018 Secondary CHELSEA L Christian [place] [facility] [id number] Repository Number: [address] [id number] [place], [place]:2017-06-[place] [id number] 05/13/2018 CHELSEA L Primary CHELSEA Lizeth Gonzales [place] MYERSDOB: Insurance:MEDICAREPol MYERSDOB: [facility] icy Number: [id number] Rep[address] [place] [id number] [address] [place] Date:Plan Name:[facility], [address]Nce: (330) [place] [address] [phone] (HP) 05/13/2018 Secondary CHELSEA L Christian [place] Insurance:[facility] [id number] Repository Number: [address] [id number] [facility]:2017[place]06[place] [address] 05/13/2018 CHELSEA L Primary CHELSEA Lizeth Gonzales [place] MYERSDOB: Insurance:MEDICAREPol MYERSDOB: [facility] icy Number: [id number] [address] [place] [id number] [address] [place] Date:Plan Name:[facility], [address]Jgm: (330) [place] [address] [phone] (HP) 05/13/2018 Secondary CHELSEA L Christian [place] Insurance:[facility]: [facility] [id number] Repository Number: [address] [id number] [facility], [place]:2017-06-10 [place] [address] 05/13/2018 CHELSEA L Primary CHELESA Pratt MYERSDOB: Insurance:ANTHEM BLUE MYERSDOB: [facility] CROSS MEDICARE [id number] Repository [facility] INPATIENTPolicy [address] [place] [address]: [address] [place] [address] 60956Rfa: (330) [id number] [phone] (HP) Date:Plan Name: 05/11/2018 CHELSEA CHAN4 Primary CHELSEA L [place] [facility] DRAPT Insurance:ANTHEMPolic MYERSDOB: [address] y Number: [id number] Repository 047[address]Osj: (330) [id number] [phone] (HP) Date:4397-80-32NR [id number] [place] [address] 39523AF: 05/11/2018 Secondary NOT GIVENUNK [facility] Insurance:[facility] INSURANCEPolicy Repository Number: Effective Date:2018-05-11 05/11/2018 CHELSEA Lizeth ANDREWSIFMYE588 Primary CHELSEA L [facility] [address] Insurance:ANTHEMPolic MYERSDOB: [address] y Number: [id number] Repository [address]Ixy: (330) [id number] [phone] (HP) Date:1790-09-29OR [id number] [place] [address] 04641MZ: 05/11/2018 Secondary NOT GIVENUNK [facility] Insurance:[facility] PAY Hospital INSURANCEPolicy Repository Number: Effective Date:2018-05-11 04/29/2018 CHELSEA Lizeth [id number] Primary CHELSEA L [place] [facility] [address] Insurance:ANTHEMPolic MYERSDOB: [address] y Number: [id number] Repository 809[address]Oej: (330) [id number] [phone] (HP) Date:5356-50-66BC [id number] [place] [address] 38015YC: 04/29/2018 Secondary NOT GIVENUNK [facility] Insurance:SELF PAY Hospital INSURANCEPolicy Repository Number: Effective Date:2018-04-29 04/22/2018 CHELSEA GUZMAN Primary CHELSEA Lara [facility] [address], Insurance:ANTHEMPolic MYERSDOB: [facility] 90397Vsx: y Number: [id number] Repository [id number] (HP) Date:6565-64-20OJ [address] [place] [address] 77836SA: 04/22/2018 Secondary NOT GIVENUNK [facility] Insurance:SELF PAY Hospital INSURANCEPolicy Repository Number: Effective Date:2018-04-22 04/16/2018 CHELSEA Stanley Primary CHELSEA Pratt MYERSDOB: Insurance:ANTHEM BLUE MYERSDOB: [facility] CROSS MEDICARE [id number] [address] [place] OUTPATIENTPolicy [address] [place], [place] Number: [address]APT [address]Mds: (484) [id number] [place], [place] [phone] (HP) Date:Plan Name: [id number] 04/15/2018 CHELSEA Stanley Primary CHELSEA Pratt MYERSDOB: Insurance:MEDICARE MYERSDOB: [facility] OUTPATIENTPolicy [id number] [address] [place] Number: [address] [place], [place] [id number] [place], [place] [address]Kib: (906) Date:Plan Name: [id number] [phone] (HP) 04/04/2018 CHELSAE GUZMAN Primary CHELSEA Stanley [place] [facility] [address], Insurance:ANTHEMPolic MYERSDOB: [facility] 712[address]Blb: y Number: [id number] Repository [id number] (HP) Date:7315-19-93[place] [address] [address]YP: 04/04/2018 Secondary NOT GIVENUNK [facility] Insurance:SELF PAY Hospital INSURANCEPolicy Repository Number: Effective Date:2018-04-04 03/31/2018 CHELSEA GUZMAN Primary CHELSEA Lara [facility] [address], Insurance:ANTHEMPolic [place] [address]Wgz: y Number: [id number] Repository [id number] (HP) Date:6482-77-18DP [address] [place] [address]FR: 03/31/2018 Secondary NOT GIVENUNK [facility] Insurance:SELF PAY Hospital INSURANCEPolicy Repository Number: Effective Date:2018-03-31 03/20/2018 CHELSEA GUZMAN [facility] CHELSEA Stanley [facility] [address], Insurance:ANTHEMPolic MYERSDOB: [facility] 26[address]Cdv: y Number: [id number] Repository [id number] (HP) Date:6363-29-22BS [address] [place] [address] 08693RY: 03/20/2018 Secondary NOT GIVENUNK [facility] Insurance:SELF PAY Hospital INSURANCEPolicy Repository Number: Effective Date:2018-03-20 01/27/2018 CHELSEA L Primary CHELSEA Pratt MYERSDOB: Insurance:MEDICAREPol MYERSDOB: [facility] icy Number: [id number] Repository [address] [id number] [address] [place] [address] Date:Plan Name: [place], [place] [address]Vhy: ([phone]) [id number] (HP) 01/27/2018 CHELSEA L Primary CHELSEA Estradane MYERSDOB: Insurance:MEDICARE MYERSDOB: [facility] OUTPATIENTPolicy [id number] Repository [address] Number: [address] [place] [address] [id number] [place], [place] [address]Syk: 330) Date:Plan Name: [id number] [phone] (HP) 01/18/2018 CHELSEAGIOVANNA ANDREWS437 Primary CHELSEA Lizeth [place] [facility] [address] Insurance:MEDICARE MYERSDOB: [place] PART A BPolicy [id number] Repository [address]14[address]Xca: (330) Number: [phone] () [id number] Date:2018-01-17 01/18/2018 Secondary [facility]SE[facility] PA[facility] Hospital INSURANCEPolicy Repository Number: Effective Date:2018-01-17 01/12/2018 CHELSEA L Primary CHELSEA L [facility] [id number] Insurance:MEDICARE MYERSDOB: [facility] PART A olicy [id number] Repository [address] [place] [address] Number: 66[address]Hwv: 330 [id number] [phone] () Date:2018-01-12 01/12/2018 [facility] INSURANCEPolic Repository Number: Effective Date:2018-01-12 12/27/2017 NIKHIL Primary CHELSEA L [facility] BEHAVIORAL Insurance:[facility]: [place] [id number] BEHAV HOSPPolicy [id number] Center Repository STATE Number: [place], [place] [id number] BEHAVIORAL [address]Ebe: (740) Date: [id number] [phone] () [place], [place] [address]Ukb: () 12/27/2017 Secondary CHELSEA L [facility] Insurance:MEDICAREPol MYERSDOB: [facility] icy Number: [id number] Center Repository [id number] [facility] Date: BEHAVIORAL [id number] [place] [address] 94958Kho: () 12/12/2017 CHELSEA ANDREWS149 Primary CHELSEA L [facility] Insurance:MEDICAREPol MYERSUNK [facility] [place] icy Number: Repository [id number]: 330 [id number] [phone] () Date:1991-01-[birth year] 12/07/2017 CHELSEA CHADWICK Primary CHELSEA Stanley [address] Insurance:MEDICAREPol MYERSUNK [facility] [place] icy Number: Repository [id number]: (036) [id number] [phone] (HP) Date:1991-01-08 12/06/2017 CHELSEA Stanley Primary CHELSEA Pratt MYERSDOB: Insurance:MEDICARE MYERSDOB: [facility] RECURRING REFERENCE [id number] [address] [place] LABPolicy Number: [address] [place], [place] [id number] [place], [address]Eps: 330) Date:Plan Name:[facility] [address] [phone] (HP) 12/03/2017 CHELSEA CHADWICK Primary CHELSEA Stanley [address] Insurance:MEDICAREPol MYERSUNK [facility] [place] icy Number: Repository [id number]: 330 [id number] [phone] (HP) Date:1990-01-08 11/11/2017 CHELSEA Stanley Primary CHELSEA Pratt MYERSDOB: Insurance:MEDICAREPol [facility] [id number] icy Number: [id number] [id number] [address] [facility], [place] Date:Plan Name:[facility]ENTER[facility]ARCOD[facility]sey[place] [id number]: [phone] (HP) 11/11/2017 Secondary CHELSEA Pratt Insurance:MEDICARE MYERSDOB: [facility] [id number] Repository Number: [address] [facility] [id number] [place] Date:Plan Name: [id number] 11/09/2017 CHELSEA Stanley Primary CHELSEA Pratt MYERSDOB: Insurance:MEDICAREPol [facility]: [facility] icy Number: [id number] Repository [address] [id number] [address] [facility], [place] Date:Plan Name: [place], [id number]: [place] [phone] () 11/02/2017 CHELSEA L Primary CHELSEA L Christian Pratt MYERSDOB: Insurance:MEDICAREPol MYERSDOB: [facility] icy Number: [id number] [address] [id number] [address] [place], [place] Date:Plan Name:[place] [address]Jzs: (330) [phone] () 10/07/2017 Chelsea L Primary Chelsea L [facility] [id number] E Insurance:Primetime MyersDOB: [facility] [id number] Repository [address], [place] [facility]Pol[facility] [address]Esw: (502) Number: Effective [phone] () Date:3135-28-20[address], [place] [address]ET: 10/07/2017 Secondary NOT GIVENUNK [facility] Insurance:SELF PAY [facility] INSURANCEPolicy Repository Number: Effective Date:2017-10-07 09/22/2017 Chelsea L Primary Chelsea [facility] [id number] E Insurance:Primetime MyersDOB: [facility] [id number] Repository [address] [place] [address] SupplemePolicy [address]Ema: (433) Number: [phone] () [id number] e Date:0894-17-36[address], [place] [address]FR: 09/22/2017 Secondary NOT GIVENUNK [facility] Insurance:SELF PAY Hospital INSURANCEPolicy Repository Number: Effective Date:2017-09-22 08/07/2017 CHELSEA L Primary CHELSEA Lizeth [facility] MYERSDOB: Insurance:PRIME TIME MYERSDOB: [facility] HEALTH ([place])Policy [id number] Number: [address] [place], [place] [id number] [facility] [address]Lyl: (330) e Date:2017-07-24 - [place] [address]Zjv: [phone] () [id number] Name:CHRIS OSEGUERA () [address] [address]PE: 07/23/2017 CHELSEA L Primary CHELSEA Lizeth Pratt MYERSDOB: Insurance:AULTCARE - MYERSDOB: [facility] [address]P [address] [facility] [id number] Repository [address]342 [place] Number: [address] [facility] [id number] [place] e Date:4208-87-41[place] [address] 15[address]Xjl: ([phone]) Name: [phone] () 06/20/2017 CHELSEA L Primary CHELSEA Lizeth Pratt MYERSDOB: Insurance:MEDICARE MYERSDOB: [facility] [address] [facility] [id number] Repository [id number] Number: [facility] 132[facility] [id number] [place], [place] [email or web address]] Date:Plan Name: [id number] [place], [place] [address]Blx: ()
== END 2018-05-11 19:45 | disposition home or self-care (01) ==
PROVIDERS: Emergency Provider Emergency Medicine; Family Provider Student in an Organized Health Care Education/Training Program; PCP Student in an Organized Health Care Education/Training Program
DX: J44.1 Chronic obstructive pulmonary disease with (acute) exacerbation (principal); E11.9 Type 2 diabetes mellitus without complications; I10 Essential (primary) hypertension; Z79.4 Long term (current) use of insulin; Z79.899 Other long term (current) drug therapy; Z88.0 Allergy status to penicillin; Z88.2 Allergy status to sulfonamides; Z87.19 Personal history of other diseases of the digestive system
CPT/HCPCS: 71046; 99283

== ENCOUNTER 2018-06-17 17:35 | Observation (INO) | payer MEDICARE, SELFPAY ==
[2018-05-23 09:17] VITALS: BMI 31.6
[2018-06-17 17:36] VITALS: BP 98/61; PULSE 93; RESP 20; TEMP 36.3; O2SAT 97; BMI 30.4
--- NOTE | 2018-06-17 18:17 | EKG12_ITS ---
Test Reason : DIZZINESS Blood Pressure : / mmHG Vent. Rate : 095 BPM Atrial Rate : 095 BPM P-R Int : 164 ms QRS Dur : 094 ms QT Int : 388 ms P-R-T Axes : 032 -30 046 degrees QTc Int : 487 ms Normal sinus rhythm Left axis deviation Abnormal ECG Confirmed by GENA OROZCO, BOBY ([id number]), news videotape editor PENNY MENARD ([id number]) on 06/23/2018 9:53:52 AM Referred By: Dionicio Majano Confirmed By:BOBY AVERY MD
--- NOTE | 2018-06-17 18:17 | CT_ITS ---
STUDY: CT BRAIN WITHOUT CONTRAST REASON FOR EXAM: Female, 67 years old. Headache RADIATION DOSAGE (If Supplied By Facility): CTDIvol = ( 44.99 ) mGy, DLP = ( 779.24 ) mGycm TECHNIQUE: Transaxial CT imaging of the brain was performed without administration of intravenous contrast material. Individualized dose optimization techniques were used for this CT. COMPARISON: MRI dated 05/07/2016 FINDINGS: There is no acute bleed or infarct. There are normal white matter tracts. The ventricles are normal in configuration. There is no hydrocephalus. The visualized paranasal sinuses are clear. The mastoid air cells are well aerated. There is no skull fracture. CT/Brain/Head without Contrast IMPRESSION: No acute intracranial abnormality. Electronically Signed: Steve Whelan, at 21:07 EST Tel , Service support ,
[2018-06-17 19:34] LABS: Absolute Lymphocyte Count 2.67 X10^3/ul (0.83-4.51); Basophil# 0.04 X10^3/uL; Basophil% 0.2 % (0-1); Eosinophil# 0.08 X10^3/uL; Eosinophils% 0.5 % (0-5); Hematocrit 40.2 % (37-47); Hemoglobin 13.1 g/dl (12.0-15.0); Lymphocyte # 2.67 X10^3/ul (4.0); Mean Corp Hgb Conc 32.6 g/gl (32-36); Mean Corpuscular Hgb 28.2 pg (27.0-32.0); Mean Corpuscular Volume 86.6 fL (81-99); Mean Platelet Vol. 10.3 fl (6.2-12.0); Monocyte# 0.83 X10^3/uL; Neutrophil # 12.98 X10^3/uL (2.7-7.7); Neutrophil % 78.1 % (47-70); Platelet Count 265 K/mm3 (150-450); RBC Distribution Width CV 14.6 % (11.6-14.6); RBC Distribution Width SD 45.7 fl (35.1-43.9); Red Blood Count 4.64 M/mm3 (4.2-5.4); White Blood Count 16.6 K/mm3 (4.4-11.0)
[2018-06-17 19:35] LABS: POSITIVE COUNT NO; POSITIVE DIFFERENTIAL NO; POSITIVE MORPHOLOGY NO
[2018-06-17] MEDS: 0.9% Normal Saline 1,000 ML 1000 ML IV (19:39)
[2018-06-17 19:40] VITALS: BP 104/48; BP 113/65; BP 124/64; PULSE 102; PULSE 84; PULSE 92
[2018-06-17 19:48] LABS: Anion Gap 10 (5-15); BUN 21 mg/dL (7-18); BUN/Creat Ratio 12.4 RATIO (10-20); Calcium,Total 9.5 mg/dL (8.5-10.1); Chloride 105 mmol/L (98-107); EST Glomerular Filtration Rate 32 mL/min (>60); Est Glom Filt Rate - Afr Amer 38 mL/min (>60); Glucose 162 mg/dL (74-106); Potassium 4.5 mmol/L (3.5-5.1); Sodium Level 140 mmol/L (136-145)
[2018-06-17 21:01] LABS: Bacteria 0 SEEN /hpf (None Seen); Mucous, Urine 0 SEEN /hpf (<or=2+); Red Blood Cells-Urine 0 SEEN /hpf (0-5)
[2018-06-17 21:19] LABS: Color, Urine Yellow (Yellow); Glucose, Dipstick 50 mg/dl (Normal); Ketone-Dipstick 5 mg/dl (Negative); Leukocyte Esterase-Dipstick 500 /ul (Negative); Nitrite-Dipstick Negative (Negative); Occult Blood-Urine 10 /ul (Negative); Protein-Dipstick 30 mg/dl (Negative); Specific Gravity, Urine 1.025 (1.002-1.030); Urine Clarity Sl. Cloudy (Clear); Urine Urobilinogen Normal (Normal)
[2018-06-17 21:20] VITALS: BP 138/60; PULSE 93; RESP 15; O2SAT 95
[2018-06-17 21:24] LABS: Urine Bilirubin Dipstick 1 mg/dL (Negative)
[2018-06-17 21:29] LABS: Squamous Epithelial Cells - UA 5-10 SEEN /hpf (5-10); White Blood Cells 25-50 SEEN /hpf (0-5)
[2018-06-17 21:31] LABS: Hyaline Cast 0-5 SEEN /lpf (0-5)
--- NOTE | 2018-06-17 22:05 | HP.PCM_ITS ---
Problem List (1) Cystitis Status: Acute (2) Near syncope Status: Acute History of Present Illness Date of Admission: 06/17/18 Chief Complaint: near-syncope The patient is a 67 year old F with a significant history of COPD; spinal stenosis who presented to the emergency department because of near syncope that started about 1 month ago but has been progressively worsening. Patient attributes her near syncopal episode to excruciating pain at her posterior neck that she thinks relates to her spinal stenosis. She described this pain as stabbing and electric-like. Patient reports bilateral tingling sensation in her arms. There are no ameliorating factors. She reported that moving worsens her pain. Treatment of her symptoms is generalized weakness; fatigue and anorexia. She used to see a neurosurgeon for her spinal stenosis. However her neurosurgeon moved to [place]. Her last MRI was 2 years ago. Patient reported that because she is a recovering alcoholic many doctors are uncomfortable giving her pain medication. She reports that her last alcoholic drink was about 33 years ago. Urinary symptoms Further she reports decreased urination going on for about 21/2 weeks. She r eported that she has had decreased urinary output. However she acknowledged that she has had decreased fluid intake. She denies any dysuria. At emergency department here, her urinalysis had 500 of leukocyte esterase; no nitrites was seen and no bacteria was seen. Further, she had 5-10 squamous cells. Her urine cultures are pending. The patient is a 67 year old F with a significant history of spinal stenosis who presented to the emergency department because of near syncope that started about 1 month ago but has been progressively worsening; and also with worsening neck pain and bilateral tingling sensation in her arms that she attributes to a history of spinal stenosis and with urinary symptoms was noted to have increased leukocyte esterase but without nitrites or bacteria; and with squamous cells present. Patient reported that she recently got treated with ciprofloxacin and metronidazole for diverticulitis. Past Medical History Past Medical History (Chronic Problems): Chronic Problems (Last Reviewed 06/18/18 @ 05:20 by Dionicio Majano MD) COPD (chronic obstructive pulmonary disease) (Chronic) Sciatica (Chronic) Diverticulosis (Chronic) Medical History: Medical History (Last Reviewed 06/18/18 @ 05:20 by Dionicio Majano MD) Diabetes E11.9 High cholesterol E78.00 Spinal stenosis M48.00 HTN (hypertension) I10 Allergies iodine Allergy (Verified 06/17/18 18:02) Swelling morphine Allergy (Verified 06/17/18 18:02) Shortness of breath Penicillins Allergy (Verified 06/17/18 18:02) Shortness of breath Sulfa (Sulfonamide Antibiotics) Allergy (Verified 06/17/18 18:02) Hives benztropine mesylate [From Cogentin] Adverse Reaction (Verified 06/17/18 18:02) Other URINARY RETENTION codeine Adverse Reaction (Verified 06/17/18 18:02) Other JITTERY haloperidol [From Haldol] Adverse Reaction (Verified 06/17/18 18:02) Other MUSCLE CONTRACTIONS haloperidol lactate [From Haldol] Adverse Reaction (Verified 06/17/18 18:02) Other MUSCLE CONTRACTIONS lithium [[place]] Adverse Reaction (Verified 06/17/18 18:02) Diarrhea pseudoephedrine HCl [From Sudafed] Adverse Reaction (Verified 06/17/18 18:02) Other JITTERY theophylline Adverse Reaction (Verified 06/17/18 18:02) Other TUNNEL EFFECT; TUNNEL VISION Home Medications: Ambulatory Orders Medication Instructions Recorded Atorvastatin Calcium [Lipitor] 40 mg PO QHS 04/05/14 Insulin Glargine [Lantus SoloStar 50 units SC BID 04/05/14 Pen] Insulin Lispro [Humalog] 22 unit SQ TIDCM 04/05/14 Lisinopril [Zestril] 10 mg PO DAILY 04/05/14 Albuterol IH (ProAir) [Proair Hfa 2 puff INHALATION Q6H PRN PRN 12/11/16 (SP)Vent Pts] Cyclobenzaprine [Flexeril] 10 mg PO TID PRN #10 tablet 05/11/18 Gabapentin [Gralise] 600 mg PO QHS 05/11/18 Tamsulosin HCl 0.4 mg PO DAILY 06/17/18 Surgical History: Surgical History (Last Reviewed 05/27/18 @ 14:09 by Michelet Simpson MD) History of appendectomy Z90.49 History of back surgery Z98.890 History of carpal tunnel release of both wrists Z98.890 History of cholecystectomy Z90.49 History of lumpectomy of left breast Z98.890 History of sinus surgery Z98.890 History of skin graft Z98.890 History of tubal ligation Z98.51 Status post trigger finger release Z98.890 history of left elbow repair history of left shoulder repair history of tarsal tunnel surgery Surgical History: - - back lumbar surgery with metal Lives: Alone Smoking Status: Never smoker Alcohol: Sober - *Family History Maternal Family History: Family History (Last Reviewed 06/18/18 @ 05:22 by Dionicio Majano MD) Other Arthritis CVA (cerebral vascular accident) Diabetes Heart disease Hypertension Thyroid disorder Review of Systems Constitutional: Reports: Anorexia. Denies: Chills, Fever, Weight Change HEENT: Denies: Head Aches, Sinus Congestion, Sinus Drainage Cardiovascular: Denies: Chest Pain, Palpitations Respiratory: Denies: Cough, Shortness of breath at rest, Sputum production Gastrointestinal: Denies: Abdominal Pain, Nausea, Vomiting Genitourinary: Reports: Frequency - Decreased frequency. Denies: Dysuria Musculoskeletal: Reports: Neck Pain. Denies: Joint Pain, Joint Tenderness Skin: Denies: Rash, Wounds Neurological: Reports: Tingling - Bilateral arms. Denies: Focal weakness, Numbness Psychiatric: Denies: Anxiety, Depression, Homicidal Ideations, Suicidal Ideations Hematologic/ Lymphatic: Denies: Easy Bruising, Easy Bleeding VTE Information - Inpt Only VTE Present on Admission: No VTE Mechan Device Prophylaxis: None VTE Pharm Prophylaxis ordered?: Yes Patient Problems: Active and Suspected Problems (Last Reviewed 06/18/18 @ 05:20 by Dionicio Majano MD) Cystitis (Acute) Near syncope (Acute) - Physical Exam General: Alert, Oriented x3, Cooperative HEENT: Atraumatic, PERRLA, EOMI, Normocephalic Neck: Supple, No JVD, Negative Carotid Bruits, - - Painful active flexion of neck; tender posterior neck.. Lungs: Clear to auscultation, Normal air movement Cardiovascular: Regular rate, No murmurs Abdomen: Bowel Sounds Present, Soft, Non Tender Extremities: No edema, Capillary Refill Less than 3 Seconds Skin: No rashes, No breakdown Musculoskeletal: No Tenderness to Palpation of Joints or Extremities Neurological: Neuro grossly intact Psych/Mental Status: Normal Affect, Appropriate Vital Signs Temp Pulse Resp BP Pulse Ox 97.4 F L 93 15 138/60 H 95 06/17/18 17:36 06/17/18 21:20 06/17/18 21:20 06/17/18 21:20 06/17/18 21:20 Oxygen Delivery Method Room Air Weight: 83.007 kg Body Mass Index (BMI) 30.4 Finger Stick Blood Glucose 291 Laboratory Tests Past 24 Hrs 06/17/18 06/17/18 06/17/18 19:22 19:22 20:50 WBC 16.6 H RBC 4.64 Hgb 13.1 Hct 40.2 MCV 86.6 MCH 28.2 MCHC 32.6 RDW 14.6 RDW Differential 45.7 H Plt Count 265 MPV 10.3 Immature Gran % (Auto) 0.200 Neut % (Auto) 78.1 H Lymph % (Auto) 16.0 L [place] % (Auto) 5.0 Eos % (Auto) 0.5 Baso % (Auto) 0.2 Absolute Neuts (auto) 13.0 H Absolute Lymphs (auto) 2.67 Total Counted Not Reportable Sodium 140 Potassium 4.5 Chloride 105 Carbon Dioxide 25.0 Anion Gap 10 BUN 21 H Creatinine 1.70 H Estim Creat Clear Calc 28.50 Est GFR (MDRD) Af Amer 38 L Est GFR (MDRD) Non-Af 32 L BUN/Creatinine Ratio 12.4 Glucose 162 H Calcium 9.5 Troponin I < 0.015 Urine Color Yellow Urine Clarity Sl. Cloudy Urine pH 5.0 Ur Specific [place] 1.025 Urine Protein 30 H Urine Glucose (UA) 50 H Urine Ketones 5 H Urine Occult Blood 10 H Urine Nitrite Negative Urine Bilirubin 1 H Urine Urobilinogen Normal Ur Leukocyte Esterase 500 H Urine RBC 0 SEEN Urine WBC 25-50 SEEN Ur Squamous Epith Cells 5-10 SEEN Urine Bacteria 0 SEEN Hyaline Casts 0-5 SEEN Urine Mucus 0 SEEN Assessment/Plan All Active Problems (Last Reviewed 06/18/18 @ 05:20 by Dionicio Majano MD) Cystitis (Acute) Near syncope (Acute) The patient is a 67 year old F with a significant history of COPD; spinal stenosis who presented to the emergency department because of near syncope that started about 1 month ago but has been progressively worsening; and also with worsening neck pain and bilateral tingling sensation in her arms that she attributes to a history of spinal stenosis and with urinary symptoms; and noted to have increased urinary leukocyte esterase but without urinary nitrites or bacteria; and with urinary squamous cells present. Near syncope Probably this is due to her spinal stenosis especially as patient also have increase neck pain and bilateral tingling sensation of her arms.. Will obtain MRI of the cervical spine. Oxycodone as needed for pain. In the setting of narcotic administration will order as needed Zofran and place patient on bowel protocol. Spinal stenosis Management as above Flexeril and gabapentin continued. We will reduce gabapentin dose because of AK I. Acute cystitis Her urinalysis is not that remarkable especially as patient have squamous cells and there is no bacteria seen in her urine. However because of her urinary symptoms we will go ahead and continue Rocephin that was started from the ED. DIPTI On admission her creatinine was 1.70. Review of old records show baseline creatinine around 1.0. Her BUN on admission was 21. Review of old records show that her BUN is about 15. BUN over creatinine is less than 20. Likely intrinsic renal from probable cystitis. At this point, rule out prerenal injury Gentle normal saline IV hydration. Trend BMP Urine sodium and urine creatinine ordered to check FeNa Avoid nephrotoxic's. Will discontinue lisinopril and cut down on her Neurontin dose. Diabetes mellitus On admission her blood glucose on BMP was 162 which is within goal. Repeat blood glucose on the unit was 97. Of note patient reported that the last time that he took her insulin was at lunchtime. Because of her decreased appetite and her blood glucose within goal will cut down on her home insulin regimen. We will hold off at home prandial insulin. She takes Lantus 50 units twice daily; and Humalog 22 units 3 times daily with meals and then correction scale. At this time will schedule patient on Lantus 8 units twice daily; and correction scale insulin. Kidney stone. Patient reported that recently she was placed on Flomax because of kidney stones. Flomax continued. Hypertension Blood pressure is fairly stable Hold lisinopril because of DIPTI. Hydralazine as needed for systolic blood pressure more than 160. Trend blood pressures. COPD As needed albuterol continued. DVT Prophylaxis Subcutaneous heparin. Code Visit OBSV E&M: 61125 Initial observation care L3
--- NOTE | 2018-06-17 22:12 | ED.VISSUMM ---
- ER Visit Summary Date of Service: 06/17/18 Chief Complaint: [Dizziness and near syncope] History of Present Illness: The patient is a 67 F [presents to the emergency department with vague complaints of not feeling well. Patient states that she was recently hospitalized a few weeks ago for diverticulitis. Patient today complaining of pain in her neck and head. Patient had some numbness and tingling in both hands. Patient believes her symptoms are due to her spinal stenosis. Patient has had decreased urine output. Patient had a little bit of a cough that is minor nonproductive. Patient denies any fevers. She is had no vomiting or diarrhea. Patient does have a history of diabetes, hypertension, high cholesterol, COPD, and migraines.] Physical Examination: HEENT-PERRLA, EOMI. Cranial nerves II through XII grossly intact. TMs clear. Mucous membranes moist. No adenopathy. Cardiovascular-regular rate and rhythm without murmur or ectopy Lungs-clear to auscultation, chest wall stable without crepitus or subcu emphysema Abdomen-normoactive bowel sounds, soft, nontender, no rebound or rigidity, no peritoneal signs. Neuro [id number]-[id number]-[id number] and heel mariano testing within normal limits, negative Romberg, negative pronator drift, fundi benign Extremities-intact ?4, normal range of motion, normal pulses, atraumatic [] Test Results: [EKG obtained on arrival shows sinus rhythm with ventricular rate of 95 bpm with no acute ST segment changes. CBC with differential showed an elevated white count of 16.6, hemoglobin 13, hematocrit 40, placed 265. Chemistries unremarkable. BUN was 21 and creatinine was 1.70. Urinalysis was positive for 500 leukocyte esterase and 25-50 WBCs. Troponin was less than 0.015. CT scan of the brain without contrast was unremarkable.] Emergency Department Course and Treatment: [Patient received Rocephin 1 g IV. Patient was given Dilaudid 0.5 mg IV and Zofran 4 mg IV.] Treatment Plan: [Admit for IV antibiotics and hydration. Admit for pain control. Disposition: [Admit] Impression: [UTI Acute kidney injury Neck pain Generalized weakness] This note was generated with [employer] dictation software. It may contain incorrect words, spelling, and punctuation that were not noted in review of the chart prior to signing ED Disposition - Plan for ED Patient: Chief Complaint: Dizziness Referrals: Caitie Teixeira MD [Primary Care Provider] -
[2018-06-17] MEDS: Ceftriaxone 1 GM/50 ML BAG IV (22:15)
--- NOTE | 2018-06-17 22:15 | ED.DCSUM_ITS ---
- ER Visit Summary Date of Service: 06/17/18 Chief Complaint: [Dizziness and near syncope] History of Present Illness: The patient is a 67 F [presents to the emergency department with vague complaints of not feeling well. Patient states that she was recently hospitalized a few weeks ago for diverticulitis. Patient today complaining of pain in her neck and head. Patient had some numbness and tingling in both hands. Patient believes her symptoms are due to her spinal stenosis. Patient has had decreased urine output. Patient had a little bit of a cough that is minor nonproductive. Patient denies any fevers. She is had no vomiting or diarrhea. Patient does have a history of diabetes, hypertension, high cholesterol, COPD, and migraines.] Physical Examination: HEENT-PERRLA, EOMI. Cranial nerves II through XII grossly intact. TMs clear. Mucous membranes moist. No adenopathy. Cardiovascular-regular rate and rhythm without murmur or ectopy Lungs-clear to auscultation, chest wall stable without crepitus or subcu emphysema Abdomen-normoactive bowel sounds, soft, nontender, no rebound or rigidity, no peritoneal signs. Neuro nqot-ehlwfi-qjuq and heel mariano testing within normal limits, negative Romberg, negative pronator drift, fundi benign Extremities-intact ?4, normal range of motion, normal pulses, atraumatic [] Test Results: [EKG obtained on arrival shows sinus rhythm with ventricular rate of 95 bpm with no acute ST segment changes. CBC with differential showed an elevated white count of 16.6, hemoglobin 13, hematocrit 40, placed 265. Chemistries unremarkable. BUN was 21 and creatinine was 1.70. Urinalysis was positive for 500 leukocyte esterase and 25-50 WBCs. Troponin was less than 0.015. CT scan of the brain without contrast was unremarkable.] Emergency Department Course and Treatment: [Patient received Rocephin 1 g IV. Patient was given Dilaudid 0.5 mg IV and Zofran 4 mg IV.] Treatment Plan: [Admit for IV antibiotics and hydration. Admit for pain control. Disposition: [Admit] Impression: [UTI Acute kidney injury Neck pain Generalized weakness] This note was generated with [employer] dictation software. It may contain incorrect words, spelling, and punctuation that were not noted in review of the chart prior to signing ED Disposition - Plan for ED Patient: Chief Complaint: Dizziness Referrals: Caitie Teixeira MD [Primary Care Provider] -
[2018-06-17] MEDS: Ondansetron 4 MG/2 ML Vial IV (22:18)
[2018-06-17] MEDS: HYDROmorphone 0.5 MG/0.5 ML SYRINGE IV (22:20)
[2018-06-17 22:51] VITALS: BP 107/49; PULSE 85; RESP 18; O2SAT 93
[2018-06-17] MEDS: 0.9% Normal Saline 1,000 ML 100 ML IV (23:59)
[2018-06-18] MEDS: Atorvastatin Calcium 40 MG Tablet PO
[2018-06-18 00:06] VITALS: BP 100/58; PULSE 81; RESP 18; TEMP 37.1; O2SAT 96
[2018-06-18 00:08] LABS: Bedside Glucose 97 mg/dL (70-110)
[2018-06-18] MEDS: oxyCODONE 5 MG Tablet PO ×2 (02:25→09:25)
[2018-06-18] MEDS: Ondansetron 4 MG/2 ML Vial IV ×2 (02:26→09:26)
[2018-06-18 06:11] VITALS: BP 120/56; PULSE 77; RESP 18; TEMP 37.2; O2SAT 95
[2018-06-18] MEDS: Heparin Injection (Vial) 5,000 UNIT/ML VIAL 5000 UNIT SC (06:14)
[2018-06-18] MEDS: Insulin Lispro 100 UNIT/ML INSULN.PEN SQ ×2 (06:23→11:36)
[2018-06-18 06:56] LABS: Bedside Glucose 189 mg/dL (70-110)
[2018-06-18 07:12] VITALS: O2SAT 94
[2018-06-18 07:49] LABS: Absolute Lymphocyte Count 3.93 X10^3/ul (0.83-4.51); Absolute Neutrophil Count 5.4 X10^3/uL (2.0-7.7); Basophil# 0.05 X10^3/uL; Basophil% 0.5 % (0-1); Eosinophil# 0.49 X10^3/uL; Eosinophils% 4.7 % (0-5); Hematocrit 36.2 % (37-47); Hemoglobin 11.5 g/dl (12.0-15.0); Lymphocyte # 3.93 X10^3/ul (4.0); Lymphocyte % 37.6 % (19-41); Mean Corp Hgb Conc 31.8 g/gl (32-36); Mean Corpuscular Volume 88.1 fL (81-99); Mean Platelet Vol. 10.5 fl (6.2-12.0); Monocyte# 0.57 X10^3/uL; Monocyte% 5.4 % (0-10); Neutrophil # 5.39 X10^3/uL (2.7-7.7); Neutrophil % 51.5 % (47-70); Platelet Count 248 K/mm3 (150-450); RBC Distribution Width CV 14.9 % (11.6-14.6); RBC Distribution Width SD 47.4 fl (35.1-43.9); Red Blood Count 4.11 M/mm3 (4.2-5.4); White Blood Count 10.5 K/mm3 (4.4-11.0)
[2018-06-18 07:50] LABS: POSITIVE COUNT NO; POSITIVE DIFFERENTIAL NO; POSITIVE MORPHOLOGY NO
--- NOTE | 2018-06-18 07:51 | MRI_ITS ---
STUDY: MRI CERVICAL SPINE WITHOUT CONTRAST REASON FOR EXAM: Female, 67 years old. spinal stenosis, numbness in arms, tingling hands. TECHNIQUE: Standardized fat and water weighted pulse sequences were obtained in the sagittal and axial planes. COMPARISON: October 14, 2016 FINDINGS: Normal foramen magnum and brainstem-cervical cord junction. Normal craniovertebral junction. Normal anterior atlantoaxial articulation. Normal odontoid process. Normal cervical lordosis. C2-3: There is minimal disc space narrowing and endplate spondylosis. There is no significant disc herniation, central canal or foraminal stenosis. C3-4: There is mild disc space narrowing and endplates spondylosis. There is a minimal disc osteophyte complex without significant central canal spurs. There is uncovertebral arthropathy with mild right and moderate left foraminal stenosis. C4-5: There is mild disc space narrowing and endplates spondylosis. There is a mild disc osteophyte complex with mild central canal stenosis. Uncovertebral arthropathy with moderate right and severe left foraminal stenosis C5-6: There is mild disc space narrowing and endplates spondylosis. There is a mild disc osteophyte complex with moderate central canal stenosis. Uncovertebral arthropathy with mild bilateral foraminal stenosis. C6-7: There is moderate disc space narrowing and endplates spondylosis.. There is a mild disc osteophyte complex with mild central canal stenosis. There is uncovertebral arthropathy with mild right and moderate left foraminal stenosis. C7-T1: There is minimal disc space narrowing and endplates spondylosis. There is minimal disc osteophyte complex with mild central canal stenosis. There is uncovertebral arthropathy with moderate right and mild left foraminal stenosis. Normal cervical cord. Normal visualized soft tissue structures. MRI/Spine Cervical (Routine) IMPRESSION: Stable examination. C3/C4: Moderate left foraminal stenosis. C4/C5: Moderate right and severe left foraminal stenosis. C5/C6: Moderate central canal stenosis. C6/C7: Moderate left foraminal stenosis. C7/T1: Moderate right foraminal stenosis. Electronically Signed: Nick Tubbs MD at 11:57 EST Tel , Service support ,
[2018-06-18 07:53] LABS: Anion Gap 7 (5-15); BUN 19 mg/dL (7-18); BUN/Creat Ratio 20.3 RATIO (10-20); Chloride 108 mmol/L (98-107); Creatinine, Serum 0.94 mg/dL (0.55-1.02); EST Glomerular Filtration Rate 63 mL/min (>60); Est Glom Filt Rate - Afr Amer 76 mL/min (>60); Estimated Creatinine Clearance 51.54 ml/min; Glucose 168 mg/dL (74-106); Potassium 4.4 mmol/L (3.5-5.1); Sodium Level 141 mmol/L (136-145)
--- NOTE | 2018-06-18 07:59 | NURSING ---
pt off unit to MRI.
[2018-06-18 09:30] VITALS: BP 114/60; PULSE 76; RESP 18; TEMP 36.7; O2SAT 97
[2018-06-18 11:40] LABS: Bedside Glucose 293 mg/dL (70-110)
--- NOTE | 2018-06-18 13:08 | PCM.DC ---
- Discharge Diagnoses Current Active Problems: Current Active and Chronic Problems (Last Reviewed 06/18/18 @ 05:20 by Dionicio Majano MD) Cystitis (Acute) Near syncope (Acute) You will use the following diet at home:: Calorie/Carbohydrate Controlled (specify 1200, 1400, etc) Your food should be the consistency of: Regular Your liquids should be the consistency of: Regular/Thin Discharge Activity: Return to Normal Activity Call your doctor if you observe: Inability to urinate, Inability to have a bowel movement, Shortness of breath, Dizziness, Fainting spells Allergies/Adverse Reactions: Allergies iodine Allergy (Verified 06/17/18 18:02) Swelling morphine Allergy (Verified 06/17/18 18:02) Shortness of breath Penicillins Allergy (Verified 06/17/18 18:02) Shortness of breath Sulfa (Sulfonamide Antibiotics) Allergy (Verified 06/17/18 18:02) Hives benztropine mesylate [From Cogentin] Adverse Reaction (Verified 06/17/18 18:02) Other URINARY RETENTION codeine Adverse Reaction (Verified 06/17/18 18:02) Other JITTERY haloperidol [From Haldol] Adverse Reaction (Verified 06/17/18 18:02) Other MUSCLE CONTRACTIONS haloperidol lactate [From Haldol] Adverse Reaction (Verified 06/17/18 18:02) Other MUSCLE CONTRACTIONS lithium [Bostonia] Adverse Reaction (Verified 06/17/18 18:02) Diarrhea pseudoephedrine HCl [From Sudafed] Adverse Reaction (Verified 06/17/18 18:02) Other JITTERY theophylline Adverse Reaction (Verified 06/17/18 18:02) Other TUNNEL EFFECT; TUNNEL VISION Medications to take at Discharge Atorvastatin Calcium [Lipitor] 40 mg PO QHS 04/05/14 Insulin Glargine [Lantus SoloStar Pen] 50 units SC BID 04/05/14 Insulin Lispro [Humalog] 22 unit SQ TIDCM 04/05/14 Lisinopril [Zestril] 10 mg PO DAILY 04/05/14 Albuterol IH (ProAir) [Proair Hfa] 2 puff INHALATION Q6H PRN PRN 12/11/16 Cyclobenzaprine [Flexeril] 10 mg PO TID PRN #10 tablet 05/11/18 Gabapentin [Gralise] 600 mg PO QHS 05/11/18 Tamsulosin HCl 0.4 mg PO DAILY 06/17/18 Primary Care Physician: Caitie Teixeira MD [Primary Care Provider] - Please follow up with your Primary Care Physician in: 3-5 days Test Results: Test results from this visit will be discussed in further detail at your follow-up appointment, if applicable.
--- NOTE | 2018-06-18 13:10 | PCM.DC.SUM ---
Discharge Date and Diagnosis - Problem List Patient Problems: Active and Suspected Problems (Last Reviewed 06/18/18 @ 05:20 by Dionicio Majano MD) Cystitis (Acute) Near syncope (Acute) Date of Admission: 06/17/18 Date of Discharge: 06/18/18 - Primary Discharge Diagnosis Active and Suspected Problems (Last Reviewed 06/18/18 @ 05:20 by Dionicio Majano MD) Cystitis (Acute) Near syncope (Acute) - Secondary Discharge Diagnosis Chronic Problems (Last Reviewed 06/18/18 @ 05:20 by Dionicio Majano MD) COPD (chronic obstructive pulmonary disease) (Chronic) Sciatica (Chronic) Diverticulosis (Chronic) Hospital Course and Treatment Imaging Results: Cervical MRI: IMPRESSION: Stable examination. C3/C4: Moderate left foraminal stenosis. C4/C5: Moderate right and severe left foraminal stenosis. C5/C6: Moderate central canal stenosis. C6/C7: Moderate left foraminal stenosis. C7/T1: Moderate right foraminal stenosis. Consults: None Operations: None Procedures: None Summary of Care Provided: Per HPI: The patient is a 67 year old F with a significant history of COPD; spinal stenosis who presented to the emergency department because of near syncope that started about 1 month ago but has been progressively worsening. Patient attributes her near syncopal episode to excruciating pain at her posterior neck that she thinks relates to her spinal stenosis. She described this pain as stabbing and electric-like. Patient reports bilateral tingling sensation in her arms. There are no ameliorating factors. She reported that moving worsens her pain. Treatment of her symptoms is generalized weakness; fatigue and anorexia. She used to see a neurosurgeon for her spinal stenosis. However her neurosurgeon moved to [place]. Her last MRI was 2 years ago. Patient reported that because she is a recovering alcoholic many doctors are uncomfortable giving her pain medication. She reports that her last alcoholic drink was about 33 years ago. Urinary symptoms Further she reports decreased urination going on for about 21/2 weeks. She reported that she has had decreased urinary output. However she acknowledged that she has had decreased fluid intake. She denies any dysuria. At emergency department here, her urinalysis had 500 of leukocyte esterase; no nitrites was seen and no bacteria was seen. Further, she had 5-10 squamous cells. Her urine cultures are pending. The patient is a 67 year old F with a significant history of spinal stenosis who presented to the emergency department because of near syncope that started about 1 month ago but has been progressively worsening; and also with worsening neck pain and bilateral tingling sensation in her arms that she attributes to a history of spinal stenosis and with urinary symptoms was noted to have increased leukocyte esterase but without nitrites or bacteria; and with squamous cells present. Patient reported that she recently got treated with ciprofloxacin and metronidazole for diverticulitis. Hospital Course: 1. Near Syncope/Cervical stenosis - 67-year-old female with previously known cervical stenosis, she had an MRI in 2016, and repeat MRI is essentially unchanged. 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 She did have a previous neurosurgeon who operated on her lower back and so the recommendation was made that she talk to her primary care doctor for referral to a new neurosurgeon for evaluation of her cervical spine. Today she states that her symptoms are much improved with IV fluids and rest. So there is possible component of dehydration especially since she had an acute kidney injury which resolved on day of discharge. Because with her that if she does get dehydrated her symptoms could be exacerbated by Flexeril and to be careful when taking these medications. She needs to follow-up with her primary care physician as an outpatient. 2. DIPTI/cystitis - On admission her creatinine was 1.70, she was started on IV fluids and on the day of discharge her creatinine was 0.94. Her UA is not very remarkable for an infection, she has 500 of leukocyte esterase however she had some squamous cells in her sample as well. Therefore she was not treated with antibiotics though urine culture is pending and if the results are positive I will call her and send her an antibiotic. 3. Her other medical diagnoses were evaluated in her home medications were continued were appropriate Patient Problems: Active and Suspected Problems (Last Reviewed 06/18/18 @ 05:20 by Dionicio Majano MD) Cystitis (Acute) Near syncope (Acute) - Physical Exam General: Alert, Oriented x3, Cooperative, No apparent distress HEENT: Atraumatic, PERRLA, EOMI, Normocephalic Oral: Moist Mucosa Neck: Supple, No JVD, Trachea Midline Lungs: Clear to auscultation, Normal air movement, No rhonchi, No wheeze, No rales Cardiovascular: Regular rate, Regular Rhythm, Normal S1, Normal S2, No murmurs, No rub noted, No Gallop Abdomen: Soft, Non Tender, Non-Distended, No Hepato-splenomegaly Extremities: No edema, Capillary Refill Less than 3 Seconds Skin: No rashes, No breakdown Musculoskeletal: No Tenderness to Palpation of Joints or Extremities Neurological: Cranial nerves II-XII grossly intact, Neuro grossly intact, Motor Exam 5/5 strength throughout, Sensory exam intact to light touch and pain Psych/Mental Status: Normal Affect, Appropriate Vital Signs Temp Pulse Resp BP Pulse Ox 98.1 F 76 18 114/60 97 06/18/18 09:30 06/18/18 09:30 06/18/18 09:30 06/18/18 09:30 06/18/18 09:30 Oxygen Delivery Method Room Air Weight: 180 lb 12.465 oz Body Mass Index (BMI) 30.0 Finger Stick Blood Glucose 291 Intake and Output for Last 24 Hours 06/16/18 06/17/18 06/18/18 23:59 23:59 23:59 Intake Total 2010 Output Total 200 / 200 Balance 1811 / 1811 Laboratory Tests Past 24 Hrs 06/17/18 06/17/18 06/17/18 19:22 19:22 20:50 WBC 16.6 H RBC 4.64 Hgb 13.1 Hct 40.2 MCV 86.6 MCH 28.2 MCHC 32.6 RDW 14.6 RDW Differential 45.7 H Plt Count 265 MPV 10.3 Immature Gran % (Auto) 0.200 Neut % (Auto) 78.1 H Lymph % (Auto) 16.0 L [place] % (Auto) 5.0 Eos % (Auto) 0.5 Baso % (Auto) 0.2 Absolute Neuts (auto) 13.0 H Absolute Lymphs (auto) 2.67 Total Counted Not Reportable Sodium 140 Potassium 4.5 Chloride 105 Carbon Dioxide 25.0 Anion Gap 10 BUN 21 H Creatinine 1.70 H Estim Creat Clear Calc 28.50 Est GFR (MDRD) Af Amer 38 L Est GFR (MDRD) Non-Af 32 L BUN/Creatinine Ratio 12.4 Glucose 162 H Calcium 9.5 Troponin I < 0.015 Urine Color Yellow Urine Clarity Sl. Cloudy Urine pH 5.0 Ur Specific [place] 1.025 Urine Protein 30 H Urine Glucose (UA) 50 H Urine Ketones 5 H Urine Occult Blood 10 H Urine Nitrite Negative Urine Bilirubin 1 H Urine Urobilinogen Normal Ur Leukocyte Esterase 500 H Urine RBC 0 SEEN Urine WBC 25-50 SEEN Ur Squamous Epith Cells 5-10 SEEN Urine Bacteria 0 SEEN Hyaline Casts 0-5 SEEN Urine Mucus 0 SEEN 06/18/18 06/18/18 07:10 07:10 WBC 10.5 RBC 4.11 L Hgb 11.5 L Hct 36.2 L MCV 88.1 MCH 28.0 MCHC 31.8 L RDW 14.9 H RDW Differential 47.4 H Plt Count 248 MPV 10.5 Immature Gran % (Auto) 0.300 Neut % (Auto) 51.5 Lymph % (Auto) 37.6 [place]isco[place] % (Auto) 5.4 Eos % (Auto) 4.7 Baso % (Auto) 0.5 Absolute Neuts (auto) 5.4 Absolute Lymphs (auto) 3.93 Total Counted Not Reportable Sodium 141 Potassium 4.4 Chloride 108 H Carbon Dioxide 26.0 Anion Gap 7 BUN 19 H Creatinine 0.94 Estim Creat Clear Calc 51.54 Est GFR (MDRD) Af Amer 76 Est GFR (MDRD) Non-Af 63 BUN/Creatinine Ratio 20.3 H Glucose 168 H Calcium 8.0 L Troponin I Urine Color Urine Clarity Urine pH Ur Specific [place] Urine Protein Urine Glucose (UA) Urine Ketones Urine Occult Blood Urine Nitrite Urine Bilirubin Urine Urobilinogen Ur Leukocyte Esterase Urine RBC Urine WBC Ur Squamous Epith Cells Urine Bacteria Hyaline Casts Urine Mucus POC Glucose 06/18/18 06/18/18 06/17/18 11:33 06:19 23:58 POC Glucose 293 H 189 H 97 Discharge Activity: Return to Normal Activity Call your doctor if you observe: Inability to urinate, Inability to have a bowel movement, Shortness of breath, Dizziness, Fainting spells Home Medications: Medications to take at Discharge Atorvastatin Calcium [Lipitor] 40 mg PO QHS 04/05/14 Insulin Glargine [Lantus SoloStar Pen] 50 units SC BID 04/05/14 Insulin Lispro [Humalog] 22 unit SQ TIDCM 04/05/14 Lisinopril [Zestril] 10 mg PO DAILY 04/05/14 Albuterol IH (ProAir) [Proair Hfa] 2 puff INHALATION Q6H PRN PRN 12/11/16 Cyclobenzaprine [Flexeril] 10 mg PO TID PRN #10 tablet 05/11/18 Gabapentin [Gralise] 600 mg PO QHS 05/11/18 Tamsulosin HCl 0.4 mg PO DAILY 06/17/18 Primary Care Physician: Caitie Teixeira MD [Primary Care Provider] - Please follow up with your Primary Care Physician in: 3-5 days Disposition: Home Minutes spent on discharge:: 35 Patient Condition:: Good Medical Necessity - Tobacco Use Smoking Status: Never smoker Meaningful Use Info Meaningful Use Diagnoses (Choose all that apply): None applicable Code Visit OBSV E&M: 44544 Observation care discharge
[2018-06-18 13:30] VITALS: BP 95/53; PULSE 81; RESP 18; TEMP 36.8; O2SAT 97
== END 2018-06-18 13:45 | disposition home or self-care (01) ==
LOC: ED 22:31 → MS3 22:58
PROVIDERS: Admitting Provider Hospitalist; Emergency Provider Emergency Medicine; Family Provider Student in an Organized Health Care Education/Training Program; PCP Student in an Organized Health Care Education/Training Program; Referring Provider Hospitalist; Visit Provider Family Medicine
DX: R55 Syncope and collapse (principal); N30.00 Acute cystitis without hematuria; J44.9 Chronic obstructive pulmonary disease, unspecified; M48.00 Spinal stenosis, site unspecified; Z79.899 Other long term (current) drug therapy; Z79.4 Long term (current) use of insulin; R20.2 Paresthesia of skin; F10.21 Alcohol dependence, in remission; M54.30 Sciatica, unspecified side; E11.9 Type 2 diabetes mellitus without complications; E78.00 Pure hypercholesterolemia, unspecified; I10 Essential (primary) hypertension; N17.9 Acute kidney failure, unspecified; M48.02 Spinal stenosis, cervical region
CPT/HCPCS: 36415; 70450; 72141; 80048; 81001; 82962; 84484; 85025; 87086; 87088; 93005; 96361; 96365; 96375; 96376; 97165; 99218; 99285; J7030; A4216; G0378; J2405

== ENCOUNTER 2018-06-23 06:32 | Day surgery (SDC) | payer MEDICARE, SELFPAY ==
[2018-05-23 09:17] VITALS: BMI 31.6
[2018-06-23 06:52] VITALS: BP 137/71; PULSE 85; RESP 18; TEMP 36.3; O2SAT 96; BMI 29.9
[2018-06-23 07:51] VITALS: BP 131/68; BP 137/71; PULSE 79; RESP 18; TEMP 36.4; O2SAT 97
[2018-06-23 07:51] LABS: Bedside Glucose 143 mg/dL (70-110)
--- NOTE | 2018-06-23 07:51 | PCM.HP.STD ---
Problem List (1) Diverticulosis Status: Chronic Qualifiers: Diverticulosis site: diverticulosis of large intestine Diverticulosis bleeding: diverticulosis without bleeding Qualified Code(s): K57.30 - Diverticulosis of large intestine without perforation or abscess without bleeding History of Present Illness Date of Admission: 06/23/18 The patient is a 67 year old F who presents for a colonoscopy. Patient had a CAT scan in April which showed sigmoid diverticulitis with bowel wall thickening and inflammatory stranding. There is no abscess noted. Overall she states that her pain had improved significantly. Patient stated that in October she had an episode of diverticulitis and was treated as an outpatient. Past Medical History Past Medical History (Chronic Problems): Chronic Problems (Last Reviewed 06/18/18 @ 05:20 by Dionicio Majano MD) COPD (chronic obstructive pulmonary disease) (Chronic) Sciatica (Chronic) Diverticulosis (Chronic) Medical History: Medical History (Last Reviewed 06/23/18 @ 07:53 by Michelet Simpson MD) Diabetes E11.9 High cholesterol E78.00 Spinal stenosis M48.00 HTN (hypertension) I10 Allergies iodine Allergy (Verified 06/20/18 11:49) Swelling Latex, Natural Rubber Allergy (Verified 06/23/18 06:59) Itching morphine Allergy (Verified 06/20/18 11:49) Shortness of breath Penicillins Allergy (Verified 06/20/18 11:49) Shortness of breath Sulfa (Sulfonamide Antibiotics) Allergy (Verified 06/20/18 11:49) Hives benztropine mesylate [From Cogentin] Adverse Reaction (Verified 06/20/18 11:49) Other URINARY RETENTION codeine Adverse Reaction (Verified 06/20/18 11:49) Other JITTERY haloperidol [From Haldol] Adverse Reaction (Verified 06/20/18 11:49) Other MUSCLE CONTRACTIONS haloperidol lactate [From Haldol] Adverse Reaction (Verified 06/20/18 11:49) Other MUSCLE CONTRACTIONS lithium [Mallory] Adverse Reaction (Verified 06/20/18 11:49) Diarrhea pseudoephedrine HCl [From Sudafed] Adverse Reaction (Verified 06/20/18 11:49) Other JITTERY theophylline Adverse Reaction (Verified 06/20/18 11:49) Other TUNNEL EFFECT; TUNNEL VISION Home Medications: Ambulatory Orders Medication Instructions Recorded Atorvastatin Calcium [Lipitor] 40 mg PO QHS 04/05/14 Insulin Glargine [Lantus SoloStar 50 units SC BID 04/05/14 Pen] Insulin Lispro [Humalog] 22 unit SQ TIDCM 04/05/14 Lisinopril [Zestril] 10 mg PO DAILY 04/05/14 Gabapentin [Gralise] 600 mg PO QHS 05/11/18 Tamsulosin HCl 0.4 mg PO DAILY 06/17/18 Albuterol IH (ProAir) [Proair Hfa 1 puff INHALATION BID 06/20/18 (SP)Vent Pts] Albuterol Inhaler [Ventolin Hfa 1 - 2 puff INHALATION Q4H PRN PRN 06/20/18 (SP)] Surgical History: Surgical History (Last Reviewed 06/23/18 @ 07:53 by Michelet Simpson MD) History of appendectomy Z90.49 History of back surgery Z98.890 History of carpal tunnel release of both wrists Z98.890 History of cholecystectomy Z90.49 History of lumpectomy of left breast Z98.890 History of sinus surgery Z98.890 History of skin graft Z98.890 History of tubal ligation Z98.51 Status post trigger finger release Z98.890 history of left elbow repair history of left shoulder repair history of tarsal tunnel surgery Surgical History: - - back lumbar surgery with metal Smoking Status: Never smoker Tobacco Use: Non-smoker Review of Systems Cardiovascular: Denies: Chest Pain, Chest Pressure, Chest Tightness, Palpitations Respiratory: Denies: Cough, Hemoptysis, Shortness of breath at rest, Shortness of breath upon exertion, Wheezing Gastrointestinal: Denies: Abdominal Pain, Constipation, Diarrhea, Hematemesis, Nausea, Melena, Vomiting VTE Information - Inpt Only VTE Present on Admission: No VTE Mechan Device Prophylaxis: None VTE Pharm Prophylaxis ordered?: No Reason prophylaxis not ordered:: Treatment Not Indicated - Physical Exam Lungs: Clear to auscultation Cardiovascular: Regular rate, Regular Rhythm, No murmurs Abdomen: Bowel Sounds Present, Soft, Non Tender, Non-Distended Vital Signs Temp Pulse Resp BP Pulse Ox 97.3 F L 85 18 137/71 H 96 06/23/18 06:52 06/23/18 06:52 06/23/18 06:52 06/23/18 06:52 06/23/18 06:52 Oxygen Delivery Method Room Air Weight: 180 lb 1.883 oz Body Mass Index (BMI) 29.9 Finger Stick Blood Glucose 291 POC Glucose 06/23/18 07:09 POC Glucose 143 H Assessment/Plan All Active Problems (Last Reviewed 06/18/18 @ 05:20 by Dionicio Majano MD) Cystitis (Acute) Near syncope (Acute) Time will be to perform a colonoscopy on the patient.
[2018-06-23 07:55] VITALS: BP 123/70; BP 137/71; PULSE 77; RESP 16; O2SAT 95
--- NOTE | 2018-06-23 07:58 | OP.ENDO_ITS ---
Patient Name: Chata Andrews Procedure Date: 06/23/2018 7:27 AM Date of : 1950 Age: 67 Procedure: Colonoscopy Indications: Abdominal pain in the left lower quadrant, Abnormal CT of the GI tract, Diverticulitis Providers: Michelet Simpson MD Referring MD: Michelet Simpson MD Medicines: See the Anesthesia note for documentation of the administered medications Patient Profile: This is a 67 year old female. Refer to note in patient chart for documentation of history and physical. Last Colonoscopy: several years ago. Complications: No immediate complications. Procedure: Pre-Anesthesia Assessment: - Prior to the procedure, a History and Physical was performed, and patient medications and allergies were reviewed. The patient's tolerance of previous anesthesia was also reviewed. The risks and benefits of the procedure and the sedation options and risks were discussed with the patient. All questions were answered, and informed consent was obtained. Prior Anticoagulants: The patient has taken no previous anticoagulant or antiplatelet agents. ASA Grade Assessment: II - A patient with mild systemic disease. After reviewing the risks and benefits, the patient was deemed in satisfactory condition to undergo the procedure. After I obtained informed consent, the scope was passed under direct vision. Throughout the procedure, the patient's blood pressure, pulse, and oxygen saturations were monitored continuously. The colonoscope was introduced through the anus and advanced to the cecum, identified by appendiceal orifice and ileocecal valve. The colonoscopy was performed without difficulty. The patient tolerated the procedure well. The quality of the bowel preparation was good. Scope In: 7:36:40 AM Scope Withdrawal Time 0 hours 6 minutes 31 seconds Scope Out: 7:47:49 AM Total Procedure Duration Time 0 hours 11 minutes 9 seconds Findings: Many small-mouthed diverticula were found in the sigmoid colon and descending colon. Non-bleeding internal hemorrhoids were found during retroflexion. The hemorrhoids were mild and small. The exam was otherwise without abnormality. Impression: - Diverticulosis in the sigmoid colon and in the descending colon. - Non-bleeding internal hemorrhoids. - The examination was otherwise normal. - No specimens collected. Recommendation: - Discharge patient to home. - Resume previous diet. - Continue present medications. - Await pathology results. - Repeat colonoscopy in 10 years for screening purposes. - Return to my office in 1 week. Procedure Code(s): --- Professional --- 40547, Colonoscopy, flexible; diagnostic, including collection of specimen(s) by brushing or washing, when performed (separate procedure) Diagnosis Code(s): --- Professional --- K64.8, Other hemorrhoids R10.32, Left lower quadrant pain K57.32, Diverticulitis of large intestine without perforation or abscess without bleeding K57.30, Diverticulosis of large intestine without perforation or abscess without bleeding R93.3, Abnormal findings on diagnostic imaging of other parts of digestive tract CPT copyright 2017 [employer]. All rights reserved. The codes documented in this report are preliminary and upon senior enlisted advisor review may be revised to meet current compliance requirements. MD Michelet Miller MD 06/23/2018 7:57:43 AM This report has been signed electronically. Number of Addenda: 0 Note Initiated On: 06/23/2018 7:27 AM
[2018-06-23 08:00] VITALS: BP 122/44; BP 137/71; PULSE 82; RESP 16; O2SAT 95
[2018-06-23 08:06] VITALS: BP 137/71; BP 95/68; PULSE 79; RESP 16; TEMP 36.2; O2SAT 97
[2018-06-23 08:15] VITALS: BP 137/71
== END 2018-06-23 08:23 | disposition home or self-care (01) ==
LOC: EN 06:33 → AC 06:34
PROVIDERS: Family Provider Student in an Organized Health Care Education/Training Program; PCP Student in an Organized Health Care Education/Training Program; Referring Provider Surgery; Visit Provider Surgery
PROC: 0DJD8ZZ Inspection of Lower Intestinal Tract, Via Natural or Artificial Opening Endoscopic (ICD-10-PCS; CPT 45378; principal; 2018-06-23 07:25)
DX: K57.32 Diverticulitis of large intestine without perforation or abscess without bleeding (principal); K64.8 Other hemorrhoids; N30.90 Cystitis, unspecified without hematuria; R55 Syncope and collapse; J44.9 Chronic obstructive pulmonary disease, unspecified; E11.9 Type 2 diabetes mellitus without complications; I10 Essential (primary) hypertension; E78.00 Pure hypercholesterolemia, unspecified; M48.00 Spinal stenosis, site unspecified; K21.9 Gastro-esophageal reflux disease without esophagitis; R93.3 Abnormal findings on diagnostic imaging of other parts of digestive tract; F41.9 Anxiety disorder, unspecified; Z78.0 Asymptomatic menopausal state; Z79.4 Long term (current) use of insulin; Z79.899 Other long term (current) drug therapy; Z88.5 Allergy status to narcotic agent; Z88.0 Allergy status to penicillin; Z88.2 Allergy status to sulfonamides; Z88.8 Allergy status to other drugs, medicaments and biological substances; Z87.11 Personal history of peptic ulcer disease; Z86.010 Personal history of colon polyps; Z87.19 Personal history of other diseases of the digestive system
CPT/HCPCS: 45378; 82962; J7120

== ENCOUNTER → 2018-07-01 10:08 | Outpatient (CLI) | payer MEDICARE, SELFPAY ==
[2018-05-23 09:17] VITALS: BMI 31.6
[2018-06-23 06:52] VITALS: BMI 29.9
--- NOTE | 2018-07-01 10:27 | MRI_ITS ---
STUDY: MRI BRAIN WITH AND WITHOUT CONTRAST REASON FOR EXAM: Female, 67 years old. hemangioma, F/U, NO SYMPTOMS. TECHNIQUE: Standardized multiplanar fat and water weighted pulse sequences were obtained. 8 ml of Gadavist contrast material was administered intravenously for the contrast portion of the examination. COMPARISON: MRI dated May 07, 2016 FINDINGS: Normal size of the ventricles and extra-axial spaces for the patient's age. There are multiple white matter hyperintensities, distributed throughout the deep white matter tracts of the cerebral hemispheres, consistent with mild chronic white matter ischemic changes. Normal bilateral basal ganglia. Again noted is the right thalamic chronic lacunar infarct. There is no extra-axial fluid accumulation. Normal flow voids within the major intracranial circulation suggesting patency by spin echo criteria. Normal venous enhancement. There is no enhancing intra-axial or extra-axial abnormality. Normal sella turcica, pituitary gland, infundibular stalk, optic chiasm and hypothalamus. Normal tectal plate and pineal gland. Normal midbrain, lakisha and medulla. Normal cerebellum. Normal basal cisterns. Normal bilateral temporal bones. Normal bilateral internal auditory canals. No demonstrated orbital abnormality, within the constraints of a routine brain study. Normal visualized paranasal sinuses. Normal calvarium and skull base. Normal visualized soft tissue structures. Normal visualized upper cervical spine. MRI/Brain W/WO Contrast IMPRESSION: No acute intracranial abnormality or masses. No skull lesions. Right thalamic chronic lacunar infarct. Mild chronic microvascular ischemic changes. Electronically Signed: Nick Tubbs, at 10:20 EST Tel , Service support ,
--- OUTSIDE RECORDS SUMMARY | 2018-09-02 12:53 | XMS RPT_ITS ---
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 Discharge patient to home. - Resume previous diet. - Continue present medications. - Await pathology results. - Repeat colonoscopy in 10 years for screening purposes. - Return to my office in 1 week. Procedure Code(s): --- Professional --- 15251, Colonoscopy, flexible; diagnostic, including collection of specimen(s) by brushing or washing, when performed (separate procedure) Diagnosis Code(s): --- Professional --- K64.8, Other hemorrhoids R10.32, Left lower quadrant pain K57.32, Diverticulitis of large intestine without perforation or abscess without bleeding K57.30, Diverticulosis of large intestine without perforation or abscess without bleeding R93.3, Abnormal findings on diagnostic imaging of other parts of digestive tract CPT copyright 2017 [employer]. All rights reserved. The codes documented in this report are preliminary and upon manager care review may be revised to meet current compliance requirements. MD Michelet Miller MD 06/23/2018 7:57:43 AM This report has been signed electronically. Number of Addenda: 0 Note Initiated On: 06/23/2018 7:27 AM 06/23/18 0757 Date Michelet Simpson MD Cosigner Signature: Date (if indicated) CC: Michelet Simpson MD; Caitie Zuleta MD Date Dictated: 06/23/18726 Date Transcribed: Metal Wire Coating Operator: DP Signed HISTORY AND PHYSICAL Observed: 06/23/2018 Status: F Source: [place] EXAM 7:54 AM [facility] [place] REPOSITORY [facility] Medical Records Department [address] [place] [id number] History and Physical 06/23/18750 MR#: [id number] Acct: [id number] Name: CHELSEA ANDREWS Rep #: [id number] : 1950 67 From: Michelet Simpson MD PCP: Caitie Zuleta MD Status: REG [facility] [place] Y Location: [place] [address] Problem List (1) Diverticulosis Status: Chronic Qualifiers: Diverticulosis site: diverticulosis of large intestine Diverticulosis bleeding: diverticulosis without bleeding Qualified Code(s): K57.30 - Diverticulosis of large intestine without perforation or abscess without bleeding History of Present Illness Date of Admission: 06/23/18 The patient is a 67 year old F who presents for a colonoscopy. Patient had a CAT scan in April which showed sigmoid diverticulitis with bowel wall thickening and inflammatory stranding. There is no abscess noted. Overall she states that her pain had improved significantly. Patient stated that in October she had an episode of diverticulitis and was treated as an outpatient. Past Medical History Past Medical History (Chronic Problems): Chronic Problems (Last Reviewed 06/18/18 @ 05:20 by Dionicio Majano MD) COPD (chronic obstructive pulmonary disease) (Chronic) Sciatica (Chronic) Diverticulosis (Chronic) Medical History: Medical History (Last Reviewed 06/23/18 @ 07:53 by Michelet Simpson MD) Diabetes E11.9 High cholesterol E78.00 Spinal stenosis M48.00 HTN (hypertension) I10 Allergies iodine Allergy (Verified 06/20/18 11:49) Swelling Latex, Natural Rubber Allergy (Verified 06/23/18 06:59) Itching morphine Allergy (Verified 06/20/18 11:49) Shortness of breath Penicillins Allergy (Verified 06/20/18 11:49) Shortness of breath Sulfa (Sulfonamide Antibiotics) Allergy (Verified 06/20/18 11:49) Hives benztropine mesylate [From Cogentin] Adverse Reaction (Verified 06/20/18 11:49) Other URINARY RETENTION codeine Adverse Reaction (Verified 06/20/18 11:49) Other JITTERY haloperidol [From Haldol] Adverse Reaction (Verified 06/20/18 11:49) Other MUSCLE CONTRACTIONS haloperidol lactate [From Haldol] Adverse Reaction (Verified 06/20/18 11:49) Other MUSCLE CONTRACTIONS lithium [[place]] Adverse Reaction (Verified 06/20/18 11:49) Diarrhea pseudoephedrine HCl [From Sudafed] Adverse Reaction (Verified 06/20/18 11:49) Other JITTERY theophylline Adverse Reaction (Verified 06/20/18 11:49) Other TUNNEL EFFECT; TUNNEL VISION Home Medications: Ambulatory Orders Medication Instructions Recorded Atorvastatin Calcium [Lipitor] 40 mg PO QHS 04/05/14 Insulin Glargine [Lantus SoloStar 50 units SC BID 04/05/14 Surgical History: Surgical History (Last Reviewed 06/23/18 @ 07:53 by Michelet Simpson MD) History of appendectomy Z90.49 History of back surgery Z98.890 History of carpal tunnel release of both wrists Z98.890 History of cholecystectomy Z90.49 History of lumpectomy of left breast Z98.890 History of sinus surgery Z98.890 History of skin graft Z98.890 History of tubal ligation Z98.51 Status post trigger finger release Z98.890 history of left elbow repair history of left shoulder repair history of tarsal tunnel surgery Surgical History: - - back lumbar surgery with metal Smoking Status: Never smoker Tobacco Use: Non-smoker Review of Systems Cardiovascular: Denies: Chest Pain, Chest Pressure, Chest Tightness, Palpitations Respiratory: Denies: Cough, Hemoptysis, Shortness of breath at rest, Shortness of breath upon exertion, Wheezing Gastrointestinal: Denies: Abdominal Pain, Constipation, Diarrhea, Hematemesis, Nausea, Melena, Vomiting VTE Information - Inpt Only VTE Present on Admission: No VTE Mechan Device Prophylaxis: None VTE Pharm Prophylaxis ordered?: No Reason prophylaxis not ordered:: Treatment Not Indicated - Physical Exam Lungs: Clear to auscultation Cardiovascular: Regular rate, Regular Rhythm, No murmurs Abdomen: Bowel Sounds Present, Soft, Non Tender, Non-Distended Vital Signs Temp Pulse Resp BP Pulse Ox 97.3 F L 85 18 137/71 H 96 06/23/18 06:52 06/23/18 06:52 06/23/18 06:52 06/23/18 06:52 06/23/18 06:52 Oxygen Delivery Method Room Air Weight: 180 lb 1.883 oz Body Mass Index (BMI) 29.9 Finger Stick Blood Glucose 291 POC Glucose POC Glucose 143 H Assessment/Plan All Active Problems (Last Reviewed 06/18/18 @ 05:20 by Dionicio Majano MD) Cystitis (Acute) Near syncope (Acute) Time will be to perform a colonoscopy on the patient. 06/23/18 0754 <Electronically signed by Michelet Simpson MD> Date Michelet Simpson MD Cosigner Signature: Date (if applicable) CC: Michelet Simpson MD; Caitie Zuleta MD Signed BEDSIDE GLUCOSE Collected: 06/23/2018 Status: F Source: [place] 7:09 AM [facility] [place] REPOSITORY TYPE CODE TESTS RESULT OUT OF REFERENCE UNITS RANGE LAB L501.080 70-110 mg/dL High BEDSIDE GLU 143 Result Comment: MANAGEMENT OF PATIENT CARE PER NURSING PROTOCOL Performed By: #### L501.080 #### [facility] Laboratory Point of Care [address] [place] [address] DISCHARGE SUMMARY Observed: 06/18/2018 Status: F Source: [place] 1:18 PM [facility] [place] REPOSITORY [facility] Medical Records Department [address] [place] [address] Discharge Summary 06/18/18 1310 MR#: [id number] Acct: [id number] Name: CHELSEA ANDREWS Lizeth Rep #: [id number] : 1950 67 From: Royal Mendoza MD PCP: Caitie Zuleta MD Status: ADM SONIDO Y Location: [place] [address] Discharge Date and Diagnosis - Problem List Patient Problems: Active and Suspected Problems (Last Reviewed 06/18/18 @ 05:20 by Dionicio Majano MD) Cystitis (Acute) Near syncope (Acute) Date of Admission: 06/17/18 Date of Discharge: 06/18/18 - Primary Discharge Diagnosis Active and Suspected Problems (Last Reviewed 06/18/18 @ 05:20 by Dionicio Majano MD) Cystitis (Acute) Near syncope (Acute) - Secondary Discharge Diagnosis Chronic Problems (Last Reviewed 06/18/18 @ 05:20 by Dionicio Majano MD) COPD (chronic obstructive pulmonary disease) (Chronic) Sciatica (Chronic) Diverticulosis (Chronic) Hospital Course and Treatment Imaging Results: Cervical MRI: IMPRESSION: Stable examination. C3/C4: Moderate left foraminal stenosis. C4/C5: Moderate right and severe left foraminal stenosis. C5/C6: Moderate central canal stenosis. C6/C7: Moderate left foraminal stenosis. C7/T1: Moderate right foraminal stenosis. Consults: None Operations: None Procedures: None Summary of Care Provided: Per HPI: The patient is a 67 year old F with a significant history of COPD; spinal stenosis who presented to the emergency department because of near syncope that started about 1 month ago but has been progressively worsening. Patient attributes her near syncopal episode to excruciating pain at her posterior neck that she thinks relates to her spinal stenosis. She described this pain as stabbing and electric-like. Patient reports bilateral tingling sensation in her arms. There are no ameliorating factors. She reported that moving worsens her pain. Treatment of her symptoms is generalized weakness; fatigue and anorexia. She used to see a neurosurgeon for her spinal stenosis. However her neurosurgeon moved to [place]. Her last MRI was 2 years ago. Patient reported that because she is a recovering alcoholic many doctors are uncomfortable giving her pain medication. She reports that her last alcoholic drink was about 33 years ago. Urinary symptoms Further she reports decreased urination going on for about 21/2 weeks. She reported that she has had decreased urinary output. However she acknowledged that she has had decreased fluid intake. She denies any dysuria. At emergency department here, her urinalysis had 500 of leukocyte esterase; no nitrites was seen and no bacteria was seen. Further, she had 5-10 squamous cells. Her urine cultures are pending. The patient is a 67 year old F with a significant history of spinal stenosis who presented to the emergency department because of near syncope that started about 1 month ago but has been progressively worsening; and also with worsening neck pain and bilateral tingling sensation in her arms that she attributes to a history of spinal stenosis and with urinary symptoms was noted to have increased leukocyte esterase but without nitrites or bacteria; and with squamous cells present. Patient reported that she recently got treated with ciprofloxacin and metronidazole for diverticulitis. Hospital Course: 1. Near Syncope/Cervical stenosis - 67-year-old female with previously known cervical stenosis, she had an MRI in 2016, and repeat MRI is essentially unchanged. 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 She did have a previous neurosurgeon who operated on her lower back and so the recommendation was made that she talk to her primary care doctor for referral to a new neurosurgeon for evaluation of her cervical spine. Today she states that her symptoms are much improved with IV fluids and rest. So there is possible component of dehydration especially since she had an acute kidney injury which resolved on day of discharge. Because with her that if she does get dehydrated her symptoms could be exacerbated by Flexeril and to be careful when taking these medications. She needs to follow-up with her primary care physician as an outpatient. 2. DIPTI/cystitis - On admission her creatinine was 1.70, she was started on IV fluids and on the day of discharge her creatinine was 0.94. Her UA is not very remarkable for an infection, she has 500 of leukocyte esterase however she had some squamous cells in her sample as well. Therefore she was not treated with antibiotics though urine culture is pending and if the results are positive I will call her and send her an antibiotic. 3. Her other medical diagnoses were evaluated in her home medications were continued were appropriate Patient Problems: Active and Suspected Problems (Last Reviewed 06/18/18 @ 05:20 by Dionicio Majano MD) Cystitis (Acute) Near syncope (Acute) - Physical Exam General: Alert, Oriented x3, Cooperative, No apparent distress HEENT: Atraumatic, PERRLA, EOMI, Normocephalic Oral: Moist Mucosa Neck: Supple, No JVD, Trachea Midline Lungs: Clear to auscultation, Normal air movement, No rhonchi, No wheeze, No rales Cardiovascular: Regular rate, Regular Rhythm, Normal S1, Normal S2, No murmurs, No rub noted, No Gallop Abdomen: Soft, Non Tender, Non-Distended, No Hepato-splenomegaly Extremities: No edema, Capillary Refill Less than 3 Seconds Skin: No rashes, No breakdown Musculoskeletal: No Tenderness to Palpation of Joints or Extremities Neurological: Cranial nerves II-XII grossly intact, Neuro grossly intact, Motor Exam 5/5 strength throughout, Sensory exam intact to light touch and pain Psych/Mental Status: Normal Affect, Appropriate Vital Signs Temp Pulse Resp BP Pulse Ox 98.1 F 76 18 114/60 97 06/18/18 09:30 06/18/18 09:30 06/18/18 09:30 06/18/18 09:30 06/18/18 09:30 Oxygen Delivery Method Room Air Weight: 180 lb 12.465 oz Body Mass Index (BMI) 30.0 Finger Stick Blood Glucose 291 Intake and Output for Last 24 Hours Intake Total 2010 Output Total 200 / 200 Balance 1811 / 1811 Laboratory Tests Past 24 Hrs WBC 16.6 H RBC 4.64 Hgb 13.1 Hct 40.2 WBC 10.5 RBC 4.11 L Hgb 11.5 L Hct 36.2 L MCV 88.1 POC Glucose POC Glucose 293 H 189 H 97 Discharge Activity: Return to Normal Activity Call your doctor if you observe: Inability to urinate, Inability to have a bowel movement, Shortness of breath, Dizziness, Fainting spells Home Medications: Medications to take at Discharge Atorvastatin Calcium [Lipitor] 40 mg PO QHS 04/05/14 Insulin Glargine [Lantus SoloStar Pen] 50 units SC BID 04/05/14 Insulin Lispro [Humalog] 22 unit SQ TIDCM 04/05/14 Lisinopril [Zestril] 10 mg PO DAILY 04/05/14 Albuterol IH (ProAir) [Proair Hfa] 2 puff INHALATION Q6H PRN PRN 12/11/16 Cyclobenzaprine [Flexeril] 10 mg PO TID PRN #10 tablet 05/11/18 Gabapentin [Gralise] 600 mg PO QHS 05/11/18 Tamsulosin HCl 0.4 mg PO DAILY 06/17/18 Primary Care Physician: Caitie Zuleta MD [Primary Care Provider] - Please follow up with your Primary Care Physician in: 3-5 days Disposition: Home Minutes spent on discharge:: 35 Patient Condition:: Good Medical Necessity - Tobacco Use Smoking Status: Never smoker Meaningful Use Info Meaningful Use Diagnoses (Choose all that apply): None applicable Code Visit OBSV E AND M: 05627 Observation care discharge 06/18/18 1318 <Electronically signed by Royal Mendoza MD> Date Royal Mendoza MD Cosigner Signature (if applicable): Date CC: Royal Mendoza MD; Caitie Zuleta MD Signed DISCHARGE INSTRUCTION Observed: 06/18/2018 Status: F Source: MAR[place] 1:09 PM [facility] [place] REPOSITORY [facility] Medical Records Department [address] [place] [address] Instructions for Home/Discharge Instructions 06/18/18 1308 MR#: [id number] Acct: [id number] Name: CHELSEA ANDREWS Rep #: [id number] : 1950 67 From: Royal Mendoza MD PCP: Caitie Zuleta MD Status: ADM SONIDO - Discharge Diagnoses Current Active Problems: Current Active and Chronic Problems (Last Reviewed 06/18/18 @ 05:20 by Dionicio Majano MD) Cystitis (Acute) Near syncope (Acute) You will use the following diet at home:: Calorie/Carbohydrate Controlled (specify 1200, 1400, etc) Your food should be the consistency of: Regular Your liquids should be the consistency of: Regular/Thin Discharge Activity: Return to Normal Activity Call your doctor if you observe: Inability to urinate, Inability to have a bowel movement, Shortness of breath, Dizziness, Fainting spells Allergies/Adverse Reactions: Allergies iodine Allergy (Verified 06/17/18 18:02) Swelling morphine Allergy (Verified 06/17/18 18:02) Shortness of breath Penicillins Allergy (Verified 06/17/18 18:02) Shortness of breath Sulfa (Sulfonamide Antibiotics) Allergy (Verified 06/17/18 18:02) Hives benztropine mesylate [From Cogentin] Adverse Reaction (Verified 06/17/18 18:02) Other URINARY RETENTION codeine Adverse Reaction (Verified 06/17/18 18:02) Other JITTERY haloperidol [From Haldol] Adverse Reaction (Verified 06/17/18 18:02) Other MUSCLE CONTRACTIONS haloperidol lactate [From Haldol] Adverse Reaction (Verified 06/17/18 18:02) Other MUSCLE CONTRACTIONS lithium [[place]] Adverse Reaction (Verified 06/17/18 18:02) Diarrhea pseudoephedrine HCl [From Sudafed] Adverse Reaction (Verified 06/17/18 18:02) Other JITTERY theophylline Adverse Reaction (Verified 06/17/18 18:02) Other TUNNEL EFFECT; TUNNEL VISION Medications to take at Discharge Atorvastatin Calcium [Lipitor] 40 mg PO QHS 04/05/14 Insulin Glargine [Lantus SoloStar Pen] 50 units SC BID 04/05/14 Insulin Lispro [Humalog] 22 unit SQ TIDCM 04/05/14 Lisinopril [Zestril] 10 mg PO DAILY 04/05/14 Albuterol IH (ProAir) [Proair Hfa] 2 puff INHALATION Q6H PRN PRN 12/11/16 Cyclobenzaprine [Flexeril] 10 mg PO TID PRN #10 tablet 05/11/18 Gabapentin [Gralise] 600 mg PO QHS 05/11/18 Tamsulosin HCl 0.4 mg PO DAILY 06/17/18 Primary Care Physician: Caitie Zuleta MD [Primary Care Provider] - Please follow up with your Primary Care Physician in: 3-5 days Test Results: Test results from this visit will be discussed in further detail at your follow-up appointment, if applicable. 06/18/18 1309 <Electronically signed by Royal Mendoza MD> Date Royal Mendoza MD CC: Caitie Zuleta MD Signed BEDSIDE GLUCOSE Collected: 06/18/2018 Status: F Source: [place] 11:33 AM [facility] [place] REPOSITORY TYPE CODE TESTS RESULT OUT OF REFERENCE UNITS RANGE LAB L501.080 70-110 mg/dL High BEDSIDE GLU 293 Result Comment: MANAGEMENT OF PATIENT CARE PER NURSING PROTOCOL Performed By: #### L501.080 #### [facility] Laboratory Point of Care [address] [place] [address] CBC W/DIFF, AUTOMATED Collected: 06/18/2018 Status: F Source: [place] 7:10 AM [facility] [place] REPOSITORY TYPE CODE TESTS RESULT OUT OF RANGE REFERENCE UNITS LAB L100.1000 4.4-11.0 K/mm3 Normal WBC 10.5 LAB L100.1200 4.2-5.4 M/mm3 Low RBC 4.11 LAB L100.1300 12.0-15.0 g/dl Low HGB 11.5 LAB L100.1400 37-47 % Low HCT 36.2 LAB L100.1500 81-99 fL Normal MCV 88.1 LAB L100.1600 27.0-32.0 pg Normal MCH 28.0 LAB L100.1700 32-36 g/gl Low MCHC 31.8 LAB L100.1810 11.6-14.6 % High RDW CV 14.9 LAB L100.1820 35.1-43.9 fl High RDW SD 47.4 LAB L100.1900 150-450 K/mm3 Normal PLT 248 LAB L100.2000 6.2-12.0 fl Normal MPV 10.5 LAB L100.2100 47-70 % Normal NEUT% 51.5 LAB L100.2200 19-41 % Normal LY% 37.6 LAB L100.2300 0-10 % Normal MONO% 5.4 LAB L100.2400 0-5 % Normal EO% 4.7 LAB L100.2500 0-1 % Normal BASO% 0.5 LAB L100.2550 0.0-0.9 % Normal IM GRAN % 0.300 Result Comment: IG% - Immature Granulocytes (promyelocytes, myelocytes and metamyelocytes) > 1% indicates that a LEFT SHIFT is Present. LAB L100.2620 2.0-7.7 X10 3/uL Normal Absolute Neut 5.4 LAB L100.2720 0.83-4.51 X10 3/ul Normal Absolute Lymph 3.93 Performed By: #### L100.0100 #### [facility] Laboratory [address] [place], [address] BASIC METABOLIC Collected: 06/18/2018 Status: F Source: [place] PROFILE (BMP) 7:10 AM [facility] [place] REPOSITORY TYPE CODE TESTS RESULT OUT OF RANGE REFERENCE UNITS LAB L501.0100 74-106 mg/dL High GLU 168 Result Comment: Fasting Glucose result greater than or equal to 126 mg/dL suggests DIABETES MELLITUS per A.D.A. criteria. Please note revised GLUCOSE reference range effective 2017. LAB L501.1000 7-18 mg/dL High BUN 19 LAB L501.1100 0.55-1.02 mg/dL Normal CREAT,SERUM 0.94 Result Comment: The validity of the calculated GFR AND GFRAA in patients over 70 years has not been determined. Clinical correlation is essential. LAB L501.1110 >60 mL/min Normal EST GFR 63 Result Comment: Non- GFR Calc LAB L501.1115 >60 mL/min Normal EST GFR - AA 76 Result Comment: GFR Calc LAB L501.1255 ml/min Normal Estimated CRCL 51.54 LAB L501.1300 10-20 RATIO High BUN/CRE 20.3 LAB L501.2200 8.5-10 mg/dL Low .1 CA 8.0 LAB L501.5300 136-14 mmol/L Normal 5 NA 141 LAB L501.5600 3.5-5. mmol/L Normal 1 K 4.4 LAB L501.5900 98-107 mmol/L High CL 108 LAB L501.6100 21.0-3 mmol/L Normal 2.0 CO2 26.0 LAB L501.6200 5-15 Normal GAP 7 Performed By: #### L500.2500 #### [facility] Laboratory [address] [facility] [place], [address] BEDSIDE GLUCOSE Collected: 06/18/2018 Status: F Source: [place] 6:19 AM [facility] [place] REPOSITORY TYPE CODE TESTS RESULT OUT OF REFERENCE UNITS RANGE LAB L501.080 70-110 mg/dL High BEDSIDE GLU 189 Result Comment: MANAGEMENT OF PATIENT CARE PER NURSING PROTOCOL Performed By: #### L501.080 #### [facility] Laboratory Point of Care [address] [facility] [place] [address] HISTORY AND PHYSICAL Observed: 06/18/2018 Status: F Source: [place] EXAM 5:33 AM [facility] [place] REPOSITORY [facility] Medical Records Department [address] [place] [address] History and Physical 06/17/185 MR#: [id number] Acct: [id number] Name: CHELSEA ANDREWS Rep #: [id number] : 1950 67 From: Dionicio Majano MD PCP: Caitie Zuleta MD Status: ADM SONIDO Y Location: ND3 [id number] ADDENDUM by Dionicio Majano MD on 06/18/18 at 0533 Code Visit Of note patient has leukocytosis that could be from cystitis. Treat cystitis and will follow up with CBC. 06/18/18 0533 <Electronically signed by Dionicio Majano MD> Date Dionicio Majano MD cc: Dionicio Majano MD; Caitie Zuleta MD * Signed Problem List (1) Cystitis Status: Acute (2) Near syncope Status: Acute History of Present Illness Date of Admission: 06/17/18 Chief Complaint: near-syncope The patient is a 67 year old F with a significant history of COPD; spinal stenosis who presented to the emergency department because of near syncope that started about 1 month ago but has been progressively worsening. Patient attributes her near syncopal episode to excruciating pain at her posterior neck that she thinks relates to her spinal stenosis. She described this pain as stabbing and electric-like. Patient reports bilateral tingling sensation in her arms. There are no ameliorating factors. She reported that moving worsens her pain. Treatment of her symptoms is generalized weakness; fatigue and anorexia. She used to see a neurosurgeon for her spinal stenosis. However her neurosurgeon moved to [place]. Her last MRI was 2 years ago. Patient reported that because she is a recovering alcoholic many doctors are uncomfortable giving her pain medication. She reports that her last alcoholic drink was about 33 years ago. Urinary symptoms Further she reports decreased urination going on for about 21/2 weeks. She reported that she has had decreased urinary output. However she acknowledged that she has had decreased fluid intake. She denies any dysuria. At emergency department here, her urinalysis had 500 of leukocyte esterase; no nitrites was seen and no bacteria was seen. Further, she had 5-10 squamous cells. Her urine cultures are pending. The patient is a 67 year old F with a significant history of spinal stenosis who presented to the emergency department because of near syncope that started about 1 month ago but has been progressively worsening; and also with worsening neck pain and bilateral tingling sensation in her arms that she attributes to a history of spinal stenosis and with urinary symptoms was noted to have increased leukocyte esterase but without nitrites or bacteria; and with squamous cells present. Patient reported that she recently got treated with ciprofloxacin and metronidazole for diverticulitis. Past Medical History Past Medical History (Chronic Problems): Chronic Problems (Last Reviewed 06/18/18 @ 05:20 by Dionicio Majano MD) COPD (chronic obstructive pulmonary disease) (Chronic) Sciatica (Chronic) Diverticulosis (Chronic) Medical History: Medical History (Last Reviewed 06/18/18 @ 05:20 by Dionicio Majano MD) Diabetes E11.9 High cholesterol E78.00 Spinal stenosis M48.00 HTN (hypertension) I10 Allergies iodine Allergy (Verified 06/17/18 18:02) Swelling morphine Allergy (Verified 06/17/18 18:02) Shortness of breath Penicillins Allergy (Verified 06/17/18 18:02) Shortness of breath Sulfa (Sulfonamide Antibiotics) Allergy (Verified 06/17/18 18:02) Hives benztropine mesylate [From Cogentin] Adverse Reaction (Verified 06/17/18 18:02) Other URINARY RETENTION codeine Adverse Reaction (Verified 06/17/18 18:02) Other JITTERY haloperidol [From Haldol] Adverse Reaction (Verified 06/17/18 18:02) Other MUSCLE CONTRACTIONS haloperidol lactate [From Haldol] Adverse Reaction (Verified 06/17/18 18:02) Other MUSCLE CONTRACTIONS lithium [[place]] Adverse Reaction (Verified 06/17/18 18:02) Diarrhea pseudoephedrine HCl [From Sudafed] Adverse Reaction (Verified 06/17/18 18:02) Other JITTERY theophylline Adverse Reaction (Verified 06/17/18 18:02) Other TUNNEL EFFECT; TUNNEL VISION Home Medications: Ambulatory Orders Medication Instructions Recorded Atorvastatin Calcium [Lipitor] 40 mg PO QHS 04/05/14 Insulin Glargine [Lantus SoloStar 50 units SC BID 04/05/14 Surgical History: Surgical History (Last Reviewed 05/27/18 @ 14:09 by Michelet Simpson MD) History of appendectomy Z90.49 History of back surgery Z98.890 History of carpal tunnel release of both wrists Z98.890 History of cholecystectomy Z90.49 History of lumpectomy of left breast Z98.890 History of sinus surgery Z98.890 History of skin graft Z98.890 History of tubal ligation Z98.51 Status post trigger finger release Z98.890 history of left elbow repair history of left shoulder repair history of tarsal tunnel surgery Surgical History: - - back lumbar surgery with metal Lives: Alone Smoking Status: Never smoker Alcohol: Sober - *Family History Maternal Family History: Family History (Last Reviewed 06/18/18 @ 05:22 by Dionicio Majano MD) Other Arthritis CVA (cerebral vascular accident) Diabetes Heart disease Hypertension Thyroid disorder Review of Systems Constitutional: Reports: Anorexia. Denies: Chills, Fever, Weight Change HEENT: Denies: Head Aches, Sinus Congestion, Sinus Drainage Cardiovascular: Denies: Chest Pain, Palpitations Respiratory: Denies: Cough, Shortness of breath at rest, Sputum production Gastrointestinal: Denies: Abdominal Pain, Nausea, Vomiting Genitourinary: Reports: Frequency - Decreased frequency. Denies: Dysuria Musculoskeletal: Reports: Neck Pain. Denies: Joint Pain, Joint Tenderness Skin: Denies: Rash, Wounds Neurological: Reports: Tingling - Bilateral arms. Denies: Focal weakness, Numbness Psychiatric: Denies: Anxiety, Depression, Homicidal Ideations, Suicidal Ideations Hematologic/ Lymphatic: Denies: Easy Bruising, Easy Bleeding VTE Information - Inpt Only VTE Present on Admission: No VTE Mechan Device Prophylaxis: None VTE Pharm Prophylaxis ordered?: Yes Patient Problems: Active and Suspected Problems (Last Reviewed 06/18/18 @ 05:20 by Dionicio Majano MD) Cystitis (Acute) Near syncope (Acute) - Physical Exam General: Alert, Oriented x3, Cooperative HEENT: Atraumatic, PERRLA, EOMI, Normocephalic Neck: Supple, No JVD, Negative Carotid Bruits, - - Painful active flexion of neck; tender posterior neck.. Lungs: Clear to auscultation, Normal air movement Cardiovascular: Regular rate, No murmurs Abdomen: Bowel Sounds Present, Soft, Non Tender Extremities: No edema, Capillary Refill Less than 3 Seconds Skin: No rashes, No breakdown Musculoskeletal: No Tenderness to Palpation of Joints or Extremities Neurological: Neuro grossly intact Psych/Mental Status: Normal Affect, Appropriate Vital Signs Temp Pulse Resp BP Pulse Ox 97.4 F L 93 15 138/60 H 95 06/17/18 17:36 06/17/18 21:20 06/17/18 21:20 06/17/18 21:20 06/17/18 21:20 Oxygen Delivery Method Room Air Weight: 83.007 kg Body Mass Index (BMI) 30.4 Finger Stick Blood Glucose 291 Laboratory Tests Past 24 Hrs WBC 16.6 H RBC 4.64 Hgb 13.1 Hct 40.2 Assessment/Plan All Active Problems (Last Reviewed 06/18/18 @ 05:20 by Dionicio Majano MD) Cystitis (Acute) Near syncope (Acute) The patient is a 67 year old F with a significant history of COPD; spinal stenosis who presented to the emergency department because of near syncope that started about 1 month ago but has been progressively worsening; and also with worsening neck pain and bilateral tingling sensation in her arms that she attributes to a history of spinal stenosis and with urinary symptoms; and noted to have increased urinary leukocyte esterase but without urinary nitrites or bacteria; and with urinary squamous cells present. Near syncope Probably this is due to her spinal stenosis especially as patient also have increase neck pain and bilateral tingling sensation of her arms.. Will obtain MRI of the cervical spine. Oxycodone as needed for pain. In the setting of narcotic administration will order as needed Zofran and place patient on bowel protocol. Spinal stenosis Management as above Flexeril and gabapentin continued. We will reduce gabapentin dose because of AK I. Acute cystitis Her urinalysis is not that remarkable especially as patient have squamous cells and there is no bacteria seen in her urine. However because of her urinary symptoms we will go ahead and continue Rocephin that was started from the ED. DIPTI On admission her creatinine was 1.70. Review of old records show baseline creatinine around 1.0. Her BUN on admission was 21. Review of old records show that her BUN is about 15. BUN over creatinine is less than 20. Likely intrinsic renal from probable cystitis. At this point, rule out prerenal injury Gentle normal saline IV hydration. Trend BMP Urine sodium and urine creatinine ordered to check FeNa Avoid nephrotoxic's. Will discontinue lisinopril and cut down on her Neurontin dose. Diabetes mellitus On admission her blood glucose on BMP was 162 which is within goal. Repeat blood glucose on the unit was 97. Of note patient reported that the last time that he took her insulin was at lunchtime. Because of her decreased appetite and her blood glucose within goal will cut down on her home insulin regimen. We will hold off at home prandial insulin. She takes Lantus 50 units twice daily; and Humalog 22 units 3 times daily with meals and then correction scale. At this time will schedule patient on Lantus 8 units twice daily; and correction scale insulin. Kidney stone. Patient reported that recently she was placed on Flomax because of kidney stones. Flomax continued. Hypertension Blood pressure is fairly stable Hold lisinopril because of DIPTI. Hydralazine as needed for systolic blood pressure more than 160. Trend blood pressures. COPD As needed albuterol continued. DVT Prophylaxis Subcutaneous heparin. Code Visit OBSV E AND M: [id number] Initial observation care L3 06/18/18 0531 <Electronically signed by Dionicio Majano MD> Date Dionicio Majano MD Cosigner Signature: Date (if applicable) CC: Dionicio Majano MD; Caitie Zuleta MD Signed BEDSIDE GLUCOSE Collected: 06/17/2018 Status: F Source: [place] 11:58 PM [facility] REPOSITORY TYPE CODE TESTS RESULT OUT OF RANGE REFERENCE UNITS LAB L501.080 70-110 mg/dL Normal BEDSIDE GLU 97 Result Comment: MANAGEMENT OF PATIENT CARE PER NURSING PROTOCOL Performed By: #### L501.080 #### [facility] Laboratory Point of Care [address] [address] SPINE CERVICAL Observed: 06/17/2018 Status: F Source: [place] (ROUTINE) 11:25 PM [facility] REPOSITORY [facility] Imaging Services [address] [place] [address] Spine Cervical (Routine) MR#: [id number] Acct: [id number] Name: CHELSEA ANDREWS Rep #: [id number] : 1950 F 67 From: Nick Tubbs PCP: Caitie Zuleta MD Status: ADM SONIDO Study: Spine Cervical (Routine) Date of Exam: 06/18/18 Exam# [id number] Ordering Dr: Dionicio Majano MD STUDY: MRI CERVICAL SPINE WITHOUT CONTRAST REASON FOR EXAM: Female, 67 years old. spinal stenosis, numbness in arms, tingling hands. TECHNIQUE: Standardized fat and water weighted pulse sequences were obtained in the sagittal and axial planes. COMPARISON: October 14, 2016 FINDINGS: Normal foramen magnum and brainstem-cervical cord junction. Normal craniovertebral junction. Normal anterior atlantoaxial articulation. Normal odontoid process. Normal cervical lordosis. C2-3: There is minimal disc space narrowing and endplate spondylosis. There is no significant disc herniation, central canal or foraminal stenosis. C3-4: There is mild disc space narrowing and endplates spondylosis. There is a minimal disc osteophyte complex without significant central canal spurs. There is uncovertebral arthropathy with mild right and moderate left foraminal stenosis. C4-5: There is mild disc space narrowing and endplates spondylosis. There is a mild disc osteophyte complex with mild central canal stenosis. Uncovertebral arthropathy with moderate right and severe left foraminal stenosis C5-6: There is mild disc space narrowing and endplates spondylosis. There is a mild disc osteophyte complex with moderate central canal stenosis. Uncovertebral arthropathy with mild bilateral foraminal stenosis. C6-7: There is moderate disc space narrowing and endplates spondylosis.. There is a mild disc osteophyte complex with mild central canal stenosis. There is uncovertebral arthropathy with mild right and moderate left foraminal stenosis. C7-T1: There is minimal disc space narrowing and endplates spondylosis. There is minimal disc osteophyte complex with mild central canal stenosis. There is uncovertebral arthropathy with moderate right and mild left foraminal stenosis. Normal cervical cord. Normal visualized soft tissue structures. MRI/Spine Cervical (Routine) IMPRESSION: Stable examination. C3/C4: Moderate left foraminal stenosis. C4/C5: Moderate right and severe left foraminal stenosis. C5/C6: Moderate central canal stenosis. C6/C7: Moderate left foraminal stenosis. C7/T1: Moderate right foraminal stenosis. Electronically Signed: Nick Tubbs MD at 11:57 EST Tel , Service support , CC: Dionicio Majano MD; Caitie Zuleta MD [employer] Co[employer] Operator: Signed EMERGENCY DEPARTMENT Observed: 06/17/2018 Status: F Source: [place] SUMMARY 10:15 PM [facility] REPOSITORY [facility] Medical Records Department [address] [place] [address] Emergency Department Summary 06/17/18 2212 MR#: [id number] Acct: [id number] Name: CHELSEA ANDREWS Rep #: [id number] : 1950 67 From: Leandra Morse DO PCP: Caitie Zuleta MD Status: REG ER - ER Visit Summary Date of Service: 06/17/18 Chief Complaint: [Dizziness and near syncope] History of Present Illness: The patient is a 67 F [presents to the emergency department with vague complaints of not feeling well. Patient states that she was recently hospitalized a few weeks ago for diverticulitis. Patient today complaining of pain in her neck and head. Patient had some numbness and tingling in both hands. Patient believes her symptoms are due to her spinal stenosis. Patient has had decreased urine output. Patient had a little bit of a cough that is minor nonproductive. Patient denies any fevers. She is had no vomiting or diarrhea. Patient does have a history of diabetes, hypertension, high cholesterol, COPD, and migraines.] Physical Examination: HEENT-PERRLA, EOMI. Cranial nerves II through XII grossly intact. TMs clear. Mucous membranes moist. No adenopathy. Cardiovascular-regular rate and rhythm without murmur or ectopy Lungs-clear to auscultation, chest wall stable without crepitus or subcu emphysema Abdomen-normoactive bowel sounds, soft, nontender, no rebound or rigidity, no peritoneal signs. Neuro ljws-papepi-euwb and heel mariano testing within normal limits, negative Romberg, negative pronator drift, fundi benign Extremities-intact 4, normal range of motion, normal pulses, atraumatic [] Test Results: [EKG obtained on arrival shows sinus rhythm with ventricular rate of 95 bpm with no acute ST segment changes. CBC with differential showed an elevated white count of 16.6, hemoglobin 13, hematocrit 40, placed 265. Chemistries unremarkable. BUN was 21 and creatinine was 1.70. Urinalysis was positive for 500 leukocyte esterase and 25-50 WBCs. Troponin was less than 0.015. CT scan of the brain without contrast was unremarkable.] Emergency Department Course and Treatment: [Patient received Rocephin 1 g IV. Patient was given Dilaudid 0.5 mg IV and Zofran 4 mg IV.] Treatment Plan: [Admit for IV antibiotics and hydration. Admit for pain control. Disposition: [Admit] Impression: [UTI Acute kidney injury Neck pain Generalized weakness] This note was generated with [employer] dictation software. It may contain incorrect words, spelling, and punctuation that were not noted in review of the chart prior to signing ED Disposition - Plan for ED Patient: Chief Complaint: Dizziness Referrals: Caitie Zuleta MD [Primary Care Provider] - What to do if you have Problems For any increased pain, shortness of breath, bleeding, nausea or vomiting, chest pain, or any unexpected problems, contact your Primary Care Provider. Call [facility] ([phone]) or report to the closest Emergency Room. Call 911 if necessary. 06/17/18 1404 <Electronically signed by Leandra Morse DO> Date Leandra Morse DO Cosigner Signature (If Indicated): Date CC: Caitie Zuleta MD URINALYSIS, COMPLETE Collected: 06/17/2018 Status: F Source: [place] 8:50 PM [facility] REPOSITORY Order Comment: How was Urine Obtained? CLEAN CATCH TYPE CODE TESTS RESULT OUT OF RANGE REFERENCE UNITS LAB L400.3000 Yellow COLOR Normal Yellow LAB L400.3050 Clear Normal CLARITY Sl. Cloudy LAB L400.3200 Normal mg/dl High GLUCOSE, UR 50 LAB L400.3300 Negative mg/dL High BILIRUBIN URINE 1 Result Comment: COLOR OF URINE MAY AFFECT DIPSTICK RESULTS. LAB L400.3400 Negative mg/dl High KETONE UR 5 LAB L400.3465 1.002-1.030 Normal SP.GR. DIPSTX 1.025 LAB L400.3550 5.0 - 8.0 pH Normal UR 5.0 LAB L400.3600 Negative mg/dl High PROT DIPSTX 30 LAB L400.3700 Normal mg/dl Normal UROBILI Normal LAB L400.3750 Negative Normal NITRITE UR Negative LAB L400.3780 Negative /ul High OCCULT 10 BLOOD-UR LAB L400.3800 Negative /ul High LEUK ESTERASE 500 LAB L400.4050 0-5 /hpf Normal WBC 25-50 SEEN LAB L400.4100 0-5 /hpf Normal RBC-UA 0 SEEN LAB L400.4150 5-10 /hpf Normal SQUAM EPI 5-10 SEEN LAB L400.4300 None Seen /hpf Normal BACTERIA 0 SEEN LAB L400.4350 <or=2+ /hpf Normal MUCUS, URINE 0 SEEN LAB L400.4400 0-5 /lpf Normal HYALINE CAST 0-5 SEEN Performed By: #### L400.0001 #### [facility] Laboratory [address] [place], [address] Observed: 06/17/2018 Status: F Source: [place] CULTURE, URINE 8:50 PM [facility] REPOSITORY Order Date: 06/17/18 Urine Culture ORGANISM 1: Mixed Gram Positive Organisms [place] Count >100,000 MIX CULTURE Mixed contaminants. Submit a new specimen if indicated. Performed By: #### M100.0650 #### [facility] Laboratory [address] [place], [address] CBC W/DIFF, AUTOMATED Collected: 06/17/2018 Status: F Source: [place] 7:22 PM [facility] REPOSITORY TYPE CODE TESTS RESULT OUT OF RANGE REFERENCE UNITS LAB L100.1000 4.4-11.0 K/mm3 High WBC 16.6 LAB L100.1200 4.2-5.4 M/mm3 Normal RBC 4.64 LAB L100.1300 12.0-15.0 g/dl Normal HGB 13.1 LAB L100.1400 37-47 % Normal HCT 40.2 LAB L100.1500 81-99 fL Normal MCV 86.6 LAB L100.1600 27.0-32.0 pg Normal MCH 28.2 LAB L100.1700 32-36 g/gl Normal MCHC 32.6 LAB L100.1810 11.6-14.6 % Normal RDW CV 14.6 LAB L100.1820 35.1-43.9 fl High RDW SD 45.7 LAB L100.1900 150-450 K/mm3 Normal PLT 265 LAB L100.2000 6.2-12.0 fl Normal MPV 10.3 LAB L100.2100 47-70 % High NEUT% 78.1 LAB L100.2200 19-41 % Low LY% 16.0 LAB L100.2300 0-10 % Normal MONO% 5.0 LAB L100.2400 0-5 % Normal EO% 0.5 LAB L100.2500 0-1 % Normal BASO% 0.2 LAB L100.2550 0.0-0.9 % Normal IM GRAN % 0.200 Result Comment: IG% - Immature Granulocytes (promyelocytes, myelocytes and metamyelocytes) > 1% indicates that a LEFT SHIFT is Present. LAB L100.2620 2.0-7.7 X10 3/uL High Absolute Neut 13.0 LAB L100.2720 0.83-4.51 X10 3/ul Normal Absolute Lymph 2.67 Performed By: #### L100.0100 #### [facility] Laboratory [address] [place], [address] BASIC METABOLIC Collected: 06/17/2018 Status: F Source: [place] PROFILE (BMP) 7:22 PM [facility] REPOSITORY TYPE CODE TESTS RESULT OUT OF RANGE REFERENCE UNITS LAB L501.0100 74-106 mg/dL High GLU 162 Result Comment: Fasting Glucose result greater than or equal to 126 mg/dL suggests DIABETES MELLITUS per A.D.A. criteria. Please note revised GLUCOSE reference range effective 2017. LAB L501.1000 7-18 mg/dL High BUN 21 LAB L501.1100 0.55-1.02 mg/dL High CREAT,SERUM 1.70 Result Comment: The validity of the calculated GFR AND GFRAA in patients over 70 years has not been determined. Clinical correlation is essential. LAB L501.1110 >60 mL/min Low EST GFR 32 Result Comment: Non- GFR Calc LAB L501.1115 >60 mL/min Low EST GFR - AA 38 Result Comment: GFR Calc LAB L501.1255 ml/min Normal Estimated CRCL 28.50 LAB L501.1300 10-20 RATIO Normal BUN/CRE 12.4 LAB L501.2200 8.5-10 mg/dL Normal .1 CA 9.5 LAB L501.5300 136-14 mmol/L Normal 5 NA 140 LAB L501.5600 3.5-5. mmol/L Normal 1 K 4.5 LAB L501.5900 98-107 mmol/L Normal CL 105 LAB L501.6100 21.0-3 mmol/L Normal 2.0 CO2 25.0 LAB L501.6200 5-15 Normal GAP 10 Performed By: #### L500.2500, L501.4010 #### [facility] Laboratory [address] [place], [address] TROPONIN-I Collected: 06/17/2018 Status: F Source: [place] 7:22 PM [facility] REPOSITORY TYPE CODE TESTS RESULT OUT OF RANGE REFERENCE UNITS LAB L501.4010 <0.045 ng/mL Normal < 0.015 TROPONIN-I Result Comment: TROPONIN-I EXPECTED VALUES <0.045 Negative 0.045 - 0.590 Consistent with Cardiac Damage > OR = 0.600 Critical Value Not every elevated troponin is indicative of NC. These values should be used with clinical judgement in examining the patient's clinical picture for diagnosis. To establish a diagnosis of NC versus myocardial injury, there must be a demonstrated rise and/or fall in the troponin values, in addition to ischemic symptoms, EKG changes, new regional wall motion abnormality, and/or angiographical evidence. PLEASE NOTE: REFERENCE RANGES EDITED 17 Performed By: #### L500.2500, L501.4010 #### [facility] Laboratory [address] [place], [address] BRAIN/HEAD WITHOUT Observed: 06/17/2018 Status: F Source: [place] CONTRAST 6:19 PM [facility] REPOSITORY [facility] Imaging Services [address] [place] [address] Brain/Head without Contrast MR#: [id number] Acct: [id number] Name: CHELSEA ANDREWS Rep #: [id number] : 1950 F 67 From: Steve Whelan MD PCP: Caitie Zuleta MD Status: REG ER Study: Brain/Head without Contrast Date of Exam: 06/17/18 Exam# [id number] Ordering Dr: Leandra Morse DO STUDY: CT BRAIN WITHOUT CONTRAST REASON FOR EXAM: Female, 67 years old. Headache RADIATION DOSAGE (If Supplied By Facility): CTDIvol = ( 44.99 ) mGy, DLP = ( 779.24 ) mGycm TECHNIQUE: Transaxial CT imaging of the brain was performed without administration of intravenous contrast material. Individualized dose optimization techniques were used for this CT. COMPARISON: MRI dated 05/07/2016 FINDINGS: There is no acute bleed or infarct. There are normal white matter tracts. The ventricles are normal in configuration. There is no hydrocephalus. The visualized paranasal sinuses are clear. The mastoid air cells are well aerated. There is no skull fracture. CT/Brain/Head without Contrast IMPRESSION: No acute intracranial abnormality. Electronically Signed: Steve Whelan, at 21:07 EST Tel , Service support , CC: Leandra Morse DO; Caitie Zuleta MD Metal [employer] Co[employer] Operator: Signed CBC Collected: 06/13/2018 Status: F Source: [place] 10:50 PM [facility] REPOSITORY TYPE CODE TESTS RESULT OUT OF RANGE REFERENCE UNITS LAB CBC(LOINC) CBC Result Comment: CBC-COMPLETE BLOOD COUNT LAB WBC(LOINC) 4.5 - 10.8 x 10EE3/UL WBC High 11.7 LAB RBC(LOINC) 4.10 - x 10EE6/UL 5.30 RBC 4.57 LAB HEMOGLOBIN(LOINC 12.0 - g/dl ) 16.0 HEMOGLOBIN 12.9 LAB HEMATOCRIT(LOINC 34.0 - % ) 46.0 HEMATOCRIT 39.2 LAB MCV(LOINC) 80 - 99 fl MCV 86 LAB MCH(LOINC) 27 - 33 pg MCH 28 LAB MCHC(LOINC) 32 - 36 X10 3 MCHC 33 LAB RDW/CV(LOINC) 12.0 - % 15.6 RDW/CV 14.8 LAB PLATELET(LOINC) 150 - 450 x10EE3/UL PLATELET 268 LAB MPV(LOINC) 6.6 - 10.5 fl MPV 9.2 Result Comment: AUTOMATED DIFFERENTIAL LAB NEUT %(LOINC) 46.0 - 76.0 % NEUT % 60.8 LAB LYMPH %(LOINC) 20.0 - 45.0 % LYMPH % 30.9 LAB MONOS %(LOINC) 0.0 - 10.0 % MONOS % 4.9 LAB EO %(LOINC) 0.0 - 7.0 % EO % 3.0 LAB BASO %(LOINC) 0.0 - 2.0 % BASO % 0.4 LAB Lymph #(LOINC) 0.80 - 2.80 x10EE3/U L Lymph # High 3.60 LAB Neut #(LOINC) 1.50 - 7.10 x10EE3/U L Neut # 7.10 LAB Richardson #(LOINC) 0.20 - 1.00 x10EE3/U L Richardson # 0.60 LAB EO #(LOINC) 0.00 - 0.50 x10EE3/U L EO # 0.30 LAB Baso #(LOINC) 0.00 - 0.10 x10EE3/U L Baso # 0.00 LAB MANUAL DIFF(LOINC) MANUAL DIFF N/A LAB MORPHOLOGY(LOINC ) MORPHOLOGY N/A Result Comment: {CD] Performed By: #### [id number] #### [facility],[address] [place] [address] LIPASE Collected: 06/13/2018 Status: F Source: [place] [address]:50 PM [facility] REPOSITORY TYPE CODE TESTS RESULT OUT OF REFERENCE UNITS RANGE LAB LIPASE(LOIN 18.0 - 51.0 U/L C) LIPASE 29.0 Performed By: #### [id number] #### [facility],[address] [place] [address] CMP WITH EGFR Collected: 06/13/2018 Status: F Source: [facility] 10:50 PM [facility] REPOSITORY TYPE CODE TESTS RESULT OUT OF RANGE REFERENCE UNITS LAB CMP with eGFR(LOINC) CMP with eGFR Result Comment: COMPREHENSIVE METABOLIC PANEL LAB SODIUM(LOINC) 136 - 145 mmol/l SODIUM 137 LAB POTASSIUM(LOINC) 3.5 - 5.1 mmol/L POTASSIUM 4.1 LAB CHLORIDE(LOINC) 98 - 107 mmol/L CHLORIDE 101 LAB CO2(LOINC) 21.0 - mmol/L 31.0 CO2 27.2 LAB GLUCOSE(LOINC) 74 - 106 mg/dl GLUCOSE High 321 LAB BUN(LOINC) 6 - 20 mg/dl BUN 17 LAB CREATININE(LOINC) 0.6 - 1.2 mg/dl CREATININE 0.8 LAB AST/SGOT(LOINC) 13 - 39 U/L AST/SGOT 14 LAB ALK PHOS(LOINC) 38 - 126 U/L ALK PHOS 83 LAB CALCIUM(LOINC) 8.6 - mg/dl 10.2 CALCIUM 9.4 LAB TOTAL 6.4 - 8.3 g/dl PROTEIN(LOINC) TOTAL PROTEIN 6.5 LAB ALBUMIN(LOINC) 3.4 - 4.8 g/dL ALBUMIN 3.8 LAB GLOBULIN(LOINC) 1.5 - 3.8 G/DL GLOBULIN 2.7 LAB A/G RATIO(LOINC) 0.9 - 1.6 A/G RATIO 1.4 LAB TOTAL BILI(LOINC) 0.0 - 1.5 mg/dl TOTAL BILI 0.3 LAB B/C RATIO(LOINC) 0 - 30 ratio B/C RATIO 21 LAB ALT/SGPT(LOINC) 8 - 35 U/L ALT/SGPT 13 LAB ANION GAP(LOINC) 10 - 20 mmol/L [...] OF AGE AND OLDER. Performed By: #### [id number] #### [place] [address] CT ABDOMEN/PELVIS WO Observed: 06/13/2018 Status: F Source: [facility] 10:45 PM [place] [address] Patient: CHELSEA ANDREWS Phone#: : [phone] Age: 67 Gender: F Pt. Type: ER Account: [id number] Location: [facility] Ordering: RADHA VARNER Exam Date: 06/13/2018/22:36 Family Phys: CAITIE ZULETA Charge Code: 559648 Physician: Culberson Order #: [id number] DLP Dose#: This report includes an Addendum and supersedes previous reports for this exam. PROCEDURE: CT ABDOMEN/PELVIS WITHOUT CONTRAST COMPARISON: [facility], CT, ABDOMEN/PELVIS W/O CON, 05/13/2018, 11:49. INDICATIONS: Abdomen pain TECHNIQUE: CT images were created without intravenous contrast. All CT scans at this facility use dose modulation, iterative reconstruction, and/or weight based dosing when appropriate to reduce radiation dose to as low as reasonably achievable. IV CONTRAST: No IV contrast used,0ml TOTAL DOSE: 9.8 CTDIvol(mGy) FINDINGS: LIVER: Normal. No enlargement, atrophy, abnormal density, or significant focal lesion. BILIARY: The gallbladder is absent. PANCREAS: Normal. No lesion, fluid collection, ductal dilatation, or atrophy. SPLEEN: Normal. No enlargement or focal lesion. KIDNEYS: Normal. No mass, obstruction, or calcification. ADRENALS: Normal. No mass or enlargement. AORTA/VASCULAR: Normal. No aneurysm. RETROPERITONEUM: Normal. No mass or adenopathy. BOWEL/MESENTERY: Sigmoid diverticulosis without inflammatory change. There has been resolution of previously noted diverticulitis. No visible mass, obstruction, or bowel wall thickening. ABDOMINAL WALL: Normal. No mass or hernia. Continued Report - Page 2 of 2 Patient: CHELSEA ANDREWS Phone#: : 1950 Age: 67 Gender: F Pt. Type: ER Account: [id number] Location: 052 Ordering: RADHA VARNER Exam Date: 06/13/2018/22:36 Family Phys: CAITIE ZULETA Charge Code: [id number] Physician: Culberson Order #: [id number] DLP Dose#: URINARY BLADDER: Normal. No visible focal wall thickening, lesion, or calculus. PELVIC NODES: Normal. No adenopathy. PELVIC ORGANS: Normal. No visible mass. Pelvic organs appropriate for patient age. BONES: Surgical fixation is present at the L4 and L5 level. There is disc space narrowing at L4-5 and L5-S1. LUNG BASES: Normal. No visible pulmonary or pleural disease. OTHER: Negative. CONCLUSION: No acute disease. Dictated by: Salud Romero MD on 06/15/2018 at 11:42 Approved by: Salud Romero MD on 06/15/2018 at 11:42 ADDENDUM: A punctate calcification is present in the lower pole calyx of the right kidney similar to prior exam of 05/13/2018. Dictated by: Salud Romero MD on 06/16/2018 at 14:42 Approved by: Salud Romero MD on 06/16/2018 at 14:42 EMERGENCY REPORT Observed: 06/13/2018 Status: F Source: [facility] 8[facility] PM [facility] REPORT NAME ACCOUNT SEX AGE ADMIT DISCHARGE PT MED. RECORD# NUMBER DATE DATE TYPE CHELSEA ANDREWS [id number] F 67 06/13/18 06/14/18 3 L 23140 ROOM: ER DATE OF : 1950 DICTATING PHYSICIAN: Radha Varner CHIEF COMPLAINT: Pain. HISTORY OF PRESENT ILLNESS: This is a 67-year-old female with a recent admission 1 month ago for diverticulitis presenting for evaluation of lower abdominal pain. Patient states that symptoms started yesterday and so she presented to her primary care physician's office this morning. She states she that was started on ciprofloxacin and Flagyl with concern for possible recurrent diverticulitis. However, symptoms have progressively worsened since the time of onset and so she comes to the emergency department tonight. Patient states that she has 10 out of 10 pain, aching with intermittent stabbing pain to the right side of her abdomen. She states she also has some discomfort to the left side, however the right side is worse. She states she has some associated nausea but denies episode of emesis. Denies fevers but does report subjective chills. Patient states that she is concerned that she is having recurrent diverticulitis and that this will impede her obtaining her colonoscopy that is scheduled for next week. Patient has not taken anything to try and alleviate her symptoms, she states she has started both the ciprofloxacin and the Flagyl that was prescribed to her by the primary care physician earlier today. She denies dysuria, hematuria or increased urinary frequency. Denies diarrhea or constipation. Reports a normal bowel movement just prior to presentation. MEDICATIONS: Per medication reconciliation list. ALLERGIES: Patient with multiple drug allergies including Cogentin, lithium, iodine, Haldol, theophylline, morphine, sulfa, penicillin, codeine, pseudoephedrine. PHYSICAL EXAMINATION: This is a nontoxic appearing female sitting on the cot in supine position. She is noted to be in no acute distress. Vitals Signs: Blood pressure 148/78, pulse 90, respirations 20, pulse oximetry 96% on room air and patient is afebrile at 99.3. Pupils are equal, round, and reactive to light and extraocular movements are intact. Oropharynx is clear and moist. Posterior oropharynx without erythema, edema or exudate. Heart is regular rate and rhythm without murmur, rub or gallop. Lungs are clear to auscultation without wheezing, rales or rhonchi. Patient 's abdomen is obese, protuberant. Abdomen is diffusely tender to palpation to the lower abdomen without rebound or guarding. There is no c.v.a. tenderness or flank pain on exam. Bowel sounds are normal x4 quadrants. Patient moving all 4 extremities without focal Page 1 of 2 CHELSEA ANDREWS Emergency Room Report neurologic deficit. Strong bilaterally palpable and symmetric pulses to extremities as well. DIAGNOSTIC DATA: CBC shows a lymphocytic leukocytosis of 11.7. Lipase normal at 29. Chemistry panel grossly unremarkable other than a glucose of 321. CT abdomen and pelvis obtained that does show a 1-2 mm right- sided kidney stone at the UPJ without significant hydronephrosis. BUN of 17 and creatinine of 0.8. EMERGENCY DEPARTMENT COURSE AND TREATMENT: This is a nontoxic appearing female lying supine on the cot who presents for evaluation of abdominal pain. Patient was seen and evaluated in the emergency department, medical record reviewed as she was recently admitted to our facility. Concern at this time for possible recurrent diverticulitis, and as patient does have history of recent treatment, there was concern for possible complicating factors so CT imaging was obtained. Lab work as above. Slight leukocytosis of 11.7 but otherwise labs grossly unremarkable. Renal function within normal limits. CT imaging shows evidence of diverticulosis without acute diverticulitis. The patient does have a right-sided ureteral stone which is likely the cause of the patient's symptoms. Discussed this with the patient. Discussed recommendations for treatment for ureterolithiasis and close outpatient followup. Patient was agreeable with this plan. She was given prescriptions for Percocet, Zofran and Flomax. She was directed to call her primary care physician's office tomorrow to inform them of the findings of diverticulosis without diverticulitis and was directed to discontinue antibiotic treatment. Patient was agreeable with this plan. Provided referral to Urology, directed to follow up. DIAGNOSIS: Ureterolithiasis. PLAN/DISPOSITION: Concerning symptoms for prompt reevaluation in the emergency department were discussed, all questions answered. Patient discharged to home in stable condition at this time. Dictated By: Radha Varner MD 06/14/18 02:07 JOB #: [id number] Transcribed By: mayte 06/14/18 16:15 Electronically signed by: E-SIGN: DR. RADHA VARNER M.D. 07/04/18 20:18 Page 2 of 2 CHELSEA ANDREWS Emergency Room Report SURGERY VISIT REPORT Observed: 05/27/2018 Status: F Source: [place] 2:18 PM [facility] REPOSITORY [facility] [address] [place] [address]. [address] [place] [address] OFFICE VISIT Date of Service: 05/23/18 MR#: [id number] Acct: [id number] Name: CHELSEA ANDREWS Rep #: [id number] : 1950 Provider: Michelet Simpson MD Age/Sex: 67/F Location: [facility] Status: Signed Intake Vital Signs05/23/18 Body Mass Index (BMI) 31.6 05/23/18 Height 5 ft 5 in Intake Visit Reasons: C-Scope Diverticulitis Fire Eater Required: No Accompanied by: None Is patient [...] Adverse Reaction (Verified 05/11/18 02:45) Other lithium [[place]] Adverse Reaction (Verified 05/11/18 02:45) Diarrhea pseudoephedrine [...] Days #15 tab 05/23/18 [History Confirmed 05/23/18] [facility] Medical History Diabetes (Acute) High cholesterol (Acute) [...] another episode which required inpatient treatment in [facility] she is finishing up her antibiotics she [...] person, oriented to place, oriented to time [facility] Head: normocephalic, atraumatic Ears: external ears [...] Status: F Source: [facility] 5:43 AM [facility] REPOSITORY TYPE CODE TESTS RESULT OUT [...] 7.10 x10EE3/U L Neut # 6.40 LAB Richardson #(LOINC) 0.20 - 1.00 x10EE3/U L Richardson # 0.60 LAB EO #(LOINC) 0.00 - 0.50 x10EE3/U L EO # High 0.60 LAB Baso #(LOINC) 0.00 - 0.10 x10EE3/U L Baso # 0.10 LAB MANUAL DIFF(LOINC) MANUAL DIFF N/A LAB MORPHOLOGY(LOINC ) MORPHOLOGY N/A Result Comment: {CD] Performed By: #### [id number] #### [facility],[address] [place], [place] [address] BMP WITH EGFR Collected: 05/16/2018 Status: F Source: [facility] 5:43 AM [facility] REPOSITORY TYPE CODE TESTS RESULT OUT [...] OF AGE AND OLDER. Performed By: #### [id number] #### [facility],[address] [place] [address] CBC Collected: 05/14/2018 Status: F Source: [facility] 5:40 AM [facility] REPOSITORY TYPE CODE TESTS RESULT OUT [...] x10EE3/U L Neut # High 7.60 LAB Richardson #(LOINC) 0.20 - 1.00 x10EE3/U L Richardson # 0.70 LAB EO #(LOINC) 0.00 - 0.50 x10EE3/U L EO # 0.50 LAB Baso #(LOINC) 0.00 - 0.10 x10EE3/U L Baso # 0.10 LAB MANUAL DIFF(LOINC) MANUAL DIFF N/A LAB MORPHOLOGY(LOINC ) MORPHOLOGY N/A Result Comment: {CD] Performed By: #### [id number] #### [facility],[address] [place] [address] BMP WITH EGFR Collected: 05/14/2018 Status: F Source: [facility] 5:40 AM [facility] REPOSITORY TYPE CODE TESTS RESULT OUT [...] OF AGE AND OLDER. Performed By: #### [id number] #### [place] [address] CT ABDOMEN/PELVIS WO Observed: 05/13/2018 Status: F Source: [facility] 11:59 AM [place] [address] Patient: CHELSEA ANDREWS Phone#: : 1950 Age: 67 Gender: F Pt. Type: ER Account: [id number] Location: 052 Ordering: RONALD MADRID Exam Date: 05/13/2018/11:49 Family Phys: CAITIE ZULETA Charge Code: [id number] Physician: Culberson Order #: [id number] DLP Dose#: PROCEDURE: CT ABDOMEN/PELVIS WITHOUT CONTRAST COMPARISON: [facility], CT, ABDOMEN/PELVIS W/O CON, 04/30/2017, 1:35. INDICATIONS: [...] 67 Gender: F Pt. Type: ER Account: [id number] Location: [facility] Ordering: RONALD MADRID Exam Date: 05/13/2018/11:49 Family Phys: CAITIE SONG Charge Code: 801944 Physician: Culberson Order #: [id number] DLP Dose#: No bowel obstruction or dilatation. [...] VIEWS Observed: 05/13/2018 Status: F Source: [facility] 11:44 AM [facility] REPOSITORY [place] [address] [place] [address] Patient: CHELSEA ANDREWS Phone#: : 1950 Age: 67 Gender: F Pt. Type: ER Account: [id number] Location: 2 Ordering: RONALD MADRID Exam Date: 05/13/2018/11:23 Family Phys: CAITIE ZULETA Charge Code: 828283 Physician: Culberson Order #: [id number] DLP Dose#: PROCEDURE: X-RAY CHEST 2 VIEWS COMPARISON: [facility], XR, CHEST AP, 09/20/2015, 22:35. INDICATIONS: Shortness [...] 12:04 CBC Collected: 05/13/2018 Status: F [facility]:20 AM [facility] REPOSITORY TYPE CODE TESTS RESULT OUT [...] x10EE3/U L Neut # High 11.20 LAB Richardson #(LOINC) 0.20 - 1.00 x10EE3/U L Richardson # 0.60 LAB EO #(LOINC) 0.00 - 0.50 x10EE3/U L EO # High 0.60 LAB Baso #(LOINC) 0.00 - 0.10 x10EE3/U L Baso # High 0.20 LAB MANUAL DIFF(LOINC) MANUAL DIFF N/A LAB MORPHOLOGY(LOINC ) MORPHOLOGY N/A Result Comment: {CD] Performed By: #### [id number] #### [facility],[address] [place] [address] URINALYSIS Collected: 05/13/2018 Status: F Source: [facility] 11:20 AM [facility] REPOSITORY TYPE CODE TESTS RESULT OUT OF REFERENCE UNITS RANGE LAB URINALYSIS (LOINC) URINALYSIS Result Comment: URINALYSIS LAB Specimen Type(LOINC) [...] ) NORMAL NORM Urobilinog LAB Sp NORMAL: Monroe(LOINC) 1.010-1.030 Sp 1.015 [place] LAB Nitrite(LOINC) NORMAL: NEGATIVE Nitrite NEG LAB [...] LAB Yeast(LOINC) Yeast NONE Performed By: #### [id number] #### [place] [address] LIPASE Collected: 05/13/2018 Status: F Source: [facility] 11:20 [facility] REPOSITORY TYPE CODE TESTS RESULT OUT OF REFERENCE UNITS RANGE LAB LIPASE(LOIN 18.0 - 51.0 U/L C) High LIPASE 91.0 Performed By: #### [id number] #### [place] [address] CMP WITH EGFR Collected: 05/13/2018 Status: F Source: [facility] 11:[address] [place] [address] REPOSITORY TYPE CODE TESTS RESULT OUT OF RANGE REFERENCE UNITS LAB CMP with eGFR(LOINC) CMP with eGFR Result Comment: COMPREHENSIVE METABOLIC PANEL LAB SODIUM(LOINC) 136 - 145 mmol/l SODIUM 137 LAB POTASSIUM(LOINC) 3.5 - 5.1 mmol/L POTASSIUM 4.3 LAB CHLORIDE(LOINC) 98 - 107 mmol/L CHLORIDE 102 LAB CO2(LOINC) 21.0 - mmol/L 31.0 CO2 26.7 LAB GLUCOSE(LOINC) 74 - 106 mg/dl GLUCOSE High 321 LAB BUN(LOINC) 6 - 20 mg/dl BUN High 29 LAB CREATININE(LOINC) 0.6 - 1.2 mg/dl CREATININE 1.0 LAB [...] OF AGE AND OLDER. Performed By: #### [id number] #### [place] [address] HGB A1C Collected: 05/13/2018 Status: F Source: [facility] 11:20 AM [facility] TYPE CODE TESTS RESULT OUT OF RANGE REFERENCE UNITS LAB HGB 4.4 - 6.4 % A1C(LOINC) High HGB A1C 12.2 Result Comment: {HB] {A1] Performed By: #### [id number] #### [place] [address] HISTORY AND PHYSICAL Observed: 05/13/2018 Status: F Source: [facility] & PHYSICAL NAME ACCOUNT SEX AGE ADMIT DISCHARGE PT MED. RECORD# NUMBER DATE DATE TYPE CHELSEA ANDREWS [id number] F 67 05/13/18 1 Lizeth [id number] ROOM: 312 DATE OF : [birth year] DICTATING PHYSICIAN: Marcello Vogel CHIEF COMPLAINT: Abdominal pain. HISTORY OF PRESENT ILLNESS: The patient is a very pleasant 67-year-old female who has had abdominal pain in the left lower quadrant for more than 1 week. She states that she has been to the [facility] 3 times and has been [...] Marcello Vogel MD 05/14/18 10:39 JOB #: [id number] Transcribed By: mercedes 05/14/18 12:05 Electronically signed by: Tomasz Vogel M.D. 05/14/18 14:50 Update to H&P: [ ] No changes: I have examined the patient and reviewed the H&P and there are no changes. [ ] As previously dictated with the following changes: PHYSICIAN SIGNATURE: TIME: DATE: Page 2 of 2 CHELSEA ANDREWS History & Physical PROGRESS NOTES Observed: 05/13/2018 Status: F Source: [facility] 10[facility] PROGRESS NOTE NAME ACCOUNT SEX AGE ADMIT DISCHARGE PT MED. RECORD# NUMBER DATE DATE TYPE CHELSEA ANDREWS [id number] F 67 05/13/18 1 L 22270 ROOM: 312 DATE OF : 1950 DICTATING PHYSICIAN: Marcello [...] Marcello Vogel MD 05/14/18 10:37 JOB #: [id number] Transcribed By: mercedes 05/14/18 11:07 Electronically signed by: Tomasz Vogel M.D. 05/14/18 14:50 Page 1 of 1 CHELSEA ANDREWS Progress Note DISCHARGE SUMMARY Observed: 05/13/2018 Status: F Source: [facility] 10[facility] DISCHARGE SUMMARY NAME ACCOUNT SEX AGE ADMIT DISCHARGE PT MED. RECORD# NUMBER DATE DATE TYPE CHELSEA ANDREWS [id number] F 67 05/13/18 05/17/18 1 65379 ROOM: [facility] DATE OF : 1950 DICTATING PHYSICIAN: Trevor [...] changes and she did speak to our poultry farm laborer as well. Her pain did continue to improve. We did advance her diet slowly. Ultimately, by May 17, 2018 she was tolerating a regular diet, she was pain free, and felt stable for discharge at that time. DISPOSITION: She is discharged in stable condition. MEDICATIONS ON DISCHARGE: She is sent home with Flagyl as well as [place] for pain. DISCHARGE INSTRUCTIONS/PLAN: She is to follow up with Dr. Zuleta in the next 3-5 days. We do recommend colonoscopy as an outpatient in 4-6 weeks. Dictated By: Trevor House MD 05/17/18 12:28 JOB #: [id number] Transcribed By: mayte 05/17/18 21:37 Electronically signed by: TOMASZ House M.D. 05/21/18 08:41 Page 1 of 1 CHELSEA ANDREWS Discharge Summary PROGRESS NOTES Observed: 05/13/2018 Status: F Source: [facility] 10[facility] PROGRESS NOTE NAME ACCOUNT SEX AGE ADMIT DISCHARGE PT MED. RECORD# NUMBER DATE DATE TYPE CHELSEA ANDREWS [id number] F 67 05/13/18 1 Lizeth [address]82 ROOM: 312 DATE OF : 1950 DICTATING [...] Trevor House MD 05/15/18 12:07 JOB #: [id number] Transcribed By: am 05/15/18 12:35 Electronically signed by: TOMASZ House M.D. 05/21/18 08:41 Page 2 of 2 CHELSEA ANDREWS Progress Note PROGRESS NOTES Observed: 05/13/2018 Status: F Source: [facility] 10[facility] AM [facility] PROGRESS NOTE NAME ACCOUNT SEX AGE ADMIT DISCHARGE PT MED. RECORD# NUMBER DATE DATE TYPE CHELSEA ANDREWS [id number] F 67 05/13/18 1 L 56326 ROOM: 312 DATE OF : 1950 DICTATING [...] Trevor House MD 05/16/18 12:01 JOB #: [id number] Transcribed By: eulogio 05/16/18 13:03 Electronically signed by: TOMASZ House M.D. 05/21/18 08:41 Page 1 of 1 CHELSEA ANDREWS Progress Note EMERGENCY REPORT Observed: 05/13/2018 Status: F Source: [facility] 10:52 AM [facility] EMERGENCY [facility]OM REPORT NAME ACCOUNT SEX AGE ADMIT DISCHARGE PT MED. RECORD# NUMBER DATE DATE TYPE CHELSEA ANDREWS [id number] F 67 05/13/18 1 L 69259 ROOM: 312 DATE OF : 1950 DICTATING [...] Ronald Madrid DO 05/13/18 13:30 JOB #: [id number] Transcribed By: mayte 05/13/18 20:57 Electronically signed by: PAYAM Madrid D.O. 05/22/18 07:17 Page 2 of 2 CHELSEA ANDREWS Emergency Room Report EMERGENCY DEPARTMENT Observed: 05/11/2018 Status: F Source: [place] SUMMARY 7:24 PM [facility] REPOSITORY [facility] Medical Records Department [address] [place] [address] Emergency Department Summary 05/11/18 1745 MR#: [id number] Acct: [id number] Name: CHELSEA ANDREWS Lizeth Rep #: [id number] : 1950 67 From: Felipe Perkins PCP: [...] days ago similar flare improved with Z-Parth. [facility] 4 days ago saw a urgent care [...] treated for back spasms yesterday in the hand tile maker, did not get her prescription of Flexeril. Short prescription to use as needed written. Treatment Plan: [] Disposition: Discharge Impression: 1. COPD exacerbation This note was generated with Kolorific dictation software. It may contain incorrect words, [...] your Primary Care Provider. Call [facility] ([phone]) or report to the closest Emergency Room. Call 911 if necessary. 05/11/181923 <Electronically signed by Felipe Perkins> Date Felipe Perkins Cosigner Signature (If Indicated): Date CC: Caitie Zuleta MD CHEST PA AND LATERAL Observed: 05/11/2018 Status: F Source: [facility] 5:40 PM [facility]PITAL REPOSITORY [facility] Imaging Services [address] [place] [address] Chest PA and Lateral MR#: [id number] Acct: [id number] Name: CHELSEA ANDREWS Rep #: [id number] : 1950 F 67 From: Corina Vogt MD PCP: Caitie Zuleta MD Status: DEP ER Study: Chest PA and Lateral Date of Exam: 05/11/18 Exam# [id number] Ordering Dr: Felipe Gibbons DO STUDY: X-RAY [...] Vogt MD at 20:00 EST Tel Direct: [phone], Service support , CC: Caitie Zuleta MD; Felipe Gibbons Metal Wire Coating Operator: Signed EMERGENCY DEPARTMENT Observed: 05/11/2018 Status: F Source: [facility] SUMMARY 3:34 AM [facility]OSPITAL REPOSITORY [facility] Medical Records Department [address] [place] [address] Emergency Department Summary 05/11/18 0325 MR#: [id number] Acct: [id number] Name: ANDREWSCHELSEA Rep #: [id number] : 1950 67 From: Wyatt Adair MD [...] (Verified 05/11/18 02:45) Other MUSCLE CONTRACTIONS lithium [[place]] Adverse Reaction (Verified 05/11/18 02:45) Diarrhea pseudoephedrine [...] your Primary Care Provider. Call [facility] ([phone]) or report to the closest Emergency Room. Call 911 if necessary. 05/11/18 0334 <Electronically signed by Wyatt Adair MD> Date Wyatt Adair MD Cosigner Signature (If Indicated): Date CC: Caitie Zuleta MD EMERGENCY DEPARTMENT Observed: 04/30/2018 Status: F Source: [place] SUMMARY 1:43 AM [facility] REPOSITORY [facility] Medical Records Department [address] [place] [address] Emergency Department Summary 04/29/182039 MR#: [id number] Acct: [id number] Name: CHELSEA ANDREWS Rep #: [id number] : 1950 67 From: Corina Goldman MD [...] COPD exacerbation This note was generated with Kolorific dictation software. It may contain incorrect words, [...] problems, contact your Primary Care Provider. Call [facility] ([phone]) or report to the closest Emergency Room. Call 911 if necessary. 04/30/18 0143 <Electronically signed by Corina Goldman MD> Date Corina Goldman MD Cosigner Signature (If Indicated): Date CC: Caitie Zuleta MD DISCHARGE INSTRUCTION Observed: 04/29/2018 Status: F Source: [facility] 8:42 PM [facility] REPOSITORY [facility] Medical Records Department [address] [place] [address] Discharge Instruction 04/29/182040 MR#: [id number] Acct: [id number] Name: CHELSEA ANDREWS Rep #: [id number] : 1950 67 From: Corina Goldman MD [...] your Primary Care Provider. Call [facility] ([phone]) or report to the closest Emergency Room. Call 911 if necessary. 04/29/182041 <Electronically signed by Corina Goldman MD> Date Corina Goldman MD Cosigner Signature (If Indicated): Date CC: Caitie Zuleta MD CHEST PA AND LATERAL Observed: 04/29/2018 Status: F Source: [place] 5:33 PM [facility] Imaging Services [address] [place] [address] Chest PA and Lateral MR#: [id number] Acct: [id number] Name: CHELSEA ANDREWS Rep #: [id number] : 1950 F 67 From: Jeffrey Lainez MD PCP: Caitie Zuleta MD Status: REG ER Study: Chest PA and Lateral Date of Exam: 04/29/18 Exam# [id number] Ordering Dr: Corina Goldman MD STUDY: X-RAY [...] CC: Corina Goldman MD; Caitie Zuleta MD Metal Wire Coating Operator: Signed NON-GENERAL STORE MANAGER CYTOLOGY Observed: 04/16/2018 Status: F Source: [facility] REPORT 2:50 PM [place] [facility] REPOSITORY . Pathology Reports Accession: Collected Date/Time: Received Date/Time: Pathologist: [id number] 04/16/2018 14:50 EST 04/16/2018 14:55 EST DO CUBA ROJO Non-Technical Sales Representatives Cytology Report CLINICAL INFORMATION: .122CM THYROID NODULE [id number] DIAGNOSIS: NEGATIVE FOR MALIGNANCY COMMENT: SCATTERED FOLLICULAR CELLS AND ABUNDANT COLLOID PRESENT- FAVOR BENIGN FOLLICULAR NODULE. SPECIMEN: FINE NEEDLE ASPIRATION, THYROID (NODULE #2) GROSS DESCRIPTION: # of Smears: 6 6 Fixed smear slides Electronically Signed by Pathology report verified by [facility] Screened by: JAYNE MES Electronically signed by CUBA ROJO DO Sign-Out Date: 04/17/2018 12:08 Performing Lab: [facility], [address] [place] [address] [facility] Performed By: #### NGCR #### [place] [address] NON-GENERAL STORE MANAGER CYTOLOGY Observed: 04/16/2018 Status: F Source: [facility] REPORT 2:48 PM [facility] REPOSITORY . Pathology Reports Accession: Collected Date/Time: Received Date/Time: Pathologist: [id number] 04/16/2018 14:48 EST 04/16/2018 14:52 EST DO CUBA ROJO Non-Technical Sales Representatives Cytology Report CLINICAL INFORMATION: .16CM THYROID NODULE [id number] DIAGNOSIS: NEGATIVE FOR MALIGNANCY COMMENT: SCATTERED GROUPS OF FOLLICULAR CELLS AND ABUNDANT COLLOID PRESENT- FAVOR BENIGN FOLLICULAR NODULE. SPECIMEN: FINE NEEDLE ASPIRATION, THYROID (NODULE #1) GROSS DESCRIPTION: # of Smears: 8 8 Fixed smear slides Electronically Signed by Pathology report verified by [facility] Screened by: JAYNE MES Electronically signed by CUBA ROJO DO Sign-Out Date: 04/17/2018 09:22 Performing Lab: [facility], [address] [place], [place] [address] [facility] Performed By: #### NGCR #### [place] [address] PLATELET COUNT Collected: 04/16/2018 Status: F Source: [facility] 7:39 [facility] REPOSITORY TYPE CODE TESTS RESULT OUT OF REFERENCE UNITS RANGE LAB PLATELET(LO 150 - 450 x10EE3/UL INC) PLATELET 298 Result Comment: {PL] Performed By: #### [id number] #### [facility],[address] [place] [address] APTT Collected: 04/16/2018 Status: F Source: [facility] 7:39 [facility] REPOSITORY TYPE CODE TESTS RESULT OUT OF RANGE REFERENCE UNITS LAB PTT(LOINC) 21.6 - 35.4 sec PTT 27.1 Performed By: #### [id number] #### [facility],[address] [place], [place] [id number] PROTHROMBIN TIME AND Collected: 04/16/2018 Status: F Source: [facility] 7:39 AM [facility] REPOSITORY TYPE CODE TESTS RESULT OUT [...] 3.5 [facility] Performed By: #### [id number] #### [place] [address]604 FINE NEEDLE ASPIRATION Observed: 04/16/2018 Status: F Source: [facility] W/ US GUIDE 6:51 AM [facility] REPOSITORY [place] [address] Patient: CHELSEA ANDREWS Phone#: : 1950 Age: 67 Gender: F Pt. Type: Out Account: [id number] Location: 062 Ordering: CAITIE ZULETA Exam Date: 04/16/2018/8:24 Family Phys: Charge Code: 690509 Physician: Culberson Order #: [id number] DLP Dose#: PROCEDURE: FINE NEEDLE ASPIRATION WITH [...] 10:52 RADIOLOGY Observed: 04/16/2018 Status: F Source: [facility] 6:49 AM [place] [address] Patient: CHELSEA ANDREWS Phone#: : 1950 Age: 67 Gender: F Pt. Type: Out Account: [id number] Location: [facility] Ordering: CAITIE ZULETA Exam Date: 04/16/2018/8:24 Family Phys: Charge Code: 948527 Physician: Culberson Order #: DLP Dose#: PROCEDURE: FINE NEEDLE [...] F Source: [facility] 12:18 AM [facility] Medical Records Department [address] [place] [address] Emergency Department Summary 04/04/18 2353 MR#: [id number] Acct: [id number] Name: CHELSEA ANDREWS Rep #: [id number] : 1950 67 From: Divina Fofana MD [...] her chronic pain. Patient was given 2 [place] in the emergency department. I did patent counsel her I cannot prescribe her any medications to control her pain. She is comfortable with this and will be discharged home. Treatment Plan: [] Disposition: Discharge Impression: Exacerbation of chronic neck pain This note was generated with Flashstockation software. It may contain incorrect words, spelling, [...] your Primary Care Provider. Call [facility] ([phone]) or report to the closest Emergency Room. Call 911 if necessary. 04/05/18 0018 <Electronically signed by Divina Fofana MD> Date Divina Fofana MD Cosigner Signature (If Indicated): Date CC: Caitie Zuleta MD EMERGENCY DEPARTMENT Observed: 03/31/2018 Status: F Source: [place] SUMMARY 4:42 AM [facility] REPOSITORY [facility] Medical Records Department [address] [place] [address] Emergency Department Summary 03/31/18 0323 MR#: [id number] Acct: [id number] Name: CHELSEA ANDREWS Rep #: [id number] : 1950 67 From: Lianet Brooks MD [...] pain; hyperglycemia This note was generated with Kolorific dictation software. It may contain incorrect words, [...] your Primary Care Provider. Call [facility] ([phone]) or report to the closest Emergency Room. Call 911 if necessary. 03/31/18 0442 <Electronically signed by Lianet Brooks MD> Date Lianet rBooks MD Cosigner Signature (If Indicated): Date CC: Caitie Zuleta MD DISCHARGE INSTRUCTION Observed: 03/31/2018 Status: F Source: [place] 4:39 AM [facility] REPOSITORY [facility] Records Department [address] [place] [address] Discharge Instruction 03/31/18438 MR#: [id number] Acct: [id number] Name: CHELSEA ANDREWS Rep #: [id number] : 1950 67 From: Lianet Brooks MD [...] your Primary Care Provider. Call [facility] ([phone]) or report to the closest Emergency Room. Call 911 if necessary. 03/31/18438 <Electronically signed by Lianet Brooks MD> Date Lianet Brooks MD Cosigner Signature (If Indicated): Date CC: Caitie Zuleta MD BEDSIDE GLUCOSE Collected: 03/31/2018 Status: F Source: [place] 3:45 AM [facility] REPOSITORY TYPE CODE TESTS RESULT OUT OF REFERENCE UNITS RANGE LAB L501.080 70-110 mg/dL High BEDSIDE GLU 291 Result Comment: MANAGEMENT OF PATIENT CARE PER NURSING PROTOCOL Performed By: #### L501.080 #### [facility] Laboratory Point of Care [address] [place] [address] BASIC METABOLIC Collected: 03/31/2018 Status: F Source: [place] PROFILE (BMP) 3:35 AM [facility] REPOSITORY TYPE CODE TESTS RESULT OUT OF [...] GAP 9 Performed By: #### L500.2500 #### [facility] Laboratory [address] [facility]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 [facility] Cardiovascular Services [address] [place] [address] 12 Lead EKG 09/22/171953 MR#: [id number] Acct: [id number] Name: CHELSEA ANDREWS Rep #: [id number] : 1950 66 From: Tray Doherty MD Attending Dr: Status: [...] ECG Confirmed by PAULETTE OROZCO, TRAY ([id number]), editor newspaper PENNY MENARD ([id number]) on 09/24/2017 3:00:45 PM Referred By: KAMRAN Confirmed By:TRAY DOHERTY MD 09/24/17 1500 Date Tray Doherty MD CC: No Primary Care Physician; Shabbir Andrew MD Signed DISCHARGE INSTRUCTION Observed: 09/22/2017 Status: F Source: [place] 9:59 PM [facility] Medical Records Department [address] [place] [address] Discharge Instruction 09/22/172157 MR#: [id number] Acct: [id number] Name: CHELSEA ANDREWS Rep #: [id number] : 1950 66 From: Shabbir Andrew MD PCP: Mario Rankin, No Primary Status: REG ER ED Disposition - Plan for ED Patient: Chief Complaint: Weakness Instructions: ED UTI Cystitis Female Prescriptions: Ciprofloxacin [Cipro] 500 mg PO BID #14 tab Referrals: Mario Physician,No Primary [Primary Care Provider] - What to do if you have Problems For any increased pain, shortness of breath, bleeding, nausea or vomiting, chest pain, or any unexpected problems, contact your Primary Care Provider. Call [facility] ([phone]) or report to the closest Emergency Room. Call 911 if necessary. 09/22/172158 <Electronically signed by Shabbir Andrew MD> Date Shabbir Andrew MD Cosigner Signature (If Indicated): Date CC: No Primary Care Physician EMERGENCY DEPARTMENT Observed: 09/22/2017 Status: F Source: [place] SUMMARY 9:58 PM [facility] REPOSITORY [facility] Medical Records Department [address] [place] [address] Emergency Department Summary 09/22/172155 MR#: [id number] Acct: [id number] Name: CHELSEA ANDREWS Rep #: [id number] : 1950 66 From: Shabbir Andrew MD PCP: Mario Rankin, No Primary Status: REG ER - ER [...] Impression: UTI This note was generated with Kolorific dictation software. It may contain incorrect words, [...] your Primary Care Provider. Call [facility] ([phone]) or report to the closest Emergency Room. Call 911 if necessary. 09/22/17 2158 <Electronically signed by Shabbir Andrew MD> Date Shabbir Andrew MD Cosigner Signature (If Indicated): Date CC: No Primary Care Physician URINALYSIS, COMPLETE Collected: 09/22/2017 Status: F Source: [place] 8:45 PM [facility] REPOSITORY Order Comment: How was Urine Obtained? [...] URINE SEEN Performed By: #### L400.0001 #### [facility] Laboratory [address] [place], [address] Observed: 09/22/2017 Status: F Source: [place] CULTURE, URINE 8:45 PM [facility] REPOSITORY Urine Culture ORGANISM 1: Mixed Gram Positive Organisms [place] Count 1000-10,000 MIX CULTURE Mixed contaminants. Submit a new specimen if indicated. Performed By: #### M100.0650 #### [facility] Laboratory [address] [place], [address] CBC W/DIFF, AUTOMATED Collected: 09/22/2017 Status: F Source: [place] 7:54 PM [facility] REPOSITORY TYPE CODE TESTS RESULT OUT OF [...] Lymph 2.67 Performed By: #### L100.0100 #### [facility] Laboratory [address] [place], [address] COMPREHENSIVE METABOLIC Collected: 09/22/2017 Status: F Source: [facility] 7:54 PM [facility] REPOSITORY TYPE CODE TESTS RESULT OUT OF [...] 7 GAP Performed By: #### L500.4050 #### [facility] Laboratory [address] [facility] 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 [address] XR SPINE CERVICAL Observed: 08/07/2017 Status: F Source: [facility] [employer] FLEX/EXT ONLY 1:39 PM [facility] REPOSITORY ORIGINAL Cervical spine lateral flexion and [...] SPINE CERVICAL Observed: 08/07/2017 Status: F Source: [employer] W/O CONTRAST 1:30 PM [facility] REPOSITORY ORIGINAL [...] EGFR Collected: 07/23/2017 Status: F Source: [facility] [place] 11:10 AM [facility] REPOSITORY TYPE CODE TESTS RESULT OUT [...] OF AGE AND OLDER. Performed By: #### 570625 #### [place] [address] HGB A1C Collected: 07/23/2017 Status: F Source: [place] 11:10 AM [facility] REPOSITORY TYPE CODE TESTS RESULT OUT OF RANGE REFERENCE UNITS LAB HGB 4.4 - 6.4 % A1C(LOINC) High HGB A1C 10.8 Result Comment: {HB] {A1] Performed By: #### [id number] #### [place] [address] ALLERGIES ALLERGIES DATE TYPE / CODE NAME / CODE REACTION SEVERITY SOURCE 07/04/19 Drug haloperidol Other Unknown [place] [facility] Allergy/092971090 lactate/D951621339( Community (SNOMED CT) RXNORM) Hospital Repository 07/04/19 Drug benztropine Other Unknown [place] [facility] Allergy/318380453 mesylate/C501134062 [facility] (SNOMED CT) (RXNORM) Hospital Repository 07/04/19 Drug pseudoephedrine Other Unknown [place] [facility] Allergy/795288459 HCl/X228800539(RXNO Community (SNOMED CT) RM) Hospital Repository 07/04/19 Drug Penicillins/S891083 Shortness of Unknown [place] [facility] Allergy/710140730 476(RXNORM) breath [facility] (SNOMED CT) Hospital Repository 07/04/19 Drug Sulfa (Sulfonamide Hives Unknown [place] [facility] Allergy/336642735 Antibiotics)/K62386 [facility] (SNOMED CT) 0491(RXNORM) Hospital Repository 07/04/19 Drug Latex, Natural Itching Unknown [facility] [facility] Allergy/914931502 Rubber/Y589869736(R Community (SNOMED CT) XNORM) Hospital Repository 07/04/19 Drug theophylline/B01138 Other Unknown [facility] [facility] Allergy/605837617 0602(RXNORM) [facility] (SNOMED CT) Hospital Repository 07/04/19 Drug iodine/I500240688(R Swelling Unknown [place] [facility] Allergy/723105910 XNORM) [facility] (SNOMED CT) Hospital Repository 07/04/19 Drug haloperidol/M669087 Other Unknown [facility] [facility] Allergy/289332158 518(RXNORM) [facility] (SNOMED CT) Hospital Repository 07/04/19 Drug lithium/A560609080( Diarrhea Unknown [place] [facility] Allergy/974327663 RXNORM) [facility] (SNOMED CT) Hospital Repository 07/04/19 Drug morphine/X834847766 Shortness of Unknown [place] [facility] Allergy/942073414 (RXNORM) breath [facility] (SNOMED CT) Hospital Repository 07/04/19 Drug codeine/C001787453( Other Unknown [facility] [facility] Allergy/882770136 RXNORM) [facility] (SNOMED CT) Hospital Repository 12/28/19 Drug Penicillins/S470747 Anaphylactic Severe [facility] Allergy/681736977 476(RXNORM) Shock (severity [facility] (SNOMED [facility]) modifier) [facility] (qualifier Repository value) 12/28/19 Drug Sulfa (Sulfonamide unknown Moderate [facility] Allergy/493541423 Antibiotics)/V27107 (severity [facility] (SNOMED CT) 0491(RXNORM) modifier) Medical Center (qualifier Repository value) 12/28/19 Drug iodine/O983731905(R unknown Moderate [facility] Allergy/614892448 XNORM) (severity [facility] (SNOMED CT) modifier) [facility] (qualifier Repository value) 12/28/19 Drug fluphenazine/R40608 unknown Moderate [facility] Allergy/768793553 1473(RXNORM) (severity [facility] (SNOMED CT) modifier) [facility] (qualifier Repository value) 12/28/19 Drug haloperidol/M216010 unknown Moderate [facility] Allergy/820923984 518(RXNORM) (severity [facility] (SNOMED CT) modifier) [facility] (qualifier Repository value) 12/28/19 Drug lithium/B348118412( unknown Moderate [facility] Allergy/881609475 RXNORM) (severity [facility] (SNOMED CT) modifier) [facility] (qualifier Repository value) 12/28/19 Drug morphine/X326417373 unknown Moderate [facility] Allergy/820534913 (RXNORM) (severity [facility] (SNOMED CT) modifier) [facility] (qualifier Repository value) 12/28/19 Drug codeine/C713496989( unknown Moderate [facility] Allergy/714358689 RXNORM) ([facility] (SNOMED CT) modifier) [facility] Center (qualifier Repository value) 12/28/19 Drug pseudoephedrine/F00 unknown Moderate [facility] Allergy/871605398 0156535(RXNORM) (severity [facility] (SNOMED CT) modifier) [facility] Center (qualifier Repository value) 12/28/19 Drug benztropine/Q926198 unknown Moderate [facility] Allergy/016446553 667(RXNORM) (severity [facility] (SNOMED CT) modifier) [facility] Center (qualifier Repository value) 12/28/19 Drug triprolidine/Q38470 unknown Moderate [facility] Allergy/921113053 4799(RXNORM) (severity [facility] (SNOMED CT) modifier) [facility] Center (qualifier Repository value) Drug SULFA Moderate [facility] Allergy/004379111 (sulfonamide)/36818 ([facility] ([facility]) 022(RXNORM) Modifier) Hospital (Qualifier Repository Value) Drug PENICILLINS Moderate [facility] Allergy/257071850 (CLASS)/49390665(RX ([facility] (SNOMED [facility]) NORM) Modifier) Hospital (Qualifier Repository Value) Drug THEOPHYLLINE/712166 Moderate [facility] Allergy/372593409 98(RXNORM) ([facility] ([facility]OM[facility]) Modifier) Hospital (Qualifier Repository Value) Drug CODEINE/15565632(RX Moderate [facility] Allergy/321801941 NORM) ([facility] ([facility]OM[facility]) Modifier) Hospital (Qualifier Repository Value) Drug MORPHINE/23289207(R Moderate [facility] Allergy/784358727 XNORM) ([facility] ([facility]OM[facility]) Modifier) Hospital (Qualifier Repository Value) Drug PSEUDOEPHEDRINE/000 Moderate [facility] Allergy/007789371 15767(RXNORM) ([facility] ([facility]) Modifier) Hospital (Qualifier Repository Value) Drug LITHIUM/46963057(RX Moderate [facility] Allergy/015592598 NORM) ([facility] ([facility]OM[facility]) Modifier) Hospital (Qualifier Repository Value) Drug IODINE/93878000(RXN Moderate [facility] Allergy/491749088 ORM) ([facility] ([facility]OM[facility]) Modifier) Hospital (Qualifier Repository Value) Drug COGENTIN/27940473(R Moderate [facility] Allergy/523550542 XNORM) ([facility] ([facility]OM[facility]) Modifier) Hospital (Qualifier Repository Value) Drug HALDOL/35949116(RXN Moderate [facility] Allergy/319344985 ORM) ([facility] ([facility]) Modifier) Hospital (Qualifier Repository Value) Environmental 07/29/15 (-) CDIFF Moderate [facility] Allergy/597008796 ([facility] ([facility]OM[facility]) Modifier) Hospital (Qualifier Repository Value) ENCOUNTERS ENCOUNTERS ADMIT/DISCHARGE ACCOUNT NUMBER ADMITTING ENCOUNTER LOCATION SOURCE CLASS 07/04/2018/ [id number] Emergency [place] 0[facility] ng:ED Repository 07/03/2018/ [id number] Emergency [address] ng:ED Repository 07/02/2018/ [id number] Ambulatory BMSBuilding:BM [place] [facility] Repository 07/01/2018 [id number] Ambulatory [facility] ng:MRI Repository 06/23/2018 [id number] Ambulatory BMSBuilding:BM [facility] Repository 06/23/2018/ [id number] Ambulatory [place] ng:ENRoom: Repository AC11 06/17/2018 [id number] Agyepong, Ambulatory BMSBuilding:BM [facility] Rep[facility] 06/17/2018/ [id number] Agyepong, Ambulatory [address] ng:AY9Ullr: Repository YE619Vfl: 1 06/17/2018 [id number] Agyepong, Ambulatory [facility] Rep[facility] 06/13/2018/ [id number] WALLY, Emergency [address]in[address] [place], [place] [address] RADHA OROZCO om: ERBed: [facility] Repository 05/23/2018/ [id number] Ambulatory BMSBuilding:BM [place] [facility]18 [facility] Repository 05/13/2018 [id number] SONG, Ambulatory Christian OWENS MD [facility] Repository 05/13/2018 [id number] SONG, Ambulatory Christian OWENS MD [facility] Repository 05/13/2018 [id number] SONG, Ambulatory Christian OWENS MD [facility] Repository 05/13/2018/ [id number] JANELLE, Inpatient [address] [place], [place] [address]adam [facility] MARECLLO OROZCO Encounter om: [address] [place] [address] Repository 05/11/2018/ [id number] Emergency [address] ng:ED Repository 05/11/2018/ [id number] Emergency [facility] 018 [facility] ng:ED Repository 04/29/2018/ [id number] Emergency [address] ng:ED Repository 04/22/2018 [id number] Ambulatory [facility] ng:LAB.FUTURE Repository 04/16/2018/ [id number] PROSPER, Ambulatory [address] [place] [address] WILMER OROZCO om: [address] Repository 04/15/2018/ [id number] SONG, [facility] Repository 04/04/2018/ [id number] Emergency [address] ng:ED Repository 03/31/2018/ [id number] Emergency [place] 018 [facility] ng:ED Repository 03/20/2018/ [id number] Emergency [address] ng:ED Repository 01/27/2018 [id number] SAILAJA, Ambulatory [facility] Repository 01/27/2018 [id number] SONG, [facility] Repository 01/18/2018 [id number] Ambulatory [facility] ng:US Repository 01/12/2018/ [id number] Emergency [place] [address] ng:ED Repository 12/31/2017 [id number] Ambulatory Building:[facility] [employer] Repository 12/27/2017/ [id number] Emergency [facility] 018 MEDBuilding:ED [facility] Repository 12/12/2017/ [id number] Emergency UNIBuilding:ED [address] Repository 12/07/2017/ [id number] Emergency UNIBuilding:ED [address] Repository 12/06/2017 [id number] JOSIE, Ambulatory [facility] ALDAIR [facility] Repository 12/03/2017/ [id number] Emergency UNIBuilding:ED [place] 018 [facility] Repository 11/11/2017/ [id number] ANNMARIE, Emergency BuildinRo [facility] [address] DOMING[address]Z om: ERBed: B [facility] Repository 11/09/2017/ [id number] PARSON, Emergency BuildinRo [facility] 018 MARCELLO PARDO om: ERBed: [facility] Repository 11/02/2017/ [id number] KALISETTI, Ambulatory [facility] 018 [facility] Repository 10/07/2017/ [id number] Emergency [place] 018 [facility] ng:ED Repository 09/22/2017/ [id number] Emergency [place] [address] [place] [address] ng:ED Repository 08/07/2017/ [id number] Ambulatory ABuilding:[address] Repository 07/23/2017/ [id number] RIVASTTI, Ambulatory [facility] 018 [facility] Repository PAYERS PAYERS ENCOUNTER GUARANTOR PAYER SUBSCRIBER SOURCE 07/04/2018 CHELSEA ANDREWS654 Primary CHELSEA L [place] [facility] [address] Insurance:JEFERSON GARCIA: [facility] [address] MEDICARE SENIOR [id number] Repository [address]Ytt: (104) ADVANTAPolicy Number: [id number] (HP) [id number] Date:2705-01-04GI [address] [place] [address] 313[address]PR: 07/04/2018 Secondary NOT GIVENUNK [facility] Insurance:SELF PAY Hospital INSURANCEPolicy Repository Number: Effective Date:2018-07-04 07/03/2018 CHELSEA ANDREWS654 Primary CHELSEA L [facility] [address] Insurance:JEFERSON GARCIA: [facility] [address] SENIOR [id number] Repository [address]Itk: (330) ADVANTAPolicy Number: [id number] () [id number] Date:9079-96-81FD [address] [place] [address]70[address]WH: 07/03/2018 Secondary NOT GIVENUNK [facility] Insurance:SELF PAY Hospital INSURANCEPolicy Repository Number: Effective Date:2018-07-03 07/02/2018 CHELSEA L [id number] Primary CHELSEA L [facility] [address] Insurance:ANTHEM EARLDOB: [facility] [place] MEDIC[place] PPOPolicy [id number] Repository 43481Vli: (330) Number: [phone] () [id number] Date:8876-14-67NJ [address] [place] [address] 71038HE: 07/02/2018 Secondary NOT GIVENUNK [facility] Insurance:SELF PAY Hospital INSURANCEPolicy Repository Number: Effective Date:2018-07-02 07/01/2018 CHELSEA Lizeth [id number] Primary CHELSEA L [facility] [address] Insurance:ANTHEM EARLDOB: [facility] [place] PPOPolicy [id number] Repository 59808Dux: (330) Number: [phone] () [id number] Date:6597-51-36TQ [address] [place] [address] 03387ZI: 07/01/2018 Secondary NOT GIVENUNK [facility] Insurance:SELF PAY Hospital INSURANCEPolicy Repository Number: Effective Date:2018-06-06 06/23/2018 CHELSEA Lizeth [id number] Primary CHELSEA L [facility] [address] Insurance:ANTHEM EARLDOB: [facility] [place] SENIOR [id number] Repository 79531Eco: (330) ADVANTAPolicy Number: [id number] () [id number] Date:4889-84-42YK [address] [place] [address] 58732DY: 06/23/2018 Secondary NOT GIVENUNK [facility] Insurance:SELF PAY Hospital INSURANCEPolicy Repository Number: Effective Date:2018-06-23 06/23/2018 CHELSEA Lizeth [id number] Primary CHELSEA L [facility] [address] Insurance:ANTHRAYNE ANDREWSDOB: [facility] [place] SEN[place] [id number] Repository 77916Npf: 330 ADVANTAPolicy Number: [id number] () [id number] Date:7091-95-46HA [address] [place] [address] 79854ZM: 06/23/2018 Secondary NOT GIVENUNK [facility] Insurance:SELF PAY Hospital INSURANCEPolicy Repository Number: Effective Date:2018-05-23 06/17/2018 CHELSEA ANDREWS654 Primary CHELSEA L [facility] [address] Insurance:JEFERSON ANDREWSDOB: [place] PPOPolicy [id number] Repository 23898Ewc: (330) Number: [phone] () [id number] Date:9901-26-45AA [address] [place] [address] 03479PQ: 06/17/2018 Secondary NOT GIVENUNK [facility] Insurance:SELF PAY Hospital INSURANCEPolicy Repository Number: Effective Date:2018-06-17 06/17/2018 CHELSEA Lizeth [id number] Primary CHELSEA L [facility] [address] Insurance:JEFERSON GOLDENB: [facility] [place] PPOPolicy [id number] Repository 77117Pih: (330) Number: [phone] () [id number] Date:3564-10-64TI [address] [place] [address] 95479PG: 06/17/2018 Secondary NOT GIVENUNK [facility] Insurance:SELF PAY Hospital INSURANCEPolicy Repository Number: Effective Date:2018-06-17 06/17/2018 CHELSEA ANDREWS654 Primary CHELSEA L [facility] [address] Insurance:ANTHRAYNE ANDREWSDOB: [address] [facility]ARE [facility] [id number] Repository 70224Laz: (330) Number: [id number] () [id number] Date:3954-81-31NT [id number] [place] [address] 28943NF: 06/17/2018 Secondary NOT GIVENUNK [facility] Insurance:SELF PAY Hospital INSURANCEPolicy Repository Number: Effective Date:2018-06-17 06/13/2018 CHELSEA L Primary CHELSEA L [facility] MYERSDOB: Insurance:ANTHEM BLUE MYERSDOB: [facility] CROSS MEDICARE [id number] Repository [facility] OUTPATIENT[address] [place] [address] Number: [address] [place] [address] 62212Gmy: (330) [id number] [phone] Date:Plan Name: 05/23/2018 CHELSEA L [id number] Primary CHELSEA L [facility] Insurance:ANTHEMPolic MYERSDOB: [address] y Number: [id number] Repository 70655Zgd: (330) [id number] [phone] () Date:0446-14-96YU [address], [place] [address]IZ: 05/23/2018 Secondary NOT GIVENUNK [facility] Insurance:SELF PAY Hospital INSURANCEPolicy Repository Number: Effective Date:2018-05-22 05/13/2018 CHELSEA L Primary CHELSEA L Christian [place]ome[place] MYERSDOB: Insurance:MEDICAREPol MYERSDOB: [facility] icy Number: [id number] [place], [place] Date:Plan Name: TERRY, [address]Qvm: (330) [place] [phone] () 05/13/2018 Secondary CHELSEA L Christian [place] Insurance:AULTCARE - MYERSDOB: [facility] [id number] Repository Number: [address] [id number] [place], [place] Date:2017-06-10 [place] [address] 05/13/2018 CHELSEA L Primary CHELSEA L Christian Parkerene MYERSDOB: Insurance:MEDICAREPol MYERSDOB: [facility] [id number] icy Number: [id number] [id number] [address] [place] Date:Plan Name:[facility] 87369Ama: (330) [place] [address] [phone] (HP) 05/13/2018 Secondary CHELSEA L Christian [place] Insurance:[facility] [id number] Repository Number: [address] [id number] [facility]:2017[place]06[place] [address] 05/13/2018 CHELSEA L Primary CHELSEA L Christian Parkerene MYERSDOB: Insurance:MEDICAREPol MYERSDOB: [facility] icy Number: [id number] [address] [id number] [address] [place] Date:Plan Name:[facility], 05[address]Rga: (330) [place] [phone] (HP) 05/13/2018 Secondary CHELSEA L [facility] [place] Insurance:[facility]: [facility] [id number] Repository Number: [address] [id number] [facility] [place]:2017-06-10 [place] [address] 05/13/2018 CHELSEA L Primary CHELSEA L Christian Parkerene MYERSDOB: Insurance:[facility]: [facility] CROSS MEDICARE [id number] Repository [facility] [address] [place] Number: [place], [place] [address]Stc: (330) [id number] [phone] (HP) Date:Plan Name: 05/11/2018 CHELSEA ANDREWS654 Primary CHELSEA Lara [facility] [address] Insurance:ANTHEMPolic MYERSDOB: [address] y Number: [id number] Repository 66085Tiv: (330 [id number] [phone] (HP) Date:6385-48-90NI [address] [place] [address] 38057QK: 05/11/2018 Secondary NOT GIVENUNK [facility] Insurance:SELF PAY Hospital INSURANCEPolicy Repository Number: Effective Date:2018-05-11 05/11/2018 CHELSEA CHAN4 Primary CHELSEA Lara [facility] [address] Insurance:ANTHEMPolic MYERSDOB: [address] y Number: [id number] Repository 74344Fbj: 330 [id number] [phone] (HP) Date:3092-29-51OH [address] [place] [address] 60839DS: 05/11/2018 Secondary NOT GIVENUNK [facility] Insurance:SELF PAY Hospital INSURANCEPolicy Repository Number: Effective Date:2018-05-11 04/29/2018 CHELSEA ANDREWS653 Primary CHELSEA Lara [facility] [address] Insurance:ANTHEMPolic MYERSDOB: [address] y Number: [id number] Repository 29763Cwy: (330 [id number] [phone] (HP) Date:8083-93-01UL [address] [place] [address] 55733ZN: 04/29/2018 Secondary NOT GIVENUNK [facility] Insurance:SELF PAY Hospital INSURANCEPolicy Repository Number: Effective Date:2018-04-29 04/22/2018 CHELSEA ANDREWSPO Primary CHELSEA Lara [facility] [address] [address], Insurance:ANTHEMPolic MYERSDOB: [facility] 417[address]Kfc: y Number: [id number] Repository [id number] (HP) Date:2028-79-86OT [id number] [place] [address] 22782YO: 04/22/2018 Secondary NOT GIVENUNK [facility] Insurance:SELF PAY Hospital INSURANCEPolicy Repository Number: Effective Date:2018-04-22 04/16/2018 CHELSEA Stanley Primary CHELSEA Pratt MYERSDOB: Insurance:ANTHEM BLUE MYERSDOB: [facility] CROSS MEDICARE [id number] [address] OUTPATIENTPolicy [address] [place] Number: [address] [id number]: (484) [id number] [place] [phone] (HP) Date:Plan Name: [id number] 04/15/2018 CHELSEA Stanley Primary CHELSEA Pratt MYERSDOB: Insurance:MEDICARE MYERSDOB: [facility] OUTPATIENTPolicy [id number] Number: [address] [place], [place] [id number] [place], [place] [address]Omu: (720) Date:Plan Name: [id number] [phone] (HP) 04/04/2018 CHELSEA GUZMAN Primary CHELSEA Stanley [facility] [address], Insurance:ANTHEMPolic MYERSDOB: [facility] [address]Ylo: y Number: [id number] Repository [id number] (HP) Date:7034-53-05XQ [address] [place] [address] 78798HT: 04/04/2018 Secondary NOT GIVENUNK [facility] Insurance:SELF PAY Hospital INSURANCEPolicy Repository Number: Effective Date:2018-04-04 03/31/2018 CHELSEA GUZMAN Primary CHELSEA Stanley [facility] [address], Insurance:ANTHEMPolic MYERSDOB: [facility] 47697Kgl: y Number: [id number] Repository [id number] (HP) Date:7920-66-25SF [address]GXXFSNH, [place] [address]AQ: 03/31/2018 Secondary NOT GIVENUNK [facility] Insurance:SELF PAY Hospital INSURANCEPolicy Repository Number: Effective Date:2018-03-31 03/20/2018 CHELSEA Lizeth ANDREWSPO Primary [facility]SEA [facility] [address], Insurance:ANTHEMPolic MYERSDOB: [facility] 004[address]Nod: y Number: [id number] Repository [id number] (HP) Date:5689-96-79NL [address]QICGP, [place] [address]VN: 03/20/2018 Secondary NOT GIVENUNK [facility] Insurance:SELF PAY Hospital INSURANCEPolicy Repository Number: Effective Date:2018-03-20 01/27/2018 CHELSEA L Primary CHELSEA Pratt MYERSDOB: Insurance:MEDICAREPol MYERSDOB: [facility] [id number] icy Number: [id number] Repository [address] [id number] [address] [place] [address] Date:Plan Name:[place], [place] [address]Bnm: [id number] [phone] () 01/27/2018 CHELSEA L Primary CHELSEA Pratt MYERSDOB: Insurance:MEDICARE MYERSDOB: [facility] [id number] OUTPATIENTPolicy [id number] Repository [address] Number: [address] [place] [address] [id number] [place] [address]Dbc: (330) Date:Plan Name: [id number] [phone] () 01/18/2018 CHELSEA Lizeth [id number] Primary CHELSEA Lara [facility] [address] Insurance:MEDICARE MYERSDOB: [place] PART A BPolicy [id number] Repository 887[address]Iil: (330) Number: [phone] () [id number] Date:2018-01-17 01/18/2018 Secondary NOT GIVENUNK [facility] Insurance:SELF PAY Hospital INSURANCEPolicy Repository Number: Effective Date:2018-01-17 01/12/2018 CHELSEA L Primary CHELSEA L [facility] [id number] Insurance:MEDICARE MYERSB: [facility] PART A olic [id number] Repository [address] [place] [address] Number: [id number]: (040) [id number] [phone] (HP) Date:2018-01-12 01/12/[address] [facility] [facility]Y Hospital INSURANCEPolicy Repository Number: Effective Date:2018-01-12 12/27/2017 NIKHIL Primary CHELSEA L [facility] BEHAVIORAL Insurance:[facility]: [facility]66755 BEHAV HOSPPolgundersen pal[facility] [id number] Center Repository STATE Number: [place], [place] [id number] BEHAVIORAL [address]Hmw: (740) Date: [id number] [phone] (HP) [place], [place] [address]Ovk: (HP) 12/27/2017 Secondary CHELSEA L [facility] Insurance:MEDICAREPol [facility] icy Number: [id number] [place] Repository [id number] [facility] Date: [facility] [id number] [place], [place] [address]Cxo: (HP) 12/12/2017 CHELSEA L [id number] Primary CHELSEA L [address] Insurance:MEDICAREPol MYERSUNK [facility] [place] icy Number: Repository [id number]: 330 [id number] [phone] (HP) Date:1990-01-08 12/07/2017 CHELSEA L [id number] Primary CHELSEA L [address] Insurance:MEDICAREPol MYERSUNK [facility] [place] icy Number: Repository [id number]: 330 [id number] [phone] (HP) Date:1990-01-08 12/06/2017 CHELSEA L Primary CHELSEA L [facility] MYERSDOB: Insurance:MEDICARE MYERSDOB: [facility] RECURRING REFERENCE [id number] [address] [facility] Number: [address] [place] [id number] [place], [address]Qko: (330) Date:Plan Name:[facility] [address] [phone] (HP) 12/03/2017 CHELSEA L [id number] Primary CHELSEA L [facility] Insurance:MEDICAREPol MYERSUNK [facility] [place] icy Number: Repository [address]Uie: 330) [id number] [phone] (HP) Date:1990-01-08 11/11/2017 CHELSEA L Primary CHELSEA L [facility]kerene MYERSDOB: Insurance:MEDICAREPol MYERSDOB: [facility] icy Number: [id number] [address] [id number] [address] [facility] [place] Date:Plan Name:[facility] [place]ED[place] [id number]: [phone] () 11/11/2017 Secondary CHELSEA L Christian [place] Insurance:MEDICARE MYERSDOB: [facility] [id number] Repository Number: [address] [facility] [facility] [id number] [facility] [place] Date:Plan Name: [id number] 11/09/2017 CHELSEA L Primary CHELSEA L Christian Pome[place] MYERSDOB: Insurance:MEDICAREPol MYERSDOB: [facility] icy Number: [id number] [id number] [address] [facility], [place] Date:Plan Name: TERRY, [id number]: [place] [phone] (HP) 11/02/2017 CHELSEA L Primary CHELSEA L Christian Pome[place] MYERSDOB: Insurance:MEDICAREPol MYERSDOB: [facility] icy Number: [id number] [address] [id number] [address] [facility], [place] Date:Plan Name:[place] [address]Ydp: ([phone]) [phone] () 10/07/2017 Chelsea L Primary Chelsea L [facility] [id number] E Insurance:Primetime MyersDOB: [facility] [id number] Repository [address] [place] [address] SupplemePolicy 511[address]Bjp: (330) Number: Effective [phone] () Date:8853-24-30ZZ [facility] [address], [place] [address]UV: 10/07/2017 Secondary NOT GIVENUNK [place] [facility] Insurance:SELF PAY Hospital INSURANCEPolicy Repository Number: Effective Date:2017-10-07 09/22/2017 Chelsea L Primary Chelsea L [facility] [id number] Insurance:Primetime MyersDOB: [facility] [id number] Repository [place] SupplemePolicy [address]Iwp: (330) Number: [phone] () [id number] e Date:8840-61-73MI [address], [place] [address]IA: 09/22/2017 Secondary NOT GIVENUNK [facility] Insurance:SELF PAY Hospital INSURANCEPolicy Repository Number: Effective Date:2017-09-22 08/07/2017 CHELSEA L Primary CHELSEA L [facility] MYERSDOB: Insurance:PRIME TIME MYERSDOB: [facility] HEALTH ([place])Policy [id number] Repository [address] Number: [address] [place], [place] [id number] [facility], [address]Ylk: 330) e Date:2017-07-24 - [place] [address]Lrc: [phone] () 0018-09-17Pzut Name:CHRIS OSEGUERA () [address] [address]HM: 07/23/2017 CHELSEA L Primary CHELSEA L Christian Pratt MYERSDOB: Insurance:AULTCARE - MYERSDOB: [facility] [address] [facility] [id number] Repository [id number] [place] Number: [address]49 [facility] [id number] [facility]RAHAMCLIFTON SPRINGS [facility]PITAL & CLINICALEYDA DICKSON Ms calvin Date:0209-95-61[place] [address]Rxp: (165) Name: [phone] ()
== END ==
LOC: MRI 10:10
PROVIDERS: Family Provider Student in an Organized Health Care Education/Training Program; PCP Student in an Organized Health Care Education/Training Program; Referring Provider Student in an Organized Health Care Education/Training Program; Visit Provider Student in an Organized Health Care Education/Training Program
DX: D18.00 Hemangioma unspecified site (principal)
CPT/HCPCS: 70553; A9585

== ENCOUNTER 2018-07-03 21:43 | Emergency (ER) | payer MEDICARE, SELFPAY ==
[2018-07-03 21:44] VITALS: BP 130/70; PULSE 62; RESP 16; TEMP 36.5; O2SAT 97; BMI 30.7
--- NOTE | 2018-07-03 22:38 | ED.DCSUM_ITS ---
- ER Visit Summary Date of Service: 07/03/18 Chief Complaint: Left eye pain, dysuria History of Present Illness: The patient is a 67 F who presents complaining of left eye pain since this evening as well as dysuria. Patient states her left eye has been bothering her, with pressure, burning and pain along the lower eyelid. Patient denies any vision changes, including no blurred vision or double vision. Patient denies any trauma. She wears glasses but no contacts. She denies headache, fever, URI symptoms, or other complaints. Patient also is complaining of pressure when she urinates with associated back pain. She recently was treated for urinary tract infection, she states these are similar symptoms to her prior UTIs. Patient has history of diabetes, COPD and diverticulosis. Physical Examination: Vital signs: afebrile, hemodynamically stable, no hypoxia on room air General: well nourished, well developed, in no distress, patient is sitting very comfortably in a room with bright lights on Skin: warm, dry, no rash, no pallor HEENT: normocephalic and atraumatic; PERRL, EOMI without pain, no conjunctival injection, no foreign bodies noted to eversion of bilateral eyelids, left lower eyelid shows mild erythema and very mild swelling. Moist mucous membranes. Neck is supple, full active range of motion, no tenderness or lymphadenopathy Cardiovascular: regular rate and rhythm without murmurs, no peripheral edema, 2+ pulses all distal extremities Respiratory: No increased work of breathing, lungs are clear to auscultation bilaterally, no rales, rhonchi or wheezing Abdominal: Abdomen is soft, nontender with normoactive bowel sounds, no guarding or rebound, no masses MSK: Moves all extremities, no deformities, normal strength Neuro: Awake and alert, oriented ?4. No facial droop, sensation and motor function intact and symmetric Test Results: [] Emergency Department Course and Treatment: Urinalysis was performed to evaluate for UTI. Patient is sitting very comfortably with the lights on, and thus acute angle glaucoma is highly unlikely. Patient has no findings concerning for corneal abrasion or ulceration. Patient's physical exam is most consistent with mild left lower blepharitis, unclear infectious versus irritant. While workup progress, patient left without informing anyone. She did not provide a urine sample. She did not stay for any further evaluation of her eye, including fluorescein stain. Treatment Plan: [] Disposition: [] Impression: Left lower blepharitis, dysuria, left without treatment complete This note was generated with [employer] dictation software. It may contain incorrect words, spelling, and punctuation that were not noted in review of the chart prior to signing ED Disposition - Plan for ED Patient: Disposition: Home or Assisted Living Chief Complaint: Eye Problem Referrals: Caitie Teixeira MD [Primary Care Provider] -
--- NOTE | 2018-07-03 22:47 | ED.RN ---
entered room to have pt give urine sample. not in room. registration mentioned pt being very upset about her insurance information not being in the computer. aware.
== END 2018-07-03 22:50 | disposition home or self-care (01) ==
LOC: ED 22:38
PROVIDERS: Emergency Provider Emergency Medicine; Family Provider Student in an Organized Health Care Education/Training Program; PCP Student in an Organized Health Care Education/Training Program
DX: H01.005 Unspecified blepharitis left lower eyelid (principal); R30.0 Dysuria; M54.9 Dorsalgia, unspecified; J44.9 Chronic obstructive pulmonary disease, unspecified; E11.9 Type 2 diabetes mellitus without complications; Z72.0 Tobacco use; Z79.4 Long term (current) use of insulin; Z79.899 Other long term (current) drug therapy; Z87.19 Personal history of other diseases of the digestive system; Z87.440 Personal history of urinary (tract) infections

== ENCOUNTER 2018-07-04 17:39 | Emergency (ER) | payer MEDICARE, SELFPAY ==
[2018-07-03 21:44] VITALS: BMI 30.7
[2018-07-04 17:40] VITALS: BP 149/72; PULSE 93; RESP 16; TEMP 36.1; O2SAT 97; BMI 30.7
--- NOTE | 2018-07-04 18:49 | ED.DCSUM_ITS ---
- ER Visit Summary Date of Service: 07/04/18 Chief Complaint: I cannot take the pain anymore History of Present Illness: The patient is a 67 F presenting secondary to exacerbation of her chronic pain. Patient reports that she deals with chronic neck back and rib pain. Patient had been seeing pain management in the past, but states that they pump to be full of so many steroids and almost killed me. Patient states that she is not on any sort of medications now when she just toughs it out. Patient now states that her chronic pain is causing her difficulty with her activities of daily living are causing her to feel depressed. Patient states that she does not believe in medicines however. He has an appointment coming up with a pain management and rehabilitation doctor coming in July. Patient simply states that her pain was bad enough that she wanted to get evaluated in the emergency department. No new injuries. She denies any fevers unintended weight loss of bowel or bladder incontinence or fevers. She denies any history of IV drug use. Physical Examination: Vital signs within normal limits. Well-nourished tearful female otherwise not physiologic distress. Moist mucous membranes with tobacco staining around the mouth. No JVD. Heart regular. Mild wheezes noted in the lung castellanos no respiratory distress. Abdomen soft nontender. Back shows surgical scars with paraspinal tenderness. Straight leg raise is negative, extremities are nontender, nonlateralizing neurological exam. Test Results: None indicated Emergency Department Course and Treatment: Patient presented secondary to exacerbation of her chronic pain. I had a taryn conversation with the patient about her goals of treatment today. She states that probably cannot have anything narcotic because her neighbors will just steal it. I offered her lidocaine patches and anti-inflammatories. She stated what ever your expertise says doc. Patient will be sent home with Mobic and Lidoderm Disposition: Discharge Impression: Chronic pain This note was generated with [employer] dictation software. It may contain incorrect words, spelling, and punctuation that were not noted in review of the chart prior to signing ED Disposition - Plan for ED Patient: Disposition: Home or Assisted Living Chief Complaint: Back Diagnosis: Chronic pain Instructions: ED Chronic Pain Management Prescriptions: Lidocaine [Lidoderm] 1 ea TP DAILY #10 adh..patch Meloxicam [Mobic] 15 mg PO DAILY #30 tab Referrals: Caitie Teixeira MD [Primary Care Provider] -
[2018-07-04] MEDS: Lidocaine 5% Patch 1 PATCH TOPICAL (19:01)
[2018-07-04] MEDS: Meloxicam 7.5 MG Tablet PO (19:01)
== END 2018-07-04 19:20 | disposition home or self-care (01) ==
LOC: ED 19:18
PROVIDERS: Emergency Provider Emergency Medicine; Family Provider Student in an Organized Health Care Education/Training Program; PCP Student in an Organized Health Care Education/Training Program
DX: M54.9 Dorsalgia, unspecified (principal); G89.29 Other chronic pain; M54.2 Cervicalgia; R07.81 Pleurodynia; E11.9 Type 2 diabetes mellitus without complications; I10 Essential (primary) hypertension; Z79.4 Long term (current) use of insulin; Z79.899 Other long term (current) drug therapy
CPT/HCPCS: 99284

== ENCOUNTER 2018-07-07 18:38 | Emergency (ER) | payer MEDICARE, SELFPAY ==
[2018-07-07 18:40] VITALS: BP 174/87; PULSE 106; RESP 14; TEMP 36.5; BMI 31.2
[2018-07-07 19:00] LABS: Bacteria 0 SEEN /hpf (None Seen); Mucous, Urine 0 SEEN /hpf (<or=2+); Red Blood Cells-Urine 0 SEEN /hpf (0-5)
[2018-07-07] MEDS: 0.9% Normal Saline 1,000 ML 999 ML IV (19:32)
[2018-07-07 19:33] LABS: Color, Urine Yellow (Yellow); Glucose, Dipstick 250 mg/dl (Normal); Ketone-Dipstick Negative (Negative); Leukocyte Esterase-Dipstick 25 /ul (Negative); Nitrite-Dipstick Negative (Negative); Occult Blood-Urine Negative /ul (Negative); Protein-Dipstick 15 mg/dl (Negative); Urine Bilirubin Dipstick Negative (Negative); Urine Clarity Clear (Clear); Urine Urobilinogen Normal (Normal)
[2018-07-07 19:34] LABS: Squamous Epithelial Cells - UA 0-5 SEEN /hpf (5-10); White Blood Cells 0-5 SEEN /hpf (0-5)
[2018-07-07] MEDS: FLUCONAZOLE 150 MG TABLET PO (19:35)
[2018-07-07 19:45] LABS: Absolute Lymphocyte Count 2.74 X10^3/ul (0.83-4.51); Absolute Neutrophil Count 7.6 X10^3/uL (2.0-7.7); Basophil# 0.03 X10^3/uL; Basophil% 0.3 % (0-1); Eosinophil# 0.36 X10^3/uL; Eosinophils% 3.2 % (0-5); Hematocrit 38.9 % (37-47); Hemoglobin 12.8 g/dl (12.0-15.0); Lymphocyte # 2.74 X10^3/ul (4.0); Lymphocyte % 24.2 % (19-41); Mean Corp Hgb Conc 32.9 g/gl (32-36); Mean Corpuscular Volume 85.1 fL (81-99); Mean Platelet Vol. 10.6 fl (6.2-12.0); Monocyte# 0.49 X10^3/uL; Monocyte% 4.3 % (0-10); Neutrophil # 7.62 X10^3/uL (2.7-7.7); Neutrophil % 67.5 % (47-70); Platelet Count 268 K/mm3 (150-450); RBC Distribution Width CV 14.2 % (11.6-14.6); Red Blood Count 4.57 M/mm3 (4.2-5.4); White Blood Count 11.3 K/mm3 (4.4-11.0)
[2018-07-07 19:47] LABS: POSITIVE COUNT NO; POSITIVE DIFFERENTIAL NO; POSITIVE MORPHOLOGY NO
[2018-07-07 19:50] LABS: Bedside Glucose 319 mg/dL (70-110)
[2018-07-07 19:54] LABS: Anion Gap 10 (5-15); BUN 19 mg/dL (7-18); BUN/Creat Ratio 21.1 RATIO (10-20); Calcium,Total 8.8 mg/dL (8.5-10.1); Chloride 104 mmol/L (98-107); EST Glomerular Filtration Rate 66 mL/min (>60); Est Glom Filt Rate - Afr Amer 80 mL/min (>60); Estimated Creatinine Clearance 53.83 ml/min; Glucose 331 mg/dL (74-106); Potassium 3.8 mmol/L (3.5-5.1); Sodium Level 137 mmol/L (136-145)
[2018-07-07 20:04] LABS: Hemoglobin A1c 12.3 % (4.2-6.3)
--- NOTE | 2018-07-07 20:17 | ED.VISSUMM ---
- ER Visit Summary Date of Service: 07/07/18 Chief Complaint: Vaginal itching and burning History of Present Illness: The patient is a [address] Vazquez. She reports that she has vaginal itching burning began approximate 2 weeks ago. States that it feels like a yeast infection around her urethra. Also reports that her blood sugars have been running 4-500s for several weeks. States that last blood sugar just prior to arrival was 410. States that he typically runs in the 200s. However, she does admit that she does not take her insulin as directed. Patient does complain of subjective fever and chills. She has chronic cough and shortness of breath is unchanged. She has had nausea without any vomiting. No abdominal pain or diarrhea. Physical Examination: Vitals: Stable. Afebrile. General: Well-nourished and well-developed. Head: Normocephalic atraumatic. Neck: Supple, no lymphadenopathy. No JVD. Nontender. Cardiovascular: Regular rate and rhythm. No murmurs. Respiratory: No respiratory distress. Clear to auscultation bilaterally. Abdominal: Soft, nontender, nondistended, normal bowel sounds. No guarding, rebound, or peritoneal signs. Back: Nontender. Extremities: Nontender, no edema. Skin: Normal color, no rash. Neurologic: Alert and oriented ?3. Cranial nerves II through XII are intact. Normal strength and sensation. Psych: Normal affect. Test Results: CBC is more for white count 11.3. Chem-7 is more for glucose 331 BUN 19. UA is negative. Hemoglobin A1c is 12.3 suggesting that she has had an average blood sugar of approximately 298 over the past 3 months. Emergency Department Course and Treatment: Discussed the patient with her being on antibiotics last month and her elevated blood sugar that she likely has a yeast infection. She was given a dose of Diflucan p.o. here. Treatment Plan: Patient be discharged instructions to follow-up with her primary care physician tomorrow for a repeat exam. Speak with him about the the fact that she cannot afford her insulin. She was given a prescription for a single Diflucan pill to take in 2 days if her symptoms are improved but not resolved. Return to the emergency department for any worsening symptoms. Disposition: To home in improved and stable condition. Impression: 1. Dysuria. 2. Hyperglycemia with history of non-insulin dependent diabetes mellitus. This note was generated with [employer] dictation software. It may contain incorrect words, spelling, and punctuation that were not noted in review of the chart prior to signing ED Disposition - Plan for ED Patient: Disposition: Home or Assisted Living Chief Complaint: Complaint Instructions: ED Dysuria Uncertain Cause Prescriptions: Fluconazole [Diflucan] 150 mg PO X1 #1 tablet Referrals: Caitie Teixeira MD [Primary Care Provider] - 1 Week if not improving
[2018-07-07 20:30] LABS: Bedside Glucose 253 mg/dL (70-110)
--- NOTE | 2018-07-07 20:35 | ED.RN ---
states ok to leave after 1st IV bag and not wait for 2nd.
[2018-07-07 20:36] VITALS: BP 160/67; PULSE 75; RESP 17; O2SAT 95
== END 2018-07-07 20:40 | disposition home or self-care (01) ==
LOC: ED 19:22
PROVIDERS: Emergency Provider Emergency Medicine; Family Provider Student in an Organized Health Care Education/Training Program; PCP Student in an Organized Health Care Education/Training Program
DX: R30.0 Dysuria (principal); E10.65 Type 1 diabetes mellitus with hyperglycemia; J44.9 Chronic obstructive pulmonary disease, unspecified; R11.0 Nausea; Z79.4 Long term (current) use of insulin; Z79.899 Other long term (current) drug therapy; Z87.19 Personal history of other diseases of the digestive system
CPT/HCPCS: 80048; 81001; 82009; 82962; 83036; 85025; 96360; 99285; J7030

== ENCOUNTER 2018-07-11 23:47 | Emergency (ER) | payer MEDICARE, SELFPAY ==
[2018-07-11 23:48] VITALS: BP 164/79; PULSE 101; RESP 18; TEMP 36.8; O2SAT 98; BMI 32.0
[2018-07-12 00:01] VITALS: BP 144/80; PULSE 94; RESP 17; O2SAT 98
[2018-07-12 00:06] LABS: Bedside Glucose 396 mg/dL (70-110)
[2018-07-12] MEDS: Insulin Lispro 100 UNIT/ML INSULN.PEN 10 UNIT IV (00:30)
[2018-07-12] MEDS: 0.9% Normal Saline 1,000 ML 1000 ML IV (00:30)
[2018-07-12 00:41] LABS: Absolute Lymphocyte Count 3.15 X10^3/ul (0.83-4.51); Absolute Neutrophil Count 7.8 X10^3/uL (2.0-7.7); Basophil# 0.05 X10^3/uL; Basophil% 0.4 % (0-1); Eosinophil# 0.25 X10^3/uL; Eosinophils% 2.1 % (0-5); Hematocrit 40.2 % (37-47); Hemoglobin 13.2 g/dl (12.0-15.0); Lymphocyte # 3.15 X10^3/ul (4.0); Lymphocyte % 26.8 % (19-41); Mean Corp Hgb Conc 32.8 g/gl (32-36); Mean Corpuscular Hgb 28.3 pg (27.0-32.0); Mean Corpuscular Volume 86.3 fL (81-99); Mean Platelet Vol. 10.1 fl (6.2-12.0); Monocyte# 0.42 X10^3/uL; Monocyte% 3.6 % (0-10); Neutrophil # 7.83 X10^3/uL (2.7-7.7); Neutrophil % 66.7 % (47-70); Platelet Count 237 K/mm3 (150-450); RBC Distribution Width CV 14.6 % (11.6-14.6); RBC Distribution Width SD 45.6 fl (35.1-43.9); Red Blood Count 4.66 M/mm3 (4.2-5.4); White Blood Count 11.8 K/mm3 (4.4-11.0)
[2018-07-12 00:43] LABS: POSITIVE COUNT NO; POSITIVE DIFFERENTIAL NO; POSITIVE MORPHOLOGY NO
[2018-07-12 00:53] LABS: ALB/GLOB Ratio 0.9 RATIO (0.9-2.4); AST(SGOT) 17 U/L (15-37); Alanine Aminotransfer ALT/SGPT 25 U/L (13-56); Albumin, Serum 3.1 g/dL (3.2-5.0); Alkaline Phosphatase 115 U/L (45-117); Anion Gap 12 (5-15); BUN 14 mg/dL (7-18); Calcium,Total 8.3 mg/dL (8.5-10.1); Chloride 105 mmol/L (98-107); Creatinine, Serum 0.93 mg/dL (0.55-1.02); EST Glomerular Filtration Rate 64 mL/min (>60); Est Glom Filt Rate - Afr Amer 77 mL/min (>60); Estimated Creatinine Clearance 49.99 ml/min; Globulin 3.6 g/dL (2.2-4.2); Glucose 392 mg/dL (74-106); Potassium 3.9 mmol/L (3.5-5.1); Protein, Total 6.7 g/dL (6.4-8.2); Sodium Level 137 mmol/L (136-145)
[2018-07-12 01:06] LABS: Bacteria 0 SEEN /hpf (None Seen); Mucous, Urine 0 SEEN /hpf (<or=2+)
[2018-07-12 01:07] LABS: Color, Urine Yellow (Yellow); Glucose, Dipstick 1000 mg/dl (Normal); Ketone-Dipstick Negative (Negative); Leukocyte Esterase-Dipstick 100 /ul (Negative); Nitrite-Dipstick Negative (Negative); Occult Blood-Urine Negative /ul (Negative); Protein-Dipstick 30 mg/dl (Negative); Specific Gravity, Urine 1.015 (1.002-1.030); Urine Bilirubin Dipstick Negative (Negative); Urine Clarity Sl. Cloudy (Clear); Urine Urobilinogen Normal (Normal)
[2018-07-12 01:20] LABS: Red Blood Cells-Urine 0-5 SEEN /hpf (0-5); Squamous Epithelial Cells - UA 0-5 SEEN /hpf (5-10)
[2018-07-12 01:21] LABS: White Blood Cells 5-10 SEEN /hpf (0-5)
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
[2018-07-12 01:36] LABS: Bedside Glucose 291 mg/dL (70-110)
[2018-07-12 01:53] VITALS: BP 138/69; PULSE 80; RESP 24; O2SAT 97
== END 2018-07-12 01:56 | disposition home or self-care (01) ==
PROVIDERS: Emergency Provider Emergency Medicine; Family Provider Student in an Organized Health Care Education/Training Program; PCP Student in an Organized Health Care Education/Training Program
DX: E11.65 Type 2 diabetes mellitus with hyperglycemia (principal); R45.1 Restlessness and agitation; J44.9 Chronic obstructive pulmonary disease, unspecified; I10 Essential (primary) hypertension; Z79.4 Long term (current) use of insulin; Z79.899 Other long term (current) drug therapy; Z87.19 Personal history of other diseases of the digestive system
CPT/HCPCS: 80053; 81001; 82009; 82962; 85025; 96360; 99283; J7030; A4216

== ENCOUNTER 2018-07-14 20:34 | Emergency (ER) | payer MEDICARE, SELFPAY ==
[2018-07-14 20:36] VITALS: BP 148/79; PULSE 90; RESP 26; TEMP 36.3; O2SAT 98; BMI 31.0
--- NOTE | 2018-07-14 20:41 | ED.RN ---
THIS RN TRIAGED PATIENT, AND AFTER PLACING WRIST BAND ON PATIENT, PT STATES SHE IS LEAVING. THIS RN ASKS IF THERE WAS A REASON AND PT STATES YES THERE IS A REASON AND THERES NOTHING YOU CAN DO ABOUT IT. PT THEN STATES I DONT NEED YOUR ARROGANT PEOPLE ASKING ME TO RATE MY PAIN, IM NOT A JUNKIE WANTING PAIN MEDS EDUCATION AND EMOTIONAL SUPPORT ATTEMPTED, PT CONTINUES TO WALK OUT THIS RN IS TALKING.
== END 2018-07-14 20:40 | disposition left against medical advice (07) ==
LOC: ED 22:06
PROVIDERS: Emergency Provider Emergency Medicine; Family Provider Student in an Organized Health Care Education/Training Program
DX: R06.02 Shortness of breath (principal)

== ENCOUNTER 2018-07-19 10:37 | Emergency (ER) | payer MEDICARE, SELFPAY ==
[2018-07-19 10:38] VITALS: BP 153/84; PULSE 83; RESP 17; TEMP 36.8; O2SAT 96; BMI 30.6
--- NOTE | 2018-07-19 11:09 | RAD_ITS ---
STUDY: X-RAY - LEFT ANKLE REASON FOR EXAM: Female, 67 years old. Injury of the left ankle, pain TECHNIQUE: 3 view(s) of the ankle. COMPARISON: None. FINDINGS: Normal visualized distal tibia and fibula. Normal medial and lateral malleoli. Normal tibiotalar articulation and ankle mortise. Calcaneal spur noted. The visualized subtalar, talonavicular, calcaneocuboid and tarsal articulations are normal. The soft tissue structures are unremarkable. RAD/Ankle min 3 Views IMPRESSION: 1. No fracture or malalignment. Electronically Signed: Scott Zapata MD at 11:48 EST , Service support ,
--- NOTE | 2018-07-19 11:09 | RAD_ITS ---
STUDY: X-RAY - LEFT KNEE REASON FOR EXAM: Female, 67 years old. Injury, left knee pain TECHNIQUE: 3 view(s) of the knee. COMPARISON: None. FINDINGS: Normal visualized distal femur. Normal visualized proximal tibia and fibula. Normal proximal tibiofibular articulation. There is minimal degenerative arthrosis of the medial femorotibial compartment. There is minimal degenerative arthrosis of the lateral femorotibial compartment. There is mild degenerative arthrosis of the patellofemoral articulation. There is a soft tissue prominence in the suprapatellar region suggesting a small volume joint effusion. The soft tissue structures are unremarkable. RAD/Knee 3 Views IMPRESSION: 1. No fracture or malalignment. Trace volume effusion. 2. Mild degenerative changes. Electronically Signed: Scott Zapata MD at 11:49 EST , Service support ,
--- NOTE | 2018-07-19 11:09 | RAD_ITS ---
STUDY: X-RAY - LUMBAR SPINE REASON FOR EXAM: Female, 67 years old. Fall, back pain TECHNIQUE: 3 view(s) of the lumbar spine were obtained. COMPARISON: 01/12/2018 FINDINGS: Normal lumbar lordosis. There is no substantial scoliosis. There is a normal alignment of the vertebrae. There is diffuse demineralization with multi-level endplate spondylosis. Posterior fusion at L4-L5 with similar alignment and operative changes of the disc space. Disc space narrowing L5-S1 is similar. There is no demonstrated fracture. There is atherosclerotic calcification of the abdominal aorta without a demonstrated aneurysm. RAD/Lumbar Spine 2 or 3 Views IMPRESSION: Stable degenerative and operative changes. No compression fracture. Electronically Signed: Scott Zapata MD at 11:49 EST , Service support ,
--- NOTE | 2018-07-19 11:11 | ED.VISSUMM ---
- ER Visit Summary Date of Service: 07/19/18 Chief Complaint: Left knee and back pain History of Present Illness: The patient is a 67 F who has left knee and back pain after a fall. She slipped on ice and fell in the parking lot. She landed directly on her left knee. She also complains of pain in her back. She does have a history of back pain and back surgeries with hardware. She did not hit her head. No LOC. She took nothing for this. Physical Examination: Vital signs are reviewed. Her heart is regular rhythm with no chest tenderness. Lungs are clear. Abdomen soft and nontender. Back is diffusely tender in the lumbar region. Her left knee and ankle are diffusely tender. There is no swelling. There is a small abrasion to the left knee. GCS 15. Neurologic exam normal. Test Results: Lumbar x-ray, left knee x-ray left ankle x-ray all reveal no acute findings. Emergency Department Course and Treatment: Patient was given Tylenol for pain. She will continue this at home. She has contusions to these areas. She does have a cane at home to help her ambulate. Treatment Plan: [] Disposition: Discharge Impression: Contusion, left knee contusion This note was generated with Spark[employer] dictation software. It may contain incorrect words, spelling, and punctuation that were not noted in review of the chart prior to signing ED Disposition - Plan for ED Patient: Referrals: Care Physician,No Primary [Primary Care Provider] -
[2018-07-19] MEDS: Acetaminophen 500 MG Tablet 1000 MG PO (11:14)
--- NOTE | 2018-07-19 12:08 | ED.DEP ---
ED Disposition - Plan for ED Patient: Disposition: Home or Assisted Living Instructions: ED Mechanical Fall Referrals: Care Physician,No Primary [Primary Care Provider] -
== END 2018-07-19 12:24 | disposition home or self-care (01) ==
PROVIDERS: Emergency Provider Emergency Medicine
DX: S80.02XA Contusion of left knee, initial encounter (principal); S30.0XXA Contusion of lower back and pelvis, initial encounter; W00.0XXA Fall on same level due to ice and snow, initial encounter; Y93.9 Activity, unspecified; Y92.481 Parking lot as the place of occurrence of the external cause; Y99.9 Unspecified external cause status; E11.9 Type 2 diabetes mellitus without complications; J44.9 Chronic obstructive pulmonary disease, unspecified; Z79.4 Long term (current) use of insulin; Z79.899 Other long term (current) drug therapy
CPT/HCPCS: 72100; 73562; 73610; 99283

== ENCOUNTER 2018-07-22 07:28 | Inpatient (IN) | payer MEDICARE, SELFPAY ==
[2018-07-22] VITALS (18 sets, daily range): BP systolic 121–187; BP diastolic 59–85; PULSE 88–111; RESP 16–28; TEMP 36.3–37.1; O2SAT 88–96; BMI 30.6; BMI 30.9
--- NOTE | 2018-07-22 07:31 | EKG12_ITS ---
Test Reason : SOB Blood Pressure : / mmHG Vent. Rate : 092 BPM Atrial Rate : 092 BPM P-R Int : 164 ms QRS Dur : 098 ms QT Int : 364 ms P-R-T Axes : 044 -42 052 degrees QTc Int : 450 ms Normal sinus rhythm Left axis deviation Abnormal ECG Confirmed by GENA OROZCO, BOBY ([id number]), newspaper photo editor PENNY MENARD ([id number]) on 07/25/2018 8:18:43 AM Referred By: BRIANA Confirmed By:BOBY AVERY MD
[2018-07-22] MEDS: predniSONE 20 MG Tablet 60 MG PO (07:40)
[2018-07-22] MEDS: Ipratropium/Albuterol Sulfate 3 ML AMPUL.NEB INHALATION ×3 (07:58→19:19)
[2018-07-22 08:07] LABS: Absolute Lymphocyte Count 1.63 X10^3/ul (0.83-4.51); Absolute Neutrophil Count 6.9 X10^3/uL (2.0-7.7); Basophil# 0.04 X10^3/uL; Basophil% 0.4 % (0-1); Eosinophils% 3.1 % (0-5); Hematocrit 41.1 % (37-47); Hemoglobin 13.3 g/dl (12.0-15.0); Lymphocyte # 1.63 X10^3/ul (4.0); Lymphocyte % 16.7 % (19-41); Mean Corp Hgb Conc 32.4 g/gl (32-36); Mean Corpuscular Volume 86.5 fL (81-99); Mean Platelet Vol. 9.9 fl (6.2-12.0); Monocyte# 0.89 X10^3/uL; Monocyte% 9.1 % (0-10); Neutrophil # 6.86 X10^3/uL (2.7-7.7); Neutrophil % 70.4 % (47-70); Platelet Count 242 K/mm3 (150-450); RBC Distribution Width CV 14.8 % (11.6-14.6); Red Blood Count 4.75 M/mm3 (4.2-5.4); White Blood Count 9.8 K/mm3 (4.4-11.0)
[2018-07-22 08:08] LABS: POSITIVE COUNT NO; POSITIVE DIFFERENTIAL NO; POSITIVE MORPHOLOGY NO
[2018-07-22 08:17] LABS: Anion Gap 10 (5-15); BUN 11 mg/dL (7-18); BUN/Creat Ratio 12.6 RATIO (10-20); Calcium,Total 9.3 mg/dL (8.5-10.1); Chloride 103 mmol/L (98-107); Creatinine, Serum 0.88 mg/dL (0.55-1.02); EST Glomerular Filtration Rate 68 mL/min (>60); Est Glom Filt Rate - Afr Amer 83 mL/min (>60); Estimated Creatinine Clearance 55.06 ml/min; Glucose 209 mg/dL (74-106); Sodium Level 140 mmol/L (136-145)
--- NOTE | 2018-07-22 08:19 | RAD_ITS ---
STUDY: X-RAY CHEST REASON FOR EXAM: Female, 67 years old. Shortness of breath. Productive cough. TECHNIQUE: PA and lateral views of the chest. COMPARISON: Comparison is made with prior study dated May 11, 2018. FINDINGS: EKG electrodes are seen. Stable elevation of the right hemidiaphragm. There is no demonstrated pleural abnormality. Normal size heart. Normal mediastinum and shana. Normal visualized pulmonary arteries. There is atherosclerotic calcification of the aortic arch with tortuosity. There are diffuse degenerative changes of the visualized thoracic spine. Prior left rotator cuff surgery. There is no demonstrated abnormality of the visualized soft tissue structures of the upper abdomen. RAD/Chest PA and Lateral IMPRESSION: No acute abnormality is seen. Electronically Signed: Oswald Moy MD at 8:45 EST , Service support ,
[2018-07-22] MEDS: Albuterol 2.5 MG/3 ML VIAL.NEB. INHALATION ×2 (08:52)
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
--- NOTE | 2018-07-22 09:26 | NURSING ---
DR ITA WARREN
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
--- NOTE | 2018-07-22 09:32 | NURSING ---
MARYU EXAC OF CHRONIC BRONCHITIS [facility]
[2018-07-22] MEDS: HYDROcodone Bitartrate/Apap 5/325 Tablet PO (10:10)
[2018-07-22] MEDS: levoFLOXacin IV 750 MG/150 ML BAG 100 MG IV (10:10)
[2018-07-22] MEDS: Insulin Lispro 100 UNIT/ML INSULN.PEN SQ ×2 (12:06→21:17)
[2018-07-22 12:41] LABS: Bedside Glucose 351 mg/dL (70-110)
[2018-07-22] MEDS: guaiFENesin 1,200 MG Tablet 1200 MG PO ×2 (13:36→21:18)
[2018-07-22] MEDS: Lisinopril 10 MG Tablet PO (13:36)
[2018-07-22] MEDS: Enoxaparin 40 MG/0.4 ML Syringe SC (13:36)
[2018-07-22] MEDS: Insulin Lispro 100 UNIT/ML INSULN.PEN 15 UNIT SC (17:09)
[2018-07-22 18:16] LABS: Bedside Glucose 476 mg/dL (70-110)
[2018-07-22] MEDS: Ketorolac 30 MG/ML Syringe IV (19:12)
[2018-07-22] MEDS: 0.9% NaCl Peripheral Flush Adult/Peds IV ×2 (19:12→21:19)
[2018-07-22] MEDS: Oseltamivir Phosphate 75 MG Capsule PO (21:17)
[2018-07-22] MEDS: Atorvastatin Calcium 40 MG Tablet PO (21:18)
[2018-07-22] MEDS: Insulin Lispro 100 UNIT/ML INSULN.PEN 20 UNIT SC ×2 (21:24→23:32)
[2018-07-22 21:48] LABS: Glucose 685 mg/dL (74-106)
[2018-07-22 22:41] LABS: Bedside Glucose > 500 mg/dL (70-110)
[2018-07-22 23:26] LABS: Bedside Glucose > 500 mg/dL (70-110)
[2018-07-23] VITALS (15 sets, daily range): BP systolic 118–145; BP diastolic 50–62; PULSE 87–117; RESP 16–21; TEMP 36.6–36.9; O2SAT 93–97
[2018-07-23 00:23] LABS: Glucose 584 mg/dL (74-106)
[2018-07-23] MEDS: Insulin Lispro 100 UNIT/ML INSULN.PEN SQ ×4 (03:01→16:55)
[2018-07-23 03:06] LABS: Bedside Glucose 356 mg/dL (70-110)
[2018-07-23 06:56] LABS: Bedside Glucose 273 mg/dL (70-110)
[2018-07-23 07:00] LABS: Absolute Lymphocyte Count 1.14 X10^3/ul (0.83-4.51); Absolute Neutrophil Count 18.5 X10^3/uL (2.0-7.7); Basophil# 0.01 X10^3/uL; Hematocrit 40.7 % (37-47); Hemoglobin 13.3 g/dl (12.0-15.0); Lymphocyte # 1.14 X10^3/ul (4.0); Lymphocyte % 5.5 % (19-41); Mean Corp Hgb Conc 32.7 g/gl (32-36); Mean Corpuscular Hgb 27.8 pg (27.0-32.0); Mean Corpuscular Volume 85.1 fL (81-99); Mean Platelet Vol. 10.4 fl (6.2-12.0); Monocyte# 0.98 X10^3/uL; Monocyte% 4.7 % (0-10); Neutrophil # 18.52 X10^3/uL (2.7-7.7); Neutrophil % 89.4 % (47-70); Platelet Count 300 K/mm3 (150-450); RBC Distribution Width CV 14.8 % (11.6-14.6); RBC Distribution Width SD 44.9 fl (35.1-43.9); Red Blood Count 4.78 M/mm3 (4.2-5.4); White Blood Count 20.7 K/mm3 (4.4-11.0)
[2018-07-23 07:07] LABS: POSITIVE COUNT NO; POSITIVE DIFFERENTIAL NO; POSITIVE MORPHOLOGY NO
[2018-07-23 07:21] LABS: Anion Gap 13 (5-15); BUN 24 mg/dL (7-18); Calcium,Total 9.4 mg/dL (8.5-10.1); Chloride 105 mmol/L (98-107); Creatinine, Serum 1.09 mg/dL (0.55-1.02); EST Glomerular Filtration Rate 53 mL/min (>60); Est Glom Filt Rate - Afr Amer 64 mL/min (>60); Estimated Creatinine Clearance 44.45 ml/min; Glucose 309 mg/dL (74-106); Potassium 4.2 mmol/L (3.5-5.1); Sodium Level 139 mmol/L (136-145)
[2018-07-23] MEDS: Ipratropium/Albuterol Sulfate 3 ML AMPUL.NEB INHALATION ×4 (07:24→18:48)
--- NOTE | 2018-07-23 09:11 | ECHOCS_ITS ---
Reason For Study: Arrhythmia Procedure This was a 2D Doppler, Color Flow transthoracic echocardiogram. Exam performed portable in patient room. Left Ventricle Normal size and thickness. The estimated ejection fraction is 75 %. Stage 1 diastolic dysfunction. No regional wall motion abnormalities noted. Right Ventricle Normal size and thickness. Normal systolic function. Atria Normal left atrium. Normal right atrium. Normal atrial septum. Mitral Valve The mitral valve is structurally normal. No prolapse or stenosis seen. Tricuspid Valve Normal tricuspid valve. Trivial tricuspid valve insufficiency. Right ventricular systolic pressure estimated to be 33 mmHg. Aortic Valve Trisinus/trileaflet aortic valve. Mild focal aortic valve thickening. Pulmonic Valve Normal pulmonic valve. Great Vessels Normal aortic root. Normal arch. Normal inferior vena cava. Inferior vena cava collapse with sniff. Pericardium/Pleural No pericardial effusion. Medication Diluted definity 2ml given slow IV push to enhance endocardial definition. MMode/2D Measurements & Calculations LVIDd: 3.9 cm IVSd: 1.3 cm Ao root diam: 3.2 cm LVIDs: 2.2 cm LVPWd: 1.4 cm FS: 41.9 % LAV(MOD-bp): 64.3 ml LA A4 area: 21.9 cm2 LAV(MOD-bp) Indexed: 33.6 ml/m2 LAV(MOD-sp2): 57.7 ml LAV(MOD-sp4): 65.1 ml Time Measurements MV dec time: 0.14 sec Doppler Measurements & Calculations MV E max jarrett: 79.3 cm/sec Lat Peak E' Jarrett: 6.7 cm/sec Med Peak E' Jarrett: 9.7 cm/sec MV A max jarrett: 118.5 cm/sec E/E' lat: 11.9 E/E' med: 8.2 MV E/A: 0.67 Ao V2 max: 148.8 cm/sec LV V1 max: 152.2 cm/sec PA V2 max: 133.9 cm/sec Ao max P.9 mmHg LV V1 max P.3 mmHg Ao V2 mean: 108.5 cm/sec LV V1 mean P.6 mmHg Ao mean P.5 mmHg LV V1 mean: 109.9 cm/sec Ao V2 VTI: 28.3 cm LV V1 VTI: 30.5 cm TR max jarrett: 263.4 cm/sec TR max P.7 mmHg Interpretation Summary The estimated ejection fraction is 75 %. Stage 1 diastolic dysfunction. Right ventricular systolic pressure estimated to be 33 mmHg. The study was technically difficult. Contrast injection was performed. There is no comparison study available. Ordering Physician: Mary Miller Performed By: Luis Cobb RCS
[2018-07-23] MEDS: Ketorolac 30 MG/ML Syringe IV ×2 (09:42→16:32)
[2018-07-23] MEDS: 0.9% NaCl Peripheral Flush Adult/Peds IV ×3 (09:42→21:11)
[2018-07-23 09:47] LABS: Magnesium 2.1 mg/dL (1.6-2.6)
--- NOTE | 2018-07-23 10:30 | CASEMGMT ---
Addendum entered by Sherry Mckeon 07/23/18 11:11: Pt made aware that she can purchase a shower chair at any local drug store that carries them but that the cost would be [id number] d/t insurance does not cover for them. Pt states she drives and no transportation concerns. 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 Original Note: RN CM [employer] CM to room to meet with patient for initial transition planning/care coordination assessment. RN PHILLY introduced self and role at [facility]. Pt voices understanding and consents to assessment at this time. Pt sitting up in bed in no distress at this time. Pt is A/O at this time and answers all questions appropriately. Care providers, pharmacy, and demographics verified/updated at this time. PCP: No PCP listed. Pt states she is going to start seeing Dr Natasha Huggins and states has an appt with her August 19. Specialists: EVELIO Siegel ([facility] has an appt tomorrow 07/24), [facility]. Preferred [facility]acy: [facility] Insurance: [id number] Prescription Benefit: Yes Living Will/HPOA: Pt does not currently have LW/HCPOA and declines info at this time. LNOK: There is no Person to Notify or Next of Kin listed on demographics. Pt states she does not want anyone's name or number listed. She states she has a son and a daughter and that she has already notified her son that she is in the hospital. States that her daughter wants nothing to do with me and I don't want her to have any information. Living Arrangements: Lives alone in one-story home. States is independent with all ADL's. DME: States has a cane and walker but does not use. Ambulates independently. States could use a shower chair. Pt made aware that [place] [employer] does not cover for cost of shower chair. Pt states she also needs glucometer strips and pen needles. Pt stating she wants a specific kind of pen needle but she doesn't think insurance will cover for them. Pt states she is also going to be looking into getting a new glucometer as well. States she has an appt with EVELIO Lal tomorrow. Instructed to discuss diabetic supplies and preferences at that appt. HHC/SNF: Has never used HHC or been to a SNF. Declines need for or wanting HHC. No needs identified. Pt wishes to return home and states has no concerns with going home at time of discharge. CM to follow for any discharge planning/needs. Pt voices no further concerns/needs at this time. Advised pt to ask for CM if any further questions/concerns/needs arise. Voices understanding. PLAN: Home Ren ROBERTS RN CM
[2018-07-23] MEDS: Oseltamivir Phosphate 75 MG Capsule PO ×2 (10:43→21:11)
[2018-07-23] MEDS: Enoxaparin 40 MG/0.4 ML Syringe SC (10:43)
[2018-07-23] MEDS: Lisinopril 10 MG Tablet PO (10:43)
[2018-07-23] MEDS: guaiFENesin 1,200 MG Tablet 1200 MG PO ×2 (10:43→21:11)
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
--- NOTE | 2018-07-23 11:03 | CASEMGMT ---
Per Bobby WALTON CM, pt has an appt with EVELIO Lal tomorrow and she would like to keep it and pt c/o some concerns with getting the diabetics supplies that she prefers through her insurance. Call to Rohini at EVELIO Lal's office and she states that pt's appt is set up for [id number] 07/24/18 and this RN CM made her aware of pt's concerns about getting diabetes supplies at this time. She states that they can only help pt if they see her tomorrow. Dr. Miller states she was already aware of pt's request to keep appt tomorrow and plans to discharge pt in the am. Sandeep WALTON CM
[2018-07-23 12:38] LABS: Glucose 596 mg/dL (74-106)
[2018-07-23 12:48] LABS: Hemoglobin A1c 11.2 % (4.2-6.3)
[2018-07-23 12:56] LABS: Bedside Glucose > 500 mg/dL (70-110)
[2018-07-23] MEDS: predniSONE 20 MG Tablet 40 MG PO (14:26)
[2018-07-23 16:40] LABS: Bedside Glucose > 500 mg/dL (70-110)
[2018-07-23 18:00] LABS: Anion Gap 14 (5-15); BUN 30 mg/dL (7-18); BUN/Creat Ratio 19.4 RATIO (10-20); Calcium,Total 8.8 mg/dL (8.5-10.1); Chloride 100 mmol/L (98-107); Creatinine, Serum 1.55 mg/dL (0.55-1.02); EST Glomerular Filtration Rate 35 mL/min (>60); Est Glom Filt Rate - Afr Amer 43 mL/min (>60); Estimated Creatinine Clearance 31.26 ml/min; Glucose 629 mg/dL (74-106); Potassium 4.4 mmol/L (3.5-5.1); Sodium Level 134 mmol/L (136-145)
[2018-07-23 18:56] LABS: Bedside Glucose > 500 mg/dL (70-110)
[2018-07-23] MEDS: 0.9% Normal Saline 1,000 ML 150 ML IV (21:08)
[2018-07-23] MEDS: Atorvastatin Calcium 40 MG Tablet PO (21:11)
[2018-07-23 23:01] LABS: Bedside Glucose > 500 mg/dL (70-110)
[2018-07-23 23:01] LABS: Bedside Glucose > 500 mg/dL (70-110)
[2018-07-23 23:10] LABS: Bedside Glucose 430 mg/dL (70-110)
[2018-07-23 23:15] LABS: Glucose 535 mg/dL (74-106)
[2018-07-24] VITALS (26 sets, daily range): BP systolic 116–157; BP diastolic 59–97; PULSE 70–102; RESP 15–23; TEMP 36.8–36.9; O2SAT 95–100
[2018-07-24 00:21] LABS: Bedside Glucose 396 mg/dL (70-110)
[2018-07-24] MEDS: 0.9% NaCl Peripheral Flush Adult/Peds IV ×3 (00:59→20:51)
[2018-07-24] MEDS: Ketorolac 30 MG/ML Syringe IV ×2 (01:00→11:18)
[2018-07-24 01:11] LABS: Bedside Glucose 410 mg/dL (70-110)
[2018-07-24 04:05] LABS: Bedside Glucose 339 mg/dL (70-110)
[2018-07-24 04:05] LABS: Bedside Glucose 374 mg/dL (70-110)
[2018-07-24] MEDS: 0.9% Normal Saline 1,000 ML 150 ML IV (04:09)
[2018-07-24] MEDS: Ipratropium/Albuterol Sulfate 3 ML AMPUL.NEB INHALATION ×5 (04:37→19:10)
[2018-07-24 05:01] LABS: Bedside Glucose 309 mg/dL (70-110)
[2018-07-24 06:10] LABS: Bedside Glucose 265 mg/dL (70-110)
[2018-07-24 08:19] LABS: Absolute Lymphocyte Count 2.23 X10^3/ul (0.83-4.51); Absolute Neutrophil Count 18.6 X10^3/uL (2.0-7.7); Basophil# 0.01 X10^3/uL; Hematocrit 35.2 % (37-47); Hemoglobin 11.4 g/dl (12.0-15.0); Lymphocyte # 2.23 X10^3/ul (4.0); Lymphocyte % 10.1 % (19-41); Mean Corp Hgb Conc 32.4 g/gl (32-36); Mean Corpuscular Hgb 28.1 pg (27.0-32.0); Mean Corpuscular Volume 86.9 fL (81-99); Mean Platelet Vol. 10.3 fl (6.2-12.0); Monocyte# 1.06 X10^3/uL; Monocyte% 4.8 % (0-10); Neutrophil % 84.6 % (47-70); Platelet Count 267 K/mm3 (150-450); RBC Distribution Width CV 14.9 % (11.6-14.6); RBC Distribution Width SD 46.8 fl (35.1-43.9); Red Blood Count 4.05 M/mm3 (4.2-5.4)
[2018-07-24 08:20] LABS: POSITIVE COUNT NO; POSITIVE DIFFERENTIAL NO; POSITIVE MORPHOLOGY NO
--- NOTE | 2018-07-24 08:50 | CASEMGMT ---
This RN CM received a call from [facility] that they have to cancel pt's appt today because EVELIO Lal is not in today now and they will not be able to re-schedule for her d/t EVELIO Lal is retiring in August and does not have any open appt's to re-schedule pt into prior to her leaving. This RN CM advised them that they need to be the ones to call pt to advise her of all this new info, voice understanding. They state that they have a list of providers to give to pt to try and get an appt with. CM to follow with pt for any further discharge planning/needs. Sandeep WALTON CM
[2018-07-24 08:54] LABS: BUN 29 mg/dL (7-18); Creatinine, Serum 0.89 mg/dL (0.55-1.02); EST Glomerular Filtration Rate 67 mL/min (>60); Estimated Creatinine Clearance 54.44 ml/min; Glucose 181 mg/dL (74-106)
[2018-07-24 08:55] LABS: Anion Gap 9 (5-15); BUN/Creat Ratio 32.5 RATIO (10-20); Calcium,Total 8.5 mg/dL (8.5-10.1); Chloride 110 mmol/L (98-107); Est Glom Filt Rate - Afr Amer 81 mL/min (>60); Potassium 3.8 mmol/L (3.5-5.1); Sodium Level 141 mmol/L (136-145)
[2018-07-24 10:35] LABS: Bedside Glucose 166 mg/dL (70-110)
[2018-07-24 10:35] LABS: Bedside Glucose 303 mg/dL (70-110)
[2018-07-24] MEDS: Oseltamivir Phosphate 75 MG Capsule PO ×2 (10:44→20:50)
[2018-07-24] MEDS: guaiFENesin 1,200 MG Tablet 1200 MG PO ×2 (10:44→20:50)
[2018-07-24] MEDS: predniSONE 20 MG Tablet 40 MG PO (10:44)
[2018-07-24] MEDS: Enoxaparin 40 MG/0.4 ML Syringe SC (10:44)
[2018-07-24] MEDS: Lisinopril 10 MG Tablet PO (10:45)
[2018-07-24 11:26] LABS: Bedside Glucose 324 mg/dL (70-110)
[2018-07-24 13:40] LABS: Bedside Glucose 423 mg/dL (70-110)
[2018-07-24] MEDS: Insulin Lispro 100 UNIT/ML INSULN.PEN 32 UNIT SC ×2 (14:27→17:06)
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
[2018-07-24 16:25] LABS: Bedside Glucose 324 mg/dL (70-110)
[2018-07-24] MEDS: Insulin Lispro 100 UNIT/ML INSULN.PEN SC ×2 (17:06→20:51)
--- NOTE | 2018-07-24 18:55 | NURSING ---
Patient has been asking all day to leave. Despite constant education on condition as well as blood sugars. Patient has been stating she is going to leave AMA. Patient stated,I am going to leave AMA and I dont give f*ck. If I stay I want to be left the f*ck alone. Informed patient that she will have to be evaluated to some extent tonight. Expressed patients need to stay and reeducated.
[2018-07-24] MEDS: Atorvastatin Calcium 40 MG Tablet PO (20:50)
--- NOTE | 2018-07-24 21:00 | NURSING ---
All 2200 medications given early due to patient request. Patient is unhappy with MD from [facility] and that she was not released home. Patient does not want to be bothered throughout the night. Explained to patient that RN has to check on patient and make sure she is okay but will minimize interruptions at best. Patient agreeable to this at this time.
[2018-07-24 21:46] LABS: Bedside Glucose 335 mg/dL (70-110)
[2018-07-25] VITALS (8 sets, daily range): BP systolic 140–154; BP diastolic 68–83; PULSE 72–89; RESP 16–21; TEMP 36.9; O2SAT 95–99
[2018-07-25] MEDS: 0.9% NaCl Peripheral Flush Adult/Peds IV (01:17)
[2018-07-25] MEDS: Ketorolac 30 MG/ML Syringe IV (01:17)
[2018-07-25 06:41] LABS: Absolute Lymphocyte Count 2.93 X10^3/ul (0.83-4.51); Basophil# 0.01 X10^3/uL; Basophil% 0.1 % (0-1); Eosinophil# 0.02 X10^3/uL; Eosinophils% 0.1 % (0-5); Hemoglobin 11.8 g/dl (12.0-15.0); Lymphocyte # 2.93 X10^3/ul (4.0); Lymphocyte % 21.2 % (19-41); Mean Corp Hgb Conc 32.8 g/gl (32-36); Mean Corpuscular Hgb 28.7 pg (27.0-32.0); Mean Corpuscular Volume 87.6 fL (81-99); Mean Platelet Vol. 10.2 fl (6.2-12.0); Monocyte# 0.79 X10^3/uL; Monocyte% 5.7 % (0-10); Neutrophil # 9.96 X10^3/uL (2.7-7.7); POSITIVE COUNT NO; POSITIVE DIFFERENTIAL NO; POSITIVE MORPHOLOGY NO; Platelet Count 249 K/mm3 (150-450); RBC Distribution Width CV 15.1 % (11.6-14.6); RBC Distribution Width SD 47.7 fl (35.1-43.9); Red Blood Count 4.11 M/mm3 (4.2-5.4); White Blood Count 13.8 K/mm3 (4.4-11.0)
[2018-07-25 07:00] LABS: Bedside Glucose 65 mg/dL (70-110)
[2018-07-25] MEDS: Ipratropium/Albuterol Sulfate 3 ML AMPUL.NEB INHALATION (07:20)
[2018-07-25 07:30] LABS: Bedside Glucose 90 mg/dL (70-110)
[2018-07-25 08:35] LABS: BUN 28 mg/dL (7-18); Creatinine, Serum 0.69 mg/dL (0.55-1.02); Glucose 72 mg/dL (74-106)
[2018-07-25 08:36] LABS: Anion Gap 9 (5-15); BUN/Creat Ratio 40.5 RATIO (10-20); Calcium,Total 8.9 mg/dL (8.5-10.1); Chloride 113 mmol/L (98-107); EST Glomerular Filtration Rate 89 mL/min (>60); Est Glom Filt Rate - Afr Amer 108 mL/min (>60); Estimated Creatinine Clearance 48.45 ml/min; Potassium 3.9 mmol/L (3.5-5.1); Sodium Level 144 mmol/L (136-145)
[2018-07-25] MEDS: predniSONE 20 MG Tablet 40 MG PO (08:53)
[2018-07-25] MEDS: Oseltamivir Phosphate 75 MG Capsule PO (08:58)
[2018-07-25] MEDS: Lisinopril 10 MG Tablet PO (08:58)
[2018-07-25] MEDS: guaiFENesin 1,200 MG Tablet 1200 MG PO (08:58)
--- NOTE | 2018-07-25 11:41 | CASEMGMT ---
This RN CM to room to f/u on discharge planning/needs with pt at this time. Pt states that she is scheduled to see Dr. Acosta, her new PCP, next Saturday08/01/[address] Siegel on this Saturday07/28/18. Pt provided with in-network list of endocrinologists [place] at this time and states she will be calling the one of her choice to schedule an appt nicholas. Pt states 'I need an manager athletics to manage my diabetes' and this RN CM reinforced this to pt as well. Pt states that she has a glucometer from [facility] but [facility] and [facility] not carry the strips that she needs there. Dr. Miller aware that pt will need new script for glucometer w/ supplies at this time, voices understanding. Pt voices no further questions/concerns/needs at this time and thanks this RN CM at this time. Sandeep RN CM
--- NOTE | 2018-07-25 11:42 | PCM.DC ---
You will use the following diet at home:: Calorie/Carbohydrate Controlled (specify 1200, 1400, etc) - 1800 calories Your food should be the consistency of: Regular Your liquids should be the consistency of: Regular/Thin Discharge Activity: Return to Normal Activity Weight Bearing Status: Weight bearing as tolerated Call your doctor if you observe: Fever of 101 or Higher, Shortness of breath, Swelling in the ankles Instructions: Influenza, Hyperglycemia (High Blood Sugar), Using a Blood Sugar Log, Long-Term Complications of Diabetes Additional Instructions: follow up with your new youth program director in one week Allergies/Adverse Reactions: Allergies iodine Allergy (Verified 07/19/18 10:38) Swelling Latex, Natural Rubber Allergy (Verified 07/19/18 10:38) Itching morphine Allergy (Verified 07/19/18 10:38) Shortness of breath Penicillins Allergy (Verified 07/19/18 10:38) Shortness of breath Sulfa (Sulfonamide Antibiotics) Allergy (Verified 07/19/18 10:38) Hives benztropine mesylate [From Cogentin] Adverse Reaction (Verified 07/19/18 10:38) Other URINARY RETENTION codeine Adverse Reaction (Verified 07/19/18 10:38) Other JITTERY haloperidol [From Haldol] Adverse Reaction (Verified 07/19/18 10:38) Other MUSCLE CONTRACTIONS haloperidol lactate [From Haldol] Adverse Reaction (Verified 07/19/18 10:38) Other MUSCLE CONTRACTIONS lithium [[place]] Adverse Reaction (Verified 07/19/18 10:38) Diarrhea pseudoephedrine HCl [From Sudafed] Adverse Reaction (Verified 07/19/18 10:38) Other JITTERY theophylline Adverse Reaction (Verified 07/19/18 10:38) Other TUNNEL EFFECT; TUNNEL VISION Medications to take at Discharge Atorvastatin Calcium [Lipitor] 40 mg PO QHS 04/05/14 Insulin Glargine [Lantus SoloStar Pen] 50 units SUBCUT BID 04/05/14 Insulin Lispro [Humalog] 32 unit SQ TIDCM 04/05/14 Lisinopril [Zestril] 10 mg PO DAILY 04/05/14 Albuterol IH (ProAir) [Proair Hfa] 1 puff INHALATION BID PRN 06/20/18 Insulin Glargine [Lantus SoloStar Pen] 75 units SC BID #10 pen 07/25/18 Metformin(XR) [Glucophage Xr] 1,000 mg PO DAILY@1700 #30 tablet 07/25/18 Oseltamivir Phosphate [Tamiflu] 75 mg PO BID #4 capsule 07/25/18 The following prescriptions were given: Metformin(XR) [Glucophage Xr] 1,000 mg PO DAILY@1700 #30 tablet Insulin Glargine [Lantus SoloStar Pen] 75 units SC BID #10 pen Oseltamivir Phosphate [Tamiflu] 75 mg PO BID #4 capsule Orders to be completed after discharge: Glucometer Location: None Selected Primary Care Physician: Care Physician,No Primary [NON-STAFF] - Please follow up with your Primary Care Physician in: follow up with your new PCP in one week Test Results: Test results from this visit will be discussed in further detail at your follow-up appointment, if applicable. Please Follow Up With: Cathy Lal NP-C Proposed Discharge Date: 07/25/18
--- NOTE | 2018-07-25 11:44 | DS.PCM_ITS ---
Discharge Date and Diagnosis Date of Admission: 07/22/18 Date of Discharge: 07/25/18 - Primary Discharge Diagnosis COPD exacerbation influenza infection hyperglycemia acute hypoxic respiratory failure - Secondary Discharge Diagnosis Chronic Problems (Last Reviewed 07/06/18 @ 12:30 by Michelet Simpson MD) HTN (hypertension) (Chronic) COPD (chronic obstructive pulmonary disease) (Chronic) Sciatica (Chronic) Diverticulosis (Chronic) Hospital Course and Treatment Imaging Results: Diagnostic Data Chest X-Ray 07/22/18 08:19 IMPRESSION: No acute abnormality is seen. Electronically Signed: Oswald Moy MD at 8:45 EST , Service support , Operations: None Procedures: 2-D Echocardiogram Summary of Care Provided: The patient is a 67 year old F with past medical history of chronic bronchitis, COPD and hypertension as well as sciatica and diverticulosis. She has a history of diabetes and high cholesterol. She was admitted through the ED with complaint of shortness of breath for 4 days prior to admission with assisted rh inorrhea and wheezing. She did have a cough which was nonproductive and had no chest pain, palpitation, dizziness, abdominal pain, diarrhea vomiting. In the ED, she was found to be tachypneic with respiratory rate of 25 and initial pulse ox of 90 which subsequently went down to 80% on room air. EKG showed no acute ST changes and chest x-ray showed no acute cardia pulmonary process. She was admitted and managed for acute hypoxic respiratory failure due to upper respiratory tract infection. Patient was placed on oxygen to titrate to maintain saturation above 92%. She was placed on breathing treatments. She subsequently tested positive for influenza a infection. She was started on Tamiflu. She was also on steroids for COPD exacerbation. Patient's blood sugars were very very poorly controlled during the admission and were over 600 during the admission. Her A1c was 11.2. Patient stated that she had fired her previous doctor because her doctor just kept on increasing her insulin. Patient claimed that she had been compliant with her insulin but this did not correspond with a A1c. Patient required an insulin drip to help control her blood sugars and insulin was increased from 50 units of Lantus twice daily to 75 units of Lantus twice daily. She was also placed on high intensity sliding scale during this admission. Of note, it might be stated the patient was quite difficult during this admission and was angry about numerous things including the fact that her primary care doctor had mismanaged her diabetes according to her and so she had fired her. Patient was also due to have an appointment with the endocrinology nurse practitioner in [facility] but this appointment was canceled and so patient was very very angry about it. Patient was also angry that she had been placed on insulin sliding scale during this admission and thought that it was not logical management. Patient blood sugar control improved and she was discharged home on 07/25/2018 with a prescription for Tamiflu 75 and a gram twice daily for 4 more doses to complete a 5-day course. Patient was also told to follow-up with her primary care doctor and she said she was in the process of finding one that she would like. She was also told to follow-up with an technical business systems analyst and she said she was trying to find one in [place]. Seen and examined prior to discharge. Patient was very angry about numerous things, including the fact that she had been on insulin drip, and that her insulin doses had been adjusted. She denied any fever or chills, shortness of breath, chest pain, palpitation, abdominal pain, diarrhea vomiting. Review of systems otherwise negative. Labs and vitals reviewed. Home medications reviewed and reconciled. O/e: Vital Signs Height 5 ft 5 in Weight: 185 lb 13.595 oz Weight in Pounds 185.8 lbs Pulse Ox 98 Temperature 98.4 F Pulse Rate 81 Respiratory Rate 16 Blood Pressure [BP] 129/71 Blood Pressure 140/82 Blood Pressure Position [BP] Semi-Fowlers Blood Pressure Position Semi-Fowlers [] General: Alert, Oriented x3, very uncooperative, No apparent distress HEENT: Atraumatic, PERRLA, EOMI, Normocephalic Oral: Moist Mucosa Neck: Supple, No JVD, Negative Carotid Bruits Lungs: - - clear to auscultation. On room air. Cardiovascular: Regular rate, Regular Rhythm, Normal S1, Normal S2, No murmurs Abdomen: Bowel Sounds Present, Soft, Non Tender, Non-Distended, No Hepato- splenomegaly Extremities: No clubbing, No cyanosis, No edema, Capillary Refill Less than 3 Seconds Skin: No rashes, No breakdown Musculoskeletal: No Tenderness to Palpation of Joints or Extremities Lymphatic: No Cervical, Supraclavicular, or Inguinal Adenopathy Neurological: Cranial nerves II-XII grossly intact, Neuro grossly intact, Motor Exam 5/5 strength throughout Psych/Mental Status: Normal Affect, Appropriate, Alert and oriented to time, place, person, mood and affect Sinus described above. She was also discharged with a prescription for p.o. Metformin XR 1000 milligrams daily. - Physical Exam Vital Signs Temp Pulse Resp BP Pulse Ox 98.4 F 81 16 145/68 H 99 07/25/18 08:50 07/25/18 10:58 07/25/18 08:50 07/25/18 08:50 07/25/18 08:50 Oxygen Flow Rate (L/min) 2 Oxygen Delivery Method Room Air Weight: 185 lb 13.595 oz Body Mass Index (BMI) 30.9 Finger Stick Blood Glucose 303 Intake and Output for Last 24 Hours 07/23/18 07/24/18 07/25/18 23:59 23:59 23:59 Intake Total 3657.5 / 3657.5 340 / 340 Balance 3657.5 / 3657.5 340 / 340 Microbiology Past 72 Hours 07/22/18 15:10 Respiratory Panel (PCR) - Final Mucosa - Nasopharyngeal Influenzae A Influenza A (Subtype H1) Laboratory Tests Past 24 Hrs 07/25/18 07/25/18 06:15 06:15 WBC 13.8 H RBC 4.11 L Hgb 11.8 L Hct 36.0 L MCV 87.6 MCH 28.7 MCHC 32.8 RDW 15.1 H RDW Differential 47.7 H Plt Count 249 MPV 10.2 Immature Gran % (Auto) 0.900 Neut % (Auto) 72.0 H Lymph % (Auto) 21.2 [place] % (Auto) 5.7 Eos % (Auto) 0.1 Baso % (Auto) 0.1 Absolute Neuts (auto) 10.0 H Absolute Lymphs (auto) 2.93 Total Counted Not Reportable Sodium 144 Potassium 3.9 Chloride 113 H Carbon Dioxide 22.0 Anion Gap 9 BUN 28 H Creatinine 0.69 Estim Creat Clear Calc 48.45 Est GFR (MDRD) Af Amer 108 Est GFR (MDRD) Non-Af 89 BUN/Creatinine Ratio 40.5 H Glucose 72 L Calcium 8.9 POC Glucose 07/25/18 07/25/18 07/24/18 07:24 06:43 20:48 POC Glucose 90 65 L 335 H 07/24/18 07/24/18 16:21 13:34 POC Glucose 324 H 423 H Discharge Diet: Low fat/ Low Cholesterol Discharge Activity: Return to Normal Activity Weight Bearing Status: Weight bearing as tolerated Call your doctor if you observe: Fever of 101 or Higher, Shortness of breath, Swelling in the ankles Home Medications: Medications to take at Discharge Atorvastatin Calcium [Lipitor] 40 mg PO QHS 04/05/14 Insulin Glargine [Lantus SoloStar Pen] 50 units SUBCUT BID 04/05/14 Insulin Lispro [Humalog] 32 unit SQ TIDCM 04/05/14 Lisinopril [Zestril] 10 mg PO DAILY 04/05/14 Albuterol IH (ProAir) [Proair Hfa] 1 puff INHALATION BID PRN 06/20/18 Insulin Glargine [Lantus SoloStar Pen] 75 units SC BID #10 pen 07/25/18 Metformin(XR) [Glucophage Xr] 1,000 mg PO DAILY@1700 #30 tablet 07/25/18 Oseltamivir Phosphate [Tamiflu] 75 mg PO BID #4 capsule 07/25/18 Following Prescrptions Were Given to Patient: Metformin(XR) [Glucophage Xr] 1,000 mg PO DAILY@1700 #30 tablet Insulin Glargine [Lantus SoloStar Pen] 75 units SC BID #10 pen Oseltamivir Phosphate [Tamiflu] 75 mg PO BID #4 capsule Other Amb Orders: Glucometer Location: None Selected Primary Care Physician: Care Physician,No Primary [NON-STAFF] - Please follow up with your Primary Care Physician in: follow up with your new P CP in one week Please Follow Up With: Cathy Lal RESERVATIONS SALES AGENTDallinC When: follow up with your new technical business systems analyst Patient Instructions: Using a Blood Sugar Log, Long-Term Complications of Diabetes, Hyperglycemia (High Blood Sugar), Influenza Disposition: Home Minutes spent on discharge:: 40 Patient Condition:: Stable Medical Necessity - Tobacco Use Smoking Status: Never smoker Meaningful Use Info Meaningful Use Diagnoses (Choose all that apply): None applicable Code Visit Inpatient E&M: 06658 Disch Hosp
--- NOTE | 2018-07-25 12:00 | NURSING ---
Spoke with patient about afternoon blood glucose check - denied twice. Denied our coverage and stated,I will check myself with my own pricker. I don't want to be stuck with your bullsh*t pricker anymore times than I have to.
--- NOTE | 2018-07-28 14:40 | CASEMGMT ---
Addendum entered by Princess Mancuso 07/28/18 15:05: DC Date: 07/25/18 MAXWELL Haque Original Note: Addendum entered by Princess Mancuso 07/28/18 15:04: DC Date: 07/22/18 MAXWELL Haque Original Note: ANTON RUSH Phone call DC Date: 07/28/18 DC Disposition: Home LACE/STRATA: 22/09 Called patient, Introduced role of CM to patient via phone, agrees to discussion. States she did receive list of Combine Driver, and is actively looking for one. [facility] has found a PCP to follow up with and f/u with Dr Siegel today. Denies any questions or concerns with her aftercare instructions or medications. MAXWELL Haque
== END 2018-07-25 12:30 | disposition home or self-care (01) | DRG 189 ==
LOC: ED 07:44 → PCU 09:45
PROVIDERS: Family Medicine; Admitting Provider Student in an Organized Health Care Education/Training Program; Emergency Provider Emergency Medicine; Family Provider Family Medicine; PCP Family Medicine; Visit Provider Student in an Organized Health Care Education/Training Program
DX: J96.01 Acute respiratory failure with hypoxia (principal); I47.2 Ventricular tachycardia; J44.1 Chronic obstructive pulmonary disease with (acute) exacerbation; J10.1 Influenza due to other identified influenza virus with other respiratory manifestations; E78.5 Hyperlipidemia, unspecified; I10 Essential (primary) hypertension; T59.811S Toxic effect of smoke, accidental (unintentional), sequela; J68.4 Chronic respiratory conditions due to chemicals, gases, fumes and vapors; X00.1 Exposure to smoke in uncontrolled fire in building or structure; E11.65 Type 2 diabetes mellitus with hyperglycemia; T38.0X5A Adverse effect of glucocorticoids and synthetic analogues, initial encounter; M54.30 Sciatica, unspecified side; K57.90 Diverticulosis of intestine, part unspecified, without perforation or abscess without bleeding; Z79.899 Other long term (current) drug therapy; Z79.4 Long term (current) use of insulin; S80.02XA Contusion of left knee, initial encounter; S30.0XXA Contusion of lower back and pelvis, initial encounter; W00.0XXA Fall on same level due to ice and snow, initial encounter; Y93.9 Activity, unspecified; Y92.481 Parking lot as the place of occurrence of the external cause; Y99.9 Unspecified external cause status
CPT/HCPCS: 36415; 71046; 72100; 73562; 73610; 80048; 82947; 82962; 83036; 83735; 85025; 87633; 93005; 93306; 94640; 94762; 97161; 97165; 97530; 99283; 99284; J7030; Q9957; A4216; C8929

== ENCOUNTER → 2018-08-12 06:55 | Outpatient (CLI) | payer MEDICARE, SELFPAY ==
[2018-07-28 10:42] VITALS: BMI 31.6
--- NOTE | 2018-08-15 11:20 | PFT ---
INTRODUCTION: The patient is a 67-year-old female that presents for pulmonary function studies secondary to a diagnosis of COPD. Respiratory therapy reports good patient effort. Bronchodilators were used during testing. INTERPRETATION: Forced expiration spirometry demonstrates no evidence of a large airways obstructive ventilatory defect. There was no significant response to aerosolized bronchodilators. Spirograms are of good quality and plateau normally. Body plethysmography was performed and reveals a decreased TLC to 4.09 L, 81% of predicted, indicative of a mild restrictive ventilatory impairment. The remainder of the lung volumes are symmetrically reduced. IMPRESSION: Isolated mild restrictive ventilatory impairment.
== END ==
PROVIDERS: Family Provider Family Medicine; PCP Family Medicine; Referring Provider Internal Medicine Critical Care Medicine; Visit Provider Internal Medicine Critical Care Medicine
DX: J44.9 Chronic obstructive pulmonary disease, unspecified (principal)
CPT/HCPCS: 94060; 94726; 94729

== ENCOUNTER → 2018-08-21 08:27 | Outpatient (CLI) | payer MEDICARE, SELFPAY ==
[2018-07-28 10:42] VITALS: BMI 31.6
[2018-08-21 08:49] VITALS: PULSE 107; PULSE 109; PULSE 116; PULSE 119; PULSE 121; PULSE 84; PULSE 92; O2SAT 95; O2SAT 96; O2SAT 98; O2SAT 99
--- NOTE | 2018-08-22 11:04 | PCM.PSN.6M ---
PSN 6 Minute Walk Test - 6 Minute Walk Test 6 Minute Walk Test: 6 Minute Walk Test PSN:6-Minute Walk Test Start: 08/21/18 08:49 Freq: Status: Active Protocol: RESP.6MINW Document 08/21/18 08:49 SMB (Rec: 08/21/18 08:56 SMB [id number]) 6 Minute Walk Test Date Performed 08/21/18 Time Performed 08:34 Height 5 ft 5 in Weight: 186 lb Weight in Pounds 186.[address]: Andre Siegel Assistive device used: None Pre-test Oxygen Delivery Method Room Air Pulse Ox (%) 99 Pulse Rate (60-100 beats/min) 84 Dyspnea Chelsea Scale (0-10) 0 Exertion Chelsea Scale (6-20) 11 1st minute Oxygen Delivery Method Room Air Pulse Ox (%) 98 Pulse Rate (60-100 beats/min) 109 H 2nd minute Oxygen Delivery Method Room Air Pulse Ox (%) 96 Pulse Rate (60-100 beats/min) 116 H 3rd minute Oxygen Delivery Method Room Air Pulse Ox (%) 96 Pulse Rate (60-100 beats/min) 116 H 4th minute Oxygen Delivery Method Room Air Pulse Ox (%) 95 Pulse Rate (60-100 beats/min) 107 H 5th minute Oxygen Delivery Method Room Air Pulse Ox (%) 95 Pulse Rate (60-100 beats/min) 119 H 6th minute Oxygen Delivery Method Room Air Pulse Ox (%) 95 Pulse Rate (60-100 beats/min) 121 H Post-test Oxygen Delivery Method Room Air Pulse Ox (%) 98 Pulse Rate (60-100 beats/min) 92 Dyspnea Chelsea Scale (0-10) 1 Exertion Chelsea Scale (6-20) 11 Full Laps Walked 26 Partial Lap, Number of Tiles Walked 12 Total Distance Walked (ft) 1546 - Interpretation Interpretation: The patient ambulated 1546 feet over the course of 6 minutes beginning on room air without assistive devices or breaks. Pretesting oxygen saturation was noted to be 99% on room air. With ambulation, the gomez oxygen saturation was 95%. This represents a significant exertional oxygen desaturation. - Recommendations Recommendations: There is no indication for the use of supplemental oxygen at this time.
== END ==
PROVIDERS: Family Provider Family Medicine; PCP Family Medicine; Referring Provider Internal Medicine Critical Care Medicine; Visit Provider Internal Medicine Critical Care Medicine
DX: J44.9 Chronic obstructive pulmonary disease, unspecified (principal)
CPT/HCPCS: 94618; 94729

== ENCOUNTER 2018-08-24 13:56 | Emergency (ER) | payer MEDICARE, SELFPAY ==
[2018-07-28 10:42] VITALS: BMI 31.6
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
[2018-08-24 14:02] VITALS: BP 138/72; PULSE 94; RESP 18; TEMP 36.7; O2SAT 98; BMI 30.6
--- NOTE | 2018-08-24 14:47 | ED.RN ---
PT WITNESSED EXITING DEPARTMENT, DR. JOHNSTON MADE AWARE.
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
--- NOTE | 2018-08-24 14:50 | ED.RN ---
PT WALKED OUT FO UNIT PASSED THIS NURSE AT TRIAGE. STATES ITS GOING TO TAKE TO LONG BACK THERE. I AM GOING TO GO ENJOY THE DAY. PT DID NOT STOP TO TALK FURTHER WITH NURSE. STRAIGHT FOR DOOR
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
== END 2018-08-24 14:50 | disposition home or self-care (01) ==
LOC: ED 14:37
PROVIDERS: Emergency Provider Emergency Medicine; Family Provider Family Medicine; PCP Family Medicine
DX: F32.9 Major depressive disorder, single episode, unspecified (principal); F10.21 Alcohol dependence, in remission; J44.9 Chronic obstructive pulmonary disease, unspecified; E11.9 Type 2 diabetes mellitus without complications; I10 Essential (primary) hypertension; Z79.4 Long term (current) use of insulin; Z79.899 Other long term (current) drug therapy

== ENCOUNTER 2018-08-30 09:13 | Emergency (ER) | payer MEDICARE, SELFPAY ==
[2018-08-30 09:14] VITALS: BP 145/84; PULSE 95; RESP 16; TEMP 36.2; O2SAT 98; BMI 30.6
[2018-08-30 09:22] VITALS: O2SAT 98
--- NOTE | 2018-08-30 09:35 | RAD_ITS ---
STUDY: X-RAY CHEST REASON FOR EXAM: Female, 67 years old. SOB/DYSPNEA; TECHNIQUE: Frontal and lateral views of the chest. COMPARISON: None. FINDINGS: The lungs are clear and expanded. Elevated right hemidiaphragm, stable. There is no demonstrated pleural abnormality. Normal size heart. Normal mediastinum and shana. Normal visualized pulmonary arteries. Normal visualized aortic arch and descending thoracic aorta. There are diffuse degenerative changes of the visualized thoracic spine. Normal visualized ribs, clavicles, and shoulders. There is no demonstrated abnormality of the visualized soft tissue structures of the upper abdomen. RAD/Chest PA and Lateral IMPRESSION: Normal x-ray examination of the chest. Electronically Signed: Jeffrey Lainez MD at 10:36 EDT , Service support ,
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
[2018-08-30] MEDS: Ipratropium/Albuterol Sulfate 3 ML AMPUL.NEB INHALATION (10:25)
[2018-08-30 10:26] VITALS: PULSE 78; RESP 18
[2018-08-30] MEDS: predniSONE 20 MG Tablet 40 MG PO (10:46)
[2018-08-30 10:47] VITALS: RESP 18; O2SAT 97
--- NOTE | 2018-08-30 11:07 | ED.DEP ---
ED Disposition - Plan for ED Patient: Disposition: Home or Assisted Living Instructions: ED COPD Flare Prescriptions: Prednisone [Deltasone] 40 mg PO DAILY #6 tablet Referrals: Natasha Huggins MD [Primary Care Provider] - 1 Week
[2018-08-30 11:12] VITALS: BP 135/90; PULSE 82; RESP 18
== END 2018-08-30 11:13 | disposition home or self-care (01) ==
PROVIDERS: Emergency Provider Emergency Medicine; Family Provider Family Medicine; PCP Family Medicine
DX: J98.01 Acute bronchospasm (principal); J44.9 Chronic obstructive pulmonary disease, unspecified; X02.1XXA Exposure to smoke in controlled fire in building or structure, initial encounter; Y93.9 Activity, unspecified; Y92.9 Unspecified place or not applicable; Y99.9 Unspecified external cause status; E11.9 Type 2 diabetes mellitus without complications; I10 Essential (primary) hypertension; G47.33 Obstructive sleep apnea (adult) (pediatric); Z79.4 Long term (current) use of insulin; Z79.899 Other long term (current) drug therapy
CPT/HCPCS: 71046; 94760; 99283; A4216

== ENCOUNTER 2018-09-02 01:03 | Emergency (ER) | payer MEDICARE, SELFPAY ==
[2018-09-02 01:06] VITALS: BP 209/97; PULSE 97; RESP 20; TEMP 36.6; O2SAT 100; BMI 31.4
[2018-09-02 01:11] VITALS: BP 209/97; PULSE 91; RESP 20; TEMP 36.6; O2SAT 99
[2018-09-02 01:35] VITALS: BP 168/75
--- NOTE | 2018-09-02 02:24 | ED.DCSUM_ITS ---
- ER Visit Summary Date of Service: 09/02/18 Chief Complaint: Left ear pain History of Present Illness: The patient is a 67 F who presents with left ear pain. Began today. She complains of pain radiating down towards her jaw. She also felt dizzy although this is better now that she is lying still. She has had some loose stools and nausea which she attributes to the steroids she was recently started on. She denies chest pain shortness of breath vomiting. She does complain of some rhinorrhea and congestion. Physical Examination: Afebrile vitals unremarkable The left external auditory canal is erythematous and edematous she has pain with movement of the external ear the tympanic membrane itself appears normal I do not appreciate effusion landmarks are visible Heart regular rate and rhythm Lungs clear Alert No focal or lateralizing neurological deficits Test Results: Not indicated Emergency Department Course and Treatment: Patient appears to have otitis externa. She was given Cortisporin here and discharged with that he is at home. She was also given Zofran here for nausea. Treatment Plan: [] Disposition: Discharge Impression: Otitis externa This note was generated with [employer] dictation software. It may contain incorrect words, spelling, and punctuation that were not noted in review of the chart prior to signing ED Disposition - Plan for ED Patient: Referrals: Natasha Huggins MD [Primary Care Provider] -
--- NOTE | 2018-09-02 02:24 | ED.DEP ---
ED Disposition - Plan for ED Patient: Instructions: ED Otitis Externa Referrals: Natasha Huggins MD [Primary Care Provider] -
[2018-09-02] MEDS: Ondansetron ODT 4 MG Tablet PO (02:31)
[2018-09-02 02:33] VITALS: BP 148/69; PULSE 90; RESP 18; O2SAT 96
[2018-09-02] MEDS: Neomycin Sulfate/Polymyxin/Hc Susp 10 ML Bottle 4 DRP OTIC (02:35)
== END 2018-09-02 02:49 | disposition home or self-care (01) ==
PROVIDERS: Emergency Provider Emergency Medicine; Family Provider Family Medicine; PCP Family Medicine
DX: H60.92 Unspecified otitis externa, left ear (principal); R42 Dizziness and giddiness; R19.7 Diarrhea, unspecified; R11.0 Nausea; J44.9 Chronic obstructive pulmonary disease, unspecified; E11.9 Type 2 diabetes mellitus without complications; I10 Essential (primary) hypertension; Z79.4 Long term (current) use of insulin; Z79.899 Other long term (current) drug therapy; Z98.51 Tubal ligation status
CPT/HCPCS: 99283

== ENCOUNTER 2018-09-04 16:35 | Emergency (ER) | payer MEDICARE, SELFPAY ==
[2018-09-04 16:35] VITALS: BP 129/74; PULSE 98; RESP 16; TEMP 36.7; O2SAT 97; BMI 29.9
--- NOTE | 2018-09-04 16:52 | ED.VISSUMM ---
- ER Visit Summary Date of Service: 09/04/18 Chief Complaint: Sharp shooting left-sided head pain History of Present Illness: The patient is a 67 F history of insulin-dependent diabetes, COPD and recently diagnosed with sinusitis and otitis externa. Currently is on eardrops and Zithromax Z-SHILA. States this is been going on for 4-5 days. Denies any head trauma. Currently on no blood thinners. Patient did have an MRI of her brain done approximately 8 weeks ago which showed a chronic lacunar infarct but no aneurysms or other acute abnormalities. She denies any neurological symptoms. Physical Examination: Vital signs are stable. She is afebrile. She does not look septic or toxic. She is complaining of discomfort around her left ear and the side of her head. HEENT exam pupils are reactive light. Moist weeks membranes. Posterior pharynx unremarkable. Left ear has a resolving otitis externa and an erythematous and dull left tympanic membrane. Right unremarkable. She has 1 solitary mobile tender lymph node on the left inferior and posterior to the left ear. Otherwise no other lymphadenopathy. No meningismus. Able to touch chin to chest. Lungs are clear to auscultation bilaterally. Heart regular rhythm no murmur. Abdomen soft nontender. Patient is moving all 4 extremities. Neurovascular intact. She has 5 out of 5 motor strength. Dorsi plantar flexion intact. Neurologically she is awake alert with no focal motor deficits. Fingertip to nose heel to mariano are both within normal limits. NIH score is 0. Test Results: None Emergency Department Course and Treatment: She has already being treated with both oral antibiotics and eardrops. The ear canal appears to be improving. I do not think this is an acute intracranial event she had a recent MRI. Neurologically she is intact. Treatment Plan: Limited [place] for pain 10 no refill. Follow-up with your doctor as needed. Finish her antibiotics. Disposition: Discharge Impression: Left side head pain Improving left otitis media and externa This note was generated with [employer] dictation software. It may contain incorrect words, spelling, and punctuation that were not noted in review of the chart prior to signing ED Disposition - Plan for ED Patient: Referrals: Natasha Huggins MD [Primary Care Provider] -
--- NOTE | 2018-09-04 16:55 | ED.DEP ---
ED Disposition - Plan for ED Patient: Disposition: Home or Assisted Living Prescriptions: Hydrocodone Bitart/Apap 5-325 [[place] 5MG-325MG] 1 - 2 tab PO Q4H PRN PRN 4 Days #10 tab PRN Reason: Pain Referrals: Natasha Huggins MD [Primary Care Provider] - 3-5 Days if not improving Additional Instructions: Limited [place] for pain. Follow-up your doctor if not improving. Finish your antibiotic Zithromax and also your eardrops as prescribed.
--- NOTE | 2018-09-04 16:58 | DCINST.ED_ITS ---
ED Disposition - Plan for ED Patient: Disposition: Home or Assisted Living Prescriptions: Hydrocodone Bitart/Apap 5-325 [[place] 5MG-325MG] 1 - 2 tab PO Q4H PRN PRN 4 Days #10 tab PRN Reason: Pain Referrals: Natasha Huggins MD [Primary Care Provider] - 3-5 Days if not improving Additional Instructions: Limited [place] for pain. Follow-up your doctor if not improving. Finish your antibiotic Zithromax and also your eardrops as prescribed.
== END 2018-09-04 17:12 | disposition home or self-care (01) ==
PROVIDERS: Emergency Provider Emergency Medicine; Family Provider Family Medicine; PCP Family Medicine
DX: R51 Headache (principal); H66.92 Otitis media, unspecified, left ear; H60.92 Unspecified otitis externa, left ear; J44.9 Chronic obstructive pulmonary disease, unspecified; E11.9 Type 2 diabetes mellitus without complications; Z79.4 Long term (current) use of insulin; Z79.899 Other long term (current) drug therapy
CPT/HCPCS: 99282

== ENCOUNTER → 2018-09-24 20:00 | Outpatient (CLI) | payer MEDICARE, SELFPAY ==
[2018-07-28 10:42] VITALS: BMI 31.6
== END ==
LOC: SL 09-25 00:27
PROVIDERS: Family Provider Family Medicine; PCP Family Medicine; Referring Provider Internal Medicine Critical Care Medicine; Visit Provider Internal Medicine Critical Care Medicine
DX: G47.33 Obstructive sleep apnea (adult) (pediatric) (principal)
CPT/HCPCS: 95810

== ENCOUNTER 2018-10-01 22:50 | Emergency (ER) | payer MEDICARE, SELFPAY ==
[2018-10-01 22:50] VITALS: BP 155/75; PULSE 89; RESP 14; TEMP 36.4; O2SAT 99; BMI 30.6
--- NOTE | 2018-10-01 23:18 | CT_ITS ---
STUDY: CT TEMPORAL BONES WITHOUT CONTRAST - ATTN: I.A.C. S REASON FOR EXAM: Female, 67 years old. Left-sided ear pain and hearing loss. RADIATION DOSAGE (If Supplied By Facility): CTDIvol = ( 67.58 ) mGy, DLP = ( 1000.63 ) mGycm TECHNIQUE: The patient was scanned in a multi detector CT scanner. Transaxial imaging was performed without the administration of intravenous contrast material. Sagittal and coronal images were reconstructed. Individualized dose optimization techniques were used for this CT. COMPARISON: None. FINDINGS: RIGHT TEMPORAL BONE Normal right internal auditory canal. Normal visualized ossicles and tympanic cavity. Normal right cochlea and semicircular canals. Normal vestibular aqueduct. Normal right petrous carotid artery. Normal right jugular fossa. Normal right mastoid air cells. Normal right petrous apex. LEFT TEMPORAL BONE Normal left internal auditory canal. Normal visualized ossicles and tympanic cavity. Normal left cochlea and semicircular canals. Normal vestibular aqueduct. Normal left petrous carotid artery. Normal right jugular fossa. There is abnormal soft tissue within the external auditory canal near the tympanic membrane. There may be some component of otitis externa as well. There is complete opacification of left-sided mastoid air cells. There is also opacification of the left epitympanic suggesting sequela of left-sided otomastoiditis. Normal left petrous apex. CT/Orb Sella Post Fossa Ear w/o IMPRESSION: 1. LEFT-sided otomastoiditis. 2. Abnormal thickening of the left tympanic membrane with possible sequela of otitis externa. Electronically Signed: Geno Ruiz MD at 0:31 EDT , Service support ,
--- NOTE | 2018-10-02 00:52 | ED.VIS.URI ---
History of Present Illness Chief Complaint: Ear Problem Narrative: Patient presenting secondary to left ear fullness. Patient reports that over the course of last month she has been dealing with problems with her left ear. Initially was a presentation of otitis media she went on 2 rounds of azithromycin, but never really seem to have resolution of this. She was seen in the emergency department once for this and was noted to have otitis externa and was placed on a course of Ciprodex, but again is continuing to have a fullness feeling in her left ear. She states that her respiratory symptoms are gone. She denies any headaches. She denies any numbness weakness facial numbness or weakness or facial rashes. She denies any drainage coming from the ear. She actually states that the ear does not really feel painful anymore, just feels full and she has decreased hearing. She has an ear nose and throat appointment coming on 17 October. Past Medical History - Allergies and Home Meds Allergies/Adverse Reactions: Allergies iodine Allergy (Verified 10/01/18 22:52) Swelling Latex, Natural Rubber Allergy (Verified 10/01/18 22:52) Itching morphine Allergy (Verified 10/01/18 22:52) Shortness of breath Penicillins Allergy (Verified 10/01/18 22:52) Shortness of breath Sulfa (Sulfonamide Antibiotics) Allergy (Verified 10/01/18 22:52) Hives benztropine mesylate [From Cogentin] Adverse Reaction (Verified 10/01/18 22:52) Other URINARY RETENTION codeine Adverse Reaction (Verified 10/01/18 22:52) Other JITTERY haloperidol [From Haldol] Adverse Reaction (Verified 10/01/18 22:52) Other MUSCLE CONTRACTIONS haloperidol lactate [From Haldol] Adverse Reaction (Verified 10/01/18 22:52) Other MUSCLE CONTRACTIONS lithium [Mehan] Adverse Reaction (Verified 10/01/18 22:52) Diarrhea pseudoephedrine HCl [From Sudafed] Adverse Reaction (Verified 10/01/18 22:52) Other JITTERY theophylline Adverse Reaction (Verified 10/01/18 22:52) Other TUNNEL EFFECT; TUNNEL VISION Primary Care Physician: Buzz Shaw MD [STAFF PHYSICIAN] - Keep Tammi appointment Surgical History: - - back lumbar surgery with metal Smoking Status: Never smoker - Family History Maternal Family History: Family History (Last Reviewed 07/30/18 @ 10:02 by Indu Mehta) Other Arthritis CVA (cerebral vascular accident) Diabetes Heart disease Hypertension Thyroid disorder Family History: Reports: No pertinent history Paternal Family History: Family History (Last Reviewed 07/30/18 @ 10:02 by Indu Mehta) Other Arthritis CVA (cerebral vascular accident) Diabetes Heart disease Hypertension Thyroid disorder Family History: Reports: No pertinent history Review of Systems All systems negative except as indicated ENT: Reports: Left ear pain Physical Exam Vital Signs/Narrative: Vital Signs Temp Pulse Resp BP Pulse Ox 10/01/18 22:50 97.6 F L 89 14 155/75 H 99 General: Well nourished, Well developed Head: Normocephalic, Atraumatic, - - Left mastoid tenderness is noted Ears: - - No pain with movement of the tragus, normal external ear canal, left ear shows some evidence of yellow discoloration behind the tympanic membrane, but the TM itself is clear, noninjected, nonbulging, and there is still good landmarks. Mouth/Throat: Normal Inspection, No Posterior Erythema Neck: Supple, Nontender Cardiovascular: Regular rate, Regular rhythm, No murmurs Respiratory: No distress, CTA bilaterally, Chest nontender Skin: Normal color, No rash Neurological: Alert, Oriented x3, Cranial nerves II-XII grossly intact, Normal Strength, Normal Sensation Psychological: Normal affect Diagnostic/Tx/Re-eval - Medical Decision Making Patient presented with chronic left ear pain. Physical exam exhibited some mastoid tenderness a CT was obtained. CT did demonstrate evidence of mastoiditis without complication of an abscess. Patient is afebrile, nontoxic, and not septic. I discussed her case with ear nose and throat, they recommended treatment with Cipro secondary to her penicillin allergy. Patient already has follow-up coming up with your nose and throat on the , she was recommended to keep that appointment. All questions were answered and the patient was discharged. Disposition: Home ED Disposition - Plan for ED Patient: Disposition: Home or Assisted Living Diagnosis: Mastoiditis of left side Instructions: When Your Child Has Mastoiditis Prescriptions: Ciprofloxacin [Cipro] 500 mg PO BID #28 tab Referrals: Buzz Shaw MD [STAFF PHYSICIAN] - Keep Tammi appointment
[2018-10-02] MEDS: Ciprofloxacin 500 MG Tablet PO (01:07)
== END 2018-10-02 01:08 | disposition home or self-care (01) ==
PROVIDERS: Emergency Provider Emergency Medicine; Family Provider Family Medicine; PCP Family Medicine
DX: H70.92 Unspecified mastoiditis, left ear (principal); Z79.4 Long term (current) use of insulin; Z79.52 Long term (current) use of systemic steroids; Z79.899 Other long term (current) drug therapy; Z88.0 Allergy status to penicillin
CPT/HCPCS: 70480; 99283

== ENCOUNTER 2018-10-21 18:28 | Emergency (ER) | payer MEDICARE, SELFPAY ==
[2018-10-20 14:09] VITALS: BMI 31.9
[2018-10-21 18:28] VITALS: BP 175/90; PULSE 86; RESP 16; TEMP 36.2; O2SAT 99; BMI 33.6
--- NOTE | 2018-10-21 18:45 | CT_ITS ---
STUDY: CT ABDOMEN AND PELVIS WITHOUT CONTRAST REASON FOR EXAM: Female, 67 years old. Pain RADIATION DOSAGE (If Supplied By Facility): DLP = ( 809.38 ) mGycm TECHNIQUE: Transaxial images were obtained from the dome of the diaphragm to the symphysis pubis with oral contrast, and without intravenous contrast. Sagittal and coronal images were reconstructed. Individualized dose optimization techniques were used for this CT. COMPARISON: CT abdomen and pelvis October 07, 2017 FINDINGS: Evaluation of the abdominal viscera is limited in the absence of intravenous contrast. The visualized lung bases are clear. The visualized portions of the heart and pericardium are within normal limits. There are no calcified gallstones present. The liver demonstrates an unremarkable unenhanced appearance. The spleen is normal in size. The pancreas demonstrates an unremarkable unenhanced appearance. The adrenal glands are within normal limits. There are no obstructing renal stones. There is a right renal lower pole 3 mm stone. There is no hydronephrosis. Normal visualized stomach. There is no bowel obstruction or inflammation. Colonic diverticulosis is present. The appendix is not visualized, but there are no findings to suggest acute appendicitis. The aorta is normal in caliber. There is no abdominal or pelvic free air, free fluid, fluid collection or lymphadenopathy. There are no destructive osseous lesions. L4-L5 fusion is present. CT/Abdomen/Pel W ORAL Cont Only IMPRESSION: No acute abdominal or pelvic pathology demonstrated on this noncontrast CT. Colonic diverticulosis without evidence of inflammation. Right renal lower pole nonobstructing stone. Electronically Signed: Gatito Cole, at 20:54 EDT Tel , Service support ,
--- NOTE | 2018-10-21 19:00 | ED.VISSUMM ---
- ER Visit Summary Date of Service: 10/21/18 Chief Complaint: Diverticulitis, sciatica, weakness History of Present Illness: The patient is a 67 F who reports just overall not feeling well. She states that she believes her diverticulitis started flaring up yesterday. She is complaining of some lower abdominal discomfort. She was able to have a normal bowel movement. 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 Patient does not take anything normally for her pain. She reports subjective fever and chills. Physical Examination: Vital signs include blood pressure of 175/90, otherwise unremarkable. Patient is lying on her left side. She is in no acute distress. Heart is regular rate and rhythm. Lung sounds are clear. Abdomen is soft with mild lower abdominal tenderness. Hypoactive bowel sounds are noted. Back examination was paraspinal tenderness throughout the lumbar region. No skin changes noted. Test Results: CBC was a white count 11.5 with normal differential. Chemistry studies significant for glucose of 268. Urinalysis shows glucose but no sign of acute infection. CT abdomen pelvis with p.o. contrast reveals no acute pathology. Colonic diverticulosis is noted without inflammation. Emergency Department Course and Treatment: Patient was given Tylenol here. 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 On oars report she has not had a narcotics since August, and that prescription was only for 4 pills. Patient be given a short course of [place] for back pain. She is to follow-up with her primary care physician, Dr. Huggins. Treatment Plan: [] Disposition: Discharge Impression: 1. Abdominal pain, uncertain etiology 2. Sciatica This note was generated with [employer] dictation software. It may contain incorrect words, spelling, and punctuation that were not noted in review of the chart prior to signing ED Disposition - Plan for ED Patient: Disposition: Home or Assisted Living Instructions: ED Abdominal Pain Unkn Cause, ED Sciatica Prescriptions: Hydrocodone Bitart/Apap 5-325 [[place] 5MG-325MG] 1 tablet PO Q6H PRN PRN 3 Days #10 tablet PRN Reason: Pain Referrals: Natasha Huggins MD [Primary Care Provider] - 1 Week
[2018-10-21] MEDS: 0.9% Normal Saline 1,000 ML 150 ML IV (19:04)
[2018-10-21] MEDS: Ondansetron 4 MG/2 ML Vial IV (19:07)
[2018-10-21 19:10] LABS: Absolute Lymphocyte Count 2.92 X10^3/ul (0.83-4.51); Absolute Neutrophil Count 7.3 X10^3/uL (2.0-7.7); Basophil# 0.05 X10^3/uL; Basophil% 0.4 % (0-1); Eosinophil# 0.56 X10^3/uL; Eosinophils% 4.9 % (0-5); Hematocrit 36.8 % (37-47); Lymphocyte # 2.92 X10^3/ul (4.0); Lymphocyte % 25.3 % (19-41); Mean Corp Hgb Conc 32.6 g/gl (32-36); Mean Corpuscular Hgb 27.8 pg (27.0-32.0); Mean Corpuscular Volume 85.2 fL (81-99); Mean Platelet Vol. 9.9 fl (6.2-12.0); Monocyte# 0.68 X10^3/uL; Monocyte% 5.9 % (0-10); Neutrophil # 7.28 X10^3/uL (2.7-7.7); Neutrophil % 63.2 % (47-70); Platelet Count 279 K/mm3 (150-450); RBC Distribution Width CV 14.2 % (11.6-14.6); RBC Distribution Width SD 44.6 fl (35.1-43.9); Red Blood Count 4.32 M/mm3 (4.2-5.4); White Blood Count 11.5 K/mm3 (4.4-11.0)
[2018-10-21 19:14] LABS: POSITIVE COUNT NO; POSITIVE DIFFERENTIAL NO; POSITIVE MORPHOLOGY NO
[2018-10-21 19:28] LABS: Anion Gap 4 (5-15); BUN 16 mg/dL (7-18); BUN/Creat Ratio 19.5 RATIO (10-20); Calcium,Total 8.8 mg/dL (8.5-10.1); Chloride 104 mmol/L (98-107); Creatinine, Serum 0.82 mg/dL (0.55-1.02); EST Glomerular Filtration Rate 73 mL/min (>60); Est Glom Filt Rate - Afr Amer 89 mL/min (>60); Estimated Creatinine Clearance 54.32 ml/min; Glucose 268 mg/dL (74-106); Potassium 4.2 mmol/L (3.5-5.1); Sodium Level 138 mmol/L (136-145)
[2018-10-21 19:29] LABS: Bacteria 0 SEEN /hpf (None Seen); Mucous, Urine 0 SEEN /hpf (<or=2+)
[2018-10-21 19:31] LABS: Color, Urine Yellow (Yellow); Glucose, Dipstick 1000 mg/dl (Normal); Ketone-Dipstick Negative (Negative); Leukocyte Esterase-Dipstick 25 /ul (Negative); Nitrite-Dipstick Negative (Negative); Occult Blood-Urine Negative /ul (Negative); Protein-Dipstick Negative (Negative); Urine Bilirubin Dipstick Negative (Negative); Urine Clarity Clear (Clear); Urine Urobilinogen Normal (Normal)
[2018-10-21 19:40] LABS: Squamous Epithelial Cells - UA 0-5 SEEN /hpf (5-10); White Blood Cells 0-5 SEEN /hpf (0-5)
[2018-10-21 19:41] LABS: Red Blood Cells-Urine 0-5 SEEN /hpf (0-5)
[2018-10-21 20:28] VITALS: BP 144/81; PULSE 80; RESP 17; O2SAT 95
[2018-10-21 21:53] VITALS: BP 137/69; PULSE 83; RESP 18; O2SAT 96
[2018-10-21] MEDS: HYDROcodone Bitartrate/Apap 5/325 Tablet PO (22:01)
== END 2018-10-21 22:03 | disposition home or self-care (01) ==
PROVIDERS: Emergency Provider Emergency Medicine; Family Provider Family Medicine; PCP Family Medicine
DX: R10.9 Unspecified abdominal pain (principal); M54.32 Sciatica, left side; M54.31 Sciatica, right side; K57.30 Diverticulosis of large intestine without perforation or abscess without bleeding; J44.9 Chronic obstructive pulmonary disease, unspecified; E11.9 Type 2 diabetes mellitus without complications; I10 Essential (primary) hypertension; Z79.84 Long term (current) use of oral hypoglycemic drugs; Z79.4 Long term (current) use of insulin; Z79.899 Other long term (current) drug therapy
CPT/HCPCS: 74176; 80048; 81001; 85025; 96361; 96374; 99283; J7030; A4216; J2405

== ENCOUNTER 2018-11-28 21:30 | Emergency (ER) | payer MEDICARE, SELFPAY ==
[2018-11-10 09:02] VITALS: BMI 33.6
[2018-11-28 21:32] VITALS: BP 145/71; PULSE 89; RESP 16; TEMP 36.3; O2SAT 98; BMI 33.6
[2018-11-28] MEDS: 0.9% Normal Saline 1,000 ML 1000 ML IV (22:51)
[2018-11-28] MEDS: Ketorolac 15 MG/ML Vial IV (22:54)
[2018-11-28 23:19] LABS: Anion Gap 8 (5-15); BUN 28 mg/dL (7-18); BUN/Creat Ratio 24.6 RATIO (10-20); Calcium,Total 9.4 mg/dL (8.5-10.1); Chloride 109 mmol/L (98-107); Creatinine, Serum 1.14 mg/dL (0.55-1.02); EST Glomerular Filtration Rate 50 mL/min (>60); Est Glom Filt Rate - Afr Amer 61 mL/min (>60); Estimated Creatinine Clearance 38.53 ml/min; Glucose 114 mg/dL (74-106); Potassium 3.9 mmol/L (3.5-5.1); Sodium Level 141 mmol/L (136-145)
--- NOTE | 2018-11-28 23:54 | ED.VISSUMM ---
- ER Visit Summary Date of Service: 11/28/18 Chief Complaint: Left leg cramps History of Present Illness: The patient is a 68 F who presents for leg cramps. Patient states she has had intermittent leg cramps for years. Sometimes it is the left leg and sometimes it is the right. For the last 2 days she has been having severe crampy pain in the left leg. She has associated low back pain and states that she thinks it may be related to her back. Patient has no history of blood clots in the lungs or legs. She is in pain management and is waiting to get on medical marijuana for her back pain. Patient denies any numbness in the legs, weakness, saddle anesthesia, bowel or bladder incontinence, or fever. Physical Examination: Vital signs: afebrile, hemodynamically stable, no hypoxia on room air General: well nourished, well developed, in no distress Skin: warm, dry, no rash, no pallor HEENT: normocephalic and atraumatic; PERRL, EOMI, moist mucous membranes Cardiovascular: regular rate and rhythm, no peripheral edema, 2+ pulses all distal extremities Respiratory: No increased work of breathing Abdominal: Abdomen is soft, nontender with normoactive bowel sounds, no guarding or rebound, no masses MSK: Moves all extremities, no deformities, normal strength, tenderness to palpation along the musculature of the left thigh, tenderness to palpation diffusely in the lumbar spine, no tenderness below the knees Neuro: Awake and alert, oriented ?4. No facial droop, sensation and motor function intact and symmetric Test Results: Abnormal Lab Results 11/28/18 22:50 Sodium 141 Potassium 3.9 Chloride 109 H Carbon Dioxide 24.0 Anion Gap 8 BUN 28 H Creatinine 1.14 H Estim Creat Clear Calc 38.53 Est GFR (MDRD) Af Amer 61 Est GFR (MDRD) Non-Af 50 L BUN/Creatinine Ratio 24.6 H Glucose 114 H Calcium 9.4 Medications Given Discontinued Medications Sodium Chloride () 1,000 mls @ 1,000 mls/hr IV .Q1H ONE Stop: 11/28/18 23:15 Last Admin: 11/28/18 22:51 Dose: 1,000 mls/hr Documented by: GARETH Ketorolac Tromethamine (Toradol) 15 mg IV X1 ONE Stop: 11/28/18 22:17 Last Admin: 11/28/18 22:54 Dose: 15 mg Documented by: GARETH Emergency Department Course and Treatment: Patient was given Toradol for pain and IV fluids. Labs were performed to make sure patient is not having any muscle cramping from electrolyte abnormalities. Labs were unremarkable. Patient has had this same complaint intermittently for years, and has no history of blood clots, thus DVT is very low on the differential and no further work-up was performed for this. On reevaluation, patient was feeling much better. She was given a prescription for naproxen. She is going to continue working with her doctor to get her medical marijuana to help her with her chronic pain. Patient was discharged home in much improved condition. Treatment Plan: [] Disposition: [] Impression: Chronic back pain with sciatica, muscle spasm This note was generated with [employer] dictation software. It may contain incorrect words, spelling, and punctuation that were not noted in review of the chart prior to signing ED Disposition - Plan for ED Patient: Disposition: Home or Assisted Living Instructions: Muscle Spasm, BACK PAIN w/ SCIATICA Prescriptions: Naproxen [Naprosyn] 500 mg PO BID PRN #20 tab PRN Reason: Pain Prescription Printed Referrals: Natasha Huggins MD [Primary Care Provider] - 3-5 Days Additional Instructions: Use the naproxen as needed for pain. Please follow-up with your family doctor for further evaluation and discussion of pain management options while you are waiting for your medical marijuana to come through. If you have any worsening of your condition or any new concerning symptoms, please return immediately to the emergency department for another evaluation.
[2018-11-29 00:10] VITALS: BP 102/42; PULSE 80; RESP 18; O2SAT 98
== END 2018-11-29 00:19 | disposition home or self-care (01) ==
PROVIDERS: Emergency Provider Emergency Medicine; Family Provider Family Medicine; PCP Family Medicine
DX: M54.42 Lumbago with sciatica, left side (principal); G89.29 Other chronic pain; M62.838 Other muscle spasm; E11.9 Type 2 diabetes mellitus without complications; I10 Essential (primary) hypertension; Z79.4 Long term (current) use of insulin
CPT/HCPCS: 80048; 96361; 96374; 99283; J7030; A4216

== ENCOUNTER → 2020-03-14 20:00 | Outpatient (CLI) | payer MEDICARE, SELFPAY | PROVIDERS: PCP Nurse Practitioner Family; Visit Provider Internal Medicine Critical Care Medicine | DX: G47.33 Obstructive sleep apnea (adult) (pediatric) (principal) | CPT/HCPCS: 95811 ==

== ENCOUNTER 2021-04-17 18:14 | Observation (INO) | payer MEDICARE, SELFPAY ==
[2021-04-17 18:15] VITALS: BP 169/79; PULSE 120; RESP 18; TEMP 35.1; O2SAT 100; BMI 31.8
[2021-04-17 19:12] LABS: Absolute Lymphocyte Count 0.66 X10^3/uL (0.83-4.51); Basophil# 0.01 X10^3/uL; Basophil% 0.1 % (0-1); Hematocrit 37.5 % (37-47); Hemoglobin 12.3 g/dL (12.0-15.0); Lymphocyte # 0.66 X10^3/ul (0.83-4.51); Lymphocyte % 5.1 % (19-41); Mean Corp Hgb Conc 32.8 g/dL (32-36); Mean Corpuscular Hgb 28.3 pg (27.0-32.0); Mean Corpuscular Volume 86.2 fL (81-99); Mean Platelet Vol. 10.9 fl (6.2-12.0); Monocyte% 2.3 % (0-10); NRBC Flagged by Analyzer 0 % (0-5); Neutrophil # 11.95 X10^3/uL (2.7-7.7); Platelet Count 270 K/mm3 (150-450); RBC Distribution Width CV 13.3 % (11.6-14.6); Red Blood Count 4.35 M/mm3 (4.2-5.4)
[2021-04-17 19:16] LABS: Bedside Glucose > 500 mg/dL (70-110)
[2021-04-17 19:36] LABS: Anion Gap 11 (5-15); BUN 40 mg/dL (7-18); BUN/Creat Ratio 22.6 RATIO (10-20); Chloride 93 mmol/L (98-107); Creatinine, Serum 1.77 mg/dL (0.55-1.02); EST Glomerular Filtration Rate 30 mL/min (>60); Est Glom Filt Rate - Afr Amer 36 mL/min (>60); Estimated Creatinine Clearance 24.12 ml/min; Glucose 820 mg/dL (74-106); Potassium 5.4 mmol/L (3.5-5.1); Sodium Level 125 mmol/L (136-145)
[2021-04-17 20:38] VITALS: PULSE 61; RESP 16; O2SAT 98
--- NOTE | 2021-04-17 21:04 | EKG12_ITS ---
Test Reason : HIGH SUGAR Blood Pressure : / mmHG Vent. Rate : 092 BPM Atrial Rate : 092 BPM P-R Int : 176 ms QRS Dur : 108 ms QT Int : 380 ms P-R-T Axes : 038 -35 033 degrees QTc Int : 469 ms Normal sinus rhythm Left axis deviation Incomplete left bundle branch block Abnormal ECG Confirmed by PAULETTE OROZCO, GABRIELA ([id number]), associate editor CHRISTINA MICHELLE ([id number]) on 04/19/2021 9:21:57 AM Referred By: TL Confirmed By:GABRIELA CALDWELL MD
--- NOTE | 2021-04-17 21:09 | EDS_ITS ---
HPI History of Present Illness Chief Complaint: Hyperglycemia Informant: patient Narrative Narrative: Patient presents referred from her PCP back to the ER. Diagnosed with Covid yesterday at [facility]. Symptoms started 2 days ago report cough while at work. Reports subjective fevers and chills. No vomiting or diarrhea. States changes in taste and smell. She has been vaccinated with 2 doses. Unclear on sick contacts however she states she was in the ER a week ago for migraine symptoms. Reports today increasing dyspnea. History of COPD no home oxygen. Reports increasing weakness. She is tolerating oral intake. She was found to have glucose in the 800s in triage. Diabetic on both insulin and oral pills. She states yesterday at the emergency department her sugars were in the 500 range. States her pulse ox was lower than 94 and she was started on Decadron 6 mg daily with additional dose taken today. Denies history of congestive heart failure. Has not had Covid infection in the past. [facility] Medical History (Updated 04/18/21 @ 00:[address] Felipe Gibbons DO) COPD (chronic obstructive pulmonary disease) Diabetes High cholesterol HTN (hypertension) Obesity ROBEL (obstructive sleep apnea) Spinal stenosis Home Medications atorvastatin 40 mg PO QHS 04/05/14 [History Last Taken 08/29/18] insulin glargine [Lantus Solostar U-100 Insulin] 15 - 20 units SUBCUT BID 04/05/14 [History Last Taken 08/30/18] albuterol sulfate 90 mcg/actuation aerosol inhaler 2 puff INHALATION Q4H PRN #8.5 g 03/07/20 [Rx Last Taken Unknown] carvedilol 12.5 mg tablet 12.5 mg PO BID 03/07/20 [History Last Taken Unknown] azithromycin 500 mg PO DAILY 04/17/21 [History Last Taken Unknown] benzonatate [Tessalon Perles] 100 mg PO BID PRN 04/17/21 [History Last Taken Unknown] dexamethasone 6 mg PO DAILY 04/17/21 [History Last Taken Unknown] divalproex [Depakote ER] 750 mg PO QHS 04/17/21 [History Last Taken Unknown] glipizide 10 mg PO BID 04/17/21 [History Last Taken Unknown] insulin NPH isoph U-100 human [Humulin N NPH Insulin KwikPen] 45 unit SUBCUT BREAKFAST 04/17/21 [History Last Taken Unknown] insulin NPH isoph U-100 human [Humulin N NPH Insulin KwikPen] 50 unit SUBCUT QHS 04/17/21 [History Last Taken Unknown] risperidone 1 mg PO QHS 04/17/21 [History Last Taken Unknown] venlafaxine [Effexor] 75 mg PO DAILY 04/17/21 [History Last Taken Unknown] Allergy/AdvReac Type Severity Reaction Status Date / Time iodine Allergy Swelling Verified 04/17/21 18:18 Latex, Natural Rubber Allergy Itching Verified 04/17/21 18:18 morphine Allergy Shortness Verified 04/17/21 18:18 of breath Penicillins Allergy Shortness Verified 04/17/21 18:18 of breath Sulfa (Sulfonamide Allergy Hives Verified 04/17/21 18:18 Antibiotics) benztropine mesylate AdvReac Other Verified 04/17/21 18:18 [From Cogentin] codeine AdvReac Other Verified 04/17/21 18:18 haloperidol [From Haldol] AdvReac Other Verified 04/17/21 18:18 haloperidol lactate AdvReac Other Verified 04/17/21 18:18 [From Haldol] lithium [[place]] AdvReac Diarrhea Verified 04/17/21 18:18 pseudoephedrine HCl AdvReac Other Verified 04/17/21 18:18 [From Sudafed] theophylline AdvReac Other Verified 04/17/21 18:18 Family History Other Arthritis CVA (cerebral vascular accident) Diabetes Heart disease Hypertension Thyroid disorder Surgical History History of appendectomy History of back surgery History of carpal tunnel release of both wrists History of cholecystectomy history of left elbow repair history of left shoulder repair History of lumpectomy of left breast History of sinus surgery History of skin graft history of tarsal tunnel surgery History of tubal ligation Hx of colonoscopy Status post trigger finger release Social History Smoking Status: Unknown if ever smoked alcohol intake: never substance use type: does not use ROS ROS ED Constitutional Constitutional ED: Reports fever(s) and sweats; Denies chills Eyes Eyes: Denies change in vision ENT ENT ED: Denies dysphagia or sore throat Cardiovascular Cardiovascular: Denies chest pain, leg edema, palpitations or racing heartbeat Respiratory/Chest Respiratory/Chest: Reports cough and dyspnea; Denies dyspnea on exertion Gastrointestinal Gastrointestinal: Reports nausea; Denies abdominal pain, diarrhea or vomiting Genitourinary Genitourinary ED: Denies dysuria, hematuria or urinary frequency Musculoskeletal Musculoskeletal: Denies back pain, extremity pain or neck pain Integumentary Denies rash or wounds Neurologic Neurologic: Reports headache(s); Denies paresthesias or weakness EXAM Physical Exam Const Vital Signs: 04/17/21 18:15 04/17/21 20:38 04/17/21 22:58 Temperature 95.2 F L Temperature Source Temporal Pulse Rate 120 H 61 96 Respiratory Rate 18 16 19 H Blood Pressure 169/79 H 120/72 Blood Pressure Mean 109 88 Pulse Ox 100 98 96 Oxygen Delivery Method Room Air Room Air Room Air 04/18/21 00:22 Temperature 98.7 F Temperature Source Temporal Pulse Rate 96 Respiratory Rate 12 Blood Pressure 140/65 H Blood Pressure Mean 90 Pulse Ox 97 Oxygen Delivery Method Room Air Positive well nourished, well developed and obese General Appearance ED: well developed and NAD Nutritional Appearance: obese HEENT Reports dry mucous membranes normocephalic and atraumatic Mouth ED: Yes dry mucous membranes Mouth: dry mucous membranes Eyes PERRL, EOMs intact bilaterally and conjunctivae normal General Eye ED: Yes normal appearance of both eyes Neck no lymphadenopathy and supple General: Negative for tenderness Chest Wall Chest: Negative for tenderness Resp normal respiratory effort and normal air movement Effort and Inspection: symmetric chest movement; Negative for respiratory distress Cardio regular rhythm and no murmurs Rate: tachycardic Peripheral Pulses: pulses 2+ throughout GI normal to inspection, nondistended, normoactive bowel sounds and non-tender Palpation: Negative for guarding or rebound tenderness present Back/Spine no CVA tenderness and no thoracic nor lumbar tenderness Extremity normal to inspection General Extremety ED: Negative for edema or tenderness General Extremity: Negative for edema Neuro oriented x3 and no sensory deficits noted Sensorium / Orientation: awake and alert Skin no rashes or lesions noted and no wounds MDM MDM MDM Narrative Medical decision making narrative: Records obtained from [place] confirmed Covid + 04/16/2021 yesterday. Patient noted be hyperglycemic with a normal anion gap. Little DIPTI creatinine 1.7. Potassium 5.4. Sodium 125, glucose 820. White count of 13. Acetone was negative. Patient dry mucosal membranes she is given a liter of fluids. Her pulse ox is 97 to 99%. Chest x-ray added CRP blood cultures along with lactic acid, will plan to admit secondary to hyperglycemia DIPTI with clinical dehydration from Covid. Chest x-ray negative. Lactic acid 3.5. After 1 L of fluids sugar still greater than 500. Clinically stable. Pulse ox remained stable. I spoke with hospitalist Dr. Grossman, with her hyperglycemia, will use subcu insulin due to normal anion gap. She states she uses 2 units before meals with a sliding scale, she is fairly na?ve. We will start with 15 units of short acting insulin. We will continue IV fluids. Patient meets severe sepsis, secondary to viral infection of Covid. Gentle on fluids due to Covid infection. patient will be admitted to PCU for further management. Lab Data Labs: Laboratory Results - last 24 hr 04/17/21 04/17/21 04/17/21 18:22 19:05 19:05 WBC 13.0 H RBC 4.35 Hgb 12.3 Hct 37.5 MCV 86.2 MCH 28.3 MCHC 32.8 RDW Std Deviation 42.0 RDW Coeff of Lazaro 13.3 Plt Count 270 MPV 10.9 Immature Gran % (Auto) 0.500 Neut % (Auto) 92.0 H Lymph % (Auto) 5.1 L [place] % (Auto) 2.3 Eos % (Auto) 0.0 Baso % (Auto) 0.1 Absolute Neuts (auto) 12.0 H Absolute Lymphs (auto) 0.66 L Nucleated RBC % 0 Sodium 125 L Potassium 5.4 H Chloride 93 L Carbon Dioxide 21.0 Anion Gap 11 BUN 40 H Creatinine 1.77 H Estim Creat Clear Calc 24.12 Est GFR (MDRD) Af Amer 36 L Est GFR (MDRD) Non-Af 30 L BUN/Creatinine Ratio 22.6 H Glucose 820 H* Lactic Acid Calcium 9.0 Total Bilirubin Direct Bilirubin AST ALT Alkaline Phosphatase C-React Prot Ext Range Total Protein Albumin Globulin Acetone Level POC Glucose > 500 H* 04/17/21 04/17/21 04/17/21 20:00 21:31 21:31 WBC RBC Hgb Hct MCV MCH MCHC RDW Std Deviation RDW Coeff of Lazaro Plt Count MPV Immature Gran % (Auto) Neut % (Auto) Lymph % (Auto) [place] % (Auto) Eos % (Auto) Baso % (Auto) Absolute Neuts (auto) Absolute Lymphs (auto) Nucleated RBC % Sodium Potassium Chloride Carbon Dioxide Anion Gap BUN Creatinine Estim Creat Clear Calc Est GFR (MDRD) Af Amer Est GFR (MDRD) Non-Af BUN/Creatinine Ratio Glucose Lactic Acid 3.5 H* Calcium Total Bilirubin 0.30 Direct Bilirubin 0.13 AST 11 L ALT 17 Alkaline Phosphatase 121 H C-React Prot Ext Range 60.00 H Total Protein 7.5 Albumin 3.3 Globulin 4.2 Acetone Level NEGATIVE POC Glucose 04/17/21 23:24 WBC RBC Hgb Hct MCV MCH MCHC RDW Std Deviation RDW Coeff of Lazaro Plt Count MPV Immature Gran % (Auto) Neut % (Auto) Lymph % (Auto) [place] % (Auto) Eos % (Auto) Baso % (Auto) Absolute Neuts (auto) Absolute Lymphs (auto) Nucleated RBC % Sodium Potassium Chloride Carbon Dioxide Anion Gap BUN Creatinine Estim Creat Clear Calc Est GFR (MDRD) Af Amer Est GFR (MDRD) Non-Af BUN/Creatinine Ratio Glucose Lactic Acid Calcium Total Bilirubin Direct Bilirubin AST ALT Alkaline Phosphatase C-React Prot Ext Range Total Protein Albumin Globulin Acetone Level POC Glucose > 500 H* Radiography Diagnostic Testing: Clinical Impression(s) from Imaging Studies Chest X-Ray 04/17/21 22:45 IMPRESSION: Normal x-ray examination of the chest. Electronically Signed: Sky Diaz DO at 22:56 EST Tel , Service support , EKG Initial EKG: Attestation: I personally reviewed and interpreted this EKG as follows: Comments: Sinus rhythm 92, no ST or T wave changes. Critical Care Time Critical Care Time: Yes Critical care time (excluding procedures): Discussing w/Patient &/or Family/Surgical Instrument Repair Specialist, Discussing w/Consultants, Arranging Admission or Transfer, Performing Direct Patient Care at Bedside and - (45 minutes critical care) Discharge Plan Dx/Rx/DC Orders Clinical Impression: COVID-19, Hyperglycemia without ketosis, Acute hyponatremia, DIPTI (acute kidney injury), Acute hyperkalemia, Severe sepsis Disposition Disposition: Acute Care Hospital [facility] Discharge Date/Time: 04/18/21 01:36
[2021-04-17] MEDS: 0.9% Normal Saline 1,000 ML 999 ML IV (21:34)
[2021-04-17 22:06] LABS: AST(SGOT) 11 U/L (15-37); Alanine Aminotransfer ALT/SGPT 17 U/L (13-56); Albumin, Serum 3.3 g/dL (3.2-5.0); Alkaline Phosphatase 121 U/L (45-117); Bilirubin, Direct 0.13 mg/dL (0.00-0.30); Globulin 4.2 g/dL (2.2-4.2); Protein, Total 7.5 g/dL (6.4-8.2)
[2021-04-17 22:26] LABS: Lactic Acid 3.5 mmol/L (0.4-1.9)
--- NOTE | 2021-04-17 22:45 | RAD_ITS ---
STUDY: X-RAY CHEST REASON FOR EXAM: Female, 70 years old. cough -- covid positive TECHNIQUE: Single AP portable view of the chest. COMPARISON: 08/30/2018 FINDINGS: Elevated right hemidiaphragm is stable The lungs are clear and expanded. There is no demonstrated pleural abnormality. Normal size heart. Normal mediastinum and shana. Normal visualized pulmonary arteries. Normal visualized aortic arch and descending thoracic aorta. Normal visualized thoracic spine. Normal visualized ribs, clavicles, and shoulders. There is no demonstrated abnormality of the visualized soft tissue structures of the upper abdomen. RAD/Chest 1 View (Portable) IMPRESSION: Normal x-ray examination of the chest. Electronically Signed: Sky Diaz DO at 22:56 EST Tel , Service support ,
[2021-04-17 22:58] VITALS: BP 120/72; PULSE 96; RESP 19; O2SAT 96
[2021-04-17 23:30] LABS: Bedside Glucose > 500 mg/dL (70-110)
[2021-04-18] VITALS (10 sets, daily range): BP systolic 125–140; BP diastolic 49–66; PULSE 73–96; RESP 12–20; TEMP 35.8–37.1; O2SAT 94–98; BMI 32.6
--- NOTE | 2021-04-18 00:16 | PCM.HP.STD ---
HPI - General HPI Narrative CHELSEA ELLIOTT, is a 70 F who presents to the emergency room with elevated blood sugars. The patient has tested positive for COVID-19 virus 2 days ago and has been placed on dexamethasone and was being treated as an outpatient. Today she had a high blood sugar over 800 and was sent to the emergency room for evaluation. Due to her significant history of COPD and continued high blood sugar patient will be admitted for further management of her COVID-19 infection. The patient states she does have a slight increase in difficulty breathing from her baseline. She has felt more fatigued than usual. She denies fevers or chills but has had some change in taste and smell. Patient denies nausea vomiting or diarrhea she will be admitted for Covid-19 management. [facility], [facility] Medical History (Updated 04/18/21 @ 00:[address] Felipe Gibbons DO) COPD (chronic obstructive pulmonary disease) Diabetes High cholesterol HTN (hypertension) Obesity ROBEL (obstructive sleep apnea) Spinal stenosis Home Medications atorvastatin 40 mg PO QHS 04/05/14 [History Last Taken 08/29/18] insulin glargine [Lantus Solostar U-100 Insulin] 15 - 20 units SUBCUT BID 04/05/14 [History Last Taken 08/30/18] albuterol sulfate 90 mcg/actuation aerosol inhaler 2 puff INHALATION Q4H PRN #8.5 g 03/07/20 [Rx Last Taken Unknown] carvedilol 12.5 mg tablet 12.5 mg PO BID 03/07/20 [History Last Taken Unknown] azithromycin 500 mg PO DAILY 04/17/21 [History Last Taken Unknown] benzonatate [Tessalon Perles] 100 mg PO BID PRN 04/17/21 [History Last Taken Unknown] dexamethasone 6 mg PO DAILY 04/17/21 [History Last Taken Unknown] divalproex [Depakote ER] 750 mg PO QHS 04/17/21 [History Last Taken Unknown] glipizide 10 mg PO BID 04/17/21 [History Last Taken Unknown] insulin NPH isoph U-100 human [Humulin N NPH Insulin KwikPen] 45 unit SUBCUT BREAKFAST 04/17/21 [History Last Taken Unknown] insulin NPH isoph U-100 human [Humulin N NPH Insulin KwikPen] 50 unit SUBCUT QHS 04/17/21 [History Last Taken Unknown] risperidone 1 mg PO QHS 04/17/21 [History Last Taken Unknown] venlafaxine [Effexor] 75 mg PO DAILY 04/17/21 [History Last Taken Unknown] Allergy/AdvReac Type Severity Reaction Status Date / Time iodine Allergy Swelling Verified 04/17/21 18:18 Latex, Natural Rubber Allergy Itching Verified 04/17/21 18:18 morphine Allergy Shortness Verified 04/17/21 18:18 of breath Penicillins Allergy Shortness Verified 04/17/21 18:18 of breath Sulfa (Sulfonamide Allergy Hives Verified 04/17/21 18:18 Antibiotics) benztropine mesylate AdvReac Other Verified 04/17/21 18:18 [From Cogentin] codeine AdvReac Other Verified 04/17/21 18:18 haloperidol [From Haldol] AdvReac Other Verified 04/17/21 18:18 haloperidol lactate AdvReac Other Verified 04/17/21 18:18 [From Haldol] lithium [[place]] AdvReac Diarrhea Verified 04/17/21 18:18 pseudoephedrine HCl AdvReac Other Verified 04/17/21 18:18 [From Sudafed] theophylline AdvReac Other Verified 04/17/21 18:18 Family History Other Arthritis CVA (cerebral vascular accident) Diabetes Heart disease Hypertension Thyroid disorder Surgical History History of appendectomy History of back surgery History of carpal tunnel release of both wrists History of cholecystectomy history of left elbow repair history of left shoulder repair History of lumpectomy of left breast History of sinus surgery History of skin graft history of tarsal tunnel surgery History of tubal ligation Hx of colonoscopy Status post trigger finger release Social History Smoking Status: Unknown if ever smoked alcohol intake: never substance use type: does not use ROS Constitutional Constitutional: Denies chills or fever(s) ENT HEENT: Denies abnormal hearing Cardiovascular Cardiovascular: Denies chest pain Respiratory/Chest Respiratory/Chest: Reports cough, shortness of breath at rest and shortness of breath with exertion Gastrointestinal Gastrointestinal: Denies abdominal pain Genitourinary Genitourinary: Denies dysuria Musculoskeletal Musculoskeletal: Denies back pain Neurologic Neurologic: Denies abnormal gait Psychiatric Psychiatric: Denies anxiety Vital Signs Vital Signs Vital Signs: 04/17/21 18:15 04/17/21 20:38 04/17/21 22:58 Temperature 95.2 F L Temperature Source Temporal Pulse Rate 120 H 61 96 Respiratory Rate 18 16 19 H Blood Pressure 169/79 H 120/72 Blood Pressure Mean 109 88 Pulse Ox 100 98 96 Oxygen Delivery Method Room Air Room Air Room Air Weight Weight: 180 lb Body Mass Index (BMI) 31.8 Physical Exam Const oriented x3 and no apparent distress General Appearance: cooperative HEENT head/scalp atraumatic Eyes PERRL Neck supple Lymph Lymphatic: no lymphadenopathy noted Resp Auscultation: diminished lung sounds Cardio regular rate, regular rhythm, S1 normal heart sound and S2 normal heart sound GI non-tender Extremity normal capillary refill Skin General Skin Exam: turgor normal Psych affect normal Results Lab / Micro Data Result Diagrams: 04/17/21 19:05 04/17/21 19:05 Labs: Laboratory Results - last 24 hr 04/17/21 18:22: POC Glucose > 500 H* 04/17/21 19:05: WBC 13.0 H, RBC 4.35, Hgb 12.3, Hct 37.5, MCV 86.2, MCH 28.3, MCHC 32.8, RDW Std Deviation 42.0, RDW Coeff of Lazaro 13.3, Plt Count 270, MPV 10.9, Immature Gran % (Auto) 0.500, Neut % (Auto) 92.0 H, Lymph % (Auto) 5.1 L, [place] % (Auto) 2.3, Eos % (Auto) 0.0, Baso % (Auto) 0.1, Absolute Neuts (auto) 12.0 H, Absolute Lymphs (auto) 0.66 L, Nucleated RBC % 0 04/17/21 19:05: Sodium 125 L, Potassium 5.4 H, Chloride 93 L, Carbon Dioxide 21.0, Anion Gap 11, BUN 40 H, Creatinine 1.77 H, Estim Creat Clear Calc 24.12, Est GFR (MDRD) Af Amer 36 L, Est GFR (MDRD) Non-Af 30 L, BUN/Creatinine Ratio 22.6 H, Glucose 820 H*, Calcium 9.0 04/17/21 20:00: Acetone Level NEGATIVE 04/17/21 21:31: Total Bilirubin 0.30, Direct Bilirubin 0.13, AST 11 L, ALT 17, Alkaline Phosphatase 121 H, C-React Prot Ext Range 60.00 H, Total Protein 7.5, Albumin 3.3, Globulin 4.2 04/17/21 21:31: Lactic Acid 3.5 H* 04/17/21 23:24: POC Glucose > 500 H* Radiology Impression Chest X-Ray 04/17/21 22:45 IMPRESSION: Normal x-ray examination of the chest. Electronically Signed: Sky DO Emily at 22:56 EST Tel , Service support , Assessment & Plan Assessment/Plan (1) COVID-19: (2) Hyperglycemia without ketosis: (3) DIPTI (acute kidney injury): (4) Obesity: QUALIFIERS: Obesity type: due to excess calories Obesity classification: adult class 1 (BMI 30 - 34.9) Serious obesity comorbidity presence: with serious comorbidity Body mass index: BMI 31.0-31.9 Qualified Code(s): E66.09 - Other obesity due to excess calories; Z68.31 - Body mass index (BMI) 31.0-31.9, adult (5) ROBEL (obstructive sleep apnea): PLAN: 1. COVID-19 infection?admit patient to progressive care unit for isolation, consult ID, will confirm COVID-19 test here, CBC BMP in the morning, continue dexamethasone, oxygen per routine COVID-19 management protocol. 2. Hyperglycemia secondary to diabetes and steroids?we will place patient on high dose sliding scale insulin along with basal Lantus (patient received a dose in the emergency room) 3. Acute kidney injury?repeat BMP in the morning 4. Obstructive sleep apnea?patient's oxygen is being monitored closely here 5. DVT prophylaxis?low molecular weight heparin Charges/Coding Visit Charges Inpatient E&M: 58515 Init Hosp L3
[2021-04-18] MEDS: 0.9% Normal Saline 1,000 ML 150 ML IV (00:29)
[2021-04-18] MEDS: Insulin Lispro 100 UNIT/ML INSULN.PEN 15 UNIT SC ×2 (00:29→17:38)
[2021-04-18] MEDS: 0.9% Normal Saline 1,000 ML 75 ML IV ×3 (01:35→22:44)
--- NOTE | 2021-04-18 01:37 | PCS.PANDOC ---
PANDEMIC DOCUMENTATION INITIATED: Date: 01/23/2021 Time: 190
[2021-04-18 01:42] LABS: Reflex Lactate? Y
[2021-04-18 02:49] LABS: Absolute Lymphocyte Count 1.02 X10^3/uL (0.83-4.51); Absolute Neutrophil Count 10.9 X10^3/uL (2.0-7.7); Basophil# 0.01 X10^3/uL; Basophil% 0.1 % (0-1); Hematocrit 33.1 % (37-47); Lymphocyte # 1.02 X10^3/ul (0.83-4.51); Lymphocyte % 8.2 % (19-41); Mean Corp Hgb Conc 33.2 g/dL (32-36); Mean Corpuscular Hgb 28.5 pg (27.0-32.0); Mean Corpuscular Volume 85.8 fL (81-99); Mean Platelet Vol. 10.7 fl (6.2-12.0); Monocyte# 0.45 X10^3/uL; Monocyte% 3.6 % (0-10); NRBC Flagged by Analyzer 0 % (0-5); Neutrophil # 10.86 X10^3/uL (2.7-7.7); Neutrophil % 87.5 % (47-70); Platelet Count 258 K/mm3 (150-450); RBC Distribution Width CV 13.2 % (11.6-14.6); RBC Distribution Width SD 41.5 fl (35.1-43.9); Red Blood Count 3.86 M/mm3 (4.2-5.4); White Blood Count 12.4 K/mm3 (4.4-11.0)
[2021-04-18 02:50] LABS: Bedside Glucose > 500 mg/dL (70-110)
[2021-04-18 03:19] LABS: Anion Gap 7 (5-15); BUN 39 mg/dL (7-18); BUN/Creat Ratio 29.1 RATIO (10-20); Calcium,Total 8.7 mg/dL (8.5-10.1); Chloride 103 mmol/L (98-107); Creatinine, Serum 1.34 mg/dL (0.55-1.02); EST Glomerular Filtration Rate 41 mL/min (>60); Est Glom Filt Rate - Afr Amer 50 mL/min (>60); Estimated Creatinine Clearance 31.85 ml/min; Glucose 503 mg/dL (74-106); Lactic Acid 2.6 mmol/L (0.4-1.9); Potassium 4.8 mmol/L (3.5-5.1); Sodium Level 133 mmol/L (136-145)
[2021-04-18] MEDS: 0.9% Saline Lock 10 ML Syringe IV (03:49)
[2021-04-18] MEDS: Insulin Lispro 100 UNIT/ML INSULN.PEN SC ×4 (06:38→22:42)
[2021-04-18 06:45] LABS: Bedside Glucose 434 mg/dL (70-110)
[2021-04-18] MEDS: Insulin NPH Human 100 UNITS/ML PEN 45 UNITS SC (09:53)
[2021-04-18] MEDS: Carvedilol 12.5 MG Tablet PO ×2 (09:57→22:42)
[2021-04-18] MEDS: dexAMETHasone 4 MG Tablet 6 MG PO (09:57)
--- NOTE | 2021-04-18 11:38 | CON.PCM.ID_ITS ---
Assessment & Plan Assessment/Plan (1) COVID-19: PLAN: Sx started 04/15. Dx 04/16. Vaccinated. Not hypoxic. Here with hyperglycemia, will stop dex. Isolate for 10 days from start of symptoms. Would be good candidate for monoclonal Ab infusion if can be discharged and does not develop hypoxia. Will follow, thank you, d/w Dr. Gr and nursing (2) Hyperglycemia without ketosis: HPI Consult Data Date of Consult: 04/18/21 HPI Narrative HPI Narrative: CHELSEA ELLIOTT, is a 70 F who presented with sx starting 3 days ago. C/o fever, chills, headache, aches, nausea, dry cough. Vaccinated for covid. Lives alone. Thinks she got it at work. Dx with covid 04/16 at [facility], given steroids. Now high glucose, admitted here on dex. Has lost sense of taste. Full ROS performed and neg except as noted above. [facility] Medical History COPD (chronic obstructive pulmonary disease) Diabetes High cholesterol HTN (hypertension) Obesity ROBEL (obstructive sleep apnea) Spinal stenosis Home Medications atorvastatin 40 mg PO QHS 04/05/14 [History Last Taken 08/29/18] insulin glargine [Lantus Solostar U-100 Insulin] 15 - 20 units SUBCUT BID 04/05/14 [History Last Taken 08/30/18] albuterol sulfate 90 mcg/actuation aerosol inhaler 2 puff INHALATION Q4H PRN #8.5 g 03/07/20 [Rx Last Taken Unknown] carvedilol 12.5 mg tablet 12.5 mg PO BID 03/07/20 [History Last Taken Unknown] azithromycin 500 mg PO DAILY 04/17/21 [History Last Taken Unknown] benzonatate [Tessalon Perles] 100 mg PO BID PRN 04/17/21 [History Last Taken Unknown] dexamethasone 6 mg PO DAILY 04/17/21 [History Last Taken Unknown] divalproex [Depakote ER] 750 mg PO QHS 04/17/21 [History Last Taken Unknown] glipizide 10 mg PO BID 04/17/21 [History Last Taken Unknown] insulin NPH isoph U-100 human [Humulin N NPH Insulin KwikPen] 45 unit SUBCUT BREAKFAST 04/17/21 [History Last Taken Unknown] insulin NPH isoph U-100 human [Humulin N NPH Insulin KwikPen] 50 unit SUBCUT QHS 04/17/21 [History Last Taken Unknown] risperidone 1 mg PO QHS 04/17/21 [History Last Taken Unknown] venlafaxine [Effexor] 75 mg PO DAILY 04/17/21 [History Last Taken Unknown] Allergy/AdvReac Type Severity Reaction Status Date / Time iodine Allergy Swelling Verified 04/17/21 18:18 Latex, Natural Rubber Allergy Itching Verified 04/17/21 18:18 morphine Allergy Shortness Verified 04/17/21 18:18 of breath Penicillins Allergy Shortness Verified 04/17/21 18:18 of breath Sulfa (Sulfonamide Allergy Hives Verified 04/17/21 18:18 Antibiotics) benztropine mesylate AdvReac Other Verified 04/17/21 18:18 [From Cogentin] codeine AdvReac Other Verified 04/17/21 18:18 haloperidol [From Haldol] AdvReac Other Verified 04/17/21 18:18 haloperidol lactate AdvReac Other Verified 04/17/21 18:18 [From Haldol] lithium [[place]] AdvReac Diarrhea Verified 04/17/21 18:18 pseudoephedrine HCl AdvReac Other Verified 04/17/21 18:18 [From Sudafed] theophylline AdvReac Other Verified 04/17/21 18:18 Family History Other Arthritis CVA (cerebral vascular accident) Diabetes Heart disease Hypertension Thyroid disorder Surgical History History of appendectomy History of back surgery History of carpal tunnel release of both wrists History of cholecystectomy history of left elbow repair history of left shoulder repair History of lumpectomy of left breast History of sinus surgery History of skin graft history of tarsal tunnel surgery History of tubal ligation Hx of colonoscopy Status post trigger finger release Social History Smoking Status: Never smoker alcohol intake: never substance use type: does not use Physical Exam Const alert, oriented x3 and no apparent distress General Appearance: cooperative Exam Limitations: no limitations HEENT normocephalic and head/scalp atraumatic Eyes PERRL and EOMs intact bilaterally Neck supple and No nodes Resp clear to auscultation bilaterally Auscultation: diminished lung sounds Cardio regular rate and regular rhythm GI normal to inspection, nondistended, normoactive bowel sounds Extremity no clubbing, cyanosis or edema Skin no rashes or lesions noted Neuro CN's II-XII intact bilaterally Lab / Micro Data Result Diagrams: 04/18/21 02:40 04/18/21 02:40 Labs: Laboratory Results - last 24 hr 04/17/21 18:22: POC Glucose > 500 H* 04/17/21 19:05: WBC 13.0 H, RBC 4.35, Hgb 12.3, Hct 37.5, MCV 86.2, MCH 28.3, MCHC 32.8, RDW Std Deviation 42.0, RDW Coeff of Lazaro 13.3, Plt Count 270, MPV 10.9, Immature Gran % (Auto) 0.500, Neut % (Auto) 92.0 H, Lymph % (Auto) 5.1 L, [place] % (Auto) 2.3, Eos % (Auto) 0.0, Baso % (Auto) 0.1, Absolute Neuts (auto) 12.0 H, Absolute Lymphs (auto) 0.66 L, Nucleated RBC % 0 04/17/21 19:05: Sodium 125 L, Potassium 5.4 H, Chloride 93 L, Carbon Dioxide 21.0, Anion Gap 11, BUN 40 H, Creatinine 1.77 H, Estim Creat Clear Calc 24.12, Est GFR (MDRD) Af Amer 36 L, Est GFR (MDRD) Non-Af 30 L, BUN/Creatinine Ratio 22.6 H, Glucose 820 H*, Calcium 9.0 04/17/21 20:00: Acetone Level NEGATIVE 04/17/21 21:31: Total Bilirubin 0.30, Direct Bilirubin 0.13, AST 11 L, ALT 17, Alkaline Phosphatase 121 H, C-React Prot Ext Range 60.00 H, Total Protein 7.5, Albumin 3.3, Globulin 4.2 04/17/21 21:31: Lactic Acid 3.5 H* 04/17/21 23:24: POC Glucose > 500 H* 04/18/21 01:57: POC Glucose > 500 H* 04/18/21 02:40: WBC 12.4 H, RBC 3.86 L, Hgb 11.0 L, Hct 33.1 L, MCV 85.8, MCH 28.5, MCHC 33.2, RDW Std Deviation 41.5, RDW Coeff of Lazaro 13.2, Plt Count 258, MPV 10.7, Immature Gran % (Auto) 0.600, Neut % (Auto) 87.5 H, Lymph % (Auto) 8.2 L, [place] % (Auto) 3.6, Eos % (Auto) 0.0, Baso % (Auto) 0.1, Absolute Neuts (auto) 10.9 H, Absolute Lymphs (auto) 1.02, Nucleated RBC % 0 04/18/21 02:40: Sodium 133 L, Potassium 4.8, Chloride 103, Carbon Dioxide 23.0, Anion Gap 7, BUN 39 H, Creatinine 1.34 H, Estim Creat Clear Calc 31.85, Est GFR (MDRD) Af Amer 50 L, Est GFR (MDRD) Non-Af 41 L, BUN/Creatinine Ratio 29.1 H, G lucose 503 H*, Calcium 8.7 04/18/21 02:40: Lactic Acid 2.6 H* 04/18/21 06:34: POC Glucose 434 H Radiology Impression Chest X-Ray 04/17/21 22:45 IMPRESSION: Normal x-ray examination of the chest. Electronically Signed: Sky Diaz DO at 22:56 EST Tel , Service support ,
[2021-04-18 11:50] LABS: Bedside Glucose 394 mg/dL (70-110)
--- NOTE | 2021-04-18 12:45 | CASEMGMT ---
ANTON FRAGA assessment: Initial transition planning/care coordination assessment. ANTON FRAGA introduced self and role at [facility], pt voices understanding and consents to assessment. Pt is on room air in no distress and speaks in full sentences. Pt is A/Ox4 and answers all questions appropriately. Pt states is vaccinated for COVID. Pt states no concerns with getting resources once home. Care providers, pharmacy, and demographics verified. Presentation: COVID + and c/o blood sugar above 600 Admitting dx: COVID, hyperglycemia PCP: Mike Specialists: Joseph, pod; Cardiolology at [place]; Pt states plans to see Dr. Goodman, endocrinology after d/c Preferred Pharmacy: [facility] Insurance: [facility] Prescription Benefit: [facility] Living Will/HPOA: Pt states does not have LW/HPOA and declines AD info. LNOK: Jose Ruiz, son Living Arrangements: Pt lives alone in mobile home but states is working on getting into apartment in the next week or so. Pt states conditions at the mobile home are not great which is why she is moving. Pt is independent with ADL's. Transportation: Pt drives self and states no transportation concerns. DME/HHC: Pt has the following DME: cane, rollator, and 4 prong cane. Pt states no need for any further DME. Pt states no preference for DME company, if needed. Pt states has had [place] [facility] in the past but has not been to SNF. Pt states no concerns with going home at time of discharge. Pt is retired. 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 Pt states no further concerns/needs. CM to follow for any further discharge planning/needs. Advised pt to ask for CM if any further questions/concerns/needs arise, voices understanding. Pt Goal: Home Plan[place]TON FRAG[place]
--- NOTE | 2021-04-18 15:56 | PCM.HOSP.N ---
Hospitalist Note Ms. Andrews was admitted early this morning for hyperglycemia related to her Decadron use. She has diabetes at baseline and per discussion with her had been on Lantus and Humalog but had recently transition secondary to cost. It is not entirely clear what her basal insulins are and if they include Lantus and NPH but we did discuss that that was an appropriate given that they are both basal insulins. She does not take any bolus insulin other than a sliding scale. Her sliding scale currently is Humulin. She is also on glimepiride at baseline. At this time I will restart her twice daily NPH with adjustments made for her hyperglycemia to increase her NPH to 60 units in am and 50 u at hs. I also will add Humalog at this time given the fact that we do not have Humulin on formulary to 15 units 3 times daily along with a sliding scale. With regards to her COVID-19 she remains on room air and fairly asymptomatic.It is unclear whether or not she was ever hypoxic and that is why they started Decadron. Able on room air I am inclined to discontinue her Decadron to improve her blood sugar control and discharge her with adjusted insulin regimen and refer for outpatient monoclonal antibodies. I will reevaluate the patient tomorrow and if she remains stable we can improve her blood sugar control some I will plan on discharging her. 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 She is willing to see Dr. Goodman here in [place].
[2021-04-18] MEDS: Insulin NPH Human 100 UNITS/ML PEN 50 UNITS SC (17:40)
[2021-04-18 18:11] LABS: Bedside Glucose 388 mg/dL (70-110)
[2021-04-18] MEDS: Divalproex (ER) 250 MG Tablet 750 MG PO (22:42)
[2021-04-18] MEDS: Atorvastatin Calcium 40 MG Tablet PO (22:42)
[2021-04-18] MEDS: Venlafaxine HCl 75 MG Tablet PO (22:43)
[2021-04-18] MEDS: RisperiDONE 1 MG Tablet PO (22:44)
[2021-04-18 22:55] LABS: Bedside Glucose 380 mg/dL (70-110)
[2021-04-19] VITALS (8 sets, daily range): BP systolic 115–136; BP diastolic 58–60; PULSE 63–86; RESP 12–20; TEMP 36–36.4; O2SAT 95–98
[2021-04-19 07:16] LABS: Absolute Lymphocyte Count 1.49 X10^3/uL (0.83-4.51); Absolute Neutrophil Count 12.3 X10^3/uL (2.0-7.7); Basophil# 0.02 X10^3/uL; Basophil% 0.1 % (0-1); Hematocrit 32.3 % (37-47); Hemoglobin 10.7 g/dL (12.0-15.0); Lymphocyte # 1.49 X10^3/ul (0.83-4.51); Lymphocyte % 10.2 % (19-41); Mean Corp Hgb Conc 33.1 g/dL (32-36); Mean Corpuscular Hgb 28.7 pg (27.0-32.0); Mean Corpuscular Volume 86.6 fL (81-99); Monocyte# 0.67 X10^3/uL; Monocyte% 4.6 % (0-10); NRBC Flagged by Analyzer 0 % (0-5); Neutrophil # 12.31 X10^3/uL (2.7-7.7); Neutrophil % 83.9 % (47-70); Platelet Count 207 K/mm3 (150-450); RBC Distribution Width CV 13.4 % (11.6-14.6); RBC Distribution Width SD 42.3 fl (35.1-43.9); Red Blood Count 3.73 M/mm3 (4.2-5.4); White Blood Count 14.7 K/mm3 (4.4-11.0)
[2021-04-19 07:53] LABS: Anion Gap 9 (5-15); BUN 29 mg/dL (7-18); BUN/Creat Ratio 26.6 RATIO (10-20); Calcium,Total 8.1 mg/dL (8.5-10.1); Chloride 111 mmol/L (98-107); Creatinine, Serum 1.09 mg/dL (0.55-1.02); EST Glomerular Filtration Rate 53 mL/min (>60); Est Glom Filt Rate - Afr Amer 64 mL/min (>60); Estimated Creatinine Clearance 39.16 ml/min; Glucose 226 mg/dL (74-106); Potassium 4.3 mmol/L (3.5-5.1); Sodium Level 134 mmol/L (136-145)
[2021-04-19 08:23] LABS: Hemoglobin A1c 10.4 % (3.8-5.6)
[2021-04-19] MEDS: Insulin NPH Human 100 UNITS/ML PEN 60 UNITS SC ×2 (08:44→16:57)
[2021-04-19] MEDS: Insulin Lispro 100 UNIT/ML INSULN.PEN SC ×3 (08:44→16:56)
[2021-04-19] MEDS: Enoxaparin 40 MG/0.4 ML Syringe SC (08:50)
[2021-04-19] MEDS: Carvedilol 12.5 MG Tablet PO (08:50)
[2021-04-19 09:06] LABS: Bedside Glucose 215 mg/dL (70-110)
[2021-04-19] MEDS: Insulin Lispro 100 UNIT/ML INSULN.PEN 20 UNIT SC ×2 (11:21→16:56)
[2021-04-19 11:31] LABS: Bedside Glucose 179 mg/dL (70-110)
--- NOTE | 2021-04-19 12:20 | DS.PCM_ITS ---
Providers Date of Admission: 04/18/21 Primary Care Physician: ENDER Smith Consultations 04/18/21 01:35 Consult: Infectious Disease Routine Consulting Provider: Marlon Connors Reason for Consult: covid EMERGENT Consult: No MD Notified: Yes Date Notified: 04/18/21 Time Notified: 06:49 Method of Notification: Text Reason For Visit: COVID 19, HYPERGLYCEMIA Diagnosis Discharge Diagnosis (1) COVID-19: Status: Acute Code(s): U07.1 - COVID-19 (2) Hyperglycemia without ketosis: Status: Acute Code(s): R73.9 - Hyperglycemia, unspecified Medications at Discharge Home Medications atorvastatin 40 mg PO QHS 04/05/14 albuterol sulfate 90 mcg/actuation aerosol inhaler 2 puff INHALATION Q4H PRN #8.5 g 03/07/20 carvedilol 12.5 mg tablet 12.5 mg PO BID 03/07/20 benzonatate 100 mg PO BID PRN 04/17/21 divalproex [Depakote ER] 750 mg PO QHS 04/17/21 risperidone 1 mg PO QHS 04/17/21 venlafaxine 75 mg PO DAILY 04/17/21 cephalexin 500 mg PO Q12H #6 cap 04/19/21 insulin NPH isoph U-100 human [Novolin N Flexpen] 60 unit SUBCUT BID #15 ml 04/19/21 insulin regular human [Novolin R Flexpen] 15 unit SUBCUT TID #15 ml 04/19/21 Hospital Course Operations None Procedures None Summary of Care Provided Minutes Spent on Discharge: 36 Hospital Course: Ms. Andrews is a 70-year-old white female who presented to the emergency department at [facility] on 04-18-2021 with a chief complaint of hyperglycemia. She started having symptoms consistent with Covid including fever, chills, headache, aches, nausea, and dry cough with loss of taste and was tested for COVID-19 on 04-16-2021. She was found to be Covid positive and placed on Decadron despite not being hypoxic and discharged home. She presented with significant hyperglycemia having blood sugars well above 500 and was admitted for improved glucose control. On admission given the fact that she was not hypoxic her Decadron was discontinued and adjustments to her insulin were made for better blood sugar control. Cost has been an issue with her in the past so see states she is using NPH as well as a sliding scale of regular insulin at home to manage her blood sugars. Hemoglobin A1c was obtained and found to be 10.2. Her NPH was increased to 60 units twice daily and mealtime Humulin R was added as a scheduled premeal dose 30 minutes prior to eating at 15 units 3 times daily. Her glimepiride was discontinued. We did recommend she follow-up with Dr. Goodman from endocrinology in the outpatient setting for improved management of her blood sugars since her A1c is uncontrolled. With regards to her Covid infection she remained stable and had no hypoxia throughout her hospitalization. She was vaccinated. She states she has no intent of getting a booster. She is willing to get monoclonal antibodies and a referral for this was made prior to discharge. She complained of some dysuria and a UA was obtained and showed positive for leuk esterase white cells and bacteria. I she was discharged on Keflex and and we obtained a culture prior to discharge. I will review these periodically to assure the organism is sensitive to dischar ge antibiotics. She was instructed to follow-up with her PCP within 2 weeks and given information to follow-up with Dr. Goodman as soon as there is an available slot. Prescriptions were written and sent to the pharmacy for the Keflex as well as her insulin regimen. Discharge diagnoses: COVID-19 infection Acute hyperglycemia DM-2 uncontrolled Hyperlipidemia Hypertension ROBEL Spinal stenosis Depression COPD Physical Exam Const alert, oriented x3 and no apparent distress Constitutional Narrative: Obese white female lying in bed, appears comfortable, nontoxic, nursing at bedside General Appearance: cooperative, comfortable, well kempt and well developed Exam Limitations: no limitations Nutritional Appearance: overweight HEENT normocephalic, head/scalp atraumatic, hearing grossly normal bilaterally and moist oral mucous membranes HEENT Narrative: Dentition is fair, no thrush, Mallampati 3 Eyes PERRL, EOMs intact bilaterally and conjunctivae normal Eyes Narrative: No scleral icterus Neck no lymphadenopathy, supple and no JVD Neck Narrative: Trachea midline, no thyroid enlargement, short thick neck Resp normal respiratory effort, no retractions, no use of accessory muscles and clear to auscultation bilaterally Auscultation: Negative for crackles, rales, rhonchi or wheezes Cardio regular rate, regular rhythm, S1 normal heart sound, S2 normal heart sound, no murmurs, no rub, no gallops, no clicks and no JVD GI normal to inspection, nondistended, normoactive bowel sounds, soft to palpation, non-tender and non-distended; Negative for hepatosplenomegaly Extremity normal to inspection and no clubbing, cyanosis or edema Skin no rashes or lesions noted, no wounds and skin turgor normal Neuro oriented x3, CN's II-XII intact bilaterally, moves all extremities and no focal motor deficits Sensorium / Orientation: awake and alert Speech: speech normal Psych affect normal Psych Narrative: Very pleasant and appropriately interactive Weight / BMI Weight Weight: 83.7 kg Body Mass Index (BMI) 32.6 ABG / Lab / Microbiology Data Result Diagrams: 04/19/21 06:30 04/19/21 06:30 Laboratory: Laboratory Results - last 24 hr 04/18/21 17:38: POC Glucose 388 H 04/18/21 22:41: POC Glucose 380 H 04/19/21 06:30: Hemoglobin A1c 10.4 H 04/19/21 06:30: WBC 14.7 H, RBC 3.73 L, Hgb 10.7 L, Hct 32.3 L, MCV 86.6, MCH 2 8.7, MCHC 33.1, RDW Std Deviation 42.3, RDW Coeff of Lazaro 13.4, Plt Count 207, MPV 11.0, Immature Gran % (Auto) 1.200 H, Neut % (Auto) 83.9 H, Lymph % (Auto) 10.2 L, Loving % (Auto) 4.6, Eos % (Auto) 0.0, Baso % (Auto) 0.1, Absolute Neuts (auto) 12.3 H, Absolute Lymphs (auto) 1.49, Nucleated RBC % 0 04/19/21 06:30: Sodium 134 L, Potassium 4.3, Chloride 111 H, Carbon Dioxide 14.0 L, Anion Gap 9, BUN 29 H, Creatinine 1.09 H, Estim Creat Clear Calc 39.16, Est GFR (MDRD) Af Amer 64, Est GFR (MDRD) Non-Af 53 L, BUN/Creatinine Ratio 26.6 H, Glucose 226 H, Calcium 8.1 L 04/19/21 08:39: POC Glucose 215 H 04/19/21 11:16: POC Glucose 179 H D/C Instructions Discharge Diet: Low fat / Low cholesterol and 1800 Calorie Control Diet Discharge Activity: Return to Normal Activity Return to work on: 04/26/21 Meaningful Use Info Meaningful Use Diagnoses (Choose all that apply): None applicable Discharge Plan Admission Admit Date/Time: 04/18/21 00:24 Primary Reason for Your Visit: Hyperglycemia/uncontrolled blood sugars Attending Provider: Maritza Gr Primary Care Provider: Nely Mckeon NP Consulting Providers: Marlon Connors ; Edna Bradshaw [facility] Instructions Additional Instructions / Restrictions: 1. No further need for Decadron-please discontinue 2. Please check blood sugars regularly and remember to decrease NPH dose by 50% if you are ill and unable to eat 3. Recommend quarantine for total of 10 days from symptom onset which would be 04-25-2021 4. Referral made for monoclonal antibody infusion as an outpatient 5. Recommend a basic metabolic profile be obtained by her primary care physician in 1 week Discharge Orders/Prescriptions Prescriptions: New cephalexin 500 mg capsule 500 mg PO Q12H Qty: 6 RF: 0 Novolin R Flexpen 100 unit/mL (3 mL) insulin pen 15 unit subcut TID Qty: 15 RF: 0 Novolin N Flexpen 100 unit/mL (3 mL) insulin pen 60 unit subcut BID Qty: 15 RF: 0 Continued carvedilol 12.5 mg tablet 12.5 mg PO BID RF: 0 albuterol sulfate 90 mcg/actuation HFA aerosol inhaler 2 puff inhalation Q4H PRN (Reason: shortness of breath or wheezing) Qty: 8.5 RF: 3 atorvastatin 40 MG tablet 40 mg PO QHS RF: 0 venlafaxine 75 mg Tablet 75 mg PO DAILY RF: 0 benzonatate 100 mg Capsule 100 mg PO BID PRN (Reason: Cough) RF: 0 risperidone 1 mg tablet 1 mg PO QHS RF: 0 divalproex [Depakote ER] 250 mg Tablet Extended Release 24 Hr 750 mg PO QHS RF: 0 Discontinued Lantus Solostar U-100 Insulin 100 UNITS/ML insulin pen 15 - 20 units subcut BID RF: 0 dexamethasone 6 mg tablet 6 mg PO DAILY RF: 0 azithromycin 500 mg tablet 500 mg PO DAILY RF: 0 glipizide 10 mg tablet 10 mg PO BID RF: 0 Humulin N NPH Insulin KwikPen 100 unit/mL (3 mL) insulin pen 50 unit SUBCUT QHS RF: 0 Humulin N NPH Insulin KwikPen 100 unit/mL (3 mL) insulin pen 45 unit SUBCUT BREAKFAST RF: 0 Other Ambulatory Orders: COVID Outpatient Monoclonal Antibody Referral (Routine) Timeframe: 1 Day Facility: [facility] - Location: [facility] Ordered By: Dr. Maritza Gr Referrals / Follow Up: Santana Goodman MD [STAFF PHYSICIAN] - Within 3 Months (Call for appointment for follow-up with regards to diabetes) Nely Mckeon NP, [facility] [Primary Care Provider] - Within 2 Weeks Disposition Disposition (needs filled in before D/C Order can be placed): Home, Self Care Charges/Coding Visit Charges Inpatient E&M: 05509 Disch Hosp
[2021-04-19 12:54] LABS: Mucous, Urine 0 SEEN /hpf (<or=2+)
[2021-04-19 12:58] LABS: Color, Urine Yellow (Yellow); Glucose, Dipstick 1000 mg/dl (Normal); Ketone-Dipstick 5 mg/dl (Negative); Leukocyte Esterase-Dipstick 500 /ul (Negative); Nitrite-Dipstick Negative (Negative); Occult Blood-Urine 250 /ul (Negative); Protein-Dipstick 30 mg/dl (Negative); Specific Gravity, Urine 1.015 (1.002-1.030); Urine Bilirubin Dipstick Negative (Negative); Urine Clarity Sl. Cloudy (Clear); Urine Urobilinogen Normal (Normal); Urine pH 6.5 (5.0 - 8.0)
[2021-04-19 13:07] LABS: Bacteria 1+ /hpf (None Seen); Red Blood Cells-Urine 25-50 SEEN /hpf (0-5); Squamous Epithelial Cells - UA 0-5 SEEN /hpf (5-10); White Blood Cells 25-50 SEEN /hpf (0-5)
--- NOTE | 2021-04-19 14:29 | CASEMGMT ---
Per Rupali WALTON, pt does not qualify for home oxygen. Pt states no further concerns/needs with going home at discharge. Sandeep WALTON CM
[2021-04-19] MEDS: LORazepam 2 MG/ML Syringe 0.5 MG IV (15:08)
[2021-04-19 16:06] LABS: Blood Gas Specimen Type VEN; O2 Delivery Device Room Air; SITE R Brach; VBG BASE EXCESS -3 mmol/L (-1.0-3.5); VBG Bicarbonate 20 mmol/L (22-26); VBG PO2 87 mmHg (25-40); VBG SO2 97 % (50-70); VBG TCO2 21 mmol/L (23-33); VBG pCO2 27.6 mmHg (41-51); VBG pH 7.47 (7.32-7.42)
[2021-04-19 17:06] LABS: Bedside Glucose 173 mg/dL (70-110)
--- NOTE | 2021-04-20 14:58 | CASEMGMT ---
[facility] COVID Discharge F/U Phone Call LACE: 9 Strata: 3 Discharge date: 04/19/21 Call date: 04/20/21 Call time: [phone] Admission dx: COVID 19, hyperglycemia Pt states has been doing good since home, just 'tired, tired, tired.' Pt states no questions regarding d/c instructions/medications. Pt states has f/u appt in 3wks with PCP. Pt states is working on getting into new apt. Pt states no suggestions for [facility] and voices no further questions/concerns/needs. [place]en [place] FRAGA
== END 2021-04-19 17:23 | disposition home or self-care (01) | DRG 637 ==
LOC: ED 04-18 00:06 → PCU 04-18 00:30
PROVIDERS: Admitting Provider Family Medicine; Emergency Provider Emergency Medicine; PCP Nurse Practitioner Family; Visit Provider Internal Medicine
DX: E11.65 Type 2 diabetes mellitus with hyperglycemia (principal); N17.9 Acute kidney failure, unspecified; J44.9 Chronic obstructive pulmonary disease, unspecified; Z79.4 Long term (current) use of insulin; U07.1 COVID-19; T38.0X5A Adverse effect of glucocorticoids and synthetic analogues, initial encounter; I10 Essential (primary) hypertension; G47.33 Obstructive sleep apnea (adult) (pediatric); E78.5 Hyperlipidemia, unspecified; F32.A Depression, unspecified; R30.0 Dysuria; M48.00 Spinal stenosis, site unspecified; E66.09 Other obesity due to excess calories; Z68.31 Body mass index [BMI] 31.0-31.9, adult; Z23 Encounter for immunization; Z79.899 Other long term (current) drug therapy
CPT/HCPCS: 36415; 71045; 80048; 80076; 81001; 82009; 82803; 82962; 83036; 83605; 85025; 86140; 87040; 87077; 87086; 87088; 87186; 93005; 96361; 96372; 96374; 99218; 99284; G0008; J7030; 90686; A4216; G0378

== ENCOUNTER 2021-04-20 14:59 | Outpatient (CLI) | payer MEDICARE, SELFPAY ==
[2021-04-20 15:20] VITALS: BP 143/52; PULSE 93; RESP 18; TEMP 36.7; O2SAT 96; BMI 32.5
[2021-04-20] MEDS: 0.9% Saline Lock 10 ML Syringe IV (15:42)
[2021-04-20 16:15] VITALS: BP 131/60; PULSE 73; RESP 16; TEMP 36.8; O2SAT 97
[2021-04-20 17:15] VITALS: BP 141/71; PULSE 66; RESP 16; TEMP 36.7; O2SAT 99
== END 2021-04-20 17:15 | disposition home or self-care (01) ==
LOC: MS3OUT 15:00 → MS3 15:00
PROVIDERS: PCP Nurse Practitioner Family; Referring Provider Nurse Practitioner Adult Health; Visit Provider Nurse Practitioner Adult Health
DX: U07.1 COVID-19 (principal)
CPT/HCPCS: J7050; M0245; Q0245; A4216

== ENCOUNTER 2021-09-11 11:51 | Outpatient (CLI) | payer MEDICARE, SELFPAY | END 2021-09-11 23:59 | disposition home or self-care (01) | LOC: SL 11:52 | PROVIDERS: PCP Nurse Practitioner Family; Visit Provider Nurse Practitioner Acute Care | DX: R69 Illness, unspecified (principal) ==

== ENCOUNTER → 2021-10-04 | Outpatient (CLI) | payer MEDICARE, SELFPAY ==
[2021-10-04 15:49] LABS: Vitamin D,25 Hydroxy 53.5 ng/mL
[2021-10-04 16:08] LABS: ALB/GLOB Ratio 0.8 RATIO (0.9-2.4); AST(SGOT) 11 U/L (15-37); Alanine Aminotransfer ALT/SGPT 15 U/L (13-56); Albumin, Serum 2.9 g/dL (3.2-5.0); Alkaline Phosphatase 83 U/L (45-117); Anion Gap 9 (5-15); BUN 17 mg/dL (7-18); BUN/Creat Ratio 18.6 RATIO (10-20); Calcium,Total 8.6 mg/dL (8.5-10.1); Chloride 104 mmol/L (98-107); Cholesterol 167 mg/dL (200); Creatinine, Serum 0.91 mg/dL (0.55-1.02); EST Glomerular Filtration Rate 64 mL/min (>60); Est Glom Filt Rate - Afr Amer 78 mL/min (>60); Globulin 3.7 g/dL (2.2-4.2); Glucose 263 mg/dL (74-106); High Density Lipoprotein 45 mg/dL; Potassium 3.9 mmol/L (3.5-5.1); Protein, Total 6.6 g/dL (6.4-8.2); Sodium Level 138 mmol/L (136-145); Thyroid Stim Hormone (TSH) 0.81 uIU/mL (0.358-3.74); Triglycerides 281 mg/dL; Very Low Density Lipoprotein 56 mg/dL (5-40)
== END | disposition home or self-care (01) ==
LOC: BIMLAB 14:20
PROVIDERS: PCP Nurse Practitioner Family; Visit Provider Nurse Practitioner Family
DX: E11.9 Type 2 diabetes mellitus without complications (principal); E55.9 Vitamin D deficiency, unspecified
CPT/HCPCS: 36415; 80053; 80061; 82306; 84443

== ENCOUNTER → 2021-12-07 | Outpatient (CLI) | payer MEDICARE, SELFPAY ==
[2021-12-07 11:00] VITALS: PULSE 83; PULSE 88; PULSE 90; PULSE 95; PULSE 96; PULSE 97; O2SAT 91; O2SAT 92; O2SAT 94; O2SAT 96; O2SAT 97
--- NOTE | 2021-12-08 06:58 | PCM.PSN.6M ---
PSN 6 Minute Walk Test 6 Minute Walk Test 6 Minute Walk Test: 6 Minute Walk Test PSN:6-Minute Walk Test Start: 12/07/21 11:20 Freq: Status: Active Protocol: [id number] Document 12/07/21 11:00 EW (Rec: 12/07/21 11:23 EW [id number]) 6 Minute Walk Test Date Performed 12/07/21 Time Performed 11:00 Height 5 ft 3 in Weight: 194 lb Weight in Pounds 194.[address]: Andre Siegel Assistive device used: None Pre-test Oxygen Delivery Method Room Air Pulse Ox (%) 97 Pulse Rate (60-100 beats/min) 83 Dyspnea Chelsea Scale (0-10) 1 Exertion Chelsea Scale (6-20) 8 1st minute Oxygen Delivery Method Room Air Pulse Ox (%) 92 Pulse Rate (60-100 beats/min) 88 2nd minute Oxygen Delivery Method Room Air Pulse Ox (%) 96 Pulse Rate (60-100 beats/min) 95 3rd minute Oxygen Delivery Method Room Air Pulse Ox (%) 94 Pulse Rate (60-100 beats/min) 96 Number of Rests Taken 1 Reported Symptoms Increased Work of Breathing 4th minute Oxygen Delivery Method Room Air Pulse Ox (%) 94 Pulse Rate (60-100 beats/min) 95 5th minute Oxygen Delivery Method Room Air Pulse Ox (%) 91 Pulse Rate (60-100 beats/min) 95 6th minute Oxygen Delivery Method Room Air Pulse Ox (%) 91 Pulse Rate (60-100 beats/min) 97 Post-test Oxygen Delivery Method Room Air Pulse Ox (%) 92 Pulse Rate (60-100 beats/min) 90 Dyspnea Chelsea Scale (0-10) 3 Exertion Chelsea Scale (6-20) 13 Full Laps Walked 15 Partial Lap, Number of Tiles Walked 0 Total Distance Walked (ft) 885 Interpretation Interpretation: The patient ambulated 885 feet over the course of 6 minutes beginning on room air without assistive devices. Pretesting oxygen saturation was noted to be 97% on room air. With ambulation, the gomez oxygen saturation was 91%. This represents a significant exertional oxygen desaturation. Recommendations Recommendations: There is no indication for the use of supplemental oxygen at this time. However, close interval follow-up is recommended, given the degree of oxygen desaturation noted during this study.
== END | disposition home or self-care (01) ==
LOC: PSN 10:53
PROVIDERS: PCP Nurse Practitioner Family; Visit Provider Internal Medicine Critical Care Medicine
DX: R06.02 Shortness of breath (principal)
CPT/HCPCS: 94618

== ENCOUNTER → 2021-12-13 | Outpatient (CLI) | payer MEDICARE, SELFPAY ==
[2021-12-13] MEDS: Methacholine Chloride 18 ml neb kit INHALATION (07:06)
--- NOTE | 2021-12-13 07:48 | CPS ---
Patient was scheduled for a Bronchoprovocation but met contraindications with an FEV1 of less than 1.2 L, 46% of patient's predicted value. Discussed with ordering physician, Dr. Andre Siegel, who confirmed that testing should be changed to a Complete Pulmonary Function study. Only the saline dose was given, Methacholine medication returned to Pharmacy.
--- NOTE | 2021-12-13 13:59 | PFTCOMP ---
COMPLETE PULMONARY FUNCTION TEST INTERPRETATION Brief HPI: Patient is a 71-year-old female, currently under the care of Dr. Siegel, who presents to [facility] for complete pulmonary function tests secondary to diagnosis of dyspnea. Respiratory therapist reports good effort and reproducible results. Interpretation: Forced expiration spirometry shows no large airways obstructive ventilatory defect with an FEV1 of 56% predicted. There is no significant bronchodilator response by strict ATS criteria. Spirograms are of good quality and plateau normally. The respiratory flow volume loop shows a normal pattern. Lung volumes by body plethysmography show a moderately decreased total lung capacity at 3.08 L, 67% predicted. All other lung volumes are reduced symmetrically. Diffusion capacity by carbon monoxide is severely decreased at 29% predicted. The airway resistance is slightly elevated. Compared to previous pulmonary function tests from 08/12/2018, there has been a significant reduction in all measured values. Impression: Moderate restrictive ventilatory defect with a disproportionate reduction in diffusion capacity and significant reduction compared to 2019.
== END | disposition home or self-care (01) ==
LOC: PSN 06:37
PROVIDERS: PCP Nurse Practitioner Family; Referring Provider Internal Medicine Critical Care Medicine; Visit Provider Internal Medicine Critical Care Medicine
DX: R06.02 Shortness of breath (principal)
CPT/HCPCS: 94060; 94726; 94729

== ENCOUNTER 2022-02-02 16:06 | Emergency (ER) | payer MEDICARE, SELFPAY ==
[2022-02-02 16:07] VITALS: BP 110/55; PULSE 102; RESP 28; TEMP 35.9; O2SAT 99; BMI 34.5
[2022-02-02 16:19] VITALS: O2SAT 96
--- NOTE | 2022-02-02 16:31 | EKG12_ITS ---
Test Reason : SOB Blood Pressure : / mmHG Vent. Rate : 096 BPM Atrial Rate : 096 BPM P-R Int : 162 ms QRS Dur : 110 ms QT Int : 374 ms P-R-T Axes : 051 -43 104 degrees QTc Int : 472 ms Normal sinus rhythm Left axis deviation Left ventricular hypertrophy with repolarization abnormality ( R in aVL , [place] product ) Abnormal ECG Confirmed by BERNARDO OROZCO, DARRYL ([id number]), technical writer and editor CHRISTINA MICHELLE ([id number]) on 02/05/2022 9:41:21 AM Referred By: Confirmed By:BERNABE CHANG MD
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
[2022-02-02] MEDS: Ipratropium/Albuterol Sulfate 3 ML AMPUL.NEB INHALATION (16:41)
--- NOTE | 2022-02-02 16:47 | RAD_ITS ---
STUDY: X-RAY CHEST REASON FOR EXAM: Female, 71 years old. Shortness of breath TECHNIQUE: 2 views COMPARISON: 04/17/2021 FINDINGS: Cardiomediastinal silhouette is unremarkable. Costophrenic angles are sharp. Lungs are clear. The trachea is midline. There is no pneumothorax. Multilevel thoracic spondylosis noted. RAD/Chest PA and Lateral IMPRESSION: No acute cardiopulmonary process. Electronically Signed: Scott Canchola MD at 17:20 EDT ,
[2022-02-02] MEDS: Albuterol 2.5 MG/3 ML VIAL.NEB. INHALATION ×3 (17:10)
[2022-02-02 17:11] VITALS: PULSE 93; RESP 20
[2022-02-02 17:30] LABS: Absolute Lymphocyte Count 3.22 X10^3/uL (0.83-4.51); Absolute Neutrophil Count 9.1 X10^3/uL (2.0-7.7); Basophil# 0.08 X10^3/uL; Basophil% 0.6 % (0-1); Eosinophil# 0.32 X10^3/uL; Eosinophils% 2.4 % (0-5); Hematocrit 38.6 % (37-47); Hemoglobin 12.6 g/dL (12.0-15.0); Lymphocyte # 3.22 X10^3/ul (0.83-4.51); Lymphocyte % 23.7 % (19-41); Mean Corp Hgb Conc 32.6 g/dL (32-36); Mean Corpuscular Hgb 29.3 pg (27.0-32.0); Mean Corpuscular Volume 89.8 fL (81-99); Mean Platelet Vol. 10.6 fl (6.2-12.0); Monocyte# 0.71 X10^3/uL; Monocyte% 5.2 % (0-10); NRBC Flagged by Analyzer 0 % (0-5); Neutrophil # 9.14 X10^3/uL (2.7-7.7); Neutrophil % 67.2 % (47-70); Platelet Count 280 K/mm3 (150-450); RBC Distribution Width CV 14.8 % (11.6-14.6); RBC Distribution Width SD 48.3 fl (35.1-43.9); White Blood Count 13.6 K/mm3 (4.4-11.0)
[2022-02-02 17:46] LABS: Anion Gap 9 (5-15); BUN 22 mg/dL (7-18); BUN/Creat Ratio 19.3 RATIO (10-20); Calcium,Total 9.4 mg/dL (8.5-10.1); Chloride 106 mmol/L (98-107); Creatinine, Serum 1.14 mg/dL (0.55-1.02); EST Glomerular Filtration Rate 50 mL/min (>60); Est Glom Filt Rate - Afr Amer 60 mL/min (>60); Glucose 238 mg/dL (74-106); Potassium 3.5 mmol/L (3.5-5.1); Sodium Level 139 mmol/L (136-145); Troponin-I HS 15 pg/mL (3.0-54.0)
[2022-02-02 18:23] LABS: D-Dimer Quantitative (DVT/PE) 0.28 FEU/ug/m (0.27-0.49)
[2022-02-02 19:11] VITALS: BP 130/58; PULSE 99; RESP 16; O2SAT 96
[2022-02-02 21:24] LABS: Reflex Lactate? Y
== END 2022-02-02 19:49 | disposition home or self-care (01) ==
PROVIDERS: Emergency Provider Emergency Medicine; PCP Nurse Practitioner Family; Visit Provider Emergency Medicine
DX: E10.65 Type 1 diabetes mellitus with hyperglycemia (principal); J44.9 Chronic obstructive pulmonary disease, unspecified; Z79.4 Long term (current) use of insulin; I12.9 Hypertensive chronic kidney disease with stage 1 through stage 4 chronic kidney disease, or unspecified chronic kidney disease; N18.9 Chronic kidney disease, unspecified; E78.00 Pure hypercholesterolemia, unspecified; E66.9 Obesity, unspecified; Z68.34 Body mass index [BMI] 34.0-34.9, adult; Z79.84 Long term (current) use of oral hypoglycemic drugs; Z79.899 Other long term (current) drug therapy; Z86.16 Personal history of COVID-19
CPT/HCPCS: 71046; 80048; 83605; 84484; 85025; 85379; 93005; 94640; 99282; A4216